=== PATIENT | female | born 1960 | race Caucasian/White ===

== ENCOUNTER 2023-07-16 18:18 | Emergency (ER) | payer OTHER, SELFPAY ==
[2023-07-16 18:22] VITALS: BP 147/94; PULSE 102; RESP 18; TEMP 37; O2SAT 98; BMI 23.1
--- NOTE | 2023-07-16 18:37 | CT_ITS ---
The [address] [address] Patient Name: JA MATOS MRN: [id number] date: 1960 Sex: F Assigned Patient Location: ER Current Patient Location: ER Accession/Order Number: [id number] Exam Date: 07/16/2023 20:15 Report Date: 07/16/2023 21:01 At the request of: ISAAC WEAVER Procedure: CT abdomen pelvis w con EXAM: CT scan of the abdomen and pelvis using 100 mL of IV iodinated contrast. Dose reduction technique used: Automated exposure control and/or adjustment of the mA and/or kV according to patient size and/or use of iterative reconstruction technique. REASON FOR EXAM: Left lower quadrant pain COMPARISON: CT scan dated 12/30/2020 FINDINGS: Prominent fat stranding surrounding the sigmoid colon. Prominent sigmoid colonic wall thickening. No pericolonic fluid collection or abscess. Colonic diverticulosis. Small amount of ascites. Duodenal diverticulum. Small bilateral renal cysts. Nonobstructing right calyceal tip renal stone. Hyperenhancing small right hepatic dome lesion likely represents a flash filling hemangioma. Small additional hepatic hemangiomas. Hysterectomy. Normal appendix. No free intraperitoneal air. No dilated loops of small bowel or colon. No hydronephrosis or obstructing renal or ureteral calculi. Liver, pancreas, spleen, bilateral kidneys, and bilateral adrenal glands are otherwise unremarkable. No lymphadenopathy in the abdomen or pelvis. Remainder unremarkable. CT/CT abdomen pelvis w con IMPRESSION: Acute sigmoid diverticulitis. Given the prominent associated wall thickening, recommend follow-up colonoscopy after treatment if none performed recently to exclude underlying malignancy. Electronically authenticated by: MADONNA CLARK Date: 07/16/2023 21:01
[2023-07-16 18:38] VITALS: RESP 16
--- NOTE | 2023-07-16 18:39 | ED_ITS ---
Documented by User: JAQUAN Hernández 07/16/23 21:12 HPI - Abdominal Pain General Chief Complaint: Abdominal Pain Stated Complaint: Abdominal Pain Time Seen by Provider: 07/16/23 18:37 Source: patient Mode of arrival: walk-in Limitations: no limitations History of Present Illness HPI narrative: 63-year-old female past medical history diverticulitis presents for left lower quadrant pain that got worse last night, but has had a little pain for the past week. Denies radiation of pain. She has been taking Tylenol but has improved pain. Last bowel movement yesterday. She does feel nauseous. Denies fever, back pain, dysuria, v/d Related Data Previous Rx's Medication Instructions Recorded amoxicillin 875 mg-potassium 1 tab PO Q12H 10 days #20 tabs 07/16/23 clavulanate 125 mg tablet ondansetron 4 mg disintegrating 4 mg PO Q8H 3 days #9 tabs 07/16/23 tablet Allergies Allergy/AdvReac Type Severity Reaction Status Date / Time sulfamethoxazole Allergy Severe Anaphylaxis Verified 07/16/23 18:31 [From Bactrim] trimethoprim [From Bactrim] Allergy Severe Anaphylaxis Verified 07/16/23 18:31 Review of Systems ROS Status of ROS 10 or more systems reviewed and unremarkable except as noted in history and below Exam Narrative Exam Narrative: General: A&Ox3, no distress, talking in full an complete sentences skin: warm, dry, intact head: normocephalic, atraumatic eyes: EOMI nose: nares patent neck: supple, trachea midline respiratory: non-labored extremities: FROM x 4, strength +5/5 abd: soft, LLQ tenderness neuro: A&Ox3 psych: appropriate mood and affect, cooperative Constitutional Vital Signs, click to edit/add: Last Vital Signs Temp 98.6 F 07/16/23 18:22 Pulse 82 07/16/23 20:56 Resp 16 07/16/23 20:56 BP 115/62 07/16/23 20:56 Pulse Ox 97 07/16/23 20:56 O2 Del Method Room Air 07/16/23 20:56 Course Vital Signs Vital signs: Vital Signs Temperature 98.6 F 07/16/23 18:22 Pulse Rate 102 H 07/16/23 18:22 Respiratory Rate 18 07/16/23 18:22 Blood Pressure 147/94 H 07/16/23 18:22 Pulse Oximetry 98 07/16/23 18:22 Oxygen Delivery Method Room Air 07/16/23 18:22 Temperature 98.6 F 07/16/23 18:22 Pulse Rate 82 07/16/23 20:56 Respiratory Rate 16 07/16/23 20:56 Blood Pressure 115/62 07/16/23 20:56 Pulse Oximetry 97 07/16/23 20:56 Oxygen Delivery Method Room Air 07/16/23 20:56 MDM - Abdominal Pain MDM Narrative Medical decision making narrative: Patient medicated with Toradol and Zofran. WBC 14.7. Potassium 2.9 and will be given 40 orally and 10 IV. No other significant abnormalities. Final read of CT abdomen pelvis with contrast shows acute sigmoid diverticulitis without complications. There is wall thickening and the radiologist suggest a follow-up colonoscopy after resolution of symptoms to rule out malignancy. She is given her first dose of Augmentin here and provided prescription for Augmentin and Zofran. She is to follow-up with family doctor and GI. Dr. Byers is writing a prescription for [place]. Afebrile, not tachypneic, not tachycardic, tolerating p.o., not hypoxic, non toxic appearing and ambulating at baseline and hemodynamically stable to be d/c. answered all questions. educated on SE of meds. pt in agreement with tx. educated when to return to ER. Lab Data Labs: Lab Results 07/16/23 Range/Units 18:40 WBC 14.7 H (4.0-11.0) 10^3/uL RBC 4.84 (4.20-5.40) 10^6/uL Hgb 14.8 (12.0-16.0) g/dL Hct 42.1 (36.0-48.0) % MCV 87.0 (81.0-99.0) fL MCH 30.6 (26.7-34.0) pg MCHC 35.2 (29.9-35.2) g/dL RDW 11.6 (11.0-15.0) % Plt Count 327 (150-450) 10^3/uL MPV 9.8 (9.5-13.5) fL Neut % (Auto) 79.7 H (43.0-75.0) % Lymph % (Auto) 12.2 L (20.5-60.0) % [place] % (Auto) 6.8 (1.7-12.0) % Eos % (Auto) 0.5 L (0.9-7.0) % Baso % (Auto) 0.3 (0.2-2.0) % Neut # (Auto) 11.7 H (1.4-6.5) 10^3/uL Lymph # (Auto) 1.8 (1.2-3.8) 10^3/uL [place] # (Auto) 1.0 H (0.3-0.8) 10^3/uL Eos # (Auto) 0.1 (0.0-0.7) 10^3/uL Baso # (Auto) 0.0 (0.0-0.1) 10^3/uL Abs Immat Gran (auto) 0.08 H (0.00-0.03) 10^3/uL Imm/Tot Granulo (auto) 0.5 (0.0-0.5) % Sodium 133 L (136-145) mmol/L Potassium 2.9 L* (3.5-5.1) mmol/L Chloride 96 L (98-107) mmol/L Carbon Dioxide 27.8 (21.0-32.0) mmol/L Anion Gap 12.1 BUN 19.0 H (7.0-18.0) mg/dL Creatinine 0.85 (0.55-1.02) mg/dL Est GFR ( Amer) >60 (>=60) Est GFR (Non-Af Amer) >60 (>=60) BUN/Creatinine Ratio 22.4 Glucose 132 H (74-106) mg/dL Calcium 9.4 (8.5-10.1) mg/dL Magnesium 1.9 (1.8-2.4) mg/dL Total Bilirubin 1.1 H (0.2-1.0) mg/dL AST 7 L (15-37) U/L ALT 23 (14-59) U/L Alkaline Phosphatase 82 (46-116) U/L Total Protein 7.9 (6.4-8.2) g/dL Albumin 3.2 L (3.4-5.0) g/dL Globulin 4.7 g/dL Albumin/Globulin Ratio 0.7 Discharge Plan Discharge Chief Complaint: Abdominal Pain Clinical Impression: Diverticulitis, Hypokalemia Patient Disposition: Home, Self-Care Time of Disposition Decision: 21:08 Condition: Good Mode of Transportation: Private Vehicle Prescriptions / Home Meds: New amoxicillin-pot clavulanate 875-125 mg tablet 1 tab PO Q12H 10 Days Qty: 20 0RF ondansetron 4 mg tablet,disintegrating 4 mg PO Q8H 3 Days Qty: 9 0RF Instructions: Diverticulitis (ED), Diverticulitis Diet (ED) Additional Instructions: recommend follow up colonoscopy for the wall thickening seen on CT as suggested by the radiologist Stand Alone Forms: Portal Instructions Referrals: Maribel ALLEN [Physician] - 1 week SANJUANITA KEITA [Primary Care Provider] - 1 week Discharge Date/Time: 07/16/23 21:34 Documented by User: Dyllan Youssef MD 07/17/23 19:25 HPI - Abdominal Pain General Chief Complaint: Abdominal Pain Stated Complaint: Abdominal Pain Time Seen by Provider: 07/16/23 18:37 Related Data Previous Rx's Medication Instructions Recorded amoxicillin 875 mg-potassium 1 tab PO Q12H 10 days #20 tabs 07/16/23 clavulanate 125 mg tablet ondansetron 4 mg disintegrating 4 mg PO Q8H 3 days #9 tabs 07/16/23 tablet Allergies Allergy/AdvReac Type Severity Reaction Status Date / Time sulfamethoxazole Allergy Severe Anaphylaxis Verified 07/16/23 18:31 [From Bactrim] trimethoprim [From Bactrim] Allergy Severe Anaphylaxis Verified 07/16/23 18:31 Exam Constitutional Vital Signs, click to edit/add: Last Vital Signs Temp 98.6 F 07/16/23 18:22 Pulse 82 07/16/23 20:56 Resp 16 07/16/23 20:56 BP 115/62 07/16/23 20:56 Pulse Ox 97 07/16/23 20:56 O2 Del Method Room Air 07/16/23 20:56 Course Vital Signs Vital signs: Vital Signs Temperature 98.6 F 07/16/23 18:22 Pulse Rate 102 H 07/16/23 18:22 Respiratory Rate 18 07/16/23 18:22 Blood Pressure 147/94 H 07/16/23 18:22 Pulse Oximetry 98 07/16/23 18:22 Oxygen Delivery Method Room Air 07/16/23 18:22 Temperature 98.6 F 07/16/23 18:22 Pulse Rate 82 07/16/23 20:56 Respiratory Rate 16 07/16/23 20:56 Blood Pressure 115/62 07/16/23 20:56 Pulse Oximetry 97 07/16/23 20:56 Oxygen Delivery Method Room Air 07/16/23 20:56 MDM - Abdominal Pain MDM Narrative Medical decision making narrative: Patient medicated with Toradol and Zofran. WBC 14.7. Potassium 2.9 and will be given 40 orally and 10 IV. No other significant abnormalities. Final read of CT abdomen pelvis with contrast shows acute sigmoid diverticulitis without complications. There is wall thickening and the radiologist suggest a follow-up colonoscopy after resolution of symptoms to rule out malignancy. She is given her first dose of Augmentin here and provided prescription for Augmentin and Zofran. She is to follow-up with family doctor and GI. Dr. Byers is writing a prescription for [place]. Afebrile, not tachypneic, not tachycardic, tolerating p.o., not hypoxic, non toxic appearing and ambulating at baseline and hemodynamically stable to be d/c. answered all questions. educated on SE of meds. pt in agreement with tx. educated when to return to ER. Patient was seen and evaluated by Josefina Reynoso RN and Dr Byers, not Dr Youssef. Lab Data Labs: Lab Results 07/16/23 Range/Units 18:40 WBC 14.7 H (4.0-11.0) 10^3/uL RBC 4.84 (4.20-5.40) 10^6/uL Hgb 14.8 (12.0-16.0) g/dL Hct 42.1 (36.0-48.0) % MCV 87.0 (81.0-99.0) fL MCH 30.6 (26.7-34.0) pg MCHC 35.2 (29.9-35.2) g/dL RDW 11.6 (11.0-15.0) % Plt Count 327 (150-450) 10^3/uL MPV 9.8 (9.5-13.5) fL Neut % (Auto) 79.7 H (43.0-75.0) % Lymph % (Auto) 12.2 L (20.5-60.0) % [place] % (Auto) 6.8 (1.7-12.0) % Eos % (Auto) 0.5 L (0.9-7.0) % Baso % (Auto) 0.3 (0.2-2.0) % Neut # (Auto) 11.7 H (1.4-6.5) 10^3/uL Lymph # (Auto) 1.8 (1.2-3.8) 10^3/uL [place] # (Auto) 1.0 H (0.3-0.8) 10^3/uL Eos # (Auto) 0.1 (0.0-0.7) 10^3/uL Baso # (Auto) 0.0 (0.0-0.1) 10^3/uL Abs Immat Gran (auto) 0.08 H (0.00-0.03) 10^3/uL Imm/Tot Granulo (auto) 0.5 (0.0-0.5) % Sodium 133 L (136-145) mmol/L Potassium 2.9 L* (3.5-5.1) mmol/L Chloride 96 L (98-107) mmol/L Carbon Dioxide 27.8 (21.0-32.0) mmol/L Anion Gap 12.1 BUN 19.0 H (7.0-18.0) mg/dL Creatinine 0.85 (0.55-1.02) mg/dL Est GFR ( Amer) >60 (>=60) Est GFR (Non-Af Amer) >60 (>=60) BUN/Creatinine Ratio 22.4 Glucose 132 H (74-106) mg/dL Calcium 9.4 (8.5-10.1) mg/dL Magnesium 1.9 (1.8-2.4) mg/dL Total Bilirubin 1.1 H (0.2-1.0) mg/dL AST 7 L (15-37) U/L ALT 23 (14-59) U/L Alkaline Phosphatase 82 (46-116) U/L Total Protein 7.9 (6.4-8.2) g/dL Albumin 3.2 L (3.4-5.0) g/dL Globulin 4.7 g/dL Albumin/Globulin Ratio 0.7 Discharge Plan Discharge Chief Complaint: Abdominal Pain Clinical Impression: Diverticulitis, Hypokalemia Patient Disposition: Home, Self-Care Time of Disposition Decision: 21:08 Condition: Good Mode of Transportation: Private Vehicle Prescriptions / Home Meds: New amoxicillin-pot clavulanate 875-125 mg tablet 1 tab PO Q12H 10 Days Qty: 20 0RF ondansetron 4 mg tablet,disintegrating 4 mg PO Q8H 3 Days Qty: 9 0RF Instructions: Diverticulitis (ED), Diverticulitis Diet (ED) Additional Instructions: recommend follow up colonoscopy for the wall thickening seen on CT as suggested by the radiologist Stand Alone Forms: Portal Instructions Referrals: Maribel ALLEN [Physician] - 1 week SANJUANITA KEITA [Primary Care Provider] - 1 week Discharge Date/Time: 07/16/23 21:34
[2023-07-16 18:40] VITALS: O2SAT 97
[2023-07-16 18:53] LABS: Basophils Percent Auto 0.3 % (0.2-2.0); Eosinophils Absolute Auto 0.1 10^3/uL (0.0-0.7); Eosinophils Percent Auto 0.5 % (0.9-7.0); Hematocrit 42.1 % (36.0-48.0); Hemoglobin 14.8 g/dL (12.0-16.0); Immature Granulocytes Abs Auto 0.08 10^3/uL (0.00-0.03); Immature Granulocytes Pct Auto 0.5 % (0.0-0.5); Lymphocytes Absolute Auto 1.8 10^3/uL (1.2-3.8); Lymphocytes Percent Auto 12.2 % (20.5-60.0); Mean Corpuscular HGB Conc 35.2 g/dL (29.9-35.2); Mean Corpuscular Hemoglobin 30.6 pg (26.7-34.0); Mean Platelet Volume 9.8 fL (9.5-13.5); Monocytes Percent Auto 6.8 % (1.7-12.0); Neutrophils Absolute Auto 11.7 10^3/uL (1.4-6.5); Neutrophils Percent Auto 79.7 % (43.0-75.0); Platelet Count 327 10^3/uL (150-450); Red Blood Count 4.84 10^6/uL (4.20-5.40); Red Cell Distribution Width 11.6 % (11.0-15.0); White Blood Count 14.7 10^3/uL (4.0-11.0)
[2023-07-16] MEDS: KETOROLAC TROMETHAMINE 30 MG/ML VIAL 15 MG IVP (18:59)
[2023-07-16] MEDS: ONDANSETRON PF 4 MG/2 ML VIAL IV (19:00)
[2023-07-16 19:08] LABS: Alanine Aminotransferase 23 U/L (14-59); Albumin Globulin Ratio 0.7; Albumin Level 3.2 g/dL (3.4-5.0); Alkaline Phosphatase 82 U/L (46-116); Anion Gap 12.1; Aspartate Amino Transferase 7 U/L (15-37); BUN Creatinine Ratio 22.4; Bilirubin Total 1.1 mg/dL (0.2-1.0); Calcium 9.4 mg/dL (8.5-10.1); Carbon Dioxide 27.8 mmol/L (21.0-32.0); Chloride 96 mmol/L (98-107); Estimated GFR (African America >60 (>=60); Estimated GFR (Non-African Ame >60 (>=60); Globulin 4.7 g/dL; Glucose 132 mg/dL (74-106); Magnesium 1.9 mg/dL (1.8-2.4); Sodium 133 mmol/L (136-145); Total Protein 7.9 g/dL (6.4-8.2)
[2023-07-16 19:12] LABS: Potassium 2.9 mmol/L (3.5-5.1)
[2023-07-16] MEDS: 0.9 % SODIUM CHLORIDE 1,000 ML 1000 ML IV (19:40)
[2023-07-16] MEDS: POTASSIUM CHLORIDE IN WATER 10 MEQ/100 ML PIGGYBACK 100 MEQ IV (19:41)
[2023-07-16 20:56] VITALS: BP 115/62; PULSE 82; RESP 16; O2SAT 97
[2023-07-16] MEDS: AMOXICILLIN/POTASSIUM CLAV 1 TAB TABLET PO (21:24)
[2023-07-16] MEDS: POTASSIUM CHLORIDE 10 MEQ ER TABLET 40 MEQ PO ×2 (21:24→21:28)
== END 2023-07-16 21:34 | disposition home or self-care (01) ==
PROVIDERS: Physician Assistant; Emergency Provider Emergency Medicine; PCP Family Medicine
DX: K57.32 Diverticulitis of large intestine without perforation or abscess without bleeding (principal); E87.6 Hypokalemia
CPT/HCPCS: 36415; 74177; 80053; 81001; 83735; 85025; 96365; 96375; 99284; Q9967

== ENCOUNTER 2023-09-26 14:03 | Emergency (ER) | payer OTHER, SELFPAY ==
[2023-09-26 14:09] VITALS: BP 117/93; PULSE 92; RESP 16; TEMP 37; O2SAT 99; BMI 24.0
--- NOTE | 2023-09-26 14:22 | XR_ITS ---
The [address] [address] Patient Name: JA MATOS MRN: [id number] date: 1960 Sex: F Assigned Patient Location: ER Current Patient Location: ER Accession/Order Number: [id number] Exam Date: 09/26/2023 14:55 Report Date: 09/26/2023 15:24 At the request of: RUBEN CHOUDHURY Procedure: XR lumbar spine 2-3V EXAMINATION: XR lumbar spine 2-3V HISTORY: Low back pain COMPARISON: No relevant comparison available. FINDINGS: BONES: Mild widespread spondylosis and facet osteoarthritis. No visible acute bony abnormality. DISC SPACES: Moderate disc space narrowing L5-S1 with endplate sclerosis and vacuum disc PARASPINOUS: Negative. No paraspinous abnormality is seen. OTHER: Metallic foreign body projects over the L3 vertebral body likely outside the patient is this is not seen on the frontal projection XR/XR lumbar spine 2-3V IMPRESSION: Degenerative changes most significant at L5-S1 Electronically authenticated by: PLACIDO PELAYO Date: 09/26/2023 15:24
--- NOTE | 2023-09-26 14:23 | ED_ITS ---
HPI - Back Pain/Injury General Chief Complaint: Back Pain/Injury Stated Complaint: BACK INJURY Time Seen by Provider: 09/26/23 14:06 Mode of arrival: walk-in Limitations: no limitations History of Present Illness HPI Narrative: Patient is a 63-year-old female who presents to the emergency department with her for the evaluation of low back pain for the last week. Patient states she was going to do her colon prep for colonoscopy and was going to lift a space heater into the bathroom when she felt a pull in the low back. She states she was diagnosed with a bulging disc approximately 20 years ago but has not had any chronic issues or surgeries for her lumbar spine. She denies any falls or direct injury to the low back. She states pain is across the lumbar spine into the paraspinal muscles as well as into the hips. She denies any pain radiation into the legs, no peripheral paresthesias or incontinence. She has been using Tylenol, ibuprofen, lidocaine patches without improvement and she states she took 2 pain pills today that were leftover from a previous prescription for diverticulitis. Related Data Home Medications Medication Instructions Recorded Confirmed alprazolam 0.25 mg tablet 0.25 mg PO BEDTIME 09/26/23 09/26/23 balsalazide 750 mg capsule 2,250 mg PO BID 09/26/23 09/26/23 dextroamphetamine-amphetamine ER 40 mg PO DAILY 09/26/23 09/26/23 20 mg 24hr capsule,extend release hydrochlorothiazide 25 mg tablet 25 mg PO DAILY 09/26/23 09/26/23 omeprazole 40 mg capsule,delayed 40 mg PO BID 09/26/23 09/26/23 release potassium bicarbonate-citric acid 25 meq PO BID 09/26/23 09/26/23 25 mEq effervescent tablet (Klor-Con/EF) Previous Rx's Medication Instructions Recorded amoxicillin 875 mg-potassium 1 tab PO Q12H 10 days #20 tabs 07/16/23 clavulanate 125 mg tablet ondansetron 4 mg disintegrating 4 mg PO Q8H 3 days #9 tabs 07/16/23 tablet hydrocodone 5 mg-acetaminophen 325 1 tab PO Q6H PRN pain #12 tabs 09/26/23 mg tablet methocarbamol 750 mg tablet 750 mg PO TID PRN pain #20 tabs 09/26/23 methylprednisolone 4 mg tablets in See Rx Instructions .Route 09/26/23 a dose pack (Medrol (Hipolito)) .COMPLEX #21 ea Allergies Allergy/AdvReac Type Severity Reaction Status Date / Time sulfamethoxazole Allergy Severe Anaphylaxis Verified 07/16/23 18:31 [From Bactrim] trimethoprim [From Bactrim] Allergy Severe Anaphylaxis Verified 07/16/23 18:31 Review of Systems ROS Constitutional Denies: fever or chills Cardiovascular Denies: chest pain Respiratory Denies: shortness of breath Gastrointestinal Denies: abdominal pain, nausea, vomiting or diarrhea Genitourinary Denies: painful urination Musculoskeletal Reports: back pain; Denies: neck pain, extremity pain or extremity swelling Integumentary/Breast Denies: rash Neurological Denies: headache Endocrine Denies: excessive urination PFSH [facility] Social History Smoking status: Former smoker Exam Narrative Exam Narrative: Gen.: Awake, alert, in no distress Head: Normocephalic, atraumatic ENT: Moist mucous membranes Respiratory: No respiratory distress Back: No bony point tenderness of the T-spine or L-spine with diffuse tenderness of the paraspinal muscles of the lumbar spine. No obvious deformity or step-off Extremities: Moves extremities equally, no injuries noted; normal dorsiflexion and plantarflexion of the lower extremities with no decrease in sensation to the medial thighs Psych: Normal mood and affect Neuro: No focal neuro deficit Skin: Warm, dry, intact Constitutional Vital Signs, click to edit/add: Last Vital Signs Temp 98.6 F 09/26/23 14:09 Pulse 92 H 09/26/23 14:09 Resp 16 09/26/23 14:09 BP 117/93 H 09/26/23 14:09 Pulse Ox 99 09/26/23 14:09 Course Vital Signs Vital signs: Vital Signs Temperature 98.6 F 09/26/23 14:09 Pulse Rate 92 H 09/26/23 14:09 Respiratory Rate 16 09/26/23 14:09 Blood Pressure 117/93 H 09/26/23 14:09 Pulse Oximetry 99 09/26/23 14:09 Temperature 98.6 F 09/26/23 14:09 Pulse Rate 92 H 09/26/23 14:09 Respiratory Rate 16 09/26/23 14:09 Blood Pressure 117/93 H 09/26/23 14:09 Pulse Oximetry 99 09/26/23 14:09 MDM - Back Pain/Injury MDM Narrative Medical decision making narrative: Patient medicated with Toradol, Norflex, Percocet in the ER. She ambulated with a walker to x-ray. X-rays reviewed by the radiologist showing degenerative changes with no process that is acute in the lumbar spine. Patient will be placed on medication for lumbosacral strain for home. She has a normal neuro exam with no evidence of focal deficits. Rest, ice, gentle stretching. Follow- up PCP and return to the ER if symptoms change or worsen. Medical Records Attestation: I reviewed the patient's medical records. Imaging Data XR lumbar spine: Attestation: I have reviewed the pertinent imaging results. Radiologist's impression: Procedure: XR lumbar spine 2-3V EXAMINATION: XR lumbar spine 2-3V HISTORY: Low back pain COMPARISON: No relevant comparison available. FINDINGS: BONES: Mild widespread spondylosis and facet osteoarthritis. No visible acute bony abnormality. DISC SPACES: Moderate disc space narrowing L5-S1 with endplate sclerosis and vacuum disc PARASPINOUS: Negative. No paraspinous abnormality is seen. OTHER: Metallic foreign body projects over the L3 vertebral body likely outside the patient is this is not seen on the frontal projection IMPRESSION: Degenerative changes most significant at L5-S1 Electronically authenticated by: PLACIDO PELAYO Date: 09/26/2023 15:24 Discharge Plan Discharge Chief Complaint: Back Pain/Injury Clinical Impression: Low back pain, Lumbosacral strain Patient Disposition: Home, Self-Care Time of Disposition Decision: 15:41 Condition: Good Prescriptions / Home Meds: New hydrocodone-acetaminophen 5-325 mg tablet 1 tab PO Q6H PRN (Reason: pain) Qty: 12 0RF Rx Instructions: DX: M54.5 methylprednisolone [Medrol (Hipolito)] 4 mg tablets,dose pack See Rx Instructions .ROUTE .COMPLEX Qty: 21 0RF Rx Instructions: Taper as directed methocarbamol 750 mg tablet 750 mg PO TID PRN (Reason: pain) Qty: 20 0RF No Action alprazolam 0.25 mg tablet 0.25 mg PO BEDTIME balsalazide 750 mg capsule 2,250 mg PO BID dextroamphetamine-amphetamine 20 mg capsule,extended release 24hr 40 mg PO DAILY hydrochlorothiazide 25 mg tablet 25 mg PO DAILY omeprazole 40 mg capsule,delayed release(DR/EC) 40 mg PO BID Klor-Con/EF 25 mEq tablet, effervescent 25 meq PO BID amoxicillin-pot clavulanate 875-125 mg tablet 1 tab PO Q12H 10 Days Qty: 20 0RF ondansetron 4 mg tablet,disintegrating 4 mg PO Q8H 3 Days Qty: 9 0RF Instructions: Low Back Strain (ED), Acute Low Back Pain (ED) Stand Alone Forms: Portal Instructions Referrals: SANJUANITA KEITA [Primary Care Provider] - 1 week
[2023-09-26] MEDS: OXYCODONE HCL/ACETAMINOPHEN 5MG/325MG 1 TAB PO (14:36)
[2023-09-26] MEDS: KETOROLAC TROMETHAMINE 60 MG/2 ML VIAL IM (14:37)
[2023-09-26] MEDS: ORPHENADRINE 60 MG/ 2 ML VIAL IM (14:37)
== END 2023-09-26 15:50 | disposition home or self-care (01) ==
PROVIDERS: Emergency Provider Emergency Medicine; PCP Family Medicine
DX: S39.012A Strain of muscle, fascia and tendon of lower back, initial encounter (principal); X50.9XXA Other and unspecified overexertion or strenuous movements or postures, initial encounter; Z79.899 Other long term (current) drug therapy; Z87.891 Personal history of nicotine dependence
CPT/HCPCS: 72100; 96372; 99284

== ENCOUNTER 2023-12-06 10:25 | Outpatient (OUT) | payer OTHER, SELFPAY ==
--- NOTE | 2023-12-06 10:30 | XR_ITS ---
The [address] [address] Patient Name: JA MATOS MRN: [id number] date: 1960 Sex: F Assigned Patient Location: [facility] Current Patient Location: [facility] Accession/Order Number: [id number] Exam Date: 12/06/2023 10:35 Report Date: 12/06/2023 10:55 At the request of: INEZ CASE Procedure: XR abdomen 1V EXAMINATION: XR abdomen 1V HISTORY: Kidney Stone N20.0 COMPARISON: No relevant comparison available. FINDINGS: KIDNEY/URETER - RIGHT: No visible renal or ureteral calcifications. KIDNEY/URETER - LEFT: No visible renal or ureteral calcifications. PELVIS: No visible ureteral stones. Stable pelvic calcifications compatible with phleboliths. BOWEL: No abnormal dilation or deviation. BONES: No acute abnormality. OTHER: Negative. No abnormal gaseous collections. XR/XR abdomen 1V IMPRESSION: 1. No appreciable urinary tract calculi. Electronically authenticated by: ANNMARIE BINGHAM Date: 12/06/2023 10:55
--- OUTSIDE RECORDS SUMMARY | 2023-12-06 10:40 | XMS_ITS | CCD ---
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 Role Phone Andrea Gunter Unavailable GLENNA KEITA Primary Care Physician MD Andres JONES Attending Unavailable MD Andres JONES Attending Unavailable NEELA, DR GLENNA Perez Primary Care Unavailable YAHAIRA, DR PARAS Ruano Admitting Unavailable YAHAIRA, DR PARAS Ruano Attending Unavailable YAHAIRA, DR PARAS Ruano Consulting Unavailable GIULIA GERMAIN Consulting Unavailable MANPREET ., DR WILEY Admitting Unavailable MANPREET ., DR WILEY Attending Unavailable NEELA, DR GLENNA Perez Primary Care Unavailable MANPREET ., DR WILEY Consulting Unavailable ZACHERY, DR ANNMARIE Ruano Consulting Unavailable MD Glenna Keita Primary Care Provider [phone] MD Andrea Gunter Attending Provider PUMP, PRECIOUS Attending Unavailable PUMP, PRECIOUS Referring Unavailable Glenna Keita Primary Care Unavailable Andrea Gunter Attending Unavailabl e Andrea Gunter Admitting Unavailabl e Allergies Allergy Classification Reported Allergen(s) Allergy Type Date of Onset Reaction(s) Facility (7 sources) Sulfamethoxazole / Trimethoprim Drug Allergy Unknown [place] [facility] Other (1 source) Sulfonamides (Antibiotic); Translations: [sulfa drugs] Drug allergy Feeling of throat tightness (finding) [facility] Comment on above: hives mild to modera te and throat closes (1 source) Sulfonamides (Antibiotic); Translations: [sulfa drugs] Propensity to adverse reactions (disorder) [facility] Repository (1 source) Sulfamethoxazole / Trimethoprim Drug Allergy 10-20-20 13 [facility] Repository (2 sources) Sulfamethoxazole; Translations: [sulfamethoxazole] Drug Allergy 07-12-20 20 Swelling of Lip/Tongue/Thr oat [facility] (2 sources) Trimethoprim; Translations: [trimethoprim] Drug Allergy 07-12-20 20 Swelling of Lip/Tongue/Thr oat [facility] Medications Current Medications Medication Drug Class(es) Dates Sig (Normalized) Sig (Original) ALPRAZolam 0.25 mg oral tablet (9 sources) Benzodiazepine Start: 07-12-2020 alprazolam 0.25 mg Tab Refills(s) 0 Start Date: 12/08/22 Status: Ordered ALPRAZolam PRN A ctive ALPRAZolam Activ e Amphetamine / Dextroamphetamine (1 source) Central Nervous System Stimulant Start: 08-25-2019 take 1 mg by mouth twice daily Adderall 20 mg oral tablet mg, tab(s), Oral, BID, Refill(s) 0 Start Date: 08/25/19 Status: Ordered amphetamine aspartate 5 mg / amphetamine sulfate 5 mg / dextroamphetamine saccharate 5 mg / dextroamphetamine sulfate 5 mg oral tablet (8 sources) Central Nervous System Stimulant Start: 07-12-2020 take 20 mg by mouth once daily Dextroamphetamin e-Amphetamine Active 20 MG PO Daily July 11, 2020 11:00pm take 2 tablets by [facility] every twenty-four hours Adderall 20 MG 2 tablets Orally Once a day Active balsalazide disodium 750 mg oral capsule (1 source) Aminosalicylate Start: 09-18-2023 take 2250 mg by mouth twice daily Balsalazide Active 2250 MG PO Twice daily 180 September 18, 2023 12:00am cholecalciferol 0.125 mg oral tablet (1 source) Vitamin D Start: 07-12-2020 take 1 tablet by mouth once daily Cholecalciferol (Vitamin D3) (Vitamin D3) 125 mcg (5,000 unit) Tablet Active 125 MCG PO Daily July 11, 2020 11:00pm Effer-K 25 mEq oral tablet, effervescent (1 source) Start: 12-05-2021 take 1 tablet by mouth twice daily Effer-K 25 mEq oral tablet, effervescent See Instructions, Take one tab bid, # 60 tab(s), Refills(s) 11, Pharmacy: [facility], 165, cm, 12/05/21 12:42:00 EST, Height/Length Dosing, 70, kg, 12/05/21 12:42:00 EST, Weight Dosing Start Date: 12/05/21 Status: Ordered estradiol 0.1 mg/ml vaginal cream (7 sources) Estrogen Estrace 0.1 MG/G M Vaginal Active Estrace 0.1 MG/G M Vaginal Active hydroCHLOROthiazide 25 mg oral tablet (2 sources) Thiazide Diuretic Start: 04-19-2022 take 1 tablet by mouth once daily hydrochlorothiazide 25 mg oral tablet 25 mg = 1 tab(s), Oral, Daily, # 90 tab(s), Refills(s) 3, Pharmacy: [address], 165, cm, 12/05/21 12:42:00 EST, Height/Length Dosing, 70, kg, 12/05/21 12:42:00 EST, Weight Dosing Start Date: 04/19/22 Status: Ordered Start: 07-12-2020 take 25 mg by mouth once daily Hydrochlorothiazide Active 25 MG PO Daily July 11, 2020 11:00pm Hydrochlorothiazide-12.5 mg (7 sources) Hydrochlorothiaz gabi-12.5 mg Active melatonin 3 mg oral tablet (1 source) Star t: 06-23 take 1.5 mg by mouth at bedtime Melatonin Active 1.5 MG PO Bedtime July 11, 2020 11:00pm Nature's Bounty Probiotic (1 source) Star t: 03-10 Nature's Bounty Probiotic Oral, Daily, Refill(s) 0 Start Date: 12/24/20 Status: Ordered Omeprazole (9 sources) Proton Pump Inhibitor Star t: 0 03-10 21 omeprazole Oral, Daily, Refills(s) 0 Start Date: 12/24/20 Status: Ordered Start: 07-12-2020 take 20 mg by mouth once daily Omeprazole Active 20 MG PO Daily July 11, 2020 11:00pm take 1 capsule by mo uth every twenty-four hours Omeprazole 40 MG 1 capsule Orally Once a day for 30 days Active take 1 capsule by mo uth every twelve hours Omeprazole 40 MG 1 capsule Orally TWICE A DAY for 30 days Active ondansetron 4 mg disintegrating oral tablet (1 source) Serotonin-3 Receptor Antagonist Start: 09-18-2023 take 4 mg by mouth every four hours Ondansetron Active 4 MG PO Q4H September 18, 2023 12:00am Potassium Bicarb-Citric Acid (7 sources) Potassium Bicarb-Citric Acid twice a day Active Potassium Bicarb -Citric Acid Active potassium bicarbonate 25 meq effervescent oral tablet (1 source) Start: 07-12-2020 take 25 mEq by mouth twice daily Potassium Bicarb-Citric Acid Active 25 MEQ PO Twice daily July 11, 2020 11:00pm Psyllium (1 source) Start: 12-24-2020 Metamucil Oral , Refills(s) 0 Start Date: 12/24/20 Status: Ordered Trulance 3 MG (1 source) Start: 01-04-2022 take 1 tablet by mouth once daily Trulance 3 MG 1 tablet Orally Once a day for 30 day(s) Dec, Active Vaginal Cream Applicator (1 source) Start: 07-12-2020 Vaginal Cream Applicator Active EACH MISCELLANE July 11, 2020 11:00pm Completed/Discontinued Medications Medication Drug Class(es) Dates Sig (Normalized) Sig (Original) ascorbic acid 1000 mg oral tablet (1 source) Vitamin C Start: 07-12-2020 End: 09-18-2023 take 1 g by mouth once daily Ascorbic Acid (Vitamin C) (Vitamin C) 1,000 mg Tablet Discontinued 1 GM PO Daily July 11, 2020 11:00pm September 18, 2023 7:40am folic acid 0.8 mg oral tablet (1 source) Start: 07-12-2020 End: 09-18-2023 take 1000 ug by mouth once daily Folic Acid Discontinued 1000 MCG PO Daily July 11, 2020 11:00pm September 18, 2023 7:40am Methylcellulose (6 sources) Citrucel Orally Not-Taking Citrucel Orally Active Problems Problem Classification Problem Date Documented Da te Episodic/Chronic Abdominal hernia (1 source) Diaphragmatic hernia without obstruction or gangrene Episodic Abdominal pain (6 sources) Flank pain; Translations: [Suprapubic pain] Onset: 2 02-23-2020 Episodic Anxiety disorders (1 source) Anxiety disorder, unspecified; Translations: [ANXIETY DISORDER UNSPECIFIED] Onset: 3 Chronic Calculus of urinary tract (7 sources) Kidney stone; Translations: [Calculus of kidney] Onset: 3 Episodic Diverticulosis and diverticulitis (5 sources) Diverticulitis; Translations: [Diverticular disease] 05-07-2019 Chronic Esophageal disorders (2 sources) Gastro-esophageal reflux disease without esophagitis; Translations: [Gastroesophageal reflux disease] Onset: 3 07-13-2020 Chronic Genitourinary symptoms and ill-defined conditions (2 sources) Post-micturition incontinence ; Translations: [Urge incontinence of urine] 08-25-2019 Chronic Genitourinary symptoms and ill-defined conditions (8 sources) Urgent desire to urinate; Translations: [Urgency of urination] Onset: 3 Episodic Hemorrhoids (1 source) Unspecified hemorrhoids Episodic Menstrual disorders (1 source) Dysmenorrhea 05-07-2019 Chronic Other aftercare (1 source) Other technician terminal and repeater (current) drug therapy; Translations: [OTH WATCHER AUTOMAT [employer] GOODS CURRENT DRUG THERAPY] Onset: 3 Episodic Other and unspecified benign neoplasm (7 sources) Benign neoplasm of ascending colon; Translations: [Benign neoplasm of ascending colon] Episodic Other and unspecified benign neoplasm (1 source) Benign neoplasm of colon, unspecified Episodic Other disorders of stomach and duodenum (7 sources) Indigestion; Translations: [Functional dyspepsia] Episodic Other disorders of stomach and duodenum (5 sources) Functional dyspepsia Onset: 1 Resolved: 2 Episodic Other gastrointestinal disorders (6 sources) Irritable bowel syndrome characterized by constipation; Translations: [Irritable bowel syndrome with constipation] Chronic Other gastrointestinal disorders (3 sources) Irritable bowel syndrome with constipation Onset: 2 Resolved: 2 Chronic Other gastrointestinal disorders (7 sources) Heartburn; Translations: [Heartburn] Episodic Other gastrointestinal disorders (7 sources) Constipation; Translations: [Constipation, unspecified] Episodic Other liver diseases (1 source) Liver cyst 05-07-2019 Chronic Regional enteritis and ulcerative colitis (1 source) Intestinal obstruction due to colonic inflammatory polyps 05-07-2019 Chronic Residual codes; unclassified (7 sources) Family history of malignant neoplasm of gastrointestinal tract; Translations: [Family history of malignant neoplasm of digestive organs] Episodic Residual codes; unclassified (1 source) Family history of cancer of colon; Translations: [Family history of malignant neoplasm of digestive organs] 07-13-2020 Episodic Residual codes; unclassified (2 sources) Family history of malignant neoplasm of digestive organs; Translations: [Family history of malignant neoplasm of gastrointestinal tract] Onset: 3 09-18-2023 Episodic Screening and history of mental health and substance abuse codes (1 source) Tobacco use and exposure - finding 02-23-2020 Chronic Screening and history of mental health and substance abuse codes (1 source) Personal history of nicotine dependence; Translations: [PERSONAL HISTORY OF NICOTINE DEPEND] Onset: 3 Episodic Results Test Name Value Interpretation Reference Range Facility BI MAMMOGRAM SCREENING TOMOS YNTHESIS BILATERALon 10-10-2023 BI MAMMOGRAM SCREENING TOMOSYNTHESIS BILATERAL This is a summary report. The complete report is available in the patient's medical record. If you cannot access the medical record, please contact the sending organization for a detailed fax or copy. EXAMINATION: BI MAMMOGRAM SCREENING TOMOSYNTHESIS BILATERAL CLINICAL HISTORY: breast cancer screening COMPARISON: July 25, 2022 and July 22, 2021. RESULT: Digital mammography and 3D tomosynthesis of bilateral breasts was performed. There are scattered areas of fibroglandular density. There is no suspicious mass, asymmetry, architectural distortion, or calcification. Typically benign calcifications. Overall appearance stable. IMPRESSION: BIRADS 2 - Benign. Follow-up: Routine Screening Mamm . Board Certified Radiologists. Accredited by the ACR and FDA. MAMMOGRAPHY IS VERY IMPORTANT TO YOUR HEALTH. THE [place] GUIDELINES RECOMMEND THAT WOMEN 40 YEARS OF AGE AND OLDER SHOULD HAVE A MAMMOGRAM EVERY YEAR. A REMINDER LETTER WILL BE SENT AT THE APPROPRIATE TIME. THIS FACILITY UTILIZES A REMINDER SYSTEM TO ENSURE ALL PATIENTS RECEIVE REMINDER NOTIFICATIONS AT THE APPROPRIATE TIME BASED ON THE RECOMMENDATIONS OF THIS EXAM. THIS INCLUDES REMINDERS FOR ROUTINE SCREENING MAMMOGRAMS, DIAGNOSTIC MAMMOGRAMS IN WHICH THE PATIENT IS ASKED TO RETURN FOR ADDITIONAL VIEWS, OR OTHER BREAST IMAGING INTERVENTIONS WHEN APPROPRIATE. THE PATIENT WILL BE PLACED IN THE APPROPRIATE REMINDER SYSTEM INCLUDING A REMINDER AT THE APPROPRIATE TIME FOR ANY PENDING ADDITIONAL VIEWS. TRANSCRIBED BY: ELECTRONICALLY SIGNED BY: Zane Quinteros MD Normal Not Available Neel 09-18-2023 L ---- Specimen: [id number] Received: 09/18/23 Status: CHARY [place] Num: [id number] Spec Type: Surgical Subm Dr: Andrea Gutner MD Tissues: A Stomach - Biopsy/Polyp (ANTRUM) B Duodenum - Biopsy (DUODENAL BX) C Colon Biopsy (DESC) D Colon Biopsy (SIGMOID) Procedures: HE/8, Gross/Micro L4/4 Age/ Patient Sex Location Account Attending Physician Ja Schwab 63/F [id number] Andrea Gunter MD SPEC NUM: [id number] RECD: 09/18/23 STATUS: [facility] [place] NUM: [id number] MARY: 09/18/23- JEM DR: Andrea Gunter MD ENTERED: 09/18/[address] [facility] [address]: SPEC TYPE: Surgical DEPT: S ORDERED: , Gross/Micro L4/4 ORDERED: , Gross/Micro L4/4 Pathological Diagnosis A. Stomach, antrum, biopsy: - Gastric antral gland mucosa with mild chronic nonspecific gastritis - Negative for intestinal metaplasia or dysplasia - Negative for H. pylori (H E stained slides) B. Duodenum, biopsy: - Duodenal mucosa within normal limits C. Colon, descending, polyp, biopsy: - Tubular adenoma D. Colon, sigmoid, biopsy: - Benign colonic mucosa with hyperplastic changes Specimen: [id number] Received: 09/18/23 Status: CHARY [facility] Num: [id number] Spec Type: Surgical Subm Dr: Andrea Gunter MD Tissues: A Stomach - Biopsy/Polyp (ANTRUM) B Duodenum - Biopsy (DUODENAL BX) C Colon Biopsy (DESC) D Colon Biopsy (SIGMOID) Procedures: , Gross/Micro L4/4 Patient: Ja Schwab [id number] (Continued) Specimen: [id number] Received: 09/18/23 (Continued) Signed (signature on file) Fish Girard MD 09/20/23 1042 Specimen: [id number] Received: 09/18/23 Status: CHARY [facility] Num: [id number] Spec Type: Surgical Subm Dr: Andrea Gunter MD Tissues: A Stomach - Biopsy/Polyp (ANTRUM) B Duodenum - Biopsy (DUODENAL BX) C Colon Biopsy (DESC) D Colon Biopsy (SIGMOID) Procedures: HE/Curry, Gross/Micro L4/4 Patient: Ja Schwab [id number] (Continued) Specimen: [id number] Received: 09/18/23 (Continued) Clinical Information Abdomen pain, GERD, rule out sprue Gross Description A. Received in formalin labeled with the patient's name, date of and antrum biopsy is one narayan tissue measuring 0.4 x 0.2 x 0.1 cm. Entirely submitted in one cassette labeled A1. B. Received in formalin labeled with the patient's name, date of and duodenal biopsy are two narayan tissues measuring 0.1 cm and 0.3 x 0.2 x 0.2 cm. Entirely submitted in one cassette labeled B1. C. Received in formalin labeled with the patient's name, date of and polyp descending colon is one narayan tissue measuring 1.0 x 0.4 x 0.3 cm. Entirely submitted in one cassette labeled C1. D. Received in formalin labeled with the patient's name, date of and sigmoid biopsy is one narayan tissue measuring 0.3 cm. Entirely submitted in one cassette labeled D1. Microscopic Description A. Two H E slides reviewed. The microscopic examination confirms the diagnosis. B. Two H E slides reviewed. The microscopic examination confirms the diagnosis. C. Two H E slides reviewed. The microscopic examination confirms the diagnosis. D. Two H E slides reviewed. The microscopic examination confirms the diagnosis. CPT Codes 09742t5 Specimen: [id number] Received: 09/18/23 Status: [facility] Num: [id number] Spec Type: Surgical Subm Dr: Andrea Gunter MD Tissues: A Stomach - Biopsy/Polyp (ANTRUM) B Duodenum - Biopsy (DUODENAL BX) C Colon Biopsy (DESC) D Colon Biopsy (SIGMOID) Procedures: HE/8, Gross/Micro L4/4 Patient: Ja Schwab [id number] (Continued) (more content not included)... [facility] Summaryon 0 12-08-2022 Ambulatory Visit Summary JA SCHWAB :1960 Visit Date:12/08/2022 Ambulatory Visit Instructions Your Diagnosis Kidney stone Nocturia Urinary urgency Tests Performed Urnls Dip Stick Auto w/o Microscopy POC 89987 XR Abdomen 1 View -- Results Pending -- Please visit your patient portal for your results or contact your primary care physician. Your Care Team Attending Physician - MANPREET BROWN, Andres Rauno Primary Care Physician - GLENNA KEITA This Is Your Medications List hydrochlorothiazide (hydrochlorothiazide 25 mg oral tablet) potassium bicarbonate (Effer-K 25 mEq oral tablet, effervescent) Contact prescribing physician if questions or concerns alprazolam (alprazolam 0.25 mg Tab) amphetamine-dextroamphet amine (Adderall 20 mg oral tablet) bifidobacterium-lactobac illus (Nature's Bounty Probiotic) omeprazole psyllium (Metamucil) [Image Removed: STOP]Stop taking these medications estradiol topical (estradiol 0.1 mg/g Vag Crm) Procedures Performed ESWL of kidney (12/30/2020), Cystoscope (06/22/2020), Cystoscopy (06/22/2020), cysto/UD (10/10/2018), RT ESWL (09/20/2017), R stent removal (02/03/2016), bladder BX/ B/L ESWL, R stent placement (01/27/2016), Cysto/UD (09/28/2015), R ESWL (09/27/2015), cysto/UD/stone basket extraction (02/01/2012), cysto/ L stent removal (10/06/2011), cysto/stone basket/ L stent placement (09/21/2011), cysto (09/11/2011), Abdominal hysterectomy and left salpingo-oophorectomy (07/22/2005), Abdominal hysterectomy and right salpingo-oophorectomy (07/22/2005). Discharge Vitals Heart Rate (Peripheral) 68 Respiratory Rate 16 Blood Pressure 122/74 Height 165 cm Height 65 in Weight 66 kg Weight 145.2 lb BMI 24.24 What to do next You Need to Schedule the Following Appointments Follow Up with MANPREET BROWN, KYLEIGH Yañez When: Where: [address] [place] [address]- Medications What How Much When Instructions Unchanged hydrochlorothiazide (hydrochlorothiazide 25 mg oral tablet) 1 Tablets By Mouth Every day Unchanged potassium bicarbonate (Effer-K 25 mEq oral tablet, effervescent) See instructions Take one tab bid Unchanged alprazolam (alprazolam 0.25 mg Tab) Contact prescribing physician if questions or concerns Unchanged amphetamine-dextroamphet amine (Adderall 20 mg oral tablet) By Mouth 2 times a day Contact prescribing physician if questions or concerns Unchanged bifidobacterium-lactobac illus (Nature's Bounty Probiotic) By Mouth Every day Contact prescribing physician if questions or concerns Unchanged omeprazole By Mouth Every day Contact prescribing physician if questions or concerns Unchanged psyllium (Metamucil) By Mouth Contact prescribing physician if questions or concerns What How Much When Comments Stop Taking estradiol topical (estradiol 0.1 mg/ g Vag Crm) 1 Gram Vaginal Sunday Apply 1gram 3x/ week and rub some around the urethra Test Results Urnls Dip Stick Auto w/o Microscopy POC 25127 (12/08/2022) Bilirubin Urine Dipstick - 1+ Small Blood Urine Dipstick - Negative Glucose Urine Dipstick - Negative Ketones Urine Dipstick - 1+ 15 mg/dl Leukocytes Urine Dipstick - 1+ Small Nitrite Urine Dipstick - Negative Protein Urine Dipstick - 1+ (30 mg/dl) Specific [place] Urine Dipstick - 1.025 Urine Appearance Urine Dipstick - Clear Urine Color Urine Dipstick - Yellow Urobilinogen Urine Dipstick - Normal 0.2-1 EU/dl pH Urine Dipstick - 5 Allergies sulfa drugs (Throat tightness) Problems Ongoing - Any problem that you are currently receiving treatment for. Flank pain Gross hematuria Kidney stone Microhematuria Nocturia Post-void dribbling Smoking hx Straining to void Suprapubic pain Urge incontinence Urinary urgency Urine frequency Historical - Any problem that you are no longer receiving treatment for. Cyst of liver Diverticulitis Dysmenorrhea Intestinal obstruction due to colonic inflammatory polyps Education Materials Kidney Stones Kidney stones are rock-like masses that form inside of the kidneys. Kidneys are organs that make pee (urine). A kidney stone may move into other parts of the urinary tract, including: ? The tubes that connect the kidneys to the bladder (ureters). ? The bladder. ? The tube that carries urine out of the body (urethra). Kidney stones can cause very bad pain and can block the flow of pee. The stone usually leaves your body (passes) through your pee. You may need to have a doctor take out the stone. What are the causes? Kidney stones may be caused by: ? A condition in which certain glands make too much parathyroid hormone (primary hyperparathyroidism). ? A buildup of a type of crystals in the bladder made of a chemical called uric acid. The body makes uric acid when you eat certain foods. ? Narrowing (stricture) of one or both of the ureters. ? A kidney blockage lucia (more content not included)... Normal [facility] Patient Educationon 12-08-19 23 Patient Education Urology Kidney Stones Kidney stones are rock-like masses that form inside of the kidneys. Kidneys are organs that make pee (urine). A kidney stone may move into other parts of the urinary tract, including: ? The tubes that connect the kidneys to the bladder (ureters). ? The bladder. ? The tube that carries urine out of the body (urethra). Kidney stones can cause very bad pain and can block the flow of pee. The stone usually leaves your body (passes) through your pee. You may need to have a doctor take out the stone. What are the causes? Kidney stones may be caused by: ? A condition in which certain glands make too much parathyroid hormone (primary hyperparathyroidism). ? A buildup of a type of crystals in the bladder made of a chemical called uric acid. The body makes uric acid when you eat certain foods. ? Narrowing (stricture) of one or both of the ureters. ? A kidney blockage that you were born with. ? Past surgery on the kidney or the ureters, such as gastric bypass surgery. What increases the risk? You are more likely to develop this condition if: ? You have had a kidney stone in the past. ? You have a family history of kidney stones. ? You do not drink enough water. ? You eat a diet that is high in protein, salt (sodium), or sugar. ? You are overweight or very overweight (obese). What are the signs or symptoms? Symptoms of a kidney stone may include: ? Pain in the side of the belly, right below the ribs (flank pain). Pain usually spreads (radiates) to the groin. ? Needing to pee often or right away (urgently). ? Pain when going pee (urinating). ? Blood in your pee (hematuria). ? Feeling like you may vomit (nauseous). ? Vomiting. ? Fever and chills. How is this treated? Treatment depends on the size, location, and makeup of the kidney stones. The stones will often pass out of the body through peeing. You may need to: ? Drink more fluid to help pass the stone. In some cases, you may be given fluids through an IV tube put into one of your veins at the hospital. ? Take medicine for pain. ? Make changes in your diet to help keep kidney stones from coming back. Sometimes, medical procedures are needed to remove a kidney stone. This may involve: ? A procedure to break up kidney stones using a beam of light (laser) or shock waves. ? Surgery to remove the kidney stones. Follow these instructions at home: Medicines ? Take [id number] and prescription medicines only as told by your doctor. ? Ask your doctor if the medicine prescribed to you requires you to avoid driving or using heavy machinery. Eating and drinking ? Drink enough fluid to keep your pee pale yellow. You may be told to drink at least 8?10 glasses of water each day. This will help you pass the stone. ? If told by your doctor, change your diet. This may include: ? Limiting how much salt you eat. ? Eating more fruits and vegetables. ? Limiting how much meat, poultry, fish, and eggs you eat. ? Follow instructions from your doctor about eating or drinking restrictions. General instructions ? Collect pee samples as told by your doctor. You may need to collect a pee sample: ? 24 hours after a stone comes out. ? 8?12 weeks after a stone comes out, and every 6?12 months after that. ? Strain your pee every time you pee (urinate), for as long as told. Use the strainer that your doctor recommends. ? Do not throw out the stone. Keep it so that it can be tested by your doctor. ? Keep all follow-up visits as told by your doctor. This is important. You may need follow-up tests. How is this prevented? To prevent another kidney stone: ? Drink enough fluid to keep your pee pale yellow. This is the best way to prevent kidney stones. ? Eat healthy foods. ? Avoid certain foods as told by your doctor. You may be told to eat less protein. ? Stay at a healthy weight. Where to find more information ? National Kidney Foundation (NKF): www.kidney.org ? [facility] [facility] ([facility]): [email or web address] Contact a doctor if: ? You have pain that gets worse or does not get better with medicine. Get help right away if: ? You have a fever or chills. ? You get very bad pain. ? You get new pain in your belly (abdomen). ? You pass out (faint). ? You cannot pee. Summary ? Kidney stones are rock-like masses that form inside of the kidneys. ? Kidney stones can cause very bad pain and can block the flow of pee. ? The stones will often pass out of the body through peeing. ? Drink enough fluid to keep your pee pale yellow. This information is not intended to replace advice given to you by your health care provider. Make sure you discuss any questions you have with your health care provider. Document Released: 03/26/2009 Document Revised: 02/24/2020 Document Reviewed: 02/24/2020 Elsevier Patient Education ? 2019 [employer] [facility] Physician Referralon 023 Physician Referral [id number] 2061 [id number]: 127 [facility] Urology Office/Clinic Noteon 12-08-2022 Urology Office/Clinic Note Chief Complaint 1yr KUB HPI Staff 1yr KUB due to Hx of Kidney Sones, Nocturia, Urgency & Frequency. *HCTZ 25mg QD & Effer K 25meq BID. Stopped taking Estradiol Cream end of August due to abnormal PAP. KUB done 12/06/22 Still getting up at night, depends on what she drinks prior to bed. Occasional leaking when she stands up. Has been working on pelvic floor exercises. End of October- Vomiting/Diarrhea & lower Rt abdominal pain. Increased water intake. Did not strain urine, not sure if she passed stone. Denies blood in urine. Would like your opinion on Liquid IV. (drink mix) History of Present Illness Tests reviewed: reviewed UA & KUB. I have reviewed the previous health record information and history for this patient from Dr. Jones. I have reviewed and verified the staff HPI to be accurate for this encounter. There have been no associated fever, chills, flank pain, or blood in the urine. Denies any urinary infections since last encounter. Review of Systems PHQ Score Initial Depression Screen Score: 0 ROS - Provider Constitutional: denies weight loss, denies hot flashes. Eyes: denies eye problems. Gastrointestinal: denies nausea, denies vomiting. Cardiovascular: denies chest pain or angina. Integumentary: no dryness Musculoskeletal: denies musculoskeletal symptoms. ENMT: denies otolaryngeal symptoms. Respiratory: no shortness of breath. Heme/Lymph: denies easy bleeding tendency, denies easy bruising tendency. Psychiatric: no confusion, no anxiety. Genitourinary: denies vaginal discharge, denies incontinence, denies dysuria, denies hematuria, denies urinary frequency, denies amenorrhea, denies menorrhagia, denies abnormal bleeding, denies pelvic pain, denies genital sores, and denies decreased libido. Physical Exam Vitals & Measurements HR: 68(Peripheral) RR: 16 BP: 122/74 HT: 65 in HT: 165 cm WT: 66 kg WT: 145.2 lb BMI: 24.24 General Appearance: alert , no acute distress, well nourished, well developed female. Genitourinary: bladder nonpalpable, no flank pain. Assessment/Plan 1. Kidney stone (N20.0: Calculus of kidney) S/p R ESWL 12/30/20. KUB done 12/06/22 shows no appreciable urinary tract calculi. Effer-K 25mEq & HCTZ 25mg daily therapies. States she is only taking Effer-K daily. Pt had GERD and that it was it was decreased to daily rather than BID. Made mention at the end of October, she was experiencing vomiting and diarrhea, bilateral lower abdominal pain. Pt increased water intake at that time, she was not straining her urine. She is unsure if she passed a stone. Patient to continue medication management and to call for refills. Follow up in 1 year w/ KUB. All questions/concerns were discussed. Pt. to call the office if sheencounters any issues prior. Pt. acknowledges understanding. 2. Nocturia (R35.1: Nocturia) Still getting up during the night, but depends on what she drinks. Pt inquired about Liquid-IV for hydration use. Recommended to increase water intake for hydration, but she is able to take it if she pleases. 3. Urinary urgency (R39.15: Urgency of urination) D/c Estradiol cream due to abnormal PAP smear in August with Dr. Kieta. Pt states primary care wished to repeat PAP in 1 year. Encouraged patient to try and not be off of cream for over a year. Highly recommended patient to establish care with PATCH PRESS OPERATOR in the near future to repeat PAP and to re-discuss Estradiol cream. Follow-up With When Contact Information MANPREET BROWN, Andres Ruano, URL [address] [place] [address]- Additional Instructions: 1 year w/ KUB Patient Education Kidney Stones, [id number] Janis Tran, personally scribed for Dr. Jones on 12/08/2022 11:25:50. . Documentation recorded by the scribJanis le, accurately reflects the services(s) I performed and decisions made by me. Authenticated by Dr. Jones on 12/08/2022 11:34:12. Problem List/Past Medical History Ongoing Flank pain Gross hematuria Kidney stone Microhematuria Nocturia Post-void dribbling Smoking hx Straining to void Suprapubic pain Urge incontinence Urinary urgency Urine frequency Historical Cyst of liver Diverticulitis Dysmenorrhea Intestinal obstruction due to colonic inflammatory polyps Procedure/Surgical History ESWL of kidney (12/30/2020), Cystoscope (06/22/2020), Cystoscopy (06/22/2020), cysto/UD (10/10/2018), RT ESWL (09/20/2017), R stent removal (02/03/2016), bladder BX/ B/L ESWL, R stent placement (01/27/2016), Cysto/UD (09/28/2015), R ESWL (09/27/2015), cysto/UD/stone basket extraction (02/01/2012), cysto/ L stent removal (10/06/2011), cysto/stone basket/ L stent placement (09/21/2011), cysto (09/11/2011), Abdominal hysterectomy and left salpingo-oophorectomy (07/22/2005), Abdominal hysterectomy and right salpingo-oophorectomy (07/22/2005). Medications Adderall 20 mg oral tablet, Oral, BID alpraz (more content not included)... Normal [facility] Comment on above: Result Comment: Elec tronically Signed By: Andres JONES MD\.br\Date and Time Signed: 12/08/22 11:34 EST\.br\Electronically Co-Signed By: Janis Cárdenas.br\Date and Time Co-Signed: 12/08/22 11:28 EST RAD - MISCon 12-07-2022 RAD - MIS [id number] 2041 [id number]: 127 Normal [facility] XR KUB 1 VIEWon 12-06-2022 XR KUB 1 VIEW EXAMINATION: XR KUB 1 VIEW HISTORY: Kidney stone follow-up COMPARISON: XR KUB 11/30/2021 FINDINGS: KIDNEY/URETER - RIGHT: No visible renal or ureteral calcifications. KIDNEY/URETER - LEFT: No visible renal or ureteral calcifications. PELVIS: No appreciable ureteral stones. Multiple pelvic calcifications which appear grossly stable favor phleboliths. BOWEL: No abnormal dilation or deviation. BONES: No acute abnormality. OTHER: Negative. No abnormal gaseous collections. IMPRESSION: 1. No appreciable urinary tract calculi. Electronically authenticated by: ANNMARIE BINGHAM Date: 2022-12-06 13:25 Normal [facility] CBC AUTO DIFFon 10-21-2022 BASO # 0.0 103/ul Normal 0.0-0.1 [facility] Comment on above: Performed By: #### C BC #### [facility] [address] [address] [address] Yamileth [place] Basophils/100 WBC (Bld) 0.7 % Normal 0.2-2.0 [facility] Comment on above: Performed By: #### C BC #### [facility] [address] [address] [address] Yamileth [place] EO # 0.3 103/ul Normal 0.0-0.7 [facility] Comment on above: Performed By: #### C BC #### [facility] [address] [address] [address] Yamileth [place] Eosinophils/100 WBC (Bld) 5.5 % Normal 0.9-7.0 [facility] Comment on above: Performed By: #### C BC #### [facility] [address] [address] [address] Yamileth [place] Erythrocyte distribution width (RBC) [Ratio] 12.3 % Normal 11.0-15.0 [facility] Comment on above: Performed By: #### C BC #### [facility] [address] [address] [address] Yamileth [place] Hematocrit (Bld) [Volume fraction] 41.8 % Normal 36.0-48.0 [facility] Comment on above: Performed By: #### C BC #### [facility] [address] [address] [address] Yamileth [place] Hemoglobin (Bld) [Mass/Vol] 14.8 g/dL Normal 12.0-16.0 [facility] Comment on above: Performed By: #### C BC #### [facility] [address] [place] [address] Dr. Yamileth [place] IG # 0.03 10e3/ul Normal 0.00-0.03 [facility] Comment on above: Performed By: #### C BC #### [facility] [address] [place] [address] Dr. Yamileth [place] IG % 0.5 % Normal 0.0-0.5 [facility] Comment on above: Performed By: #### C BC #### [facility] [address] [place] [address] Dr. Yamileth [place] LYMPH # 0.9 103/ul Critically low 1.2-3.8 [facility] Comment on above: Performed By: #### C BC #### [facility] [address] [place] [address] Dr. Yamileth [place] Lymphocytes/100 WBC (Bld) 15.2 % Critically low 20.5-60.0 [facility] Comment on above: Performed By: #### C BC #### [facility] [address] [place] [address] Dr. Yamileth Franec MANUAL DIFF REQ NO Normal [facility] Comment on above: Performed By: #### C BC #### [facility] [address] [place] [address] Dr. Yamileth [place] MCH (RBC) [Entitic mass] 31.0 pg Normal 26.7-34.0 [facility] Comment on above: Performed By: #### C BC #### [facility] [address] [place] [address] Dr. Yamileth [place] MCHC (RBC) [Mass/Vol] 35.4 g/dL Critically high 29.9-35.2 [facility] Comment on above: Performed By: #### C BC #### [facility] [address] [place] [address] Dr. Yamileth [place] MCV (RBC) [Entitic vol] 87.6 fL Normal 81.0-99.0 [facility] Comment on above: Performed By: #### C BC #### [facility] [address] [place] [address] Dr. Yamileth [place] MONO # 0.7 103/ul Normal 0.3-0.8 [facility] Comment on above: Performed By: #### C BC #### [facility] [address] [address] [address] Yamileth [place] Monocytes/100 WBC (Bld) 12.5 % Critically high 1.7-12.0 [facility] Comment on above: Performed By: #### C BC #### [facility] [address] [address] [address] Yamileth [place] NEUT # 3.8 103/ul Normal 1.4-6.5 [facility] Comment on above: Performed By: #### C BC #### [facility] [address] [place] [address] Dr. Yamileth [place] Neutrophils/100 WBC (Bld) 65.6 % Normal 43.0-75.0 [facility] Comment on above: Performed By: #### C BC #### [facility] [address] [place] [address] Dr. Yamileth [place] Platelet mean volume (Bld) [Entitic vol] 9.7 fL Normal 9.5-13.5 [facility] Comment on above: Performed By: #### C BC #### [facility] [address] [place] [address] Dr. Yamileth [place] PLT 198 103/ul Normal 150-450 [facility] Comment on above: Performed By: #### C BC #### [facility] [address] [place] [address] Dr. Yamileth [place] RBC 4.77 106/ul Normal 4.20-5.40 [facility] Comment on above: Performed By: #### C BC #### [facility] [address] [place] [address] Dr. Yamileth [place] WBC 5.8 103/ul Normal 4.0-11.0 [facility] Comment on above: Performed By: #### C BC #### [facility] [address] [place] [address] Dr. Yamileth [place] D-DIMERon 10-21-2022 D-DIMER 0.31 mg/L FEU Normal <=0.59 [facility] Comment on above: Performed By: #### D DIM #### [facility] [address] [place] [address] Dr. Yamileth [place] D-DIMER COMMENTS SEE BELOW Normal [facility] Comment on above: Result Comment: Incr eases in D-Dimer concentration observed with thromboembolic events can be variable due to localization, size, and age of the thrombus. Therefore, a thromboembolic event cannot be diagnosed with certainty on the basis of the reference range. D-Dimers may also be elevated for a variety of disorders including: advanced age, , coronary disease, cancer, liver disease, infection, inflammation, hematoma, DIC, trauma, post-surgery, diabetes, thrombolytic or anticoagulant therapy, stress, and generalized hospitalization. Performed By: #### D DIM #### [facility] [address] [place] [address] Dr. Yamileth [place] FREE T4on 10-21-2022 Free T4 [Mass/Vol] 1.05 ng/dL Normal 0.76-1.46 [facility] Comment on above: Performed By: #### F T4 #### [facility] [address] [place] [address] Dr. Yamileth [place] PROF 14(COMP METB)on 022 Albumin [Mass/Vol] 3.4 g/dL Normal 3.4-5.0 [facility] Comment on above: Performed By: #### H STROPN, CMP #### [facility] [address] [place] [address] Dr. Yamileth [place] Albumin/Globulin [Mass ratio] 1.0 {ratio} Normal [facility] Comment on above: Performed By: #### H STROPN, CMP #### [facility] [address] [place] [address] Dr. Yamileth [place] ALP [Catalytic activity/Vol] 63 U/L Normal 46-116 [facility] Comment on above: Performed By: #### H STROPN, CMP #### [facility] [address] [place] [address] Dr. Yamileth [place] ALT [Catalytic activity/Vol] 21 U/L Normal 14-59 [facility] Comment on above: Performed By: #### H STROPN, CMP #### [facility] [address] [address] [address] Yamileth [place] Anion gap [Moles/Vol] 9.9 mmol/L Normal [facility] Comment on above: Performed By: #### H STROPN, CMP #### [facility] [address] [address] [address] Yamileth [place] AST [Catalytic activity/Vol] 18 U/L Normal 15-37 [facility] Comment on above: Performed By: #### H STROPN, CMP #### [facility] [address] [address] [address] Yamileth [place] Bilirubin [Mass/Vol] 0.3 mg/dL Normal 0.2-1.0 [facility] Comment on above: Performed By: #### H STROPN, CMP #### [facility] [address] [place] [address] Dr. Yamileth [place] Calcium [Mass/Vol] 8.8 mg/dL Normal 8.5-10.1 [facility] Comment on above: Performed By: #### H STROPN, CMP #### [facility] [address] [address] [address] Yamileth [place] Chloride [Moles/Vol] 99 mmol/L Normal 98-107 [facility] Comment on above: Performed By: #### H STROPN, CMP #### [facility] [address] [address] [address] Yamileth [place] CO2 [Moles/Vol] 31.2 mmol/L Normal 21.0-32.0 [facility] Comment on above: Performed By: #### H STROPN, CMP #### [facility] [address] [address] [address] Yamileth [place] Creatinine [Mass/Vol] 0.74 mg/dL Normal 0.55-1.02 [facility] Comment on above: Performed By: #### H STROPN, CMP #### [facility] [address] [address] [address] Yamileth [place] EGFR-AF PARAGUAYAN >60 Normal >=60 [facility] Comment on above: Performed By: #### H STROPN, CMP #### [facility] [address] [address] [address] Yamileth [place] EGFR-NON AF PARAGUAYAN >60 Normal >=60 [facility] Comment on above: Performed By: #### H STROPN, CMP #### [facility] [address] [address] [address] Yamileth [place] Globulin (S) [Mass/Vol] 3.5 g/dL Normal [facility] Comment on above: Performed By: #### H STROPN, CMP #### [facility] [address] [address] [address] Yamileth [place] Glucose [Mass/Vol] 111 mg/dL Critically high 74-106 [facility] Comment on above: Performed By: #### H STROPN, CMP #### [facility] [address] [address] [address] Yamileth [place] Potassium [Moles/Vol] 3.1 mmol/L Critically low 3.5-5.1 [facility] Comment on above: Performed By: #### H STROPN, CMP #### [facility] [address] [address] [address] Yamileth [place] Protein [Mass/Vol] 6.9 g/dL Normal 6.4-8.2 [facility] Comment on above: Performed By: #### H STROPN, CMP #### [facility] [address] [address] [address] Yamileth [place] Sodium [Moles/Vol] 137 mmol/L Normal 136-145 [facility] Comment on above: Performed By: #### H STROPN, CMP #### [facility] [address] [address] [address] Yamileth [place] Urea nitrogen [Mass/Vol] 14.0 mg/dL Normal 7.0-18.0 [facility] Comment on above: Performed By: #### H STROPN, CMP #### [facility] [address] [address] [address] Yamileth [place] Urea nitrogen/Creatinin e [Mass ratio] 18.9 mg/mg Normal [facility] Comment on above: Performed By: #### H JOYCE, CMP #### [facility] [address] [place], [place] [address] Dr. Yamileth [place] TROPONIN, HIGH SENSITIVITYon 10-21-2022 HSTROP 4.7 pg/mL Normal 4.0-51.3 [facility] Comment on above: Result Comment: CUT- OFF POINTS HAVE BEEN ESTABLISHED BASED ON THE FOURTH UNIVERSAL DEFINITIONS OF MYOCARDIAL INFARCTION. THE UPPER REFERENCE LIMIT (URL) OF TROPONIN, DEFINED THE 99TH PERCENTILE OF cTnI DISTRIBUTION IN A REFERENCE POPULATION, HAS BEEN CONFIRMED THE DECISION THRESHOLD FOR [place] DIAGNOSIS. Performed By: #### H JOYCE, CMP #### [facility] [address] [place], [place] [address] Dr. Yamileth [place] TSHon 10-21-2022 TSH 2.173 uIU/mL Normal 0.358-3.740 [facility] Comment on above: Performed By: #### T SH #### [facility] [address] [place], [place] [address] Dr. Yamileth [place] XR CHEST 1 Von 10-21-2022 XR CHEST 1 V EXAM: XR CHEST 1 V HISTORY: CHEST PAIN, UNSPECIFIED COMPARISON: None. TECHNIQUE: Single AP portable upright view of the chest is obtained. FINDINGS: The cardiomediastinal silhouette is nonenlarged. Pulmonary vascular markings are within normal limits. There is no focal airspace consolidation. The costophrenic angles are clear. No pneumothorax. The osseous structures appear grossly intact. IMPRESSION: No acute cardiopulmonary process identified. Electronically authenticated by: GIULIA GERMAIN Date: 2022-10-21 04:26 Normal [facility] SCREENING MAMMOGRAM W/MARYCRUZ, BILATERAL*on 07-25-2022 SCREENING MAMMOGRAM W/MARYCRUZ, BILATERAL* COMPARISON: July 22, 2021, July 15, 2020 TECHNIQUE: 2D and 3D Tomosynthesis of the right and left breasts was performed. FINDINGS: Breast composition demonstrates scattered fibroglandular densities. Overall appearance is stable. No suspicious microcalcifications, asymmetry, architectural distortion, or associated features are present. IMPRESSION: BIRADS 1: Negative mammogram Board Certified Radiologist. Accredited by the ACR and FDA. MAMMOGRAPHY IS VERY IMPORTANT TO YOUR HEALTH. THE CURRENT [place] [employer] AND [employer] GUIDELINES RECOMMENDS ANNUAL MAMMOGRAPHY BEGINNING AT AGE 40 THIS FACILITY USES A REMINDER SYSTEM TO ENSURE ALL PATIENTS RECEIVE REMINDER NOTIFICATIONS AT THE APPROPRIATE TIME BASED ON THE RECOMMENDATIONS OF THIS EXAM. Report reported and signed by Zane Quinteros on 07/25/2022 1154 Normal [facility] Multiple Drum Sander Vital Signs Date Time Vital Sign Value Performing Clinician Facility 11-19-2023 09:15-0500 Body height 166.37 cm Andrea Lyric Other [facility] Other 11-19-2023 09:15-0500 Body mass index (BMI) [Ratio] 23.92 kg/m2 Andrea Nurormack Other [facility] Other 11-19-2023 09:15-0500 Body weight 66.23 kg Andrea Lyric Other [facility] Other 11-19-2023 09:15-0500 Diastolic blood pressure 76 mm[Hg] Andrea Lyric Other [facility] Other 11-19-2023 09:15-0500 Systolic blood pressure 117 mm[Hg] Andrea Gunter Other [facility] Other 09-18-2023 09:17-0500 Diastolic blood pressure 78 mm[Hg] MD Glenna Keita Work Phone: [facility] 09-18-2023 09:17-0500 Heart rate 80 /min MD Glenna Keita Work Phone: [facility] 09-18-2023 09:17-0500 Respiratory rate 16 /min MD Glenna Keita Work Phone: [facility] 09-18-2023 09:17-0500 SaO2% (BldA) [Mass fraction] 100 % MD Glenna Keita Work Phone: [facility] 09-18-2023 09:17-0500 Systolic blood pressure 118 mm[Hg] MD Glenna Adhikari Phone: [facility] 09-18-2023 07:41-0500 Body height 165.1 cm MD Glenna Keita Work Phone: [facility] 09-18-2023 07:41-0500 Body weight 63.04 kg MD Glenna Keita Work Phone: [facility] 02-28-2023 12:00-0400 Body height 166.37 cm Andrea Gunter Other [facility] Other 02-28-2023 12:00-0400 Body mass index (BMI) [Ratio] 24.58 kg/m2 Andrea Gunter Other [facility] Other 02-28-2023 12:00-0400 Body weight 68.04 kg Andrea Gunter Other [facility] Other 02-28-2023 12:00-0400 Diastolic blood pressure 96 mm[Hg] Andrea Gunter Other [facility] Other 02-28-2023 12:00-0400 Systolic blood pressure 137 mm[Hg] Andrea Gunter Other [facility] Other 12-08-2022 10:46-0500 Blood Pressure Location Andres JONES [facility] 12-08-2022 10:46-0500 Diastolic blood pressure 74 mm[Hg] Andres JONES [facility] 12-08-2022 10:46-0500 Heart rate 68 /min Andres JONES [facility] 12-08-2022 10:46-0500 Respiratory rate 16 /min Andres JONES [facility] 12-08-2022 10:46-0500 Systolic blood pressure 122 mm[Hg] Andres JONES [facility] 02-27-2022 11:00-0400 Body height 166.37 cm Andrea Gunter Other [facility] Other 02-27-2022 11:00-0400 Body mass index (BMI) [Ratio] 24.58 kg/m2 Andrea Gunter Other [facility] Other 02-27-2022 11:00-0400 Body weight 68.04 kg Andrea Gunter Other [facility] Other 01-04-2022 10:45-0400 Body height 166.37 cm Andrea Gunter Other [facility] Other 01-04-2022 10:45-0400 Body mass index (BMI) [Ratio] 25.4 kg/m2 Andrea Gunter Other [facility] Other 01-04-2022 10:45-0400 Body weight 70.31 kg Andrea Gunter Other [employer] Other 10-03-2021 11:30-0500 Body height 166.37 cm Andrea Gunter Other [employer] Other 10-03-2021 11:30-0500 Body mass index (BMI) [Ratio] 25.07 kg/m2 Andrea Gunter Other [employer] Other 10-03-2021 11:30-0500 Body weight 69.4 kg Andrea Gunter Other [employer] Other Encounters Encounter Date Encounter Type Care Provider Facility Start: 12-07-2023 ambulatory MD Andres JONES Fac ility:[facility] Start: 11-19-2023 End: 11-19-2023 ambulatory Andrea Gunter Other [employer] Other Start: 11-19-2023 Office outpatient visit 15 minutes Andrea Gunter [facility] Start: 10-10-2023 End: 10-11-2023 ambulatory PRECIOUS PUMP Not Available Start: 09-21-2023 End: 09-21-2023 ambulatory Andrea Gunter Other [employer] Other Start: 09-21-2023 Telephone encounter Andrea martínez [facility] Start: 09-20-2023 End: 09-20-2023 ambulatory PRECIOUS PUMP Not Available Start: 09-18-2023 End: 09-18-2023 ambulatory Glenna Keita Facility:[facility] Start: 09-18-2023 End: 09-18-2023 Admission to same day surgery center MD Glenna Keita Work Phone: [facility] Work Phone: Start: 09-18-2023 End: 09-18-2023 ambulatory MD Glenna Keita Work Phone: [facility] Work Phone: Start: 02-28-2023 End: 02-28-2023 ambulatory Andrea Gunter Other [employer] Other Start: 02-28-2023 Office outpatient visit 15 minutes Andrea Gunter [facility] Start: 12-08-2022 End: 12-09-2022 ambulatory MD Andres JONES Facility:[facility] Start: 12-08-2022 End: 12-08-2022 Patient encounter procedure Andres JONES [facility] Start: 12-06-2022 End: 12-07-[address] ANDRES JONES . Facility:[facility] Start: 10-21-2022 End: 10-21-[address] GLENNA KEITA Facility:[facility] Start: 07-25-2022 End: 07-25-2022 ambulatory Andrea Gunter Other [employer] Other Start: 07-25-2022 Telephone encounter Andrea martínez [facility] Start: 02-27-2022 End: 02-27-2022 ambulatory Andrea Gunter Other [employer] Other Start: 02-27-2022 Office outpatient visit 15 minutes Andrea Gunter [facility] Start: 01-04-2022 End: 01-04-2022 ambulatory Andrea Gunter Other [employer] Other Start: 01-04-2022 Office outpatient visit 15 minutes Andrea Gunter [facility] Start: 10-03-2021 End: 10-03-2021 ambulatory Andrea Gunter Other [employer] Other Start: 10-03-2021 Office outpatient ne w 45 minutes Andrea Gunter [facility] Procedures Date Procedure Procedure Detail Performing Clinician Start: 09-18-2023 Esophagogastroduodenoscopy MD Glenna nagel Work Phone: Start: 12-30-2020 Extracorporeal shockwave lithotripsy of calculus of kidney Andres JONES Start: 06-22-2020 Cystoscope, device (physical object) Andres JONES Start: 06-22-2020 Cystoscopy Andres JONES Start: 10-10-2018 cysto/UD Andres JONES Start: 09-20-2017 RT ESWL Andres JONES Start: 02-03-2016 R stent removal Andres JONES Start: 01-27-2016 bladder BX/ B/L ESWL, R stent placement Andres JONES Start: 09-28-2015 Cysto/UD Andres JONES Start: 09-27-2015 R ESWL Andres JONES Start: 02-01-2012 cysto/UD/stone basket extraction Andres JONES Start: 10-06-2011 cysto/ L stent removal Andres JONES Start: 09-21-2011 cysto/stone basket/ L stent placement Andres JONES Start: 09-11-2011 cysto Andres JONES Start: 07-22-2005 Abdominal hysterectomy and left salpingo-oophorectomy Andres JONES Start: 07-22-2005 Abdominal hysterectomy and right salpingo-oophorectomy Andres JONES Plan of Treatment Date Care Activity Detail Author Start: 09-18-2023 [facility] Patient Education Colon Polypectomy (DC) [facility] Work Phone: Immunizations Immunization Date Immunization Notes Care Provider Fa fox 08-10-2022 SARS-CoV-2 (COVID-19 ) [id number] Andres JONES [facility] 01-30-2022 SARS-CoV-2 mRNA (ozyzweqpvxm-rlhq-dhqbc se) vaccine Andres JONES [facility] 09-03-2021 SARS-CoV-2 (COVID-19 ) Ad26 vaccine, recombinant Andres JONES [facility] 08-26-2021 SARS-CoV-2 (COVID-19 ) mRNA BNT-162b2 vax Andres JONES [facility] 07-22-2021 influenza virus vaccine, unspecified formulation Andres JONES [facility] 07-05-2021 influenza virus vaccine, unspecified formulation Andres JONES [facility] 01-31-2021 SARS-CoV-2 (COVID-19 ) mRNA BNT-162b2 vax Andres JONES [facility] 01-29-2021 SARS-CoV-2 (COVID-19 ) mRNA BNT-162b2 vax Andres JONES [facility] 01-10-2021 SARS-CoV-2 (COVID-19 ) mRNA BNT-162b2 vax Andres JONES [facility] 01-04-2021 SARS-CoV-2 (COVID-19 ) mRNA BNT-162b2 vax Andres JONES [facility] 09-13-2019 influenza virus vaccine, unspecified formulation Andres JONES [facility] 11-05-2018 influenza virus vaccine, unspecified formulation Andres JONES [facility] Payers Date Payer Category Payer Medicaid [id number] [facility] 2023 Self-pay [id number] [facility] 1960 Unknown [id number] 1960 Unknown [id number] 1960 Unknown [id number] 1960 Unknown [id number] 1960 Unknown [id number] 1960 Unknown [id number] 1959 Unknown [id number] Unknown [employer] CH[employer] 2 [id number] Unknown [id number] Social History Date Type Detail Facility Sex Assigned At [facility] Start: 12-08-2022 End: 09-18-2023 Tobacco smoking status Ex-smoker (finding) [facility] Tobacco smoking status Never [facility] Start: 1960 Sex Assigned At Female F [facility] Goals Date Patient Goal Desired Activity /State Functional Status Date Assessment Result Facility 12-08-2022 Functional Status N/A [facility] Clinical Notes 10-03-2021 to 11-19-2023 Note Date & Type Note Facility 11-19-2023 Evaluation note Encounter Date Diagnosis Assessment Notes Oct, Hiatal hernia (ICD-10 - K44.9) Oct, Hemorrhoids (ICD-10 - K64.9) Oct, Sigmoid diverticulosis (ICD-10 - K57.30) Patient advised to increase fiber intake. Patient was give a copy of the low fodmap diet. Oct, Diverticular disease (ICD-10 - K57.90) Rto 1 yr Oct, Tubular adenoma of colon (ICD-10 - D12.6) Repeat colonoscopy in 5 yrs. [employer] Other [facility] Encounter Date Diagnosis Assessment Notes Treatment Notes Treatment Clinical Notes February, Irritable bowel syndrome with constipation (ICD-10 - K58.1) PATIENT IS DOING WELL. SHE FOLLOWS THE LOW FOD MAP DIET BEST SHE CAN. SHE CONTINUES PROBIOTICS. PATIENT IS MOVING HER BOWELS ONCE A DAY. REPEAT COLONOSCOPY IN TWO YEARS PLANNED. RETURN VISIT HERE IN ONE YEAR February, Indigestion (ICD-10 - K30) PATIENT IS DOING WELL. SHE HAS BEEN ABLE TO CUT HER OMEPRAZOLE FROM TWICE A DAY TO ONCE A DAY. [employer] Other 02-17-2023 Hospital Discharge instructions Patient Education 12/08/2022 11:23:14 Kidney Stones, Ilxj-eh-Gpkv Kidney Stones Kidney stones are rock-like masses that form inside of the kidneys. Kidneys are organs that make pee (urine). A kidney stone may move into other parts of the urinary tract, including: The tubes that connect the kidneys to the bladder (ureters). The bladder. The tube that carries urine out of the body (urethra). Kidney stones can cause very bad pain and can block the flow of pee. The stone usually leaves your body (passes) through your pee. You may need to have a doctor take out the stone. What are the causes? Kidney stones may be caused by: A condition in which certain glands make too much parathyroid hormone (primary hyperparathyroidism). A buildup of a type of crystals in the bladder made of a chemical called uric acid. The body makes uric acid when you eat certain foods. Narrowing (stricture) of one or both of the ureters. A kidney blockage that you were born with. Past surgery on the kidney or the ureters, such as gastric bypass surgery. What increases the risk? You are more likely to develop this condition if: You have had a kidney stone in the past. You have a family history of kidney stones. You do not drink enough water. You eat a diet that is high in protein, salt (sodium), or sugar. You are overweight or very overweight (obese). What are the signs or symptoms? Symptoms of a kidney stone may include: Pain in the side of the belly, right below the ribs (flank pain). Pain usually spreads (radiates) to the groin. Needing to pee often or right away (urgently). Pain when going pee (urinating). Blood in your pee (hematuria). Feeling like you may vomit (nauseous). Vomiting. Fever and chills. How is this treated? Treatment depends on the size, location, and makeup of the kidney stones. The stones will often pass out of the body through peeing. You may need to: Drink more fluid to help pass the stone. In some cases, you may be given fluids through an IV tube put into one of your veins at the hospital. Take medicine for pain. Make changes in your diet to help keep kidney stones from coming back. Sometimes, medical procedures are needed to remove a kidney stone. This may involve: A procedure to break up kidney stones using a beam of light (laser) or shock waves. Surgery to remove the kidney stones. Follow these instructions at home: Medicines Take xvtv-hpd-qsksymy and prescription medicines only as told by your doctor. Ask your doctor if the medicine prescribed to you requires you to avoid driving or using heavy machinery. Eating and drinking Drink enough fluid to keep your pee pale yellow. You may be told to drink at least 8 10 glasses of water each day. This will help you pass the stone. If told by your doctor, change your diet. This may include: ?Limiting how much salt you eat. ?Eating more fruits and vegetables. ?Limiting how much meat, poultry, fish, and eggs you eat. Follow instructions from your doctor about eating or drinking restrictions. General instructions Collect pee samples as told by your doctor. You may need to collect a pee sample: ?24 hours after a stone comes out. ?8 12 weeks after a stone comes out, and every 6 12 months after that. Strain your pee every time you pee (urinate), for as long as told. Use the strainer that your doctor recommends. Do not throw out the stone. Keep it so that it can be tested by your doctor. Keep all follow-up visits as told by your doctor. This is important. You may need follow-up tests. How is this prevented? To prevent another kidney stone: Drink enough fluid to keep your pee pale yellow. This is the best way to prevent kidney stones. Eat healthy foods. Avoid certain foods as told by your doctor. You may be told to eat less protein. Stay at a healthy weight. Where to find more information National Kidney Foundation (NKF): www.kidney.org U[employer] Care Foundation (UCF): www.urologyhealth.org Contact a doctor if: You have pain that gets worse or does not get better with medicine. Get help right away if: You have a fever or chills. You get very bad pain. You get new pain in your belly (abdomen). You pass out (faint). You cannot pee. Summary Kidney stones are rock-like masses that form inside of the kidneys. Kidney stones can cause very bad pain and can block the flow of pee. The stones will often pass out of the body through peeing. Drink enough fluid to keep your pee pale yellow. This information is not intended to replace advice given to you by your health care provider. Make sure you discuss any questions you have with your health care provider. Document Released: 03/26/2009 Document Revised: 02/24/2020 Document Reviewed: 02/24/2020 [employer] Patient Education 2020 [employer] Follow Up Care 12/05/2021 13:35:38 With:MANPREET BROWN, Andres Ruano, URL Address: [address] [place], [place] [id number]- When: Unknown [facility] 10-04-2022 Evaluation note* Encounter Date Diagnosis Assessment Notes Treatment Notes Treatment Clinical Notes Jul, Indigestion (ICD-10 - K30) [employer] Other 05-09-2022 Evaluation note* Encounter Date Diagnosis Assessment Notes Treatment Notes Treatment Clinical Notes February, Indigestion (ICD-10 - K30) PATIENT IS FOLLOWING THE FODMAP DIET AND THIS HAS HELPED. February, Irritable bowel syndrome with constipation (ICD-10 - K58.1) PATIENT STATES THAT THE TRULANCE WAS OVER $600 PATIENT IS USING THE FODMAP DIET AND PROBIOTICS. PATIENT GOES 2 DAYS WITHOUT A BOWEL MOVEMENT [employer] Other 03-16-2022 Evaluation note* Encounter Date Diagnosis Assessment Notes Treatment Notes Treatment Clinical Notes Dec, Indigestion (ICD-10 - K30) Continue Omeprazole without change Dec, Irritable bowel syndrome with constipation (ICD-10 - K58.1) Start Trulance 3mg daily - samples given to patient Start low fodmap diet - education given to patient [employer] Other 12-13-2021 Evaluation note* Encounter Date Diagnosis Assessment Notes Treatment Notes Treatment Clinical Notes Sep, Indigestion (ICD-10 - K30) PATIENT STATES HAVING BREAKTHROUGH PATIENT DOES CONTINUE ON THE OMEPRAZOLE 40 ONCE A DAY WILL INCREASE OMEPRAZOLE TO 40 TWICE A DAY [employer] Other Evaluation + Plan note Future Appointments Appointment Date:12/07/2023 10:45:00 AM Scheduled Provider:Andres JONES MD Location:[facility] Appointment Type:URO Office Visit [facility] evaluation note* Diagnosis Onset Date Resolution Status Family history of colon canc er requiring screening colonoscopy [facility] Work Phone: Evaluation noteNo InformationNort [employer] Other History general Narrative - Reported* Type Description Date Medical History GERD Medical History kidney stones Surgical History hysterectomy Surgical History lithotripsy Surgical History kidney stone Surgical History cystoscopy Surgical History colonoscopy Hospitalization History ABOVE [employer] Other Hospital course Narrative No data available for this section [facility] Hospital Discharge instructions Additional Instructions DISCHARGE INSTRUCTIONS FOR ENDOSCOPY FOR COLONOSCOPY: -Expect a gassy or full feeling after a colonoscopy. Report any NEW abdominal pain or vomiting. -Watch for rectal bleeding if you have a polyp removed. You may have oozing, but notify the doctor if you pass clots. -Avoid aspirin for 2 days IF a polyp is removed. -It is important to keep your appointments for follow up examinations because polyps can grow back. FOR HAQUE/EGD/ERCP/PEG: -Your throat may feel sore today from the scope that the doctor passed through your throat to visualize your stomach. Take a throat lozenge or suck on ice to ease the discomfort. -Do NOT smoke. -You may notice some streaks of blood in your sputum if the doctor has taken a biopsy. Notify the doctor if you cough up large amounts of blood. -Expect a gassy or full feeling after esophagoscopy. Report any persistent pain or vomiting. -Take it easy today. You need not stay in bed, but avoid strenuous activities such as jogging. FOR SEDATION FOR 24 HOURS: -NO driving -Do NOT operate machinery such as power tools, lawn mowers, snow blowers, sewing machines, etc. -Avoid alcoholic beverages and drugs for allergies, nerves, or sleep. -Do NOT stay alone. Do NOT leave your child unattended. -Do NOT make important personal or business decisions or sign any legal documents. -Eat solid foods and drink liquids in smaller amounts than usual until normal appetite returns. If you should experience an upset stomach, liquids high in sugar content (soda, Zak-aid, non-acid juices) are recommended. -You can resume normal activities tomorrow. FOLLOW UP Please call the office and make a follow up appointment to see me in 8-12 weeks. Balsalazide 3 p.o. twice daily -Notify the doctor if you have any problems. -[phone] Work Phone: Progress note No data available for this section [facility] Summary Purpose Family History No Family History Records Found Relationship Condition Age at Onset Recorded Date/T vonnie Not Specified Malignant neoplasm of breast Unknown Malignant neoplasm of colon Unknown brother Malignant neoplasm of colon Unknown father Malignant neoplasm of throat Unknown Advance Directives No Advanced Directives Records Found Advance Directive Response Recorded Date/ Time Advance Directives No September 24, 2018 2:20pm Chief Complaint and Reason for Visit Chief Complaint Abdominal Pain, Dive rticulitis, GERD Reason for Visit Family history of co neel cancer requiring screening colonoscopy Additional Source Comments REASON FOR VISIT (unrecogniz ed section and content) PREVIOUS DR. SOTO PATIENT LAST SEEN 12/2015 FOR INDIGESTION. PATIENT DID HAVE RECENT EGD/COLON IN 2019 BUT NO FOLLOW UP., PATIENT STATES THAT HER GERD HAS GOTTEN BAD AND DOES TAKE OMEPRAZOLE 40 MG DAILY.PATIENT HERE FOR 3 MONTH FOLLOW UP TO INDIGESTION. PATIENT WAS TO INCREASE OMEPRAZOLE TO TWICE A DAYPATIENT HERE FOR 6 WEEK FOLLOW UP TO INDIGESTION AND IRRITABLE BOWEL SYNDROME WITH CONSTIPATION. PATIENT WAS TO CONTNUE ON THE OMEPRAZOLE, START TRULANCE AND FODMAP DIET., PATIENT STATES THE TRULANCE WAS TO EXPENSIVE, CONSTIPATION DOES COME WITH CHRONIC KIDNEY STONES.MEDICATIONPATIENT HERE FOR 1 YEAR FOLLOW UP TO INDIGESTION AND IBS W/C. PATIENT TO CONTINUE FODMAP DIET AND PROBIOTIC. NO COMPLAINTSClinicalPatient here for 8 week follow up after EGD and colonoscopy INFORMATION SOURCE (unrecogn ized section and content) DATE CREATED AUTHOR 07/26/2022 [facility] Specialist DATE CREATED AUTHOR AUTHOR'S ORGANIZ ATION 12/09/2022 Bustamante Eugenio [facility] DATE CREATED AUTHOR AUTHOR'S ORGANIZ ATION 12/11/2022 [facility] DATE CREATED AUTHOR AUTHOR'S ORGANIZ ATION 10/14/2023 [facility] d[facility] Specialists EPIC DATE CREATED AUTHOR AUTHOR'S ORGANIZ ATION 11/30/2023 [facility] Patient Care team informatio n (unrecognized section and content) Team Status: Active Member Role Status Dates Glenna Keita MD Primary Care Provider Active Team Status: Inactive Member Role Status Dates Glenna Keita MD Primary Care Provider Active Andrea Gunter MD Attending Provider Active FOR RECORDS PERTAINING TO PATIENTS WHO ARE OR HAVE BEEN ENROLLED IN A CHEMICAL DEPENDENCY/SUBSTANCEABUSE PROGRAM, SOME INFORMATION MAY BE OMITTED. This clinical summary was aggregated from multiple sources. Caution should be exercised in using it in the provision of clinical care. This summary normalizes information from multiple sources, and as a consequence, information in this document may materially change the coding, format and clinical context of patient data. In addition, data may be omitted in some cases. CLINICAL DECISIONS SHOULD BE BASED ON THE PRIMARY CLINICAL RECORDS. [employer] provides no warranty or guarantee of the accuracy or completeness of information in this document.
== END 2023-12-06 10:26 | disposition home or self-care (01) ==
LOC: RAD 10:26
PROVIDERS: PCP Family Medicine; Visit Provider Urology
DX: N20.0 Calculus of kidney (principal)
CPT/HCPCS: 74018

== ENCOUNTER 2024-12-02 13:46 | Outpatient (OUT) | payer OTHER, SELFPAY ==
--- NOTE | 2024-12-02 13:52 | XR_ITS ---
The [address] [address] Patient Name: JA MATOS MRN: [id number] date: 1960 Sex: F Assigned Patient Location: [facility] Current Patient Location: [facility] Accession/Order Number: [id number] Exam Date: 12/02/2024 13:55 Report Date: 12/02/2024 14:58 At the request of: INEZ CASE Procedure: XR abdomen 1V EXAMINATION: XR abdomen 1V HISTORY: Kidney Stone COMPARISON: 12/06/2023 FINDINGS: KIDNEY/URETER - RIGHT: No visible renal or ureteral calcifications. KIDNEY/URETER - LEFT: No visible renal or ureteral calcifications. PELVIS: No visible ureteral calcifications. Any visible calcifications favor phleboliths. BOWEL: No abnormal dilation or deviation. Moderate to large amount of stool throughout the colon BONES: No acute abnormality. OTHER: Negative. No abnormal gaseous collections. XR/XR abdomen 1V IMPRESSION: No urinary tract calculi observed Electronically authenticated by: PLACIDO PELAYO Date: 12/02/2024 14:58
--- OUTSIDE RECORDS SUMMARY | 2024-12-02 14:07 | XMS_ITS | CCD ---
Author Organization [facility] Care Team Providers Care Pencils Washer Name Role Phone Andrea Gunter Unavailable [phone] GLENNA KEITA Primary Care Physician NEELA, DR GLENNA Perez Primary Care Unavailable YAHAIRA, DR PARAS Ruano Admitting Unavailable YAHAIRA, DR PARAS Ruano Attending Unavailable YAHAIRA, DR PARAS Ruano Consulting Unavailable GIULIA GERMAIN Consulting Unavailable MANPREET ., DR WILEY Admitting Unavailable MANPREET ., DR WILEY Attending Unavailable NEELA, DR GLENNA Perez Primary Care Unavailable MANPREET ., DR WILEY Consulting Unavailable ZACHERY, DR ANNMARIE Ruano Consulting MD Glenna Powers Primary Care Provider MD Andrea Gunter Attending Provider Glenna Keita Primary Care Unavailable Andrea Gunter Attending Andrea Mendez Admitting Glenna Reece MD Primary Care Provider KAMALA HINES Attending Unavailable WENDY DESOUZA Attending Unavailable JENNY MEJIA Attending Unavailable GLENNA KEITA Referring Unavailable KAMALA HINES Referring Unavailable KAMALA HINES Referring Unavailable ARI MOJICA Attending Unavailab ARI Baxter Attending Unavailab ARI Baxter Attending Unavailab Inez Mejias Attending Unavailable Inez JONES Attending Unavailable ARI MOJICA Attending Unavailab ARI Baxter Attending Unavailab ARI Baxter Attending Unavailab le Allergies Allergy Classification Reported Allergen(s) Allergy Type Date of Onset Reaction(s) Facility (15 sources) Sulfamethoxazole / Trimethoprim Drug Allergy 07-26-20 [facility] Other (8 sources) Sulfonamides (Antibiotic); Translations: [sulfa drugs] Drug allergy Feeling of throat tightness (finding) [facility] Comment on above: hives mild to modera te and throat closes (1 source) Sulfamethoxazole / Trimethoprim Drug Allergy 10-20-20 13 [facility] (10 sources) Sulfamethoxazole; Translations: [sulfamethoxazole] Drug Allergy 07-12-20 Swelling of Lip/Tongue/Thr oat [facility] (10 sources) Trimethoprim; Translations: [trimethoprim] Drug Allergy 07-12-20 20 Swelling of Lip/Tongue/Thr oat [facility] (1 source) Sulfonamides (Antibiotic); Translations: [sulfa drugs] Propensity to adverse reactions (disorder) [facility] Repository Medications Current Medications Medication Drug Class(es) Dates Sig (Normalized) Sig (Original) ALPRAZolam 0.25 mg oral tablet (20 sources) Benzodiazepine Start: 07-12-2020 take 1 tablet by mouth once daily as needed for anxiety Alprazolam 0.25 mg tablet Active 0.25 MG PO Daily as needed for Anxiety July 11, 2020 11:00pm ALPRAZolam PRN A ctive ALPRAZolam Activ e aluminum hydroxide 80 mg / magnesium trisilicate 14.2 mg chewable tablet (8 sources) Alum Hydroxide-M ag Trisilicate (Gaviscon) 80-14.2 MG chewable tablet Chew. Active Amphetamine / Dextroamphetamine (8 sources) Central Nervous System Stimulant Start: 08-25-20 19 take 1 mg by mouth twice daily Adderall 20 mg oral tablet mg, tab(s), Oral, BID, Refill(s) 0 Start Date: 08/25/19 Status: Ordered amphetamine aspartate 5 mg / amphetamine sulfate 5 mg / dextroamphetamine saccharate 5 mg / dextroamphetamine sulfate 5 mg oral tablet (17 sources) Central Nervous System Stimulant Start: 07-12-20 20 take 1 tablet by mouth once daily Dextroamphetamine-Amp hetamine 20 mg tablet Active 20 MG PO Daily July 11, 2020 11:00pm take 1 capsule by [facility] every twenty-four hours in the morning amphetamine-dextroamphetamine XR (Addera ll XR) 20 MG 24 hr capsule Take 1 capsule by mouth in the morning. Do not crush or chew. . Active take 2 tablets by [facility] every twenty-four hours Adderall 20 MG 2 tablets Orally Once a d ay Active cephalexin 500 mg oral capsule (3 sources) Cephalosporin Antibacterial Start: 08-07-2024 End: 08-17-2024 take 1 capsule by mouth in the morning, then take 1 capsule by mouth in the evening, then take 1 capsule by mouth at bedtime cephalexin (Keflex) 500 MG capsule Indications: Dysuria Take 1 capsule (500 mg) by mouth in the morning and 1 capsule (500 mg) in the evening and 1 capsule (500 mg) before bedtime. Do all this for 10 days. 30 capsule 08/07/2024 08/17/2024 Active cholecalciferol 0.125 mg oral tablet (2 sources) Vitamin D Start: 07-12-2020 take 1 tablet by mouth once daily Cholecalciferol (Vitamin D3) (Vitamin D3) 125 mcg (5,000 unit) Tablet Active 125 MCG PO Daily July 11, 2020 11:00pm Cholecalciferol (Vitamin D-3) 5000 UNIT/ML liquid (8 sources) Cholecalciferol (Vitamin D-3) 5000 UNIT/ML liquid Place under the tongue. With [place] Active clobetasol propionate 0.0005 mg/mg topical ointment (8 sources) Corticosteroid Start: 05-02-2023 clobetasol (Temovate) 0.05 % ointment Apply 1 application topically in the morning and 1 application before bedtime. 05/02/2023 Active Effer-K 25 mEq oral tablet, effervescent (1 source) Start: 12-05-2021 take 1 tablet by mouth twice daily Effer-K 25 mEq oral tablet, effervescent See Instructions, Take one tab bid, # 60 tab(s), Refills(s) 11, Pharmacy: [facility] [facility] [id number] [facility], 165, cm, 12/05/21 12:42:00 EST, Height/Length Dosing, 70, kg, 12/05/21 12:42:00 EST, Weight Dosing Start Date: 12/05/21 Status: Ordered estradiol 0.1 mg/ml vaginal cream (20 sources) Estrogen Start: 12-07-2023 estradiol 0.1 mg/g Vag Crm 1 gm, Vaginal, MonWedFri, 42.5 gm, Refill(s) 4, [facility] #[id number], 165, cm, 12/07/23 11:34:00 EST, Height/Length Dosing, 66, kg, 12/07/23 11:34:00 EST, Weight Dosing Start Date: 12/07/23 Status: Ordered estradiol (Estra ce) 0.1 MG/GM vaginal cream Insert 0.5 g into the vagina 2 (two) times a week Active Estrace 0.1 MG/G M Vaginal Active Estrace 0.1 MG/G M Vaginal Active famotidine 40 mg oral tablet (1 source) Histamine-2 Receptor Antagonist Start: 11-18-2024 take 1 tablet by mouth once daily as needed for gastroesophageal reflux disease Famotidine (Pepcid) 40 mg tablet Active 40 MG PO Daily as needed for break through gerd November 18, 2024 12:00am hydroCHLOROthiazide 25 mg oral tablet (18 sources) Thiazide Diuretic Start: 04-19-2022 take 1 tablet by mouth once daily hydrochlorothiazide 25 mg Tab 25 mg = 1 tab(s), Oral, Daily, # 90 tab(s), Refills(s) 3, Pharmacy: [facility] #[id number], 165, cm, 12/08/22 10:48:00 EST, Height/Length Dosing, 66, kg, 12/08/22 10:48:00 EST, Weight Dosing Start Date: 06/18/23 Status: Ordered Start: 07-12-2020 take 2 capsules by m outh once daily Hydrochlorothiazide 12.5 mg capsule Active 25 MG PO Daily July 11, 2020 11:00pm Start: 07-12-2020 take 25 mg by mouth once daily Hydrochlorothiazide Active 25 MG PO Daily July 11, 2020 11:00pm Hydrochlorothiazide-12.5 mg (7 sources) Hydrochlorothiaz gabi-12.5 mg Active hydrocortisone acetate 25 mg rectal suppository (4 sources) Corticosteroid Star t: 12-0 12-11 24 End: 09-21 24 hydrocortisone (Anusol-HC) 25 MG suppository Indications: Hemorrhoids, unspecified hemorrhoid type Insert 1 suppository (25 mg) into the rectum 2 (two) times a day as needed for hemorrhoids for up to 14 days 14 suppository 09/22/2024 10/06/2024 Active lactase 3000 unt oral tablet (8 sources) lactase (Lactaid ) 3000 units tablet Take 3,000 Units by mouth if needed Active Loratadine (7 sources) Star t: 11-22 loratadine Daily, Refills(s) 0 Start Date: 12/07/23 Status: Ordered magnesium citrate (7 sources) Star t: 11-22 magnesium citrate Oral, Refill(s) 0 Start Date: 12/07/23 Status: Ordered melatonin 3 mg oral tablet (2 sources) Star t: 06-23 take 1.5 mg by mouth at bedtime as needed for sleep Melatonin 3 mg Tablet Active 1.5 MG PO Bedtime as needed for Sleep July 11, 2020 11:00pm Start: 07-12-2020 take 1.5 mg by mouth at bedtim e Melatonin Active 1.5 MG PO Bedtime July 11, 2020 11:00pm Unpakt's Bounty Probiotic (8 sources) Start: 12-24-2020 Unpakt's Bount y Probiotic Oral, Daily, Refill(s) 0 Start Date: 12/24/20 Status: Ordered omeprazole 20 mg delayed release oral capsule (18 sources) Proton Pump Inhibitor Start: 12-24-2020 omeprazo le Oral, Daily, Refills(s) 0 Start Date: 12/24/20 Status: Ordered Start: 07-12-2020 End: 11-18-2024 take 1 capsule by mouth once daily Omeprazole 20 mg capsule,delayed release(DR/EC) Active 20 MG PO Daily November 18, 2024 9:28am take 1 capsule by [facility] every twenty-four hours Omeprazole 40 MG 1 capsule Orally Once a day for 30 days Active take 1 capsule by [facility] every twelve hours Omeprazole 40 MG 1 capsule Orally TWICE A DAY for 30 days Active ondansetron 4 mg disintegrating oral tablet (2 sources) Serotonin-3 Receptor Antagonist Start: 09-18-2023 take 1 tablet by mouth every four hours as needed for nausea Ondansetron 4 mg tablet,disintegrating Active 4 MG PO Q4H as needed for Nausea September 18, 2023 12:00am Potassium Bicarb-Citric Acid (7 sources) Potassium Bicarb -Citric Acid twice a day Active Potassium Bicarb -Citric Acid Active potassium bicarbonate 25 meq effervescent oral tablet (10 sources) Start: 07-12-2020 Potassium Bica rb-Citric Acid 25 mEq Tablet, Effervescent Active 25 MEQ PO Twice daily July 11, 2020 11:00pm Psyllium (8 sources) Start: 12-24-2020 Metamucil Oral , Refills(s) 0 Start Date: 12/24/20 Status: Ordered Trulance 3 MG (1 source) Start: 01-04-2022 take 1 tablet by mouth once daily Trulance 3 MG 1 tablet Orally Once a day for 30 day(s) Dec, Active Vaginal Cream Applicator (1 source) Start: 07-12-2020 Vaginal Cream Applicator Active EACH MISCELLANE July 11, 2020 11:00pm Vaginal Cream Applicator Misc (1 source) Start: 07-12-2020 Vaginal Cream Applicator Misc Active EACH MISCELLANE July 11, 2020 11:00pm Vitamin D (7 sources) Start: 12-07-2023 Vitamin D International_Unit, Oral, qWeek, Refills(s) 0 Start Date: 12/07/23 Status: Ordered Completed/Discontinued Medications Medication Drug Class(es) Dates Sig (Normalized) Sig (Original) ascorbic acid 1000 mg oral tablet (2 sources) Vitamin C Start: 07-12-2020 End: 09-18-2023 take 1 g by mouth once daily Ascorbic Acid (Vitamin C) (Vitamin C) 1,000 mg Tablet Discontinued 1 GM PO Daily July 11, 2020 11:00pm September 18, 2023 7:40am balsalazide disodium 750 mg oral capsule (2 sources) Aminosalicylate Start: 09-18-2023 End: 11-18-2024 take 1 capsule by mouth twice daily Balsalazide 750 mg capsule Discontinued 2250 MG PO Twice daily 180 September 18, 2023 12:00am November 18, 2024 9:23am Start: 09-18-2023 take 2250 mg by mout h twice daily Balsalazide Active 2250 MG PO Twice daily 180 September 18, 2023 12:00am folic acid 0.8 mg oral table t (2 sources) Start: 07-12-2020 End: 09-18-2023 Folic Acid 800 mcg Tablet Discontinued 1000 MCG PO Daily July 11, 2020 11:00pm September 18, 2023 7:40am Start: 07-12-2020 End: 09-18-2023 take 1000 ug by mouth once daily Folic Acid Discontinued 1000 MCG PO Daily July 11, 2020 11:00pm September 18, 2023 7:40am K-Effervescent 25 mEq oral tablet, effervescent (7 sources) Start: 05-21-2023 End: 05-15-2024 take 1 tablet by mouth twice daily K-Effervescent 25 mEq oral tablet, effervescent 25 mEq = 1 tab(s), Oral, BID, X 30 day(s), # 60 tab(s), Refills(s) 11, Pharmacy: [facility] #[id number], 165, cm, 12/08/22 10:48:00 EST, Height/Length Dosing, 66, kg, 12/08/22 10:48:00 EST, Weight Dosing Start Date: 05/21/23 Stop Date: 05/15/24 Status: Ordered Methylcellulose (6 sources) Citrucel Orally Not-Taking Citrucel Orally Active Probiotic Product (DIGESTIVE ADV PREBIOT+PROBIOT PO) (7 sources) End: 09-22-2024 Probiotic Product (DIGESTIVE ADV PREBIOT+PROBIOT PO) Take by mouth. Trust Your Gut 09/22/2024 Discontinued (Therapy completed) Probiotic Produc t (DIGESTIVE ADV PREBIOT+PROBIOT PO) Take by mouth. Trust Your Gut Active Problems Active Problems Problem Classification Problem Date Documented Da te Episodic/Chronic Abdominal hernia (11 sources) Diaphragmatic hernia without obstruction or gangrene; Translations: [Hiatal hernia] Onset: 3 Episodic Anxiety disorders (11 sources) Anxiety disorder, unspecified; Translations: [Generalized anxiety disorder] Onset: 3 07-26-2023 Chronic Disorders usually diagnosed in infancy, childhood, or adolescence (10 sources) Attention deficit hyperactivity disorder, predominantly inattentive type; Translations: [Other specified behavioral and emotional disorders with onset usually occurring in childhood and adolescence] Onset: 3 07-26-2023 Chronic Diverticulosis and diverticulitis (20 sources) Diverticulitis; Translations: [Diverticular disease] Onset: 3 Resolved: 3 05-07-2019 Chronic Esophageal disorders (13 sources) Gastro-esophageal reflux disease without esophagitis; Translations: [Gastroesophageal reflux disease] Onset: 3 07-13-2020 Chronic Genitourinary symptoms and ill-defined conditions (20 sources) Post-micturition incontinence ; Translations: [Urge incontinence of urine] Onset: 3 08-25-2019 Chronic Genitourinary symptoms and ill-defined conditions (20 sources) Urgent desire to urinate; Translations: [Urgency of urination] Onset: 3 Resolved: 3 Episodic Hemorrhoids (4 sources) Unspecified hemorrhoids; Translations: [Hemorrhoids] Episodic Malaise and fatigue (2 sources) Fatigue; Translations: [Other fatigue] 09-22-2024 Episodic Menstrual disorders (8 sources) Dysmenorrhea 05-07-2019 Chronic Miscellaneous mental health disorders (2 sources) Primary insomnia; Translations: [Primary insomnia] 09-22-2024 Chronic Nutritional deficiencies (10 sources) Vitamin D deficiency; Translations: [Vitamin D deficiency, unspecified] Onset: 3 07-26-2023 Chronic Other aftercare (1 source) Other rat exterminator (current) drug therapy; Translations: [OTH ELECTRICAL DESIGN TECHNOLOGIST CURRENT DRUG THERAPY] Onset: 3 Episodic Other and unspecified benign neoplasm (7 sources) Benign neoplasm of ascending colon; Translations: [Benign neoplasm of ascending colon] Episodic Other and unspecified benign neoplasm (1 source) Benign neoplasm of colon, unspecified Episodic Other and unspecified benign neoplasm (10 sources) Polyp of colon; Translations: [Polyp of colon] Onset: 3 07-26-2023 Episodic Other bone disease and musculoskeletal deformities (10 sources) Osteopenia; Translations: [Other specified disorders of bone density and structure, unspecified site] Onset: 3 07-26-2023 Episodic Other diseases of kidney and ureters (10 sources) Simple renal cyst; Translations: [Cyst of kidney, acquired] Onset: 3 07-26-2023 Episodic Other disorders of stomach and duodenum [...] sources) Constipation; Translations: [Constipation, unspecified] Episodic Other inflammatory condition of skin (10 sources) Psoriasis; Translations: [Psoriasis, unspecified] Onset: 3 07-26-2023 Chronic Other liver diseases (8 sources) Liver cyst 05-07-2019 Chronic Other liver diseases (10 sources) Steatosis of liver; Translations: [Fatty (change of) liver, not elsewhere classified] Onset: 3 07-26-2023 Chronic Other skin disorders (2 sources) Loss of hair; Translations: [Nonscarring hair loss, unspecified] 09-22-2024 Episodic Regional enteritis and ulcerative colitis (13 sources) Intestinal obstruction due to colonic inflammatory polyps; Translations: [Ulcerative colitis] Onset: 4 05-07-2019 Chronic Residual codes; unclassified (7 sources) Family history of malignant neoplasm of gastrointestinal tract; Translations: [Family history of malignant neoplasm of digestive organs] Episodic Residual codes; unclassified (10 sources) Family history of cancer of colon; Translations: [Family history of malignant neoplasm of digestive organs] Onset: 3 Resolved: 3 07-13-2020 Episodic Residual codes; unclassified (2 sources) Family history of malignant neoplasm of digestive organs; Translations: [Family history of malignant neoplasm of gastrointestinal tract] Onset: 3 09-18-2023 Episodic Screening and history of mental health and substance abuse codes (8 sources) Tobacco use and exposure - finding 02-23-2020 Chronic Unclassified (7 sources) Finding of sensation of bladder 12-07-2023 Past or Other Problems Problem Classification Problem Date Documented Da te Episodic/Chronic Abdominal pain (20 sources) Flank pain; Translations: [Suprapubic pain] Onset: 10-21-2022 Resolved: 09-20-2023 02-23-2020 Episodic Calculus of urinary tract (20 sources) Kidney stone; Translations: [Calculus of kidney] Onset: 10-25-2022 Resolved: 09-20-2023 Episodic Deficiency and other anemia (8 sources) Increased hemoglobin; Translations: [Other hemoglobinopathies] Onset: 07-26-2023 Resolved: 09-20-2023 09-20-2023 Chronic Other diseases of kidney and ureters (8 sources) Hydronephrosis; Translations: [Unspecified hydronephrosis] Onset: 07-26-2023 Resolved: 09-20-2023 09-20-2023 Episodic Other nutritional; endocrine; and metabolic disorders (8 sources) Body mass index 25-29 - overweight; Translations: [Overweight] Onset: 07-26-2023 Resolved: 09-20-2023 09-20-2023 Episodic Residual codes; unclassified (8 sources) Insomnia; Translations: [Insomnia, unspecified] Onset: 07-26-2023 07-26-2023 Episodic Residual codes; unclassified (8 sources) History of hysterectomy for benign disease; Translations: [Acquired absence of both cervix and uterus] Onset: 09-19-2023 Resolved: 09-20-2023 09-20-2023 Episodic Screening and history of mental health and substance abuse codes (9 sources) Personal history of nicotine dependence; Translations: [Tobacco use and exposure - finding] Onset: 10-25-2022 Resolved: 09-20-2023 09-20-2023 Episodic Results Test Name Value Interpretation Reference Range Facil ity BI MAMMOGRAM DIAGNOSTIC MARYCRUZ SYNTHESIS LEFTon 11-10-2024 BI MAMMOGRAM DIAGNOSTIC TOMOSYNTHESIS LEFT This is a summary report. The complete report is available in the patient's medical record. If you cannot access the medical record, please contact the sending organization for a detailed fax or copy. EXAMINATION: BI MAMMOGRAM DIAGNOSTIC TOMOSYNTHESIS LEFT CLINICAL HISTORY: call back TECHNIQUE: Diagnostic digital mammogram study of the left breast was performed with 2D and 3D tomosynthesis imaging. Study was compared to the screening mammogram study of the breasts dated 11/06/2024 and ultrasound study of the left breast dated 11/10/2024. FINDINGS: Coned-down compression views as well as true lateral view of the left breast were obtained. The previously noted approximately 9 x 6 mm asymmetric density is again identified and noted in the superomedial aspect of the left breast. Ultrasound study demonstrates what is likely a somewhat bilobed partially septated cyst correlating with this finding. Other possibly would be less likely. When correlating all studies there is no convincing evidence of neoplasm. Axillary lymph nodes are noted. IMPRESSION: No specific evidence of malignancy seen in the left breast as described. Previous noted asymmetric density is again identified as described, likely representing a somewhat bilobed partially septated cyst when correlated with the ultrasound study. Other possibility would be less likely. Follow-up diagnostic mammogram study of the left breast as well as ultrasound study of the left breast in 6 months recommended to assess stability. BIRADS 3 - Probably Benign Findings DENSITY: There are scattered areas of fibroglandular density. FOLLOW-UP: Diagnostic Mammogram in 6 Months, breast ultrasound in 6 months Board Certified Radiologists. Accredited by the ACR and FDA. MAMMOGRAPHY IS VERY IMPORTANT TO YOUR HEALTH. THE [employer] GUIDELINES RECOMMEND THAT WOMEN 40 YEARS OF AGE AND OLDER SHOULD HAVE A MAMMOGRAM EVERY YEAR. A REMINDER LETTER WILL BE SENT AT THE APPROPRIATE TIME. ELECTRONICALLY SIGNED BY: Raul Keith M.D. Normal Not Available BI US BREAST LIMITED LEFTon 11-10-2024 BI US BREAST LIMITED LEFT Examination: BI US BREAST LIMITED LEFT Reason for Study: call back Comparison: Screening mammogram study of the breasts dated 11/06/2024 and diagnostic mammogram study of the left breast dated 11/10/2024. Technique: Ultrasound study of the left breast was performed from the 8:00 to the 11 o'clock position to include the area of interest when correlated with the diagnostic mammogram study. Findings: At the 10 o'clock position approximately 7 cm from the nipple there is an area of decreased echogenicity which is somewhat bilobed and may be partially septated compatible with a partially complex cyst. This finding measures approximately 0.9 x 0.5 x 0.3 cm. Other possibly would be less likely. No obvious solid vascular mass to suggest neoplasm. When correlating all studies there is no convincing evidence of neoplasm. IMPRESSION: Impression: Left breast ultrasound study fails to convincingly demonstrate evidence of neoplasm. Likely partially complex cyst at the 10 o'clock position correlating with the soft tissue density noted on the mammogram studies as described. Follow-up diagnostic mammogram study of the left breast as well as ultrasound study of the left breast in 6 months recommended to assess stability. BI-RADS 3 ELECTRONICALLY SIGNED BY: Raul Keith M.D. Normal Not Available BI MAMMOGRAM SCREENING TOMOS YNTHESIS BILATERALon 11-06-2024 BI MAMMOGRAM SCREENING TOMOSYNTHESIS BILATERAL This is a summary report. The complete report is available in the patient's medical record. If you cannot access the medical record, please contact the sending organization for a detailed fax or copy. Examination: BI MAMMOGRAM SCREENING TOMOSYNTHESIS BILATERAL Clinical History: screening Technique: Screening digital mammography study of both breasts was performed with 2-D and 3-D tomosynthesis imaging. Study was compared to the prior exam dated 10/10/2023. Findings: Asymmetric density in the mid, medial aspect of the left breast posteriorly measuring approximately 9 x 6 mm. Follow-up diagnostic mammogram study of the left breast as well as ultrasound study of the left breast recommended for further evaluation. At the diagnostic setting coned-down compression views as well as true lateral view of the left breast should be obtained. At the ultrasound study images may be obtained from the 6:00 to the 12 o'clock position. A single benign-appearing calcification is seen on the right. Likely intramammary lymph node in the superior aspect of the right breast on the MLO view similar to the prior study. Axillary lymph nodes noted bilaterally IMPRESSION: Impression: Asymmetric density left breast as described. Follow-up diagnostic mammogram study of the left breast with views suggested above as well as ultrasound study of the left breast with views suggested above recommended for further evaluation. BIRADS 0 - Incomplete: Needs Additional Imaging Evaluation DENSITY: There are scattered areas of fibroglandular density. FOLLOW-UP: Additional Imaging Diagnostic Mammogram, ultrasound ELECTRONICALLY SIGNED BY: Raul Keith M.D. Abnormal Not Available Comment on above: Order Comment: Us or spot compression prn DEXA BONE DENSITYon 11-06-19 DEXA BONE DENSITY Examination: DEXA BONE DENSITY Clinical History: osteopenia Technique: Bone density study was performed. T score values for the lumbar spine, right femoral neck and left femoral neck were obtained. Comparison: 09/25/2022. Findings: Value for the lumbar spine from L1-L4 is -2.7. Value for the right femoral neck is -1.6. Value for the left femoral neck is -1.7. Findings are compatible with osteoporosis with high increased fracture risk. Study was compared to the prior exam dated 09/25/2022 which demonstrates severe osteopenia with moderate to high increased fracture risk. Findings are mildly progressed compared to the prior exam. IMPRESSION: Impression: Findings compatible with osteoporosis with high increased fracture risk. Findings are mildly progressed compared to the prior exam. ELECTRONICALLY SIGNED BY: Raul Keith M.D. Normal Not Available EMG Electromyographyon 02-13 EMG Electromyography [id number] Normal [facility] Patient Educationon 02-13-20 Patient Education Obstetrics and Gynecology Pelvic Floor Dysfunction, Female Pelvic floor dysfunction (PFD) is a condition that results when the group of muscles and connective tissues that support the organs in the pelvis (pelvic floor muscles) do not work well. These muscles and their connections form a sling that supports the colon and bladder. In women, they also support the uterus. PFD causes pelvic floor muscles to be too weak, too tight, or both. In PFD, muscle movements are not coordinated. This may cause bowel or bladder problems. It may also cause pain. What are the causes? This condition may be caused by an injury to the pelvic area or by a weakening of pelvic muscles. This often results from and childbirth or other types of strain. In many cases, the exact cause is not known. What increases the risk? The following factors may make you more likely to develop this condition: ? Having chronic bladder tissue inflammation (interstitial cystitis). ? Being an older person. ? Being overweight. ? History of radiation treatment for cancer in the pelvic region. ? Previous pelvic surgery, such as removal of the uterus (hysterectomy). What are the signs or symptoms? Symptoms of this condition vary and may include: ? Bladder symptoms, such as: ? Trouble starting urination and emptying the bladder. ? Frequent urinary tract infections. ? Leaking urine when coughing, laughing, or exercising (stress incontinence). ? Having to pass urine urgently or frequently. ? Pain when passing urine. ? Bowel symptoms, such as: ? Constipation. ? Urgent or frequent bowel movements. ? Incomplete bowel movements. ? Painful bowel movements. ? Leaking stool or gas. ? Unexplained genital or rectal pain. ? Genital or rectal muscle spasms. ? Low back pain. Other symptoms may include: ? A heavy, full, or aching feeling in the vagina. ? A bulge that protrudes into the vagina. ? Pain during or after sex. How is this diagnosed? This condition may be diagnosed based on: ? Your symptoms and medical history. ? A physical exam. During the exam, your health care provider may check your pelvic muscles for tightness, spasm, pain, or weakness. This may include a rectal exam and a pelvic exam. In some cases, you may have diagnostic tests, such as: ? Electrical muscle function tests. ? Urine flow testing. ? X-ray tests of bowel function. ? Ultrasound of the pelvic organs. How is this treated? Treatment for this condition depends on the symptoms. Treatment options include: ? Physical therapy. This may include Kegel exercises to help relax or strengthen the pelvic floor muscles. ? Biofeedback. This type of therapy provides feedback on how tight your pelvic floor muscles are so that you can learn to control them. ? Internal or external massage therapy. ? A treatment that involves electrical stimulation of the pelvic floor muscles to help control pain (transcutaneous electrical nerve stimulation, or TENS). ? Sound wave therapy (ultrasound) to reduce muscle spasms. ? Medicines, such as: ? Muscle relaxants. ? Bladder control medicines. Surgery to reconstruct or support pelvic floor muscles may be an option if other treatments do not help. Follow these instructions at home: Activity ? Do your usual activities as told by your health care provider. Ask your health care provider if you should modify any activities. ? Do pelvic floor strengthening or relaxing exercises at home as told by your physical therapist. Lifestyle ? Maintain a healthy weight. ? Eat foods that are high in fiber, such as beans, whole grains, and fresh fruits and vegetables. ? Limit foods that are high in fat and processed sugars, such as fried or sweet foods. ? Manage stress with relaxation techniques such as yoga or meditation. General instructions ? If you have problems with leakage: ? Use absorbable pads or wear padded underwear. ? Wash frequently with mild soap. ? Keep your genital and anal area as clean and dry as possible. ? Ask your health care provider if you should try a barrier cream to prevent skin irritation. ? Take warm baths to relieve pelvic muscle tension or spasms. ? Take [id number] and prescription medicines only as told by your health care provider. ? Keep all follow-up visits. How is this prevented? The cause of PFD is not always known, but there are a few things you can do to reduce the risk of developing this condition, including: ? Staying at a healthy weight. ? Getting regular exercise. ? Managing stress. Contact a health care provider if: ? Your symptoms are not improving with home care. ? You have signs or symptoms of PFD that get worse at home. ? You develop new signs or symptoms. ? You have signs of a urinary tract infection, such as: ? Fever. ? Chills. ? Increased urinary frequency. ? A burning feeling when urinating. ? You have not had a bowel movement i (more content not included)... Normal [facility] Urology Office/Clinic Noteon 02-13-2024 Urology Office/Clinic Note Chief Complaint PFPT # 5 HPI Staff PFPT # 5 Previous DX; Urge incontinence, stress incontinence, Pt is here for PFPT #5 have you been consistent with your home exercises this week? somewhat for 2 wks she missed 6 days have you noticed any worsening in your symptoms this week? no have you noticed any improvement in your symptoms this week? yes, the changes noted are: she does not have the pressure do you have any UTI sx (burning, foul odor, cloudy urine, etc)? no in office UA: NOT suspicious for UTI Current urinary medications: N/A History of Present Illness staff HPI reviewed and agree. Review of Systems PHQ Score Initial Depression Screen Score: 0 SCORE no fever, chills, malaise, myalgia. no rash/lesions. no chest pain, palpitations, or SOB. no abdominal pain, nausea, vomiting. no unilateral calf swelling, redness, pain Physical Exam Vitals & Measurements T: 36.0 ?C(Temporal Artery) HR: 84(Peripheral) BP: 128/82 HT: 65 in HT: 165 cm WT: 66 kg WT: 145.2 lb BMI: 24.24 General: nontoxic, NAD Mouth: moist mucosa Lungs: normal respiratory effort Cardio: regular rate, good distal perfusion Abdomen: nondistended, no suprapubic distention or tenderness, no CVA tenderness Neurologic: Grossly normal Skin: No rashes or suspicious lesions Assessment/Plan Dr. Jones pt 1. Mixed incontinence (N39.46: Mixed incontinence) UUI > LISETTE. PFPT #1 - Did well identifying the correct muscle. She was able to hold for about 8-10 seconds for the first 4 reps, w subsequent fatigue on rep 5-7. [1] PFPT #2 - Utilized her abs less than the week prior. PFPT #3 - increased strength/endurance. abs look good. PFPT #4 - continued good strength/endurance. will increase rep/contractions/QF by 1 this week and then another 1 next week. likely will be able to stop after visit #5 and just have her do exercises on her own for a bit. [2] PFPT #5 performed today. Home exercise program prescribed 4x per day: Contract - 10 Relax - 10 Reps - 10 Quick Flicks - 10 Pt reports decreased urgency, decreased pelvic pressure/pain. Thinks PFPT has helped a lot. Has not tried jumping on trampoline yet. Is going to continue home PFPT for next few mos. Will call to schedule ov if sx do not resolve sufficiently and can consider Bulkamid if LISETTE is most bothersome remaining sx or could consider oral med if urgency/frequency/U UI are most bothersome remaining sx. Brochure given today. Has 1 yr f/u already scheduled for next Nov for her other urinary dx. Follow-up With When Contact Information YUNIOR CHAPMAN, KIERSTEN Olmos, URL [id number] [place] [address] [phone] Additional Instructions: 1 yr f/u in Nov. or sooner if wishes to treat urinary sx. Patient Education Pelvic Floor Dysfunction, Female Documentation recorded by the arabella Manzo accurately reflects the services(s) I performed and decisions made by me. Authenticated by Kiersten Mojica PA-C on 02/13/2024 13:35:13. IViolet, personally scribed for Kiersten Mojica PA-C on 02/13/2024 13:19:59. . Problem List/Past Medical History Ongoing Feeling of incomplete bladder emptying Flank pain Gross hematuria Kidney stone Microhematuria Mixed incontinence Nocturia Post-void dribbling Smoking hx Straining to void Stress incontinence Suprapubic pain Urge incontinence Urinary urgency Urine [...] (09/21/2011), cysto (09/11/2011), Abdominal hysterectomy and left salpingo-oophorecto my (07/22/2005), Abdominal hysterectomy and right salpingo-oophorecto my (07/22/2005). Medications Adderall 20 mg oral tablet, Oral, BID alprazolam 0.25 mg Tab estradiol 0.1 mg/g Vag Crm, 1 gm, Vaginal, MonWedFri, 4 refills hydrochlorothiazide 25 mg Tab, 25 mg= 1 tab(s), Oral, Daily, 3 refills K-Effervescent 25 mEq oral tablet, effervescent, 25 mEq= 1 tab(s), Oral, BID, 11 refills loratadine, Daily magnesium citrate, Oral Metamucil, Oral Nature's Bounty Probiotic, Oral, Daily omeprazole, Oral, Daily Vitamin D, Oral, qWeek Allergies sulfa drugs (Throat tightness) Social History Alcohol - Denies Alcohol Use, 05/07/2019 Current, 1-2 times per month, 08/25/2019 Tobacco Former smoker, quit more than 30 days ago Tobacco Use:. Never Smokeless Tobacco Use:., 02/13/2024 Family History Hypertension: Father. Primary malignant neoplasm of colon: Mother. Immunizations Vaccine (more content not included)... Normal [facility] Comment on above: Result Comment: Elec tronically Signed By: Maximo Ibarra, Jena Kerr.br\Date and Time Signed: 02/13/24 13:52 EDT EMG Electromyographyon 02-03 EMG Electromyography [id number] Alison [facility] Ambulatory Visit Summaryon 0 01-30-2024 Ambulatory Visit Summary JA SCHWAB :1960 Visit Date:01/30/2024 Ambulatory Visit Instructions Your Diagnosis Urge incontinence Stress incontinence Your Care Team Attending Physician - KIERSTEN MOJICA PA-C Primary Care Physician - GLENNA KEITA This Is Your Medications List Contact prescribing physician if questions or concerns alprazolam (alprazolam 0.25 mg Tab) amphetamine-dextroa mphetamine (Adderall 20 mg oral tablet) bifidobacterium-lac tobacillus (Nature's Bounty Probiotic) ergocalciferol (Vitamin D) estradiol topical (estradiol 0.1 mg/g Vag Crm) hydrochlorothiazide (hydrochlorothiazid e 25 mg Tab) loratadine magnesium citrate omeprazole potassium bicarbonate (K-Effervescent 25 mEq oral tablet, effervescent) psyllium (Metamucil) Procedures Performed ESWL of kidney (12/30/2020), Cystoscope (06/22/2020), Cystoscopy (06/22/2020), cysto/UD (10/10/2018), RT ESWL (09/20/2017), R stent removal (02/03/2016), bladder BX/ B/L ESWL, R stent placement (01/27/2016), Cysto/UD (09/28/2015), R ESWL (09/27/2015), cysto/UD/stone basket extraction (02/01/2012), cysto/ L stent removal (10/06/2011), cysto/stone basket/ L stent placement (09/21/2011), cysto (09/11/2011), Abdominal hysterectomy and left salpingo-oophorecto my (07/22/2005), Abdominal hysterectomy and right salpingo-oophorecto my (07/22/2005). Discharge Vitals Temperature (Temporal Artery) 37 ?C Respiratory Rate 14 Blood Pressure 128/84 Height 165 cm Height 65 in Weight 66 kg Weight 145.2 lb BMI 24.24 What to do next Scheduled Follow-Up Appointments Sunday 1:00 PM EDT With: YUNIOR CHAPMAN, KIERSTEN Olmos Where: [facility] Normal [address] [place] [address] [place] [address]- \.br\ You Need to Schedule the Following Appointments\.br\ Follow Up with [facility] When: \.br\ Comments:\.br\ for procedure as scheduled\.br\ Where:\.br\ [address]br\ [place] [address]\.br\ Business (1)\.br\ Medications\.br\ What How Much When Instructions\.br\ Unchanged alprazolam (alprazolam 0.25 mg Tab) Contact prescribing physician if questions or concerns \.br\ Unchanged amphetamine-dextroam phetamine (Adderall 20 mg oral tablet) By Mouth 2 times a day Contact prescribing physician if questions or concerns \.br\ Unchanged bifidobacterium-lact obacillus (Nature's Bounty Probiotic) By Mouth Every day Contact prescribing physician if questions or concerns \.br\ Unchanged ergocalciferol (Vitamin D) By Mouth Every week Contact prescribing physician if questions or concerns \.br\ Unchanged estradiol topical (estradiol 0.1 mg/ g Vag Crm) 1 Gram Vaginal Sunday Contact prescribing physician if questions or concerns \.br\ Unchanged hydrochlorothiazide (hydrochlorothiazide 25 mg Tab) 1 Tablets By Mouth Every day Contact prescribing physician if questions or concerns \.br\ Unchanged loratadine Every day Contact prescribing physician if questions or concerns \.br\ Unchanged magnesium citrate By Mouth Contact prescribing physician if questions or concerns \.br\ Unchanged omeprazole By Mouth Every day Contact prescribing physician if questions or concerns \.br\ Unchanged potassium bicarbonate (K-Effervescent 25 mEq oral tablet, effervescent) 1 Tablets By Mouth 2 times a day Duration: 30 Days Contact prescribing physician if questions or concerns \.br\ Unchanged psyllium (Metamucil) By Mouth Contact prescribing physician if questions or concerns \.br\ Allergies\.br\ sulfa drugs (Throat tightness)\.br\ Problems\.br\ Ongoing - Any problem that you are currently receiving treatment for.\.br\ Feeling of incomplete bladder emptying\.br\ Flank pain\.br\ Gross hematuria\.br\ Kidney stone\.br\ Microhematuria\.br\ Nocturia\.br\ Post-void dribbling\.br\ Smoking hx\.br\ Straining to void\.br\ Stress incontinence\.br\ Suprapubic pain\.br\ Urge incontinence\.br\ Urinary urgency\.br\ Urine frequency\.br\ Historical - Any problem that you are no longer receiving treatment for.\.br\ Cyst of liver\.br\ Diverticulitis\.br\ Dysmenorrhea\.br\ Intestinal obstruction due to colonic inflammatory polyps\.br\ Patient Survey\.br\ You may receive a survey via text or e-mail asking about your office visit. Please share your experience with us by completing your survey. We appreciate your feedback and thank you for choosing us for your care.\.br\ Education Materials\.br\ Urinary Incontinence\.br\ Urinary incontinence refers to a condition in which a person is unable to control where and when to pass urine. A person with this condition will urinate involuntarily. This means that the person urinates when he or she does not mean to.\.br\ What are the causes?\.br\ \.br\ This condition may be caused by:\.br\ ? \.br\ Medicines.\.br\ ? \.br\ Infections.\.br\ ? \.br\ Constipation.\.br\ ? \.br\ Overactive bladder muscles.\.br\ ? \.br\ Weak bladder muscles.\.br\ ? \.br\ Weak pelvic floor muscles. These muscles provide support for the bladder, intestine, and, in women, the uterus.\.br\ ? \.br\ Enlarged prostate in men. The prostate is a gland near the bladder. When it gets too big, it can pinch the urethra. With the urethra blocked, the bladder can weaken and lose the ability to empty properly.\.br\ ? \.br\ Surgery.\.br\ ? \.br\ Emotional factors, such as anxiety, stress, or post-traumatic stress disorder (PTSD).\.br\ ? \.br\ Spinal cord injury, nerve injury, or other neurological conditions.\.br\ ? \.br\ Pelvic organ prolapse. This happens in women when organs move out of place and into the vagina. This movement can prevent the bladder and urethra from working properly.\.br\ What increases the risk?\.br\ The following factors may make you more likely to develop this condition:\.br\ ? \.br\ Age. The older you are, the higher the risk.\.br\ ? \.br\ Obesity.\.br\ ? \.br\ Being physically inactive.\.br\ ? \.br\ and childbirth.\.br\ ? \.br\ Menopause.\.br\ ? \.br\ Diseases that affect the nerves or spinal cord.\.br\ ? \.br\ Long-term, or chronic, coughing. This can increase pressure on the bladder and pelvic floor muscles.\.br\ What are the signs or symptoms?\.br\ Symptoms may vary depending on the type of urinary incontinence you have. They include:\.br\ ? \.br\ A sudden urge to urinate, and passing urine involuntarily before you can get to a bathroom (urge incontinence).\.br\ ? \.br\ Suddenly passing urine when doing activities that force urine to pass, such as coughing, laughing, exercising, or sneezing (stress incontinence).\.br\ ? \.br\ Needing to urinate often but urinating only a small amount, or constantly dribbling urine (overflow incontinence).\.br\ ? \.br\ Urinating because you cannot get to the bathroom in time due to a physical disability, such as arthritis or injury, or due to a communication or thinking problem, such as Alzheimer's disease (functional incontinence).\.br\ How is this diagnosed?\.br\ This condition may be diagnosed based on:\.br\ ? \.br\ Your medical history.\.br\ ? \.br\ A physical exam.\.br\ ? \.br\ Tests, such as:\.br\ ? \.br\ Urine tests.\.br\ ? \.br\ X-rays of your kidney and bladder.\.br\ ? \.br\ Ultrasound.\.br\ ? \.br\ CT scan.\.br\ ? \.br\ Cystoscopy. In this procedure, a health care provider inserts a tube with a light and camera (cystoscope) through the urethra and into the bladder to check for problems.\.br\ ? \.br\ Urodynamic testing. These tests assess how well the bladder, urethra, and sphincter can store and release urine. There are different types of urodynamic tests, and they vary depending on what the test is measuring.\.br\ To help diagnose your condition, your health care provider may recommend that you keep a log of when you urinate and how much you urinate.\.br\ How is this treated?\.br\ Treatment for this condition depends on the type of incontinence that you have and its cause. Treatment may include:\.br\ ? \.br\ Lifestyle changes, such as:\.br\ ? \.br\ Quitting smoking.\.br\ ? \.br\ Maintaining a healthy weight.\.br\ ? \.br\ Staying active. Try to get 150 minutes of moderate-intensity exercise every week. Ask your health care provider which activities are safe for you.\.br\ ? \.br\ Eating a healthy diet.\.br\ ? \.br\ Avoid high-fat foods, like fried foods.\.br\ ? \.br\ Avoid refined carbohydrates like white bread and white rice.\.br\ ? \.br\ Limit how much alcohol and caffeine you drink.\.br\ ? \.br\ Increase your fiber intake. Healthy sources of fiber include beans, whole grains, and fresh fruits and vegetables.\.br\ ? \.br\ Behavioral changes, such as:\.br\ ? \.br\ Pelvic floor muscle exercises.\.br\ ? \.br\ Bladder training, such as lengthening the amount of time between bathroom breaks, or using the bathroom at regular intervals.\.br\ ? \.br\ Using techniques to suppress bladder urges. This can include distraction techniques or controlled [facility] Patient Educationon 01-30-20 Patient Education Urology Urinary Incontinence Urinary incontinence refers to a condition in which a person is unable to control where and when to pass urine. A person with this condition will urinate involuntarily. This means that the person urinates when he or she does not mean to. What are the causes? This condition may be caused by: ? Medicines. ? Infections. ? Constipation. ? Overactive bladder muscles. ? Weak bladder muscles. ? Weak pelvic floor muscles. These muscles provide support for the bladder, intestine, and, in women, the uterus. ? Enlarged prostate in men. The prostate is a gland near the bladder. When it gets too big, it can pinch the urethra. With the urethra blocked, the bladder can weaken and lose the ability to empty properly. ? Surgery. ? Emotional factors, such as anxiety, stress, or post-traumatic stress disorder (PTSD). ? Spinal cord injury, nerve injury, or other neurological conditions. ? Pelvic organ prolapse. This happens in women when organs move out of place and into the vagina. This movement can prevent the bladder and urethra from working properly. What increases the risk? The following factors may make you more likely to develop this condition: ? Age. The older you are, the higher the risk. ? Obesity. ? Being physically inactive. ? and childbirth. ? Menopause. ? Diseases that affect the nerves or spinal cord. ? Long-term, or chronic, coughing. This can increase pressure on the bladder and pelvic floor muscles. What are the signs or symptoms? Symptoms may vary depending on the type of urinary incontinence you have. They include: ? A sudden urge to urinate, and passing urine involuntarily before you can get to a bathroom (urge incontinence). ? Suddenly passing urine when doing activities that force urine to pass, such as coughing, laughing, exercising, or sneezing (stress incontinence). ? Needing to urinate often but urinating only a small amount, or constantly dribbling urine (overflow incontinence). ? Urinating because you cannot get to the bathroom in time due to a physical disability, such as arthritis or injury, or due to a communication or thinking problem, such as Alzheimer's disease (functional incontinence). How is this diagnosed? This condition may be diagnosed based on: ? Your medical history. ? A physical exam. ? Tests, such as: ? Urine tests. ? X-rays of your kidney and bladder. ? Ultrasound. ? CT scan. ? Cystoscopy. In this procedure, a health care provider inserts a tube with a light and camera (cystoscope) through the urethra and into the bladder to check for problems. ? Urodynamic testing. These tests assess how well the bladder, urethra, and sphincter can store and release urine. There are different types of urodynamic tests, and they vary depending on what the test is measuring. To help diagnose your condition, your health care provider may recommend that you keep a log of when you urinate and how much you urinate. How is this treated? Treatment for this condition depends on the type of incontinence that you have and its cause. Treatment may include: ? Lifestyle changes, such as: ? Quitting smoking. ? Maintaining a healthy weight. ? Staying active. Try to get 150 minutes of moderate-intensity exercise every week. Ask your health care provider which activities are safe for you. ? Eating a healthy diet. ? Avoid high-fat foods, like fried foods. ? Avoid refined carbohydrates like white bread and white rice. ? Limit how much alcohol and caffeine you drink. ? Increase your fiber intake. Healthy sources of fiber include beans, whole grains, and fresh fruits and vegetables. ? Behavioral changes, such as: ? Pelvic floor muscle exercises. ? Bladder training, such as lengthening the amount of time between bathroom breaks, or using the bathroom at regular intervals. ? Using techniques to suppress bladder urges. This can include distraction techniques or controlled breathing exercises. ? Medicines, such as: ? Medicines to relax the bladder muscles and prevent bladder spasms. ? Medicines to help slow or prevent the growth of a man's prostate. ? Botox injections. These can help relax the bladder muscles. ? Treatments, such as: ? Using pulses of electricity to help change bladder reflexes (electrical nerve stimulation). ? For women, using a medical lab specialist to prevent urine leaks. This is a small, tampon-like, disposable device that is inserted into the urethra. ? Injecting collagen or carbon beads (bulking agents) into the urinary sphincter. These can help thicken tissue and close the bladder opening. ? Surgery. Follow these instructions at home: Lifestyle ? Limit alcohol and caffeine. These can fill your bladder quickly and irritate it. ? Keep yourself clean to help prevent odors and skin damage. Ask your health care provider about special skin creams and cleansers that can protect the skin from urine. ? (more content not included)... Normal [facility] Urology Office/Clinic Noteon 01-30-2024 Urology Office/Clinic Note Chief Complaint PFPT #4 HPI Staff PFPT #4. Previous DX: feeling of incomplete bladder emptying, flank pain, gross hematuria, kidney stone, microhematuria, nocturia, post-void dribbling, straining to void, stress incontinence, suprapubic pain, urge incontinence, urinary urgency, urine frequency. S/P ESWL of kidney done 12/30/20. Cysto done 06/22/20. Pt is here for PFPT #4 have you been consistent with your home exercises this week? yes 2 days were not done have you noticed any worsening in your symptoms this week? no have you noticed any improvement in your symptoms this week? somewhat, the changes noted are: she does not feel constant pressure to go do you have any UTI sx (burning, foul odor, cloudy urine, etc)? no in office UA: NOT suspicious for UTI Current urinary medications: Estradiol cream Sun Review of Systems PHQ Score Initial Depression Screen Score: 0 SCORE no fever, chills, malaise, myalgia. no rash/lesions. no chest pain, palpitations, or SOB. no abdominal pain, nausea, vomiting. no unilateral calf swelling, redness, pain Physical Exam Vitals & Measurements T: 37 ?C(Temporal Artery) RR: 14 BP: 128/84 HT: 65 in HT: 165 cm WT: 66 kg WT: 145.2 lb BMI: 24.24 General: nontoxic, NAD Mouth: moist mucosa Lungs: normal respiratory effort Cardio: regular rate, good distal perfusion Abdomen: nondistended, no suprapubic distention or tenderness, no CVA tenderness Neurologic: Grossly normal Skin: No rashes or suspicious lesions Assessment/Plan 1. Urge incontinence (N39.41: Urge incontinence) UUI > LISETTE. PFPT #1 - Did well identifying the correct muscle. She was able to hold for about 8-10 seconds for the first 4 reps, w subsequent fatigue on rep 5-7. [1] PFPT #2 - Utilized her abs less than the week prior. PFPT #3 - increased strength/endurance. abs look good. PFPT #4 - continued good strength/endurance. will increase rep/contractions/QF by 1 this week and then another 1 next week. likely will be able to stop after visit #5 and just have her do exercises on her own for a bit. UA today negative for blood and infection. PFPT #4 performed today. Home exercise program prescribed 4x per day: THIS WEEK Contract - 9 Relax - 10 Reps - 9 Quick Flicks - 9 NEXT WEEK Contract - 10 Relax - 10 Reps - 10 Quick Flicks - 10 Pt will return in 2 week(s) for session #5 Ordered: 42980 EMG anal/urethral sphincter no needle 88737 Biofeedback training, perineal muscles, anorectal 00268 Anorectal Manometry 56723 ELECTRICAL STIMULATION 53448 Urnls Dip Stick Auto w/o Microscopy POC 91356 2. Stress incontinence (N39.3: Stress incontinence (female) (male)) see #1. wants to be able to jump on trampoline w grandkids without leaking Ordered: 88803 EMG anal/urethral sphincter no needle 12485 Biofeedback training, perineal muscles, anorectal 40130 Anorectal Manometry 47932 ELECTRICAL STIMULATION 82513 Follow-up With When Contact Information [facility] [address] [place] [address] Business (1) Additional Instructions: for procedure as scheduled Patient Education Urinary Incontinence Problem List/Past Medical History Ongoing Feeling of incomplete bladder emptying Flank pain Gross hematuria Kidney stone Microhematuria Nocturia Post-void dribbling Smoking hx Straining to void Stress incontinence Suprapubic pain Urge incontinence Urinary urgency Urine [...] (09/21/2011), cysto (09/11/2011), Abdominal hysterectomy and left salpingo-oophorecto my (07/22/2005), Abdominal hysterectomy and right salpingo-oophorecto my (07/22/2005). Medications Adderall 20 mg oral tablet, Oral, BID alprazolam 0.25 mg Tab estradiol 0.1 mg/g Vag Crm, 1 gm, Vaginal, MonWedFri, 4 refills hydrochlorothiazide 25 mg Tab, 25 mg= 1 tab(s), Oral, Daily, 3 refills K-Effervescent 25 mEq oral tablet, effervescent, 25 mEq= 1 tab(s), Oral, BID, 11 refills loratadine, Daily magnesium citrate, Oral Metamucil, Oral Nature's Bounty Probiotic, Oral, Daily omeprazole, Oral, Daily Vitamin D, Oral, qWeek Allergies sulfa drugs (Throat tightness) Social History Alcohol - Denies Alcohol Use, 05/07/2019 Current, 1-2 times per month, 08/25/2019 Tobacco Former smoker, quit more than 30 days ago Tobacco Use:. Never Smokeless Tobacco Use:., 01/30/2024 Family History Hypertension: Father. P (more content not included)... Normal [facility] Comment on above: Result Comment: Elec tronically Signed By: KIERSTEN MOJICA PA-C\.br\Date and Time Signed: 01/30/24 14:15 EDT Ambulatory Visit Summaryon 0 01-23-2024 Ambulatory Visit Summary JA SCHWAB :1960 Visit Date:01/23/2024 Ambulatory Visit Instructions Your Diagnosis Urge incontinence Stress incontinence Your Care Team Attending Physician - KIERSTEN MOJICA PA-C Primary Care Physician - GLENNA KEITA This Is Your Medications List alprazolam (alprazolam 0.25 mg Tab) amphetamine-dextroa mphetamine (Adderall 20 mg oral tablet) bifidobacterium-lac tobacillus (Nature's Bounty Probiotic) ergocalciferol (Vitamin D) estradiol topical (estradiol 0.1 mg/g Vag Crm) hydrochlorothiazide (hydrochlorothiazid e 25 mg Tab) loratadine magnesium citrate omeprazole potassium bicarbonate (K-Effervescent 25 mEq oral tablet, effervescent) psyllium (Metamucil) Procedures Performed ESWL of kidney (12/30/2020), Cystoscope (06/22/2020), Cystoscopy (06/22/2020), cysto/UD (10/10/2018), RT ESWL (09/20/2017), R stent removal (02/03/2016), bladder BX/ B/L ESWL, R stent placement (01/27/2016), Cysto/UD (09/28/2015), R ESWL (09/27/2015), cysto/UD/stone basket extraction (02/01/2012), cysto/ L stent removal (10/06/2011), cysto/stone basket/ L stent placement (09/21/2011), cysto (09/11/2011), Abdominal hysterectomy and left salpingo-oophorecto my (07/22/2005), Abdominal hysterectomy and right salpingo-oophorecto my (07/22/2005). Discharge Vitals Temperature (Temporal Artery) 37.0 ?C Heart Rate (Peripheral) 78 Blood Pressure 122/88 Height 165 cm Height 65 in Weight 66 kg Weight 145.2 lb BMI 24.24 What to do next Scheduled Follow-Up Appointments Sunday 1:00 PM EDT With: KIERSTEN MOJICA PA-C Where: [facility] Invalid Interpretation Code [address] [place] [address]- \.br\ Sunday 1:00 PM EDT \.br\ With: KIERSTEN MOJICA PA-C\.br\ Where: [facility] EMG Electromyographyon 01-22 EMG Electromyography [id number] C6#1.00TIFF Normal [facility] Patient Educationon 01-23-20 Patient Education Obstetrics and Gynecology Pelvic Floor Dysfunction, Female Pelvic floor dysfunction (PFD) is a condition that results when the group of muscles and connective tissues that support the organs in the pelvis (pelvic floor muscles) do not work well. These muscles and their connections form a sling that supports the colon and bladder. In women, they also support the uterus. PFD causes pelvic floor muscles to be too weak, too tight, or both. In PFD, muscle movements are not coordinated. This may cause bowel or bladder problems. It may also cause pain. What are the causes? This condition may be caused by an injury to the pelvic area or by a weakening of pelvic muscles. This often results from and childbirth or other types of strain. In many cases, the exact cause is not known. What increases the risk? The following factors may make you more likely to develop this condition: ? Having chronic bladder tissue inflammation (interstitial cystitis). ? Being an older person. ? Being overweight. ? History of radiation treatment for cancer in the pelvic region. ? Previous pelvic surgery, such as removal of the uterus (hysterectomy). What are the signs or symptoms? Symptoms of this condition vary and may include: ? Bladder symptoms, such as: ? Trouble starting urination and emptying the bladder. ? Frequent urinary tract infections. ? Leaking urine when coughing, laughing, or exercising (stress incontinence). ? Having to pass urine urgently or frequently. ? Pain when passing urine. ? Bowel symptoms, such as: ? Constipation. ? Urgent or frequent bowel movements. ? Incomplete bowel movements. ? Painful bowel movements. ? Leaking stool or gas. ? Unexplained genital or rectal pain. ? Genital or rectal muscle spasms. ? Low back pain. Other symptoms may include: ? A heavy, full, or aching feeling in the vagina. ? A bulge that protrudes into the vagina. ? Pain during or after sex. How is this diagnosed? This condition may be diagnosed based on: ? Your symptoms and medical history. ? A physical exam. During the exam, your health care provider may check your pelvic muscles for tightness, spasm, pain, or weakness. This may include a rectal exam and a pelvic exam. In some cases, you may have diagnostic tests, such as: ? Electrical muscle function tests. ? Urine flow testing. ? X-ray tests of bowel function. ? Ultrasound of the pelvic organs. How is this treated? Treatment for this condition depends on the symptoms. Treatment options include: ? Physical therapy. This may include Kegel exercises to help relax or strengthen the pelvic floor muscles. ? Biofeedback. This type of therapy provides feedback on how tight your pelvic floor muscles are so that you can learn to control them. ? Internal or external massage therapy. ? A treatment that involves electrical stimulation of the pelvic floor muscles to help control pain (transcutaneous electrical nerve stimulation, or TENS). ? Sound wave therapy (ultrasound) to reduce muscle spasms. ? Medicines, such as: ? Muscle relaxants. ? Bladder control medicines. Surgery to reconstruct or support pelvic floor muscles may be an option if other treatments do not help. Follow these instructions at home: Activity ? Do your usual activities as told by your health care provider. Ask your health care provider if you should modify any activities. ? Do pelvic floor strengthening or relaxing exercises at home as told by your physical therapist. Lifestyle ? Maintain a healthy weight. ? Eat foods that are high in fiber, such as beans, whole grains, and fresh fruits and vegetables. ? Limit foods that are high in fat and processed sugars, such as fried or sweet foods. ? Manage stress with relaxation techniques such as yoga or meditation. General instructions ? If you have problems with leakage: ? Use absorbable pads or wear padded underwear. ? Wash frequently with mild soap. ? Keep your genital and anal area as clean and dry as possible. ? Ask your health care provider if you should try a barrier cream to prevent skin irritation. ? Take warm baths to relieve pelvic muscle tension or spasms. ? Take nari-hnk-vumwdke and prescription medicines only as told by your health care provider. ? Keep all follow-up visits. How is this prevented? The cause of PFD is not always known, but there are a few things you can do to reduce the risk of developing this condition, including: ? Staying at a healthy weight. ? Getting regular exercise. ? Managing stress. Contact a health care provider if: ? Your symptoms are not improving with home care. ? You have signs or symptoms of PFD that get worse at home. ? You develop new signs or symptoms. ? You have signs of a urinary tract infection, such as: ? Fever. ? Chills. ? Increased urinary frequency. ? A burning feeling when urinating. ? You have not had a bowel movement i (more content not included)... Normal [facility] Urology Office/Clinic Noteon 01-23-2024 Urology Office/Clinic Note Chief Complaint PFPT #3 HPI Staff Pt is here for PFPT #3 have you been consistent with your home exercises this week? somewhat due to holidays she only got 3 days in have you noticed any worsening in your symptoms this week? no have you noticed any improvement in your symptoms this week? no do you have any UTI sx (burning, foul odor, cloudy urine, etc)? no in office UA: NOT suspicious for UTI Current urinary medications: no urinary meds History of Present Illness staff HPI reviewed and agree. Review of Systems PHQ Score Initial Depression Screen Score: 0 SCORE no fever, chills, malaise, myalgia. no rash/lesions. no chest pain, palpitations, or SOB. no abdominal pain, nausea, vomiting. no unilateral calf swelling, redness, pain Physical Exam Vitals & Measurements T: 37.0 ?C(Temporal Artery) HR: 78(Peripheral) BP: 122/88 HT: 65 in HT: 165 cm WT: 66 kg WT: 145.2 lb BMI: 24.24 General: nontoxic, NAD Mouth: moist mucosa Lungs: normal respiratory effort Cardio: regular rate, good distal perfusion Abdomen: nondistended, no suprapubic distention or tenderness, no CVA tenderness Neurologic: Grossly normal Skin: No rashes or suspicious lesions Assessment/Plan Dr. Jones pt 1. Urge incontinence (N39.41: Urge incontinence) UUI > LISETTE. PFPT #1 - Did well identifying the correct muscle. She was able to hold for about 8-10 seconds for the first 4 reps, w subsequent fatigue on rep 5-7. [1] PFPT #2 - Utilized her abs less than the week prior. PFPT #3 - increased strength/endurance. abs look good. UA today negative for blood and infection. PFPT #3 performed today. Home exercise program prescribed 4x per day: Contract - 8 Relax - 10 Reps - 8 Quick Flicks - 8 Pt will return in 1 week(s) for session #4 2. Stress incontinence (N39.3: Stress incontinence (female) (male)) Leaking mainly with jumping on the trampoline. Advised pt to wear a tampon to help with leaking. Denies leaking with coughing or sneezing. see #1. [2] Follow-up With When Contact Information YUNIOR CHAPMAN, KIERSTEN Olmos, URL [address] [place] [address] [phone] Additional Instructions: PFPT #4 on 01/30/24 Patient Education Pelvic Floor Dysfunction, Female Documentation recorded by the scribe Violet Manzo accurately reflects the services(s) I performed and decisions made by me. Authenticated by Kiersten Mojica PA-C on 01/23/2024 13:52:54. I, Violet Manzo, personally scribed for Kiersten Mojica PA-C on 01/23/2024 13:34:38. . Problem List/Past Medical History Ongoing Feeling of incomplete bladder emptying Flank pain Gross hematuria Kidney stone Microhematuria Nocturia Post-void dribbling Smoking hx Straining to void Stress incontinence Suprapubic pain Urge incontinence Urinary urgency Urine [...] (09/21/2011), cysto (09/11/2011), Abdominal hysterectomy and left salpingo-oophorecto my (07/22/2005), Abdominal hysterectomy and right salpingo-oophorecto my (07/22/2005). Medications Adderall 20 mg oral tablet, Oral, BID alprazolam 0.25 mg Tab estradiol 0.1 mg/g Vag Crm, 1 gm, Vaginal, MonWedFri, 4 refills hydrochlorothiazide 25 mg Tab, 25 mg= 1 tab(s), Oral, Daily, 3 refills K-Effervescent 25 mEq oral tablet, effervescent, 25 mEq= 1 tab(s), Oral, BID, 11 refills loratadine, Daily magnesium citrate, Oral Metamucil, Oral Nature's Bounty Probiotic, Oral, Daily omeprazole, Oral, Daily Vitamin D, Oral, qWeek Allergies sulfa drugs (Throat tightness) Social History Alcohol - Denies Alcohol Use, 05/07/2019 Current, 1-2 times per month, 08/25/2019 Tobacco Former smoker, quit more than 30 days ago Tobacco Use:. Never Smokeless Tobacco Use:., 01/23/2024 Family History Hypertension: Father. Primary malignant neoplasm of colon: Mother. Immunizations Vaccine Date Status influenza virus vaccine, inactivated 09/20/2023 Recorded SARS-CoV-2 (COVID-19) [id number] 08/10/2022 Recorded SARSCoV2 mRNA(tozinamer-ember -sucros) vac 01/30/2022 Recorded SARS-CoV-2 (COVID-19) Ad26 vaccine 09/03/2021 Recorded SARS-CoV-2 (COVID-19) mRNA BNT-162b2 vax 08/26/2021 Recorded influenza virus vaccine, inactivated 07/2021 Recorded influenza virus vaccine, inactivated 07/05/2021 Recorded SARS-CoV-2 (COVID-19) mRNA BNT-162b2 vax 01/31/2021 Recorded SARS-CoV-2 (COVID-19) mRNA BNT-162b2 vax 01/29/2021 Recorded SARS (more content not included)... Normal [facility] Comment on above: Result Comment: Elec tronically Signed By: KIERSTEN MOJICA PA-C\.br\Date and Time Signed: 01/23/24 13:53 EDT\.br\Electronically Co-Signed By: Violet Manzo\.br\Date and Time Co-Signed: 01/23/24 13:34 EDT EMG Electromyographyon 01-21 EMG Electromyography [id number] 65#1.00TIFF Normal [facility] EMG Electromyography [id number] 77#1.00TIFF Normal [facility] Comment on above: Other Comment: wrong date on report crr EMG Electromyographyon 01-16 EMG Electromyography [id number] D8#1.00TIFF Normal [facility] Ambulatory Visit Summaryon 0 01-16-2024 Ambulatory Visit Summary JA SCHWAB :1960 Visit Date:01/16/2024 Ambulatory Visit Instructions Your Diagnosis Urge incontinence Stress incontinence Your Care Team Attending Physician - KIERSTEN MOJICA PA-C Primary Care Physician - GLENNA KEITA This Is Your Medications List Contact prescribing physician if questions or concerns alprazolam (alprazolam 0.25 mg Tab) amphetamine-dextroa mphetamine (Adderall 20 mg oral tablet) bifidobacterium-lac tobacillus (Nature's Bounty Probiotic) ergocalciferol (Vitamin D) estradiol topical (estradiol 0.1 mg/g Vag Crm) hydrochlorothiazide (hydrochlorothiazid e 25 mg Tab) loratadine magnesium citrate omeprazole potassium bicarbonate (K-Effervescent 25 mEq oral tablet, effervescent) psyllium (Metamucil) Procedures Performed ESWL of kidney (12/30/2020), Cystoscope (06/22/2020), Cystoscopy (06/22/2020), cysto/UD (10/10/2018), RT ESWL (09/20/2017), R stent removal (02/03/2016), bladder BX/ B/L ESWL, R stent placement (01/27/2016), Cysto/UD (09/28/2015), R ESWL (09/27/2015), cysto/UD/stone basket extraction (02/01/2012), cysto/ L stent removal (10/06/2011), cysto/stone basket/ L stent placement (09/21/2011), cysto (09/11/2011), Abdominal hysterectomy and left salpingo-oophorecto my (07/22/2005), Abdominal hysterectomy and right salpingo-oophorecto my (07/22/2005). Discharge Vitals Heart Rate (Peripheral) 90 Blood Pressure 125/77 Height 165 cm Height 65 in Weight 66 kg Weight 145.2 lb BMI 24.24 What to do next Scheduled Follow-Up Appointments Sunday 1:00 PM EDT With: KIERSTEN MOJICA PA-C Where: [facility] Invalid Interpretation Code [address] [place] [address]- \.br\ Sunday 1:00 PM EDT \.br\ With: KIERSTEN MOJICA PA-C\.br\ Where: [facility] Patient Educationon 01-16-20 24 Patient Education Obstetrics and Gynecology Pelvic Floor Dysfunction, Female Pelvic floor dysfunction (PFD) is a condition that results when the group of muscles and connective tissues that support the organs in the pelvis (pelvic floor muscles) do not work well. These muscles and their connections form a sling that supports the colon and bladder. In women, they also support the uterus. PFD causes pelvic floor muscles to be too weak, too tight, or both. In PFD, muscle movements are not coordinated. This may cause bowel or bladder problems. It may also cause pain. What are the causes? This condition may be caused by an injury to the pelvic area or by a weakening of pelvic muscles. This often results from and childbirth or other types of strain. In many cases, the exact cause is not known. What increases the risk? The following factors may make you more likely to develop this condition: ? Having chronic bladder tissue inflammation (interstitial cystitis). ? Being an older person. ? Being overweight. ? History of radiation treatment for cancer in the pelvic region. ? Previous pelvic surgery, such as removal of the uterus (hysterectomy). What are the signs or symptoms? Symptoms of this condition vary and may include: ? Bladder symptoms, such as: ? Trouble starting urination and emptying the bladder. ? Frequent urinary tract infections. ? Leaking urine when coughing, laughing, or exercising (stress incontinence). ? Having to pass urine urgently or frequently. ? Pain when passing urine. ? Bowel symptoms, such as: ? Constipation. ? Urgent or frequent bowel movements. ? Incomplete bowel movements. ? Painful bowel movements. ? Leaking stool or gas. ? Unexplained genital or rectal pain. ? Genital or rectal muscle spasms. ? Low back pain. Other symptoms may include: ? A heavy, full, or aching feeling in the vagina. ? A bulge that protrudes into the vagina. ? Pain during or after sex. How is this diagnosed? This condition may be diagnosed based on: ? Your symptoms and medical history. ? A physical exam. During the exam, your health care provider may check your pelvic muscles for tightness, spasm, pain, or weakness. This may include a rectal exam and a pelvic exam. In some cases, you may have diagnostic tests, such as: ? Electrical muscle function tests. ? Urine flow testing. ? X-ray tests of bowel function. ? Ultrasound of the pelvic organs. How is this treated? Treatment for this condition depends on the symptoms. Treatment options include: ? Physical therapy. This may include Kegel exercises to help relax or strengthen the pelvic floor muscles. ? Biofeedback. This type of therapy provides feedback on how tight your pelvic floor muscles are so that you can learn to control them. ? Internal or external massage therapy. ? A treatment that involves electrical stimulation of the pelvic floor muscles to help control pain (transcutaneous electrical nerve stimulation, or TENS). ? Sound wave therapy (ultrasound) to reduce muscle spasms. ? Medicines, such as: ? Muscle relaxants. ? Bladder control medicines. Surgery to reconstruct or support pelvic floor muscles may be an option if other treatments do not help. Follow these instructions at home: Activity ? Do your usual activities as told by your health care provider. Ask your health care provider if you should modify any activities. ? Do pelvic floor strengthening or relaxing exercises at home as told by your physical therapist. Lifestyle ? Maintain a healthy weight. ? Eat foods that are high in fiber, such as beans, whole grains, and fresh fruits and vegetables. ? Limit foods that are high in fat and processed sugars, such as fried or sweet foods. ? Manage stress with relaxation techniques such as yoga or meditation. General instructions ? If you have problems with leakage: ? Use absorbable pads or wear padded underwear. ? Wash frequently with mild soap. ? Keep your genital and anal area as clean and dry as possible. ? Ask your health care provider if you should try a barrier cream to prevent skin irritation. ? Take warm baths to relieve pelvic muscle tension or spasms. ? Take mgpx-xgq-oysljze and prescription medicines only as told by your health care provider. ? Keep all follow-up visits. How is this prevented? The cause of PFD is not always known, but there are a few things you can do to reduce the risk of developing this condition, including: ? Staying at a healthy weight. ? Getting regular exercise. ? Managing stress. Contact a health care provider if: ? Your symptoms are not improving with home care. ? You have signs or symptoms of PFD that get worse at home. ? You develop new signs or symptoms. ? You have signs of a urinary tract infection, such as: ? Fever. ? Chills. ? Increased urinary frequency. ? A burning feeling when urinating. ? You have not had a bowel movement i (more content not included)... Normal [facility] Urology Office/Clinic Noteon 01-16-2024 Urology Office/Clinic Note Chief Complaint #2 PFPT HPI Staff Pt is here for PFPT Previous DX; kidney stone, urinary urgency, stress incontinence, feeling of incompletely emptying bladder, Taking Estrogen cream 0.5 mg 3x weekly, Effer-K 25 mEq, HCTZ 25 mg qd Pt is here for PFPT #2 have you been consistent with your home exercises this week? yes have you noticed any worsening in your symptoms this week? no have you noticed any improvement in your symptoms this week? no do you have any UTI sx (burning, foul odor, cloudy urine, etc)? no in office UA: NOT suspicious for UTI Current urinary medications: None History of Present Illness staff HPI reviewed and agree. Review of Systems PHQ Score Initial Depression Screen Score: 0 SCORE no fever, chills, malaise, myalgia. no rash/lesions. no chest pain, palpitations, or SOB. no abdominal pain, nausea, vomiting. no unilateral calf swelling, redness, pain Physical Exam Vitals & Measurements HR: 90(Peripheral) BP: 125/77 HT: 65 in HT: 165 cm WT: 66 kg WT: 145.2 lb BMI: 24.24 General: nontoxic, NAD Mouth: moist mucosa Lungs: normal respiratory effort Cardio: regular rate, good distal perfusion Abdomen: nondistended, no suprapubic distention or tenderness, no CVA tenderness Neurologic: Grossly normal Skin: No rashes or suspicious lesions Assessment/Plan Dr. Jones pt 1. Urge incontinence (N39.41: Urge incontinence) UUI>LISETTE PFPT #1 - Did well identifying the correct muscle. She was able to hold for about 8-10 seconds for the first 4 reps, w subsequent fatigue on rep 5-7. Did utilize her abs less than last week. UA today shows trace-intact blood only. PFPT #2 performed today. Home exercise program prescribed 4x per day: Contract - 8 (increased by 2) Relax - 10 Reps - 6 (unchanged) Quick Flicks - 6-7 (increased from 5) Pt will return in 1 week(s) for session #3 2. Stress incontinence (N39.3: Stress incontinence (female) (male)) Leaking mainly with jumping on the trampoline. Advised pt to wear a tampon to help with leaking. Denies leaking with coughing or sneezing. see #1. [1] Follow-up With When Contact Information KIERSTEN MOJICA PA-C, URL [address] [facility] [place] [address] [phone] Additional Instructions: PFPT #3 on 01/23/24 Patient Education Pelvic Floor Dysfunction, Female Documentation recorded by the arabella Manzo accurately reflects the services(s) I performed and decisions made by me. Authenticated by Kiersten Mojica PA-C on 01/16/2024 13:53:00. IViolet, personally scribed for Kiersten Mojica PA-C on 01/16/2024 13:48:20. . Problem List/Past Medical History Ongoing Feeling of incomplete bladder emptying Flank pain Gross hematuria Kidney stone Microhematuria Nocturia Post-void dribbling Smoking hx Straining to void Stress incontinence Suprapubic pain Urge incontinence Urinary urgency Urine [...] (09/21/2011), cysto (09/11/2011), Abdominal hysterectomy and left salpingo-oophorecto my (07/22/2005), Abdominal hysterectomy and right salpingo-oophorecto my (07/22/2005). Medications Adderall 20 mg oral tablet, Oral, BID alprazolam 0.25 mg Tab estradiol 0.1 mg/g Vag Crm, 1 gm, Vaginal, MonWedFri, 4 refills hydrochlorothiazide 25 mg Tab, 25 mg= 1 tab(s), Oral, Daily, 3 refills K-Effervescent 25 mEq oral tablet, effervescent, 25 mEq= 1 tab(s), Oral, BID, 11 refills loratadine, Daily magnesium citrate, Oral Metamucil, Oral Nature's Bounty Probiotic, Oral, Daily omeprazole, Oral, Daily Vitamin D, Oral, qWeek Allergies sulfa drugs (Throat tightness) Social History Alcohol - Denies Alcohol Use, 05/07/2019 Current, 1-2 times per month, 08/25/2019 Tobacco Former smoker, quit more than 30 days ago Tobacco Use:. Never Smokeless Tobacco Use:., 01/16/2024 Family History Hypertension: Father. Primary malignant neoplasm of colon: Mother. Immunizations Vaccine Date Status influenza virus vaccine, inactivated 09/20/2023 Recorded SARS-CoV-2 (COVID-19) mRNAMUL.[id number] 08/10/2022 Recorded SARSCoV2 mRNA(tozinamer-ember -sucros) vac 01/30/2022 Recorded SARS-CoV-2 (COVID-19) Ad26 vaccine 09/03/2021 Recorded SARS-CoV-2 (COVID-19) mRNA BNT-162b2 vax 08/26/2021 Recorded influenza virus vaccine, inactivated 07/2021 Recorded influenza virus vaccine, inactivated 07/05/2021 Recorded SARS-CoV-2 (COVID-19) mRNA BNT-162b2 v (more content not included)... Normal [facility] Comment on above: Result Comment: Elec tronically Signed By: KIERSTEN MOJICA PA-C\.br\Date and Time Signed: 01/16/24 13:53 EDT\.br\Electronically Co-Signed By: Violet Manzo\.br\Date and Time Co-Signed: 01/16/24 13:48 EDT Consent for Procedure/Surger yon 01-10-2024 Consent for Procedure/Surgery [id number] 35#1.00TIFF Normal [facility] Ambulatory Visit Summaryon 0 01-09-2024 Ambulatory Visit Summary JA SCHWAB :1960 Visit Date:01/09/2024 Ambulatory Visit Instructions Your Diagnosis Stress incontinence Urinary urgency Kidney stone Feeling of incomplete bladder emptying Your Care Team Attending Physician - KIERSTEN MOJICA PA-C Primary Care Physician - GLENNA KEITA This Is Your Medications List Contact prescribing physician if questions or concerns alprazolam (alprazolam 0.25 mg Tab) amphetamine-dextroa mphetamine (Adderall 20 mg oral tablet) bifidobacterium-lac tobacillus (Nature's Bounty Probiotic) ergocalciferol (Vitamin D) estradiol topical (estradiol 0.1 mg/g Vag Crm) hydrochlorothiazide (hydrochlorothiazid e 25 mg Tab) loratadine magnesium citrate omeprazole potassium bicarbonate (K-Effervescent 25 mEq oral tablet, effervescent) psyllium (Metamucil) Procedures Performed ESWL of kidney (12/30/2020), Cystoscope (06/22/2020), Cystoscopy (06/22/2020), cysto/UD (10/10/2018), RT ESWL (09/20/2017), R stent removal (02/03/2016), bladder BX/ B/L ESWL, R stent placement (01/27/2016), Cysto/UD (09/28/2015), R ESWL (09/27/2015), cysto/UD/stone basket extraction (02/01/2012), cysto/ L stent removal (10/06/2011), cysto/stone basket/ L stent placement (09/21/2011), cysto (09/11/2011), Abdominal hysterectomy and left salpingo-oophorecto my (07/22/2005), Abdominal hysterectomy and right salpingo-oophorecto my (07/22/2005). Discharge Vitals Heart Rate (Peripheral) 70 Blood Pressure 129/93 Height 165 cm Height 65 in Weight 66 kg Weight 145.2 lb BMI 24.24 What to do next Scheduled Follow-Up Appointments Sunday 1:00 PM EDT With: KIERSTEN MOJICA PA-C Where: [facility] Invalid Interpretation Code [address] [place] [place] [address]- \.br\ Sunday 1:00 PM EDT \.br\ With: KIESRTEN MOJICA PA-C\.br\ Where: [facility] Patient Educationon 01-09-20 Patient Education Obstetrics and Gynecology Pelvic Floor Dysfunction, Female Pelvic floor dysfunction (PFD) is a condition that results when the group of muscles and connective tissues that support the organs in the pelvis (pelvic floor muscles) do not work well. These muscles and their connections form a sling that supports the colon and bladder. In women, they also support the uterus. PFD causes pelvic floor muscles to be too weak, too tight, or both. In PFD, muscle movements are not coordinated. This may cause bowel or bladder problems. It may also cause pain. What are the causes? This condition may be caused by an injury to the pelvic area or by a weakening of pelvic muscles. This often results from and childbirth or other types of strain. In many cases, the exact cause is not known. What increases the risk? The following factors may make you more likely to develop this condition: ? Having chronic bladder tissue inflammation (interstitial cystitis). ? Being an older person. ? Being overweight. ? History of radiation treatment for cancer in the pelvic region. ? Previous pelvic surgery, such as removal of the uterus (hysterectomy). What are the signs or symptoms? Symptoms of this condition vary and may include: ? Bladder symptoms, such as: ? Trouble starting urination and emptying the bladder. ? Frequent urinary tract infections. ? Leaking urine when coughing, laughing, or exercising (stress incontinence). ? Having to pass urine urgently or frequently. ? Pain when passing urine. ? Bowel symptoms, such as: ? Constipation. ? Urgent or frequent bowel movements. ? Incomplete bowel movements. ? Painful bowel movements. ? Leaking stool or gas. ? Unexplained genital or rectal pain. ? Genital or rectal muscle spasms. ? Low back pain. Other symptoms may include: ? A heavy, full, or aching feeling in the vagina. ? A bulge that protrudes into the vagina. ? Pain during or after sex. How is this diagnosed? This condition may be diagnosed based on: ? Your symptoms and medical history. ? A physical exam. During the exam, your health care provider may check your pelvic muscles for tightness, spasm, pain, or weakness. This may include a rectal exam and a pelvic exam. In some cases, you may have diagnostic tests, such as: ? Electrical muscle function tests. ? Urine flow testing. ? X-ray tests of bowel function. ? Ultrasound of the pelvic organs. How is this treated? Treatment for this condition depends on the symptoms. Treatment options include: ? Physical therapy. This may include Kegel exercises to help relax or strengthen the pelvic floor muscles. ? Biofeedback. This type of therapy provides feedback on how tight your pelvic floor muscles are so that you can learn to control them. ? Internal or external massage therapy. ? A treatment that involves electrical stimulation of the pelvic floor muscles to help control pain (transcutaneous electrical nerve stimulation, or TENS). ? Sound wave therapy (ultrasound) to reduce muscle spasms. ? Medicines, such as: ? Muscle relaxants. ? Bladder control medicines. Surgery to reconstruct or support pelvic floor muscles may be an option if other treatments do not help. Follow these instructions at home: Activity ? Do your usual activities as told by your health care provider. Ask your health care provider if you should modify any activities. ? Do pelvic floor strengthening or relaxing exercises at home as told by your physical therapist. Lifestyle ? Maintain a healthy weight. ? Eat foods that are high in fiber, such as beans, whole grains, and fresh fruits and vegetables. ? Limit foods that are high in fat and processed sugars, such as fried or sweet foods. ? Manage stress with relaxation techniques such as yoga or meditation. General instructions ? If you have problems with leakage: ? Use absorbable pads or wear padded underwear. ? Wash frequently with mild soap. ? Keep your genital and anal area as clean and dry as possible. ? Ask your health care provider if you should try a barrier cream to prevent skin irritation. ? Take warm baths to relieve pelvic muscle tension or spasms. ? Take zlao-ycx-xzlybgw and prescription medicines only as told by your health care provider. ? Keep all follow-up visits. How is this prevented? The cause of PFD is not always known, but there are a few things you can do to reduce the risk of developing this condition, including: ? Staying at a healthy weight. ? Getting regular exercise. ? Managing stress. Contact a health care provider if: ? Your symptoms are not improving with home care. ? You have signs or symptoms of PFD that get worse at home. ? You develop new signs or symptoms. ? You have signs of a urinary tract infection, such as: ? Fever. ? Chills. ? Increased urinary frequency. ? A burning feeling when urinating. ? You have not had a bowel movement i (more content not included)... Normal [facility] Urology Office/Clinic Noteon 01-09-2024 Urology Office/Clinic Note Chief Complaint #1 PFPT HPI Staff Pt is here today for PFPT #1. Previous DX: feeling of incomplete bladder emptying, flank pain, gross hematuria, kidney stone, microhematuria, nocturia, post-void dribbling, straining to void, stress incontinence, suprapubic pain, urge incontinence, urinary urgency, urine frequency. S/P ESWL of kidney 12/30/20. Cysto done 06/22/20. Pt is here for PFPT #1 Baseline urinary symptoms: urgency moderate daytime frequency can hold urine >2 hrs nocturia x3 urge incontinence moderate stress incontinence mild LISETTE vs UUI UUI more bothersome than LISETTE incontinence protection: thin pads, occasionally changes n/a times per day pelvic pain at rest mild pelvic pain with intercourse moderate Quality of life: If you were to spend the rest of your life with your urinary condition just the way it is now, how would you feel about that? somewhat dissatisfied Current urinary medications: Estrace Cream Previous treatments tried: None History of Present Illness staff HPI reviewed and agree. Review of Systems PHQ Score Initial Depression Screen Score: 0 SCORE no fever, chills, malaise, myalgia. no rash/lesions. no chest pain, palpitations, or SOB. no abdominal pain, nausea, vomiting. no unilateral calf swelling, redness, pain Physical Exam Vitals & Measurements HR: 70(Peripheral) BP: 129/93 HT: 65 in HT: 165 cm WT: 66 kg WT: 145.2 lb BMI: 24.24 General: nontoxic, NAD Mouth: moist mucosa Lungs: normal respiratory effort Cardio: regular rate, good distal perfusion Abdomen: nondistended, no suprapubic distention or tenderness, no CVA tenderness Neurologic: Grossly normal Skin: No rashes or suspicious lesions Assessment/Plan Dr. Jones pt 1. Urge incontinence (N39.41: Urge incontinence) UUI>LISETTE PFPT #1 today. Pt did well identifying the correct muscle. She was able to hold for about 5-6 seconds and did 4 strong reps w subsequent fatigue on rep 5 and 6. Did utilize her abs quite a bit. Ordered: Body Mass Index (BMI) documented 3008F Current tobacco non-user 1036F Depression Screening Negative 3352F Falls plan of care documented 0518F Influenza immunization status assessed 1030F Most recent diastolic blood pressure >=90 mm Hg 3080F Systolic BP <130 mm Hg (Most Recent) 3074F Urnls Dip Stick Auto w/o Microscopy POC 80805 2. Stress incontinence (N39.3: Stress incontinence (female) (male)) Leaking mainly with jumping on the trampoline. Advised pt to wear a tampon to help with leaking. Denies leaking with coughing or sneezing. see #1. Ordered: 77188 EMG anal/urethral sphincter no needle 84098 Biofeedback training, perineal muscles, anorectal 23384 Anorectal Manometry 47737 ELECTRICAL STIMULATION 31449 Urnls Dip Stick Auto w/o Microscopy POC 11826 Follow-up With When Contact Information YUNIOR CHAPMAN, KIERSTEN Olmos, URMaribel [address] [place] [address] [phone] Additional Instructions: PFPT session #2 on 01/16/24 Patient Education Pelvic Floor Dysfunction, Female Documentation recorded by the scribnickolas Manzo accurately reflects the services(s) I performed and decisions made by me. Authenticated by Kiersten Mojica PA-C on 01/09/2024 14:04:06. I, Violet Manzo, personally scribed for Kiersten Mojica PA-C on 01/09/2024 13:29:47. . Problem List/Past Medical History Ongoing Feeling of incomplete bladder emptying Flank pain Gross hematuria Kidney stone Microhematuria Nocturia Post-void dribbling Smoking hx Straining to void Stress incontinence Suprapubic pain Urge incontinence Urinary urgency Urine [...] (09/21/2011), cysto (09/11/2011), Abdominal hysterectomy and left salpingo-oophorecto my (07/22/2005), Abdominal hysterectomy and right salpingo-oophorecto my (07/22/2005). Medications Adderall 20 mg oral tablet, Oral, BID alprazolam 0.25 mg Tab estradiol 0.1 mg/g Vag Crm, 1 gm, Vaginal, MonWedFri, 4 refills hydrochlorothiazide 25 mg Tab, 25 mg= 1 tab(s), Oral, Daily, 3 refills K-Effervescent 25 mEq oral tablet, effervescent, 25 mEq= 1 tab(s), Oral, BID, 11 refills loratadine, Daily magnesium citrate, Oral Metamucil, Oral Nature's Bounty Probiotic, Oral, Daily omeprazole, Oral, Daily Vitamin D, Oral, qWeek Allergies sulfa drugs (Throat tightness) Social History Alcohol - Denies Alcohol Use, 05/07/2019 Current, 1-2 times per mon (more content not included)... Normal [facility] Comment on above: Result Comment: Elec tronically Signed By: KIERSTEN MOJICA PA-C\.br\Date and Time Signed: 01/09/24 14:04 EDT\.br\Electronically Co-Signed By: Violet Manzo\.br\Date and Time Co-Signed: 01/09/24 13:29 EDT Pre-Certification Formon Pre-Certification Form [id number] AF#1.00TIFF [facility] Insurance Correspondenceon 0 12-18-2023 Insurance Correspondence [id number] 496#1.00TIFF [facility] Patient Educationon 12-07-19 Patient Education Obstetrics and Gynecology Kegel Exercises Kegel exercises can help strengthen your pelvic floor muscles. The pelvic floor is a group of muscles that support your rectum, small intestine, and bladder. In females, pelvic floor muscles also help support the uterus. These muscles help you control the flow of urine and stool (feces). Kegel exercises are painless and simple. They do not require any equipment. Your provider may suggest Kegel exercises to: ? Improve bladder and bowel control. ? Improve sexual response. ? Improve weak pelvic floor muscles after surgery to remove the uterus (hysterectomy) or after , in females. ? Improve weak pelvic floor muscles after prostate gland removal or surgery, in males. Kegel exercises involve squeezing your pelvic floor muscles. These are the same muscles you squeeze when you try to stop the flow of urine or keep from passing gas. The exercises can be done while sitting, standing, or lying down, but it is best to vary your position. Ask your health care provider which exercises are safe for you. Do exercises exactly as told by your health care provider and adjust them as directed. Do not begin these exercises until told by your health care provider. Exercises How to do Kegel exercises: 1. Squeeze your pelvic floor muscles tight. You should feel a tight lift in your rectal area. If you are a female, you should also feel a tightness in your vaginal area. Keep your stomach, buttocks, and legs relaxed. 2. Hold the muscles tight for up to 10 seconds. 3. Breathe normally. 4. Relax your muscles for up to 10 seconds. 5. Repeat as told by your health care provider. Repeat this exercise daily as told by your health care provider. Continue to do this exercise for at least 4?6 weeks, or for as long as told by your health care provider. You may be referred to a physical therapist who can help you learn more about how to do Kegel exercises. Depending on your condition, your health care provider may recommend: ? Varying how long you squeeze your muscles. ? Doing several sets of exercises every day. ? Doing exercises for several weeks. ? Making Kegel exercises a part of your regular exercise routine. This information is not intended to replace advice given to you by your health care provider. Make sure you discuss any questions you have with your health care provider. Document Revised: 02/16/2022 Document Reviewed: 02/16/2022 [employer] Patient Education ? 2022 wedgies. Normal [facility] [id number] 15#1.00TIFF Normal [facility] Urology Office/Clinic Noteon 12-07-2023 Urology Office/Clinic Note Chief Complaint 1yr KUB HPI Staff 1 year f/u with KUB. Dx: kidney stone, nocturia and urinary urgency. Pt was referred to Dr Wray at time of last encounter due to previous abnormal pap & pt using estrogen cream. Pt had thought she had a partial hysterectomy in 2006, however Dr Wray told her that she does not have a cervix. Has been using Estrogen Cream, 0.5mg 3x. (needs refill) Also taking HCTZ & Effer K qd. Denies UTI since last encounter. Did have some LLQ pain back in June. Thought it was related to diverticulitis. Went to [facility] ER, CT 07/16/23 KUB 12/06/23 Denies current flank pain. Does occasionally get sharp pain near bladder. Only last a couple seconds. Denies pain and burning. Denies visible blood in urine. Would like to discuss possible PFPT in our office. History of Present Illness Tests reviewed: reviewed UA, KUB, CT I have reviewed the previous health record information and history for this patient from Dr. Jones. I have reviewed and verified the staff HPI to be accurate for this encounter. There have been no associated fever, chills, flank pain, or blood in the urine. Denies any urinary infections since last encounter. Review of Systems PHQ Score Initial Depression Screen Score: 0 SCORE ROS - Provider Constitutional: denies weight loss, denies hot flashes. Eyes: denies eye problems. Gastrointestinal: denies nausea, denies vomiting. Cardiovascular: denies chest pain or angina. Integumentary: no dryness Musculoskeletal: denies musculoskeletal symptoms. ENMT: denies otolaryngeal symptoms. Respiratory: no shortness of breath. Heme/Lymph: denies easy bleeding tendency, denies easy bruising tendency. Psychiatric: no confusion, no anxiety. Genitourinary: See HPI. Physical Exam Vitals & Measurements HR: 97(Peripheral) RR: 16 BP: 124/79 HT: 65 in HT: 165 cm WT: 66 kg WT: 145.2 lb BMI: 24.24 General Appearance: alert, no distress, well nourished, well developed male. Assessment/Plan 1. Kidney stone (N20.0: Calculus of kidney) S/p R ESWL 12/30/20. Presented to [facility] ER 07/16/23 with complaints of LLQ pain back. Thought it was related to diverticulitis. CT AP w IV con 07/16/23 shows nonobstructing right calyceal tip renal stone. Current KUB 12/06/23 neg for appreciable urinary tract calculi. Taking Effer-K 25mEq qd & HCTZ 25mg qd. Was previously taking Effer-K bid, but decreased to qd due to GERD. States GERD is now controlled due to diet. UA today negative. Denies gross hematuria or current pain. States she will intermittently feel a twinge of pain. Pt states she will increase Effer-K to qd now that GERD is controlled. Does not need a refill at this time for either medication. Follow up in 1 year with KUB. 2. Urinary urgency (R39.15: Urgency of urination) Pt was referred to Dr. Wray at time of last encounter due to previous abnormal pap & pt using estrogen cream. Pt had thought she had a partial hysterectomy in 2006, [address] Dr. Wray told her that she does not have a cervix. Has been using Estrogen Cream, 0.5mg 3x per week. Refill sent. 3. Stress incontinence (N39.3: Stress incontinence (female) (male)) Leaking mainly with jumping on the trampoline. Advised pt to wear a tampon to help with leaking. Denies leaking with coughing or sneezing. Pt inquired about PFPT. Feels this would help her. Will schedule pt to meet with Kiersten Mojica PA-C for PFPT. 4. Feeling of incomplete bladder emptying (R39.14: Feeling of incomplete bladder emptying) PVR 0 cc Reports she does not always feel empty. Feels it may be mind related due to her bowel problems. Dealing with constipation. Recommended to drink a full glass of prune juice and to take Charla Fusion gummies, 8-10 per day as tolerated. Follow-up With When Contact Information MANPREET BROWN, Inez Ruano, URL [address] [place] [address]- Additional Instructions: PFPT with Kiersten Mojica Patient Education Kegel Exercises Janis Tran, personally scribed for Dr. Jones on 12/07/2023 12:52:46. . Documentation recorded by the scribeJanis, accurately reflects the services(s) I performed and decisions made by me. Authenticated by Dr. Jones on 12/07/2023 12:57:22. Problem List/Past Medical History Ongoing Feeling of incomplete bladder emptying Flank pain Gross hematuria Kidney stone Microhematuria Nocturia Post-void dribbling Smoking hx Straining to void Stress incontinence Suprapubic pain Urge incontinence Urinary urgency Urine frequency Historical Cyst of liver Diverticulitis Dysmenorrhea Intestinal obstruction due to colonic inflammatory polyps Procedure/Surgical History ESWL of kidney (12/30/2020), Cystoscope (06/22/2020), Cystoscopy (06/22/2020), cysto/UD (10/10/2018), RT ESWL (09/20/2017), R stent removal (02/03/2016), bladder BX/ B/L ESWL, R stent placement (01/27/2016), Cysto/UD (09/28 (more content not included)... Normal [facility] Comment on above: Result Comment: Elec tronically Signed By: Inez JONES MD\.br\Date and Time Signed: 12/07/23 12:57 EST\.br\Electronically Co-Signed By: Janis Cárdenas\.br\Date and Time Co-Signed: 12/07/23 12:53 EST\.br\Electronically Co-Signed By: Janis Cárdenas\.br\Date and Time Co-Signed: 12/07/23 12:53 EST Neel 09-18-2023 L Specimen: [id number] Received: 09/18/23 Status: CHARY [facility] Num: [id number] Spec Type: Surgical Subm Dr: Andrea Gunter MD Tissues: A Stomach - Biopsy/Polyp (ANTRUM) B Duodenum - Biopsy (DUODENAL BX) C Colon Biopsy (DESC) D Colon Biopsy (SIGMOID) Procedures: HE/8, Gross/Micro L4/4 Age/ Patient Sex Location Account Attending Physician Ja Schwab 63/F [id number] Andrea Gunter MD SPEC NUM: [id number] RECD: 09/18/23 STATUS: [facility]ARY [facility] NUM: [id number] MARY: 09/18/23 DR: Andrea Gutner MD ENTERED: 09/18/[address] [facility] [address]: RUBEN TYPE: Surgical DEPT: S ORDERED: HE/8, Gross/Micro L4/4 ORDERED: HE/8, Gross/Micro L4/4 Pathological Diagnosis A. Stomach, antrum, biopsy: - Gastric antral gland mucosa with mild chronic nonspecific gastritis - Negative for intestinal metaplasia or dysplasia - Negative for H. pylori (H E stained slides) B. Duodenum, biopsy: - Duodenal mucosa within normal limits C. Colon, descending, polyp, biopsy: - Tubular adenoma D. Colon, sigmoid, biopsy: - Benign colonic mucosa with hyperplastic changes Specimen: [id number] Received: 09/18/23 Status: [facility]ARY [facility] Num: [id number] Spec Type: Surgical Subm Dr: Andrea Gunter MD Tissues: A Stomach - Biopsy/Polyp (ANTRUM) B Duodenum - Biopsy (DUODENAL BX) C Colon Biopsy (DESC) D Colon Biopsy (SIGMOID) Procedures: /8, Gross/Micro L4/4 Patient: Ja Schwab [id number] (Continued) Specimen: [id number] Received: 09/18/23 (Continued) Signed (signatur e on file) Fish Girard MD 09/20/23 1042 Specimen: [id number] Received: 09/18/23 Status: CHARY [facility] Num: [id number] Spec Type: Surgical Subm Dr: Andrea Gunter MD Tissues: A Stomach - Biopsy/Polyp (ANTRUM) B Duodenum - Biopsy (DUODENAL BX) C Colon Biopsy (DESC) D Colon Biopsy (SIGMOID) Procedures: Curry, Gross/Micro L4/4 Patient: ZaheerJa Tyler [id number] (Continued) Specimen: [id number] Received: 09/18/23 (Continued) Clinical Information Abdomen pain, [...] microscopic examination confirms the diagnosis. CPT Codes 68608c1 Specimen: [id number] Received: 09/18/23 Status: CHARY [facility] Num: [id number] Spec Type: Surgical Subm Dr: Andrea Gunter MD Tissues: A Stomach - Biopsy/Polyp (ANTRUM) B Duodenum - Biopsy (DUODENAL BX) C Colon Biopsy (DESC) D Colon Biopsy (SIGMOID) Procedures: HE/8, Gross/Micro L4/4 Patient: Ja Schwab [id number] (Continued) ---- (more content not included)... [facility] XR KUB 1 VIEWon 12-06-2022 XR [...] ANNMARIE BINGHAM Date: 2022-12-06 13:25 Normal [facility] CBC AUTO DIFFon 10-21-2022 BASO # 0.0 103/ul Normal 0.0-0.1 [facility] Comment on above: Performed By: #### C BC #### [facility] [address] [place] [address] Dr. Yamileth France Basophils/100 WBC (Bld) 0.7 % Normal 0.2-2.0 [facility] Comment on above: Performed By: #### C BC #### [facility] [address] [place] [address] Dr. Yamileth France EO # 0.3 103/ul Normal 0.0-0.7 [facility] Comment on above: Performed By: #### C BC #### [facility] [address] [place] [address] Dr. Yamileth France Eosinophils/100 WBC (Bld) 5.5 % Normal 0.9-7.0 [facility] Comment on above: Performed By: #### C BC #### [facility] [address] [place] [address] Dr. Yamileth France Erythrocyte distribution width (RBC) [Ratio] 12.3 % Normal 11.0-15.0 [facility] Comment on above: Performed By: #### C BC #### [facility] [address] [place] [address] Dr. Yamileth France Hematocrit (Bld) [Volume fraction] 41.8 % Normal 36.0-48.0 [facility] Comment on above: Performed By: #### C BC #### [facility] [address] [place] [address] Dr. Yamileth France Hemoglobin (Bld) [Mass/Vol] 14.8 g/dL Normal 12.0-16.0 [facility] Comment on above: Performed By: #### C BC #### [facility] [address] [place] [address] Dr. Yamileth France IG # 0.03 10e3/ul Normal 0.00-0.03 [facility] Comment on above: Performed By: #### C BC #### [facility] [address] [place] [address] Dr. Yamileth France IG % 0.5 % Normal 0.0-0.5 [facility] Comment on above: Performed By: #### C BC #### [facility] [address] [place] [address] Dr. Yamileth France LYMPH # 0.9 103/ul Critically low 1.2-3.8 [facility] Comment on above: Performed By: #### C BC #### [facility] [address] [place] [address] Dr. Yamileth France Lymphocytes/100 WBC (Bld) 15.2 % Critically low 20.5-60.0 [facility] Comment on above: Performed By: #### C BC #### [facility] [address] [place] [address] Dr. Yamileth France MANUAL DIFF REQ NO Normal [facility] Comment on above: Performed By: #### C BC #### [facility] [address] [place] [address] Dr. Yamileth France MCH (RBC) [Entitic mass] 31.0 pg Normal 26.7-34.0 [facility] Comment on above: Performed By: #### C BC #### [facility] [address] [place] [address] Dr. Yamileth France MCHC (RBC) [Mass/Vol] 35.4 g/dL Critically high 29.9-35.2 [facility] Comment on above: Performed By: #### C BC #### [facility] [address] [place] [address] Dr. Yamileth France MCV (RBC) [Entitic vol] 87.6 fL Normal 81.0-99.0 [facility] Comment on above: Performed By: #### C BC #### [facility] [address] [place] [address] Dr. Yamileth France MONO # 0.7 103/ul Normal 0.3-0.8 [facility] Comment on above: Performed By: #### C BC #### [facility] [address] [place] [address] Dr. Yamileth France Monocytes/100 WBC (Bld) 12.5 % Critically high 1.7-12.0 [facility] Comment on above: Performed By: #### C BC #### [facility] [address] [place] [address] Dr. Yamileth France NEUT # 3.8 103/ul Normal 1.4-6.5 [facility] Comment on above: Performed By: #### C BC #### [facility] [address] [place] [address] Dr. Yamileth France Neutrophils/100 WBC (Bld) 65.6 % Normal 43.0-75.0 [facility] Comment on above: Performed By: #### C BC #### [facility] [address] [place] [address] Dr. Yamileth France Platelet mean volume (Bld) [Entitic vol] 9.7 fL Normal 9.5-13.5 [facility] Comment on above: Performed By: #### C BC #### [facility] [address] [place] [address] Dr. Yamileth France PLT 198 103/ul Normal 150-450 [facility] Comment on above: Performed By: #### C BC #### [facility] [address] [place] [address] Dr. Yamileth France RBC 4.77 106/ul Normal 4.20-5.40 [facility] Comment on above: Performed By: #### C BC #### [facility] [address] [place] [address] Dr. Yamileth France WBC 5.8 103/ul Normal 4.0-11.0 [facility] Comment on above: Performed By: #### C BC #### [facility] [address] [place] [address] Dr. Yamileth France D-DIMERon 10-21-2022 D-DIMER 0.31 mg/L FEU Normal <=0.59 [facility] Comment on above: Performed By: #### D DIM #### [facility] [address] [place] [address] Dr. Yamileth France D-DIMER COMMENTS SEE BELOW Normal [facility] Comment on above: Result Comment: Incr [...] hospitalization. Performed By: #### D DIM #### [facility] [address] [place] [address] Dr. Yamileth France FREE T4on 10-21-2022 Free T4 [Mass/Vol] 1.05 ng/dL Normal 0.76-1.46 [facility] Comment on above: Performed By: #### F T4 #### [facility] [address] [place] [address] Dr. Yamileth France PROF 14(COMP METB)on 022 Albumin [Mass/Vol] 3.4 g/dL Normal 3.4-5.0 [facility] Comment on above: Performed By: #### H STROPN, CMP #### [facility] [address] [place] [address] Dr. Yamileth France Albumin/Globulin [Mass ratio] 1.0 {ratio} Normal [facility] Comment on above: Performed By: #### H STROPN, CMP #### [facility] [address] [place] [address] Dr. Yamileth France ALP [Catalytic activity/Vol] 63 U/L Normal 46-116 [facility] Comment on above: Performed By: #### H STROPN, CMP #### [facility] [address] [address] [address] Yamileth France ALT [Catalytic activity/Vol] 21 U/L Normal 14-59 [facility] Comment on above: Performed By: #### H STROPN, CMP #### [facility] [address] [address] [address] Yamileth France Anion gap [Moles/Vol] 9.9 mmol/L Normal [facility] Comment on above: Performed By: #### H STROPN, CMP #### [facility] [address] [address] [address] Yamileth France AST [Catalytic activity/Vol] 18 U/L Normal 15-37 [facility] Comment on above: Performed By: #### H STROPN, CMP #### [facility] [address] [address] [address] Yamileth France Bilirubin [Mass/Vol] 0.3 mg/dL Normal 0.2-1.0 [facility] Comment on above: Performed By: #### H STROPN, CMP #### [facility] [address] [address] [address] Yamileth France Calcium [Mass/Vol] 8.8 mg/dL Normal 8.5-10.1 [facility] Comment on above: Performed By: #### H STROPN, CMP #### [facility] [address] [address] [address] Yamileth France Chloride [Moles/Vol] 99 mmol/L Normal 98-107 [facility] Comment on above: Performed By: #### H STROPN, CMP #### [facility] [address] [address] [address] Yamileth France CO2 [Moles/Vol] 31.2 mmol/L Normal 21.0-32.0 [facility] Comment on above: Performed By: #### H STROPN, CMP #### [facility] [address] [address] [address] Yamileth France Creatinine [Mass/Vol] 0.74 mg/dL Normal 0.55-1.02 [facility] Comment on above: Performed By: #### H STROPN, CMP #### [facility] [address] [address] [address] Yamileth France EGFR-AF EQUATORIAL GUINEAN >60 Normal >=60 [facility] Comment on above: Performed By: #### H STROPN, CMP #### [facility] [address] [address] [address] Yamileth France EGFR-NON AF EQUATORIAL GUINEAN >60 Normal >=60 [facility] Comment on above: Performed By: #### H STROPN, CMP #### [facility] [address] [address] [address] Yamileth France Globulin (S) [Mass/Vol] 3.5 g/dL Normal [facility] Comment on above: Performed By: #### H STROPN, CMP #### [facility] [address] [address] [address] Yamileth France Glucose [Mass/Vol] 111 mg/dL Critically high 74-106 [facility] Comment on above: Performed By: #### H STROPN, CMP #### [facility] [address] [address] [address] Yamileth France Potassium [Moles/Vol] 3.1 mmol/L Critically low 3.5-5.1 [facility] Comment on above: Performed By: #### H STROPN, CMP #### [facility] [address] [address] [address] Yamileth France Protein [Mass/Vol] 6.9 g/dL Normal 6.4-8.2 [facility] Comment on above: Performed By: #### H STROPN, CMP #### [facility] [address] [address] [address] Yamileth France Sodium [Moles/Vol] 137 mmol/L Normal 136-145 [facility] Comment on above: Performed By: #### H STROPN, CMP #### [facility] [address] [address] [address] Yamileth France Urea nitrogen [Mass/Vol] 14.0 mg/dL Normal 7.0-18.0 [facility] Comment on above: Performed By: #### H JOYCE, CMP #### [facility] [address] [address] [address] Yamileth France Urea nitrogen/Creatinine [Mass ratio] 18.9 mg/mg Normal [facility] Comment on above: Performed By: #### H JOYCE, CMP #### [facility] [address] [place] [address] Dr. Yamileth France TROPONIN, HIGH SENSITIVITYon 10-21-2022 HSTROP 4.7 pg/mL Normal 4.0-51.3 [facility] Comment on above: Result Comment: CUT- OFF POINTS HAVE BEEN ESTABLISHED BASED ON THE FOURTH UNIVERSAL DEFINITIONS OF MYOCARDIAL INFARCTION. THE UPPER REFERENCE LIMIT (URL) OF TROPONIN, DEFINED THE 99TH PERCENTILE OF cTnI DISTRIBUTION IN A REFERENCE POPULATION, HAS BEEN CONFIRMED THE DECISION THRESHOLD FOR CA DIAGNOSIS. Performed By: #### H JOYCE, CMP #### [facility] [address] [place] [address] Dr. Yamileth France TSHon 10-21-2022 TSH 2.173 uIU/mL Normal 0.358-3.740 [facility] Comment on above: Performed By: #### T SH #### [facility] [address] [place] [address] Dr. Yamileth France XR CHEST 1 Von [...] GIULIA GERMAIN Date: 2022-10-21 04:26 Normal [facility] SCREENING MAMMOGRAM W/MARYCRUZ, BILATERAL*on 07-25-2022 SCREENING MAMMOGRAM W/MARYCRUZ, BILATERAL* COMPARISON: July 22, 2021, July 15, 2020 TECHNIQUE: 2D and 3D Tomosynthesis of the right and left breasts was performed. FINDINGS: Breast composition demonstrates scattered fibroglandular densities. Overall appearance is stable. No suspicious microcalcifications , asymmetry, architectural distortion, or associated features are present. IMPRESSION: BIRADS 1: Negative mammogram Board Certified Radiologist. Accredited by the ACR and FDA. MAMMOGRAPHY IS VERY IMPORTANT TO YOUR HEALTH. THE CURRENT EQUATORIAL GUINEAN COLLEGE OF RADIOLOGY AND NATIONAL COMPREHENSIVE CANCER NETWORK GUIDELINES RECOMMENDS ANNUAL MAMMOGRAPHY BEGINNING AT AGE 40 THIS FACILITY USES A REMINDER SYSTEM TO ENSURE ALL PATIENTS RECEIVE REMINDER NOTIFICATIONS AT THE APPROPRIATE TIME BASED ON THE RECOMMENDATIONS OF THIS EXAM. Report reported and signed by Zane Quinteros on 07/25/2022 1154 Normal [facility] Vital Signs Date Time Vital Sign Value Performing Clinician Facility 11-18-2024 09:22-0500 Body height 163.83 cm [facility] 11-18-2024 09:22-0500 Body mass index (BMI) [Ratio] 24.5 kg/m2 [facility] 11-18-2024 09:22-0500 Body weight 65.77 kg [facility] 09-22-2024 13:15-0500 Body height 163.2 cm Jenny Pump VETERINARY PRACTICE MANAGER Work Phone: [facility] 09-22-2024 13:15-0500 Body mass index (BMI) [Ratio] 25.45 kg/m2 Jenny Pump VETERINARY PRACTICE MANAGER Work Phone: [facility] 09-22-2024 13:15-0500 Body weight 67.77 kg Jenny Pump VETERINARY PRACTICE MANAGER Work Phone: [facility] 09-22-2024 13:15-0500 Diastolic blood pressure 82 mm[Hg] Jenny Pump VETERINARY PRACTICE MANAGER Work Phone: [facility] 09-22-2024 13:15-0500 Heart rate 100 /min Jenny Pump VETERINARY PRACTICE MANAGER Work Phone: [facility] 09-22-2024 13:15-0500 Systolic blood pressure 124 mm[Hg] Jenny Pump VETERINARY PRACTICE MANAGER Work Phone: [facility] 08-07-2024 13:10-0400 Body mass index (BMI) [Ratio] 25.11 kg/m2 Wendy Desouza VETERINARY PRACTICE MANAGER Work Phone: [facility] 08-07-2024 13:10-0400 Body weight 67.41 kg Wendy Rosenbergman VETERINARY PRACTICE MANAGER Work Phone: [facility] 08-07-2024 13:10-0400 Diastolic blood pressure 82 mm[Hg] Wendy Desouza VETERINARY PRACTICE MANAGER Work Phone: [facility] 08-07-2024 13:10-0400 Heart rate 100 /min Wendy Senait VETERINARY PRACTICE MANAGER Work Phone: [facility] 08-07-2024 13:10-0400 Systolic blood pressure 126 mm[Hg] Wendy Rosenbergman VETERINARY PRACTICE MANAGER Work Phone: [facility] 02-13-2024 12:57-0400 Blood Pressure Location KIERSTEN YUNIOR [facility] 02-13-2024 12:57-0400 Body temperature 96.8 [degF] KIERSTEN YUNIOR [facility] 02-13-2024 12:57-0400 Diastolic blood pressure 82 mm[Hg] KIERSTEN YUNIOR [facility] 02-13-2024 12:57-0400 Heart rate 84 /min KIERSTEN YUNIOR [facility] 02-13-2024 12:57-0400 Systolic blood pressure 128 mm[Hg] KIERSTEN YUNIOR [facility] 01-30-2024 13:13-0400 Body temperature 98.6 [degF] KIERSTEN YUNIOR [facility] 01-30-2024 13:13-0400 Diastolic blood pressure 84 mm[Hg] KIERSTEN YUNIOR [facility] 01-30-2024 13:13-0400 Respiratory rate 14 /min KIERSTEN YUNIOR [facility] 01-30-2024 13:13-0400 Systolic blood pressure 128 mm[Hg] KIERSTEN YUNIOR [facility] 01-23-2024 13:10-0400 Blood Pressure Location KIERSTEN YUNIOR [facility] 01-23-2024 13:10-0400 Body temperature 98.6 [degF] KIERSTEN YUNIOR [facility] 01-23-2024 13:10-0400 Diastolic blood pressure 88 mm[Hg] KIERSTEN YUNIOR [facility] 01-23-2024 13:10-0400 Heart rate 78 /min KIERSTEN YUNIOR [facility] 01-23-2024 13:10-0400 Systolic blood pressure 122 mm[Hg] KIERSTEN YUNIOR [facility] 01-16-2024 13:29-0400 Blood Pressure Location KIERSTEN YUNIOR [facility] 01-16-2024 13:29-0400 Diastolic blood pressure 77 mm[Hg] KIERSTEN YUNIOR [facility] 01-16-2024 13:29-0400 Heart rate 90 /min KIERSTEN YUNIOR [facility] 01-16-2024 13:29-0400 Systolic blood pressure 125 mm[Hg] KIERSTEN YUNIOR [facility] 01-09-2024 12:59-0400 Blood Pressure Location KIERSTEN MOJICA [facility] 01-09-2024 12:59-0400 Diastolic blood pressure 93 mm[Hg] KIERSTEN ELAMRY [facility] 01-09-2024 12:59-0400 Heart rate 70 /min KIERSTEN MOJICA [facility] 01-09-2024 12:59-0400 Systolic blood pressure 129 mm[Hg] KIERSTEN YUNIOR [facility] 12-07-2023 11:32-0500 Blood Pressure Location Inez JONES [facility] 12-07-2023 11:32-0500 Diastolic blood pressure 79 mm[Hg] Inez JONES [facility] 12-07-2023 11:32-0500 Heart rate 97 /min Inez JONES [facility] 12-07-2023 11:32-0500 Respiratory rate 16 /min Inez JONES [facility] 12-07-2023 11:32-0500 Systolic blood pressure 124 mm[Hg] Inez JONES [facility] 11-19-2023 09:15-0500 Body height 166.37 cm Andrea Gunter Other [employer] Other 11-19-2023 09:15-0500 Body mass index (BMI) [Ratio] 23.92 kg/m2 Andrea Gunter Other [employer] Other 11-19-2023 09:15-0500 Body weight 66.23 kg Andrea Nurormack Other [employer] Other 11-19-2023 09:15-0500 Diastolic blood pressure 76 mm[Hg] Andrea Meltonack Other [employer] Other 11-19-2023 09:15-0500 Systolic blood pressure 117 mm[Hg] Andrea Nurormack Other [employer] Other 09-18-2023 09:17-0500 Diastolic blood pressure 78 mm[Hg] MD Glenna Keita Work Phone: [facility] 09-18-2023 09:17-0500 Heart rate 80 /min MD Glenna Keita Work Phone: [facility] 09-18-2023 09:17-0500 Respiratory rate 16 /min MD Glenna Keita Work Phone: [facility] 09-18-2023 09:17-0500 SaO2% (BldA) [Mass fraction] 100 % MD Glenna Keita Work Phone: [facility] 09-18-2023 09:17-0500 Systolic blood pressure 118 mm[Hg] MD Glenna Keita Work Phone: [facility] 09-18-2023 07:41-0500 Body height 165.1 cm MD Glenna Keita Work Phone: [facility] 09-18-2023 07:41-0500 Body weight 63.04 kg MD Glenna Keita Work Phone: [facility] 02-28-2023 12:00-0400 Body height 166.37 cm Andrea Gunter Other [facility] [employer] Other 02-28-2023 12:00-0400 Body mass index (BMI) [Ratio] 24.58 kg/m2 Andrea Gunter Other [employer] Other 02-28-2023 12:00-0400 Body weight 68.04 kg Andrea Gunter Other [employer] Other 02-28-2023 12:00-0400 Diastolic blood pressure 96 mm[Hg] Andrea Gunter Other [employer] Other 02-28-2023 12:00-0400 Systolic blood pressure 137 mm[Hg] Andrea Gunter Other [employer] Other 12-08-2022 10:46-0500 Blood Pressure Location Inez JONES [facility] 12-08-2022 10:46-0500 Diastolic blood pressure 74 mm[Hg] Inez JONES [facility] 12-08-2022 10:46-0500 Heart rate 68 /min Inez JONES [facility] 12-08-2022 10:46-0500 Respiratory rate 16 /min Inez JONES [facility] 12-08-2022 10:46-0500 Systolic blood pressure 122 mm[Hg] Inez JONES [facility] 02-27-2022 11:00-0400 Body height 166.37 cm Andrea Gunter Other [employer] Other 02-27-2022 11:00-0400 Body mass index (BMI) [Ratio] 24.58 kg/m2 Andrea Gunter Other [employer] Other 02-27-2022 11:00-0400 Body weight 68.04 kg Andrea Gunter Other [employer] Other 01-04-2022 10:45-0400 Body height 166.37 cm Andrea Gunter Other [employer] Other 01-04-2022 10:45-0400 Body mass index (BMI) [Ratio] 25.4 kg/m2 Andrea Gunter Other [employer] Other 01-04-2022 10:45-0400 Body weight 70.31 kg Andrea Gunter Other [employer] Other 10-03-2021 11:30-0500 Body height 166.37 cm Andrea Gunter Other [employer] Other 10-03-2021 11:30-0500 Body mass index (BMI) [Ratio] 25.07 kg/m2 Andrea Gunter Other [employer] Other 10-03-2021 11:30-0500 Body weight 69.4 kg Andrea Gunter Other [employer] Other Encounters Encounter Date Encounter Type Care Provider Facility Start: 11-18-2024 End: 11-18-2024 ambulatory [facility] Work Phone: Start: 11-18-2024 End: 11-18-2024 Patient encounter procedure [facility] Work Phone: Start: 11-10-2024 End: 11-10-2024 ambulatory KAMALA HINES Not Available Start: 11-06-2024 End: 11-06-2024 ambulatory GLENNA Perez WONDERLY Not Available Start: 09-22-2024 End: 09-22-2024 Bamboo flowsheet Jenny Pump VETERINARY PRACTICE MANAGER Work Phone: [facility] Start: 09-22-2024 End: 09-22-2024 Bamboo flowsheet Jenny Pump VETERINARY PRACTICE MANAGER Work Phone: [facility] Start: 09-22-2024 End: 09-22-2024 Refill Jenny Pump VETERINARY PRACTICE MANAGER Work Phone: [facility] Comment on above: Hemorrhoids, unspeci fied hemorrhoid type Start: 09-22-2024 End: 09-22-2024 ambulatory JENNY PUMP Not Available Start: 09-22-2024 End: 09-22-2024 Patient encounter status Jenny Pump VETERINARY PRACTICE MANAGER Work Phone: [facility] Work Phone: Start: 09-22-2024 End: 09-22-2024 Periodic preventive med est patient 40-64yrs Jenny Pump VETERINARY PRACTICE MANAGER Work Phone: [facility] Comment on above: Wellness examination (Primary Dx); Anxiety, generalized (CMS/HCC); Psoriasis (CMS/HCC); Ulcerative colitis with complication, unspecified location (CMS/HCC); Hiatal hernia; Polyp of colon, unspecified part of colon, unspecified type; Gastroesophageal reflux disease, unspecified whether esophagitis present; Diverticulosis; Fatty liver; Urge incontinence; Post-void dribbling; Simple renal cyst; Osteopenia, unspecified location; Vitamin D deficiency; ADD (attention deficit disorder) without hyperactivity; Straining to void; Urinary urgency; Hemorrhoids, unspecified hemorrhoid type; Primary insomnia; Fatigue, unspecified type; Hair loss Start: 08-11-2024 End: 08-11-2024 Telephone encounter Wendy Desouza VETERINARY PRACTICE MANAGER Work Phone: [facility] Comment on above: Results Start: 08-07-2024 End: 08-07-2024 Bamboo flowsheet Wendy Desouza VETERINARY PRACTICE MANAGER Work Phone: [facility] Start: 08-07-2024 End: 08-07-2024 Bamboo flowsheet Wendy Desouza VETERINARY PRACTICE MANAGER Work Phone: [facility] Start: 08-07-2024 End: 08-07-2024 ambulatory WENDY DESOUZA Not Available Start: 08-07-2024 End: 08-07-2024 Office outpatient visit 15 minutes Wendy Desouza VETERINARY PRACTICE MANAGER Work Phone: [facility] Comment on above: Dysuria (Primary Dx) ; Urine frequency; Urinary urgency Start: 03-12-2024 End: 03-12-2024 ambulatory KAMALA Aaron HINES Not Available Start: 02-13-2024 End: 02-13-2024 ambulatory PA-C KIERSTEN E YUNIOR Facility:[facility] [place] Start: 02-13-2024 End: 02-13-2024 Patient encounter procedure KIERSTEN Nickolas YUNIOR [facility] [facility] Start: 02-06-2024 End: 02-06-2024 ambulatory PA-C KIERSTEN E YUNIOR Facility:[facility] [place] Start: 02-06-2024 End: 02-06-2024 Patient encounter procedure KIERSTEN Nickolas YUNIOR [facility] Start: 01-30-2024 End: 01-30-2024 ambulatory PA-C KIERSTEN E YUNIOR Facility:[facility] [place] Start: 01-30-2024 End: 01-30-2024 Patient encounter procedure KIERSTEN E YUNIOR [facility] [place] Start: 01-23-2024 End: 01-23-2024 ambulatory PA-C KIERSTEN E YUNIOR Facility:[facility] [place] Start: 01-23-2024 End: 01-23-2024 Patient encounter procedure KIERSTEN E YUNIOR [facility] Start: 01-16-2024 End: 01-16-2024 ambulatory PA-C KIERSTEN ELAMRY Facility:[facility] [place] Start: 01-16-2024 End: 01-16-2024 Patient encounter procedure KIERSTEN MOJICA [facility] [place] Start: 01-09-2024 End: 01-09-2024 ambulatory PA-C KIERSTEN Nickolas YUNIOR Facility:[facility] [place] Start: 01-09-2024 End: 01-09-2024 Patient encounter procedure KIERSTEN MOJICA [facility] [place] Start: 12-07-2023 End: 12-07-2023 ambulatory Inez JONES Facility: [place] Start: 12-07-2023 End: 12-07-2023 Patient encounter procedure Inez JONES [facility] [place] Start: 11-19-2023 End: 11-19-2023 ambulatory Andrea Gunter Other [employer] Other Start: 11-19-2023 Office outpatient visit 15 minutes Andrea Gunter [facility] Start: 09-21-2023 End: 09-21-2023 ambulatory Andrea Gunter Other [employer] Other Start: 09-21-2023 Telephone encounter Andrea martínez [facility] Start: 09-18-2023 End: 09-18-2023 ambulatory Glenna Keita Facility:[facility] Start: 09-18-2023 End: 09-18-2023 Admission to same day surgery center MD Glenna Keita Work Phone: [facility] Work Phone: Start: 09-18-2023 End: 09-18-2023 ambulatory MD Glenna Keita Work Phone: [facility] Work Phone: Start: 02-28-2023 End: 02-28-2023 ambulatory Andrea Gunter Other [employer] Other Start: 02-28-2023 Office outpatient visit 15 minutes Andrea Gunter [facility] Start: 12-08-2022 End: 12-08-2022 Patient encounter procedure Inez JONES [facility] Start: 12-06-2022 End: 12-07-[address] INEZ JONES . Facility:[facility] Start: 10-21-2022 End: 10-21-[address] GLENNA KEITA Facility:[facility] Start: 07-25-2022 End: 07-25-2022 ambulatory Andrea Gunter Other [employer] Other Start: 07-25-2022 Telephone encounter Andrea martínez [facility] Start: 02-27-2022 End: 02-27-2022 ambulatory Andrea Gunter Other [employer] Other Start: 02-27-2022 Office outpatient visit 15 minutes Andrea Gunter [facility] Start: 01-04-2022 End: 01-04-2022 ambulatory Andrea Gunter Other [employer] Other Start: 01-04-2022 Office outpatient visit 15 minutes Andrea Gunter [facility] Start: 10-03-2021 End: 10-03-2021 ambulatory Andrea Gunter Other [employer] Other Start: 10-03-2021 Office outpatient ne w 45 minutes Andrea Gunter [facility] Procedures Date Procedure Procedure Detail Performing Clinician Start: 10-10-2023 Mammography Wendy Desouza NP Work Phone: Start: 09-18-2023 Esophagogastroduodenoscopy MD Glenna nagel Work Phone: Start: 09-18-2023 Colonoscopy Wendy Desouza VETERINARY PRACTICE MANAGER Work Phone: Start: 12-30-2020 Extracorporeal shockwave lithotripsy of calculus of kidney Inez JONES Start: 06-22-2020 Cystoscope, device (physical object) Inez JONES Start: 06-22-2020 Cystoscopy Inez JONES Start: 10-10-2018 cysto/UD Inez JONES Start: 09-20-2017 RT ESWL Inez JONES Start: 02-03-2016 R stent removal Inez JONES Start: 01-27-2016 bladder BX/ B/L ESWL, R stent placement Inez JONES Start: 09-28-2015 Cysto/UD Inez JONES Start: 09-27-2015 R ESWL Inez JONES Start: 02-01-2012 cysto/UD/stone basket extraction Inez JONES Start: 10-06-2011 cysto/ L stent removal Inez JONES Start: 09-21-2011 cysto/stone basket/ L stent placement Inez JONES Start: 09-11-2011 cysto Inez JONES Start: 07-22-2005 Abdominal hysterectomy and left salpingo-oophorectomy Inez JONES Start: 07-22-2005 Abdominal hysterectomy and right salpingo-oophorectomy Inez JONES Plan of Treatment Date Care Activity Detail Author Start: 09-18-2033 Screening for malign ant neoplasm of colon [facility] Start: 03-17-2025 End: 03-17-2025 Patient encounter procedure 03/17/2025 10:15 AM EDT Office Visit [facility] [address] [place] D [address] [address] Kamala Hines DO [address] [address] [facility] Start: 12-05-2024 ambulatory Ambulatory Facility:[facility] Start: 10-10-2024 Screening for malign ant neoplasm of breast Mammogram [facility] Start: 10-02-2024 Influenza vaccination Influenza Vacc ine (#1) [facility] Comment on above: Postponed from 06/22 (Patient Refused) Start: 09-22-2024 End: 09-22-2025 25-hydroxyvitamin D3 [Mass/volume] in Serum or Plasma Vitamin D 25 hydroxy Lab Routine Osteopenia, unspecified location Vitamin D deficiency Expected: 09/22/2024 (Approximate), Expires: 09/22/2025 [facility] Comment on above: Expected: 09/22/2024 (Approximate), Expires: 09/22/2025 Start: 09-22-2024 End: 09-22-2025 CBC W Auto Differential panel - Blood CBC and differential Lab Routine Wellness examination Ulcerative colitis with complication, unspecified location (CMS/HCC) Expected: 09/22/2024 (Approximate), Expires: 09/22/2025 [facility] Work Phone: Comment on above: Expected: 09/22/2024 (Approximate), Expires: 09/22/2025 Start: 09-22-2024 End: 09-22-2025 Comprehensive metabolic 2000 panel - Serum or Plasma Comprehensive metabolic panel Lab Routine Wellness examination Osteopenia, unspecified location Ulcerative colitis with complication, unspecified location (CMS/HCC) Expected: 09/22/2024 (Approximate), Expires: 09/22/2025 [facility] Comment on above: Expected: 09/22/2024 (Approximate), Expires: 09/22/2025 Start: 09-22-2024 End: 09-22-2025 Lipid 1996 panel - Serum or Plasma Lipid panel Lab Routine Wellness examination Expected: 09/22/2024 (Approximate), Expires: 09/22/2025 [facility] Comment on above: Expected: 09/22/2024 (Approximate), Expires: 09/22/2025 Start: 09-22-2024 End: 09-22-2025 Thyrotropin [Units/volume] in Serum or Plasma TSH Lab Routine Wellness examination Anxiety, generalized (CMS/HCC) Fatigue, unspecified type Hair loss Expected: 09/22/2024 (Approximate), Expires: 09/22/2025 [facility] Comment on above: Expected: 09/22/2024 (Approximate), Expires: 09/22/2025 Start: 09-22-2024 End: 09-22-2025 Thyroxine (T4) free [Mass/volume] in Serum or Plasma T4, free Lab Routine Wellness examination Anxiety, generalized (CMS/HCC) Fatigue, unspecified type Hair loss Expected: 09/22/2024 (Approximate), Expires: 09/22/2025 [facility] Comment on above: Expected: 09/22/2024 (Approximate), Expires: 09/22/2025 Start: 09-22-2024 End: 09-22-2025 Triiodothyronine (T3) Free [Mass/volume] in Serum or Plasma T3, free Lab Routine Wellness examination Anxiety, generalized (CMS/HCC) Fatigue, unspecified type Hair loss Expected: 09/22/2024 (Approximate), Expires: 09/22/2025 [facility] Comment on above: Expected: 09/22/2024 (Approximate), Expires: 09/22/2025 Start: 08-07-2024 End: 08-07-2025 URINALYSIS, COMPLETE W/REFLEX TO CULTURE URINALYSIS, COMPLETE W/REFLEX TO CULTURE Lab Routine Urine frequency Expected: 08/07/2024 (Approximate), Expires: 08/07/2025 [facility] Work Phone: Comment on above: Expected: 08/07/2024 (Approximate), Expires: 08/07/2025 Start: 06-22-2024 Influenza vaccination Influenza Vacc ine (#1) [facility] Start: 09-18-2023 [facility] Start: 1960 Screening for malign ant neoplasm of colon [facility] Patient Education Colon Polypectomy (DC) [facility] Work Phone: Immunizations Immunization Date Immunization Notes Care Provider Tony braxton 09-20-2023 influenza virus vaccine, unspecified formulation Inez JONES [facility] 09-20-2023 influenza, injectabl e, quadrivalent, preservative free Wendy Desouza NP Work Phone: [facility] 08-10-2022 SARS-CoV-2 (COVID-19 ) [id number] Inez JONES [facility] 01-30-2022 SARS-CoV-2 mRNA (ugoriwdpbzx-mdju-qwiko se) vaccine Inez JONES [facility] 09-03-2021 SARS-CoV-2 (COVID-19 ) Ad26 vaccine, recombinant Inez JONES [facility] 08-26-2021 SARS-CoV-2 (COVID-19 ) mRNA BNT-162b2 vax Inez JONES [facility] 07-22-2021 influenza virus vaccine, unspecified formulation Inez JONES [facility] 07-05-2021 influenza virus vaccine, unspecified formulation Inez JONES [facility] 07-05-2021 influenza, injectabl e, quadrivalent, contains preservative Wendy Desouza NP Work Phone: [facility] 01-31-2021 SARS-CoV-2 (COVID-19 ) mRNA BNT-162b2 vax Inez JONES [facility] 01-29-2021 SARS-CoV-2 (COVID-19 ) mRNA BNT-162b2 vax Inez JONES [facility] 01-10-2021 SARS-CoV-2 (COVID-19 ) mRNA BNT-162b2 vax Inez JONES [facility] 01-04-2021 SARS-CoV-2 (COVID-19 ) mRNA BNT-162b2 vax Inez JONES [facility] 09-13-2019 influenza virus vaccine, unspecified formulation Inez MANPREET [facility] 09-13-2019 Influenza, injectabl e, Madin Durham Canine Kidney, preservative free, quadrivalent Wendy Senait VETERINARY PRACTICE MANAGER Work Phone: [facility] 11-05-2018 influenza virus vaccine, unspecified formulation Inez JONES [facility] 11-05-2018 influenza, injectabl e, quadrivalent, preservative free Wendy Senait VETERINARY PRACTICE MANAGER Work Phone: [facility] 09-28-2015 influenza, injectabl e, quadrivalent, preservative free Wendy Senait VETERINARY PRACTICE MANAGER Work Phone: [facility] 11-07-2012 tetanus toxoid, redu matteo diphtheria toxoid, and acellular pertussis vaccine, adsorbed Wendy Desouza VETERINARY PRACTICE MANAGER Work Phone: [facility] Payers Date Payer Category Payer Private Health Insurance [facility] [id number] 2023 Medicaid [id number] 2023 Self-pay [id number] 1960 Unknown [id number] [id number]. 593 1960 Unknown [id number] 2.16.840.1.328020.3.579.2. 593 1960 Unknown [id number] 2.16.840.1.394534.3.579.2. 1258 1960 Unknown [id number] 2.16.840.1.469904.3.579.2. 1258 1960 Unknown [id number] 2.16.840.1.115566.3.579.2. 1258 1960 Unknown [id number] 2.16.840.1.334821.3.579.2. 125 1960 Unknown [id number] 2.16.840.1.849635.3.579.2. 1258 1960 Unknown [id number] 2.16.840.1.574673.3.579.2. 125 1960 Unknown [id number] 2.16.840.1.305003.3.579.2. 1258 1960 Unknown [id number] 2.16.840.1.586875.3.579.2. 727 1960 Unknown [id number] 2.16.840.1.149917.3.579.2. 727 1960 Unknown [id number] 2.16.840.1.463352.3.579.2. 1960 Unknown [id number] 2.16.840.1.421905.3.579.2. 1960 Unknown [id number] 2.16.840.1.259156.3.579.2. 1960 Unknown [id number] 2.16.840.1.153179.3.579.2. 1960 Unknown [id number] 2.16.840.1.564210.3.579.2. 1960 Unknown [id number] 2.16.840.1.181548.3.579.2. 7 1959 Unknown [id number] 2.16.840.1.453923.19 Unknown [employer] [facility] [id number] Unknown [id number] 2.16.840.1.479128.3.579.2. 531 Unknown [id number] Social History Date Type Detail Facility Start: 09-18-2023 End: 09-22-2024 Sex Assigned At [facility] Start: 12-08-2022 End: 09-18-2023 Tobacco smoking status Ex-smoker (finding) [facility] Tobacco smoking status Never [facility] Start: 1960 Sex Assigned At Female [facility] Start: 10-22-1981 End: 04-10-2005 History of tobacco use Current smoker [facility] Start: 10-22-1981 End: 04-10-2005 History of tobacco use Cigarette Smoker [facility] Start: 09-18-2023 End: 09-20-2023 Cigarettes smoked current (pack per day) - Reported 0.3 [facility] History of tobacco use Passive smoker [facility] Start: 09-20-2023 End: 09-22-2024 Tobacco use and exposure Smokeless tobacco non-user [facility] Start: 03-12-2024 End: 08-07-2024 Alcoholic beverage intake Current drinker of alcohol (finding) [facility] Within the last year , have you been afraid of your partner or ex-partner? No [facility] Are you now , , , , never or living with a partner? [facility] How often to you hav e a drink containing alcohol? Monthly or less [facility] How many standard drinks containing alcohol do you have on a typical day? 1 or 2 [facility] How often do you hav e 6 or more drinks on 1 occasion? Never [facility] Do you feel stress - tense, restless, nervous, or anxious, or unable to sleep at night because your mind is troubled all the time - these days [OSQ] To some extent [facility] (I/We) worried wheth er (my/our) food would run out before (I/we) got money to buy more. Never true [facility] Start: 09-20-2023 Tobacco Comment [facility]oker [facility] Start: 09-20-2023 Alcohol Comment If at all [facility] Start: 07-25-2023 Gender identity Identifies as female gender (finding) [facility] Start: 09-22-2024 Alcoholic beverage intake Ex-drinker (finding) [facility] Start: 11-18-2024 Sex Female (finding) [facility] Goals Date Patient Goal Desired Activity /State Functional Status Date Assessment Result Facility 02-13-2024 Functional Status N/A [facility] 01-30-2024 Functional Status N/A [facility] 01-23-2024 Functional Status N/A [facility] 01-16-2024 Functional Status N/A [facility] 01-09-2024 Functional Status N/A [facility] 12-07-2023 Functional Status N/A [facility] 12-08-2022 Functional Status N/A [facility] Clinical Notes 10-03-2021 to 09-22-2024 Jenny Pump, VETERINARY PRACTICE MANAGER - 09/22/2024 1:00 PM ESTTelephone Encounter - Wendy Desouza, FAVIAN - 08/11/2024 7:52 AM EDTTelephone Encounter - Wendy Desouza, FAVIAN - 08/11/2024 7:52 AM EDT Note Date & Type Note Facility 09-22-2024 History of Presen t illness Narrative Images from the original note were not included. Ja Schwab is a 64 y.o. female presents with chief complaint of Annual Exam HPI: HPI As above. She follows with urology, [employer], and psychiatry. She sees the dentist every 6 months and the eye doctor yearly. She has a lot of questions on her supplements. She is complaining about her hemorrhoids and her bowels. She does have some increased stress with her daughter going through divorce and her niece has breast cancer but the Xanax is effective as needed. Her mammogram is in February. SUBJECTIVE: MEDICATIONS: Current Outpatient Medications Medication Instructions ALPRAZolam (Xanax) 0.25 MG tablet 1 tablet, Daily PRN Alum Hydroxide-Mag Trisilicate (Gaviscon) 80-14.2 MG chewable tablet Chew. amphetamine-dextroamphetamine XR (Adderall XR) 20 MG 24 hr capsule 1 capsule, Every morning Cholecalciferol (Vitamin D-3) 5000 UNIT/ML liquid Place under the tongue. With [place] clobetasol (Temovate) 0.05 % ointment 1 application , 2 times daily estradiol (ESTRACE) 0.5 g, 2 times weekly hydroCHLOROthiazide (HYDRODiuril) 25 MG tablet 1 tablet, Daily Klor-Con/EF 25 MEQ effervescent tablet 1 tablet, Daily lactase (LACTAID) 3,000 Units, As needed ALLERGIES: Allergies Allergen Reactions Sulfamethoxazole Other Reaction(s): Swelling of Lip/Tongue/Throat Sulfamethoxazole-Trimethoprim Hives Trimethoprim Other Reaction(s): Swelling of Lip/Tongue/Throat History: Past Medical History: Diagnosis Date ADHD (attention deficit hyperactivity disorder) ([facility]) 2009 Anxiety 2014? Benign neoplasm of colon Calculus in urethra Calculus of kidney and ureter Chronic nonalcoholic liver disease Disorder of liver Disorder of parathyroid gland, unspecified (CMS/HCC) Diverticulitis 07/26/2023 Diverticulosis of colon (without mention of hemorrhage) Elevated hemoglobin (CMS/HCC) 07/26/2023 Esophageal reflux Family history of colon cancer 09/18/2023 Flank pain 07/26/2023 Hearing loss of right ear, unspecified hearing loss type History of hysterectomy for benign disease 09/19/2023 Hydronephrosis Hydronephrosis 07/26/2023 Insomnia, unspecified Leiomyoma of uterus, unspecified Nocturia 09/19/2023 Osteopenia Osteoporosis (CMS/HCC) Unspecified Other psoriasis (CMS/HCC) Overweight (BMI 25.0-29.9) 07/26/2023 Parathyroid disorder ([facility]) Renal calculi 07/26/2023 Renal cyst, right S/P hysterectomy Smoking hx 09/19/2023 Tear film insufficiency, unspecified laterality Vitamin D deficiency, unspecified Past Surgical History: Procedure Laterality Date COLONOSCOPY 07/13/2020 COLONOSCOPY 10/25/2015 COLONOSCOPY W/ POLYPECTOMY 09/18/2023 CYSTOSCOPY 02/01/2012 Lt retrograde pyelogram/Rt ureteral dilitation/ureteroscopy/stone basket extraction- Dr. Jones CYSTOSCOPY 09/28/2015 EGD 09/18/2023 with bx EGD 07/13/2020 HYSTERECTOMY LITHOTRIPSY 10/07/2015 LITHOTRIPSY 12/2020 Dr Jones TRIGGER FINGER RELEASE Right 08/07/2016 RT MF URETEROSCOPY 09/21/2011 Lt retrograde pyelogram/cystoscopy - Dr. Jones Family History Problem Relation Name Age of Onset Crohn's disease Mother Nhi Adams Breast cancer Mother Nhi Adams Alcohol abuse Mother Nhi Adams Depression Mother Nhi Adams Heart disease Father Jonnie Armstrong Bryan Gonzalez Hypertension Father Jonnie OlmosNelson Gonzalez Esophageal cancer Father Jonnie Armstrong Bryan Gonzalez Diabetes Father Jonnie Armstrong Bryan Gonzalez Alcohol abuse Father Jonnie Armstrong Bryan Gonzalez Depression Father Jonnie Armstrong Bryan Gonzalez Alcohol abuse Sister Hillary Lopezhn Accidental Brother Dylon Bryan Alcohol abuse Brother Dylon Bryan Drug abuse Brother Dylon Bryan Dementia Maternal Grandfather Colon cancer Sibling Early natural Brother Jonnie Adams Jr. Social History Socioeconomic History Marital status: Spouse name: Not on file Number of children: Not on file Years of education: Not on file Highest education level: Not on file Occupational History Not on file Tobacco Use Smoking status: Former Current packs/day: 0.00 Average packs/day: 0.3 packs/day for 23.5 years (5.9 ttl pk-yrs) Types: Cigarettes Start date: 10/22/1981 Quit date: 04/10/2005 Years since quittin.4 Passive exposure: Past Smokeless tobacco: Never Tobacco comments: Social smoker Vaping Use Vaping status: Never Used Substance and Sexual Activity Alcohol use: Not Currently Alcohol/week: 0.0 - 2.0 standard drinks of alcohol Comment: If at all Drug use: Never Sexual activity: Yes Partners: Male control/protection: None Other Topics Concern Not on file Social History Narrative Not on file Social Drivers of Health Financial Resource Strain: Low Risk (09/18/2023) Overall Financial Resource Strain (CARDIA) Difficulty of Paying Living Expenses: Not hard at all Food Insecurity: No Food Insecurity (09/18/2023) Hunger Vital Sign Worried About Running Out of Food in the Last Year: Never true Ran Out of Food in the Last Year: Never true Transportation Needs: No Transportation Needs (09/18/2023) PRAPARE - Transportation Lack of Transportation (Medical): No Lack of Transportation (Non-Medical): No Physical Activity: Insufficiently Active (09/18/2023) Exercise Vital Sign Days of Exercise per Week: 2 days Minutes of Exercise per Session: 30 min Stress: Stress Concern Present (09/18/2023) [employer] [place] [employer] - Occupational Stress Questionnaire Feeling of Stress : To some extent Social Connections: Socially Integrated (09/18/2023) Social Connection and Isolation Panel [NHANES] Frequency of Communication with Friends and Family: More than three times a week Frequency of Social Gatherings with Friends and Family: More than three times a week Attends Restorationism Services: 1 to 4 times per year Active Member of Clubs or Organizations: No Attends Club or Organization Meetings: 1 to 4 times per year Marital Status: Intimate Partner Violence: Not At Risk (09/18/2023) Humiliation, Afraid, Rape, and Kick questionnaire Fear of Current or Ex-Partner: No Emotionally Abused: No Physically Abused: No Sexually Abused: No Housing Stability: Low Risk (09/18/2023) Housing Stability Vital Sign Unable to Pay for Housing in the Last Year: No Number of Places Lived in the Last Year: 1 Unstable Housing in the Last Year: No I have reviewed and reconciled the history and medication list with the patient today. REVIEW OF SYMPTOMS: Review of Systems Constitutional: Negative. Negative for fatigue and fever. HENT: Negative. Negative for congestion, ear discharge, ear pain, postnasal drip, rhinorrhea, sinus pressure, sinus pain, sneezing, sore throat and trouble swallowing. Eyes: Negative. Respiratory: Negative for cough, shortness of breath and wheezing. Cardiovascular: Negative. Negative for chest pain, palpitations and leg swelling. Gastrointestinal: Positive for constipation. Negative for abdominal distention, abdominal pain, blood in stool, diarrhea and nausea. Hemorrhoids Genitourinary: Negative. Musculoskeletal: Negative. Skin: Negative. Negative for rash. Neurological: Negative. Psychiatric/Behavioral: Negative. OBJECTIVE: 09/19/2022 12:00 PM 02/07/2023 12:00 PM 07/26/2023 1:53 PM 09/20/2023 8:46 AM 03/12/2024 1:06 PM 08/07/2024 1:10 PM 09/22/2024 1:15 PM Vitals BMI 25.99 kg/m2 25.58 kg/m2 24.34 kg/m2 23.69 kg/m2 24.67 kg/m2 25.11 kg/m2 25.45 kg/m2 BSA (m2) 1.76 m2 1.75 m2 1.7 m2 1.7 m2 1.74 m2 1.75 m2 1.75 m2 Systolic 116 120 116 132 124 126 124 Diastolic 76 70 80 80 80 82 82 Heart Rate 80 84 100 100 Height (in) 5' 4 5' 4 5' 4.5 5' 4.25 Weight (lb) 151.4 149 141.8 140.2 146 148.6 149.4 Visit Report Report Report Report Report Report Physical Exam Vitals and nursing note reviewed. Constitutional: General: She is not in acute distress. Appearance: Normal appearance. She is normal weight. She is not ill-appearing, toxic-appearing or diaphoretic. HENT: Head: Normocephalic and atraumatic. Right Ear: Tympanic membrane, ear canal and external ear normal. Left Ear: Tympanic membrane, ear canal and external ear normal. Nose: Nose normal. No congestion or rhinorrhea. Mouth/Throat: Mouth: Mucous membranes are moist. Pharynx: Oropharynx is clear. No oropharyngeal exudate or posterior oropharyngeal erythema. Eyes: Extraocular Movements: Extraocular movements intact. Conjunctiva/sclera: Conjunctivae normal. Pupils: Pupils are equal, round, and reactive to light. Neck: Vascular: No carotid bruit. Cardiovascular: Rate and Rhythm: Normal rate and regular rhythm. Pulses: Normal pulses. Heart sounds: Normal heart sounds. No murmur heard. No friction rub. No gallop. Pulmonary: Effort: Pulmonary effort is normal. No respiratory distress. Breath sounds: Normal breath sounds. No wheezing, rhonchi or rales. Chest: Chest wall: No tenderness. Abdominal: General: Bowel sounds are normal. There is no distension. Palpations: Abdomen is soft. There is no mass. Tenderness: There is no abdominal tenderness. There is no guarding or rebound. Hernia: No hernia is present. Musculoskeletal: General: No swelling or deformity. Normal range of motion. Cervical back: Normal range of motion and neck supple. Lymphadenopathy: Cervical: No cervical adenopathy. Skin: General: Skin is warm and dry. Capillary Refill: Capillary refill takes less than 2 seconds. Findings: No bruising, lesion or rash. Neurological: General: No focal deficit present. Mental Status: She is alert and oriented to person, place, and time. Mental status is at baseline. Motor: No weakness. Gait: Gait normal. Psychiatric: Mood and Affect: Mood normal. Behavior: Behavior normal. Thought Content: Thought content normal. Judgment: Judgment normal. ASSESSMENT AND PLAN: Assessment/Plan Diagnoses and all orders for this visit: Wellness examination Reviewed family history, risk factors for disease and discussed importance of routine exercise and healthy diet. Recommended routine dental/eye exams and discussed vaccines. Patient will update flu vaccine today and plans to schedule covid booster in near future. Labs ordered for today. Discussed routine screenings and patient is UTD. All questions answered. - CBC and differential; Future - Comprehensive metabolic panel; Future - Lipid panel; Future - TSH; Future - T4, free; Future - T3, free; Future Anxiety, generalized (CMS/HCC) Controlled with PRN Xanax. Follows with psych. - TSH; Future - T4, free; Future - T3, free; Future Psoriasis (CMS/HCC) Stable. Clobetasol is effective. Ulcerative colitis with complication, unspecified location (CMS/HCC) Stable. Will check labs. No recent flares. Last colonoscopy was last August. - CBC and differential; Future - Comprehensive metabolic panel; Future Hiatal hernia Stable. Reflux controlled on omeprazole. PRN gaviscon. Polyp of colon, unspecified part of colon, unspecified type Stable. Last scope in 2022. Gastroesophageal reflux disease, unspecified whether esophagitis present Controlled on omeprazole and diet. Diverticulosis Stable. No abd pain or bleeding. Last scope in 2022. Fatty liver Stable. Will check labs Urge incontinence Follows with Dr. Jones in urology. Improved with treatment. Post-void dribbling See above. Simple renal cyst Stable. Osteopenia, unspecified location Last Dexascan was in 2021. Will check next year. To continue her vitamin D supplement and weight-bearing exercise. - Comprehensive metabolic panel; Future - Vitamin D 25 hydroxy; Future Vitamin D deficiency See above. Will check level. Hx of osteopenia. - Vitamin D 25 hydroxy; Future ADD (attention deficit disorder) without hyperactivity Follows with psych. Controlled on ADDerall XR. Straining to void Follows with urology. Urinary urgency See above. Hemorrhoids, unspecified hemorrhoid type Discussed hemorrhoids. She is using otc preparation H which is not fully effective. Will send in suppositories. Discussed sitz bath, warm or cool compresses, keeping stools soft, avoiding spicy foods. Verbalized understanding. - hydrocortisone (Anusol-HC) 25 MG suppository; Insert 1 suppository (25 mg) into the rectum in the morning and 1 suppository (25 mg) before bedtime. Do all this for 7 days. Primary insomnia Controlled with melatonin. Fatigue, unspecified type - TSH; Future - T4, free; Future - T3, free; Future Hair loss Discussed hair loss. She states it falls out in clumps. Will check labs. - TSH; Future - T4, free; Future - T3, free; Future Follow up at least annual in Sep for wellness. documented in this encounter [facility] 08-11-2024 Telephone encounter Note Please let patient know urine culture is negative for infection. See how she's doing. If better she can continue abx until done. If not improved, should see urology. [facility] 08-11-2024 Miscellaneous Notes Please let patient know urine culture is negative for infection. See how she's doing. If better she can continue abx until done. If not improved, should see urology. documented in this encounter [facility] 08-07-2024 History of Presen t illness Narrative gp Images from the original note were not included. Ja Schwab is a 64 y.o. female presents with chief complaint of Urinary Frequency (Took Azo yesterday and this morning) HPI: Urinary Frequency Associated symptoms include flank pain (right), frequency and urgency. Pertinent negatives include no hematuria or nausea. Patient presents to the office today with acute concerns. Symptoms started two days ago. She denies fever, body chills or aches. Admits urinary frequency and urgency. Admits painful urination with foul smell. Waking up more often at night to use the bathroom. Denies blood in urine. Admits right sided low back pain at times but denies currently. No nausea or vomiting. She does admit she had explosive diarrhea two days ago. Has not been drinking a lot of water, maybe 2 16 ounces today. SUBJECTIVE: MEDICATIONS: Current Outpatient Medications Medication Instructions ALPRAZolam (Xanax) 0.25 MG tablet 1 tablet, Daily PRN Alum Hydroxide-Mag Trisilicate (Gaviscon) 80-14.2 MG chewable tablet Chew. amphetamine-dextroamphetamine XR (Adderall XR) 20 MG 24 hr capsule 1 capsule, Every morning cephalexin (KEFLEX) 500 mg, Oral, 3 times daily Cholecalciferol (Vitamin D-3) 5000 UNIT/ML liquid Place under the tongue. With [place] clobetasol (Temovate) 0.05 % ointment 1 application , 2 times daily estradiol (ESTRACE) 0.5 g, 2 times weekly hydroCHLOROthiazide (HYDRODiuril) 25 MG tablet 1 tablet, Daily Klor-Con/EF 25 MEQ effervescent tablet 1 tablet, Daily lactase (LACTAID) 3,000 Units, As needed Probiotic Product (DIGESTIVE ADV PREBIOT+PROBIOT PO) Take by mouth. Trust Your Gut ALLERGIES: Allergies Allergen Reactions Sulfamethoxazole Other Reaction(s): Swelling of Lip/Tongue/Throat Sulfamethoxazole-Trimethoprim Hives Trimethoprim Other Reaction(s): Swelling of Lip/Tongue/Throat History: Past Medical History: Diagnosis Date ADHD (attention deficit hyperactivity disorder) ([facility]) 2009 Anxiety 2014? Benign neoplasm of colon Calculus in urethra Calculus of kidney and ureter Chronic nonalcoholic liver disease Disorder of liver Disorder of parathyroid gland, unspecified ([facility]) Diverticulitis 07/26/2023 Diverticulosis of colon (without mention of hemorrhage) Elevated hemoglobin ([facility]) 07/26/2023 Esophageal reflux Family history of colon cancer 09/18/2023 Flank pain 07/26/2023 Hearing loss of right ear, unspecified hearing loss type History of hysterectomy for benign disease 09/19/2023 Hydronephrosis Hydronephrosis 07/26/2023 Insomnia, unspecified Leiomyoma of uterus, unspecified Nocturia 09/19/2023 Osteopenia Osteoporosis ([facility]) Unspecified Other psoriasis ([facility]) Overweight (BMI 25.0-29.9) 07/26/2023 Parathyroid disorder ([facility]) Renal calculi 07/26/2023 Renal cyst, right S/P hysterectomy Smoking hx 09/19/2023 Tear film insufficiency, unspecified laterality Vitamin D deficiency, unspecified Past Surgical History: Procedure Laterality Date COLONOSCOPY 07/13/2020 COLONOSCOPY 10/25/2015 COLONOSCOPY W/ POLYPECTOMY 09/18/2023 CYSTOSCOPY 02/01/2012 Lt retrograde pyelogram/Rt ureteral dilitation/ureteroscopy/stone basket extraction- Dr. Jones CYSTOSCOPY 09/28/2015 EGD 09/18/2023 with bx EGD 07/13/2020 HYSTERECTOMY LITHOTRIPSY 10/07/2015 LITHOTRIPSY 12/2020 Dr Jones TRIGGER FINGER RELEASE Right 08/07/2016 RT MF URETEROSCOPY 09/21/2011 Lt retrograde pyelogram/cystoscopy - Dr. Jones Family History Problem Relation Name Age of Onset Crohn's disease Mother Nhi Adams Breast cancer Mother Nhi Adams Alcohol abuse Mother Nhi Adams Depression Mother Nhi Adams Heart disease Father Jonnie Gonzalez Hypertension Father Jonnie Gonzalez Esophageal cancer Father Jonnie Gonzalez Diabetes Father Jonnie Gonzalez Alcohol abuse Father Jonnie Gonzalez Depression Father Jonnie Gonzalez Alcohol abuse Sister Hillary Admas Accidental Brother Dylon Adams Alcohol abuse Brother Dylon Adams Drug abuse Brother Dylon Adams Dementia Maternal Grandfather Colon cancer Sibling Early natural Brother Jonine Adams Jr. Social History Socioeconomic History Marital status: Spouse name: Not on file Number of children: Not on file Years of education: Not on file Highest education level: Not on file Occupational History Not on file Tobacco Use Smoking status: Former Current packs/day: 0.00 Average packs/day: 0.3 packs/day for 23.5 years (5.9 ttl pk-yrs) Types: Cigarettes Start date: 10/22/1981 Quit date: 04/10/2005 Years since quittin.3 Passive exposure: Past Smokeless tobacco: Never Tobacco comments: Social smoker Vaping Use Vaping status: Never Used Substance and Sexual Activity Alcohol use: Yes Alcohol/week: 2.0 standard drinks of alcohol Types: 2 Cans of beer per week Comment: If at all Drug use: Never Sexual activity: Yes Partners: Male control/protection: Surgical Other Topics Concern Not on file Social History Narrative Not on file Social Drivers of Health Financial Resource Strain: Low Risk (09/18/2023) Overall Financial Resource Strain (CARDIA) Difficulty of Paying Living Expenses: Not hard at all Food Insecurity: No Food Insecurity (09/18/2023) Hunger Vital Sign Worried About Running Out of Food in the Last Year: Never true Ran Out of Food in the Last Year: Never true Transportation Needs: No Transportation Needs (09/18/2023) PRAPARE - Transportation Lack of Transportation (Medical): No Lack of Transportation (Non-Medical): No Physical Activity: Insufficiently Active (09/18/2023) Exercise Vital Sign Days of Exercise per Week: 2 days Minutes of Exercise per Session: 30 min Stress: Stress Concern Present (09/18/2023) [employer] [place] [employer] - Occupational Stress Questionnaire Feeling of Stress : To some extent Social Connections: Socially Integrated (09/18/2023) Social Connection and Isolation Panel [NHANES] Frequency of Communication with Friends and Family: More than three times a week Frequency of Social Gatherings with Friends and Family: More than three times a week Attends Restorationism Services: 1 to 4 times per year Active Member of Clubs or Organizations: No Attends Club or Organization Meetings: 1 to 4 times per year Marital Status: Intimate Partner Violence: Not At Risk (09/18/2023) Humiliation, Afraid, Rape, and Kick questionnaire Fear of Current or Ex-Partner: No Emotionally Abused: No Physically Abused: No Sexually Abused: No Housing Stability: Low Risk (09/18/2023) Housing Stability Vital Sign Unable to Pay for Housing in the Last Year: No Number of Places Lived in the Last Year: 1 Unstable Housing in the Last Year: No I have reviewed and reconciled the history and medication list with the patient today. REVIEW OF SYMPTOMS: Review of Systems Constitutional: Negative for activity change, appetite change and fatigue. HENT: Negative. Respiratory: Negative for cough, shortness of breath and wheezing. Cardiovascular: Negative for chest pain and palpitations. Gastrointestinal: Negative for abdominal pain, diarrhea and nausea. Genitourinary: Positive for dysuria, flank pain (right), frequency and urgency. Negative for difficulty urinating, hematuria and pelvic pain. Skin: Negative for color change, rash and wound. Psychiatric/Behavioral: Negative. OBJECTIVE: 07/05/2021 12:00 PM 09/19/2022 12:00 PM 02/07/2023 12:00 PM 07/26/2023 1:53 PM 09/20/2023 8:46 AM 03/12/2024 1:06 PM 08/07/2024 1:10 PM Vitals BMI 25.66 kg/m2 25.99 kg/m2 25.58 kg/m2 24.34 kg/m2 23.69 kg/m2 24.67 kg/m2 25.11 kg/m2 BSA (m2) 1.79 m2 1.76 m2 1.75 m2 1.7 m2 1.7 m2 1.74 m2 1.75 m2 Systolic 120 116 120 116 132 124 126 Diastolic 70 76 70 80 80 80 82 Heart Rate 80 84 100 Height (in) 5' 5 5' 4 5' 4 5' 4.5 Weight (lb) 154.2 151.4 149 141.8 140.2 146 148.6 Visit Report Report Report Report Report Physical Exam Vitals reviewed. Constitutional: General: She is not in acute distress. Appearance: Normal appearance. Cardiovascular: Rate and Rhythm: Normal rate and regular rhythm. Heart sounds: No murmur heard. Pulmonary: Effort: Pulmonary effort is normal. No respiratory distress. Breath sounds: Normal breath sounds. No wheezing or rhonchi. Abdominal: General: Bowel sounds are normal. There is no distension. Palpations: Abdomen is soft. Tenderness: There is no abdominal tenderness. There is no right CVA tenderness or left CVA tenderness. Skin: General: Skin is warm and dry. Findings: No rash. Neurological: Mental Status: She is alert. Psychiatric: Mood and Affect: Mood normal. Behavior: Behavior normal. ASSESSMENT AND PLAN: Assessment/Plan Diagnoses and all orders for this visit: Dysuria - cephalexin (Keflex) 500 MG capsule; Take 1 capsule (500 mg) by mouth in the morning and 1 capsule (500 mg) in the evening and 1 capsule (500 mg) before bedtime. Do all this for 10 days. Urine frequency - URINALYSIS, COMPLETE W/REFLEX TO CULTURE; Future Urinary urgency -Increase water intake, get plenty of rest. Advised patient that the urine will be sent out for culture. May need to change the antibiotic based on the culture results. Cranberry juice ok. Avoid bath tubs and hot tubs or use the restroom afterwards, always wipe front to back, avoid fragrance soaps in that area, urinate before and after intercourse if sexually active. Discussed if patient develops any N/V, fever/chills, or symptoms dramatically increase, the patient is to go to the ER. Otherwise follow up at our office if no improvement in one week. Follow up if symptoms worsen or fail to improve, for due for wellness after 09/20. documented in this encounter [facility] 02-13-2024 Hospital Discharg e instructions Patient Education 02/13/2024 13:19:11 Pelvic Floor Dysfunction, Female Pelvic Floor Dysfunction, Female Pelvic floor dysfunction (PFD) is a condition that results when the group of muscles and connective tissues that support the organs in the pelvis (pelvic floor muscles) do not work well. These muscles and their connections form a sling that supports the colon and bladder. In women, they also support the uterus. PFD causes pelvic floor muscles to be too weak, too tight, or both. In PFD, muscle movements are not coordinated. This may cause bowel or bladder problems. It may also cause pain. What are the causes? This condition may be caused by an injury to the pelvic area or by a weakening of pelvic muscles. This often results from and childbirth or other types of strain. In many cases, the exact cause is not known. What increases the risk? The following factors may make you more likely to develop this condition: Having chronic bladder tissue inflammation (interstitial cystitis). Being an older person. Being overweight. History of radiation treatment for cancer in the pelvic region. Previous pelvic surgery, such as removal of the uterus (hysterectomy). What are the signs or symptoms? Symptoms of this condition vary and may include: Bladder symptoms, such as: ?Trouble starting urination and emptying the bladder. ?Frequent urinary tract infections. ?Leaking urine when coughing, laughing, or exercising (stress incontinence). ?Having to pass urine urgently or frequently. ?Pain when passing urine. Bowel symptoms, such as: ?Constipation. ?Urgent or frequent bowel movements. ?Incomplete bowel movements. ?Painful bowel movements. ?Leaking stool or gas. Unexplained genital or rectal pain. Genital or rectal muscle spasms. Low back pain. Other symptoms may include: A heavy, full, or aching feeling in the vagina. A bulge that protrudes into the vagina. Pain during or after sex. How is this diagnosed? This condition may be diagnosed based on: Your symptoms and medical history. A physical exam. During the exam, your health care provider may check your pelvic muscles for tightness, spasm, pain, or weakness. This may include a rectal exam and a pelvic exam. In some cases, you may have diagnostic tests, such as: Electrical muscle function tests. Urine flow testing. X-ray tests of bowel function. Ultrasound of the pelvic organs. How is this treated? Treatment for this condition depends on the symptoms. Treatment options include: Physical therapy. This may include Kegel exercises to help relax or strengthen the pelvic floor muscles. Biofeedback. This type of therapy provides feedback on how tight your pelvic floor muscles are so that you can learn to control them. Internal or external massage therapy. A treatment that involves electrical stimulation of the pelvic floor muscles to help control pain (transcutaneous electrical nerve stimulation, or TENS). Sound wave therapy (ultrasound) to reduce muscle spasms. Medicines, such as: ?Muscle relaxants. ?Bladder control medicines. Surgery to reconstruct or support pelvic floor muscles may be an option if other treatments do not help. Follow these instructions at home: Activity Do your usual activities as told by your health care provider. Ask your health care provider if you should modify any activities. Do pelvic floor strengthening or relaxing exercises at home as told by your physical therapist. Lifestyle Maintain a healthy weight. Eat foods that are high in fiber, such as beans, whole grains, and fresh fruits and vegetables. Limit foods that are high in fat and processed sugars, such as fried or sweet foods. Manage stress with relaxation techniques such as yoga or meditation. General instructions If you have problems with leakage: ?Use absorbable pads or wear padded underwear. ?Wash frequently with mild soap. ?Keep your genital and anal area as clean and dry as possible. ?Ask your health care provider if you should try a barrier cream to prevent skin irritation. Take warm baths to relieve pelvic muscle tension or spasms. Take byzj-vyz-samoaip and prescription medicines only as told by your health care provider. Keep all follow-up visits. How is this prevented? The cause of PFD is not always known, but there are a few things you can do to reduce the risk of developing this condition, including: Staying at a healthy weight. Getting regular exercise. Managing stress. Contact a health care provider if: Your symptoms are not improving with home care. You have signs or symptoms of PFD that get worse at home. You develop new signs or symptoms. You have signs of a urinary tract infection, such as: ?Fever. ?Chills. ?Increased urinary frequency. ?A burning feeling when urinating. You have not had a bowel movement in 3 days (constipation). Summary Pelvic floor dysfunction results when the muscles and connective tissues in your pelvic floor do not work well. These muscles and their connections form a sling that supports your colon and bladder. In women, they also support the uterus. PFD may be caused by an injury to the pelvic area or by a weakening of pelvic muscles. PFD causes pelvic floor muscles to be too weak, too tight, or a combination of both. Symptoms may vary from person to person. In most cases, PFD can be treated with physical therapies and medicines. Surgery may be an option if other treatments do not help. This information is not intended to replace advice given to you by your health care provider. Make sure you discuss any questions you have with your health care provider. Document Revised: 02/15/2022 Document Reviewed: 02/15/2022 [employer] Patient Education 2022 wedgies. Follow Up Care 12/19/2023 16:06:38 With:KIERSTEN MOJICA PA-C, URL Address: [address] [place] [address] [phone] When: Unknown [facility] [place] 01-30-2024 Hospital Discharg e instructions Patient Education 01/30/2024 14:14:09 Urinary Incontinence Urinary Incontinence Urinary incontinence refers to a condition in which a person is unable to control where and when to pass urine. A person with this condition will urinate involuntarily. This means that the person urinates when he or she does not mean to. What are the causes? This condition may be caused by: Medicines. Infections. Constipation. Overactive bladder muscles. Weak bladder muscles. Weak pelvic floor muscles. These muscles provide support for the bladder, intestine, and, in women, the uterus. Enlarged prostate in men. The prostate is a gland near the bladder. When it gets too big, it can pinch the urethra. With the urethra blocked, the bladder can weaken and lose the ability to empty properly. Surgery. Emotional factors, such as anxiety, stress, or post-traumatic stress disorder (PTSD). Spinal cord injury, nerve injury, or other neurological conditions. Pelvic organ prolapse. This happens in women when organs move out of place and into the vagina. This movement can prevent the bladder and urethra from working properly. What increases the risk? The following factors may make you more likely to develop this condition: Age. The older you are, the higher the risk. Obesity. Being physically inactive. and childbirth. Menopause. Diseases that affect the nerves or spinal cord. Long-term, or chronic, coughing. This can increase pressure on the bladder and pelvic floor muscles. What are the signs or symptoms? Symptoms may vary depending on the type of urinary incontinence you have. They include: A sudden urge to urinate, and passing urine involuntarily before you can get to a bathroom (urge incontinence). Suddenly passing urine when doing activities that force urine to pass, such as coughing, laughing, exercising, or sneezing (stress incontinence). Needing to urinate often but urinating only a small amount, or constantly dribbling urine (overflow incontinence). Urinating because you cannot get to the bathroom in time due to a physical disability, such as arthritis or injury, or due to a communication or thinking problem, such as Alzheimer's disease (functional incontinence). How is this diagnosed? This condition may be diagnosed based on: Your medical history. A physical exam. Tests, such as: ?Urine tests. ?X-rays of your kidney and bladder. ?Ultrasound. ?CT scan. ?Cystoscopy. In this procedure, a health care provider inserts a tube with a light and camera (cystoscope) through the urethra and into the bladder to check for problems. ?Urodynamic testing. These tests assess how well the bladder, urethra, and sphincter can store and release urine. There are different types of urodynamic tests, and they vary depending on what the test is measuring. To help diagnose your condition, your health care provider may recommend that you keep a log of when you urinate and how much you urinate. How is this treated? Treatment for this condition depends on the type of incontinence that you have and its cause. Treatment may include: Lifestyle changes, such as: ?Quitting smoking. ?Maintaining a healthy weight. ?Staying active. Try to get 150 minutes of moderate-intensity exercise every week. Ask your health care provider which activities are safe for you. ?Eating a healthy diet. ?Avoid high-fat foods, like fried foods. ?Avoid refined carbohydrates like white bread and white rice. ?Limit how much alcohol and caffeine you drink. ?Increase your fiber intake. Healthy sources of fiber include beans, whole grains, and fresh fruits and vegetables. Behavioral changes, such as: ?Pelvic floor muscle exercises. ?Bladder training, such as lengthening the amount of time between bathroom breaks, or using the bathroom at regular intervals. ?Using techniques to suppress bladder urges. This can include distraction techniques or controlled breathing exercises. Medicines, such as: ?Medicines to relax the bladder muscles and prevent bladder spasms. ?Medicines to help slow or prevent the growth of a man's prostate. ?Botox injections. These can help relax the bladder muscles. Treatments, such as: ?Using pulses of electricity to help change bladder reflexes (electrical nerve stimulation). ?For women, using a medical lab specialist to prevent urine leaks. This is a small, tampon-like, disposable device that is inserted into the urethra. ?Injecting collagen or carbon beads (bulking agents) into the urinary sphincter. These can help thicken tissue and close the bladder opening. ?Surgery. Follow these instructions at home: Lifestyle Limit alcohol and caffeine. These can fill your bladder quickly and irritate it. Keep yourself clean to help prevent odors and skin damage. Ask your health care provider about special skin creams and cleansers that can protect the skin from urine. Consider wearing pads or adult diapers. Make sure to change them regularly, and always change them right after experiencing incontinence. General instructions Take xmlx-gje-orlrdbs and prescription medicines only as told by your health care provider. Use the bathroom about every 3 4 hours, even if you do not feel the need to urinate. Try to empty your bladder completely every time. After urinating, wait a minute. Then try to urinate again. Make sure you are in a relaxed position while urinating. If your incontinence is caused by nerve problems, keep a log of the medicines you take and the times you go to the bathroom. Keep all follow-up visits. This is important. Where to find more information National [place] [employer] and [employer]estive and Kidney Diseases: www.niddk.nih.gov [employer]: www.urologyhealth.org Contact a health care provider if: You have pain that gets worse. Your incontinence gets worse. Get help right away if: You have a fever or chills. You are unable to urinate. You have redness in your groin area or down your legs. Summary Urinary incontinence refers to a condition in which a person is unable to control where and when to pass urine. This condition may be caused by medicines, infection, weak bladder muscles, weak pelvic floor muscles, enlargement of the prostate (in men), or surgery. Factors such as older age, obesity, and childbirth, menopause, neurological diseases, and chronic coughing may increase your risk for developing this condition. Types of urinary incontinence include urge incontinence, stress incontinence, overflow incontinence, and functional incontinence. This condition is usually treated first with lifestyle and behavioral changes, such as quitting smoking, eating a healthier diet, and doing regular pelvic floor exercises. Other treatment options include medicines, bulking agents, medical devices, electrical nerve stimulation, or surgery. This information is not intended to replace advice given to you by your health care provider. Make sure you discuss any questions you have with your health care provider. Document Revised: 05/13/2021 Document Reviewed: 05/13/2021 [employer] Patient Education 2022 [email or web address]. Follow Up Care 12/19/2023 16:04:38 With:[facility] Address: [address] [place] [address] Business (1) When: Unknown Comments:for procedure as scheduled [facility] 01-23-2024 Hospital Discharg e instructions Patient Education 01/23/2024 13:33:00 Pelvic Floor Dysfunction, Female Pelvic Floor Dysfunction, Female Pelvic floor dysfunction (PFD) is a condition that results when the group of muscles and connective tissues that support the organs in the pelvis (pelvic floor muscles) do not work well. These muscles and their connections form a sling that supports the colon and bladder. In women, they also support the uterus. PFD causes pelvic floor muscles to be too weak, too tight, or both. In PFD, muscle movements are not coordinated. This may cause bowel or bladder problems. It may also cause pain. What are the causes? This condition may be caused by an injury to the pelvic area or by a weakening of pelvic muscles. This often results from and childbirth or other types of strain. In many cases, the exact cause is not known. What increases the risk? The following factors may make you more likely to develop this condition: Having chronic bladder tissue inflammation (interstitial cystitis). Being an older person. Being overweight. History of radiation treatment for cancer in the pelvic region. Previous pelvic surgery, such as removal of the uterus (hysterectomy). What are the signs or symptoms? Symptoms of this condition vary and may include: Bladder symptoms, such as: ?Trouble starting urination and emptying the bladder. ?Frequent urinary tract infections. ?Leaking urine when coughing, laughing, or exercising (stress incontinence). ?Having to pass urine urgently or frequently. ?Pain when passing urine. Bowel symptoms, such as: ?Constipation. ?Urgent or frequent bowel movements. ?Incomplete bowel movements. ?Painful bowel movements. ?Leaking stool or gas. Unexplained genital or rectal pain. Genital or rectal muscle spasms. Low back pain. Other symptoms may include: A heavy, full, or aching feeling in the vagina. A bulge that protrudes into the vagina. Pain during or after sex. How is this diagnosed? This condition may be diagnosed based on: Your symptoms and medical history. A physical exam. During the exam, your health care provider may check your pelvic muscles for tightness, spasm, pain, or weakness. This may include a rectal exam and a pelvic exam. In some cases, you may have diagnostic tests, such as: Electrical muscle function tests. Urine flow testing. X-ray tests of bowel function. Ultrasound of the pelvic organs. How is this treated? Treatment for this condition depends on the symptoms. Treatment options include: Physical therapy. This may include Kegel exercises to help relax or strengthen the pelvic floor muscles. Biofeedback. This type of therapy provides feedback on how tight your pelvic floor muscles are so that you can learn to control them. Internal or external massage therapy. A treatment that involves electrical stimulation of the pelvic floor muscles to help control pain (transcutaneous electrical nerve stimulation, or TENS). Sound wave therapy (ultrasound) to reduce muscle spasms. Medicines, such as: ?Muscle relaxants. ?Bladder control medicines. Surgery to reconstruct or support pelvic floor muscles may be an option if other treatments do not help. Follow these instructions at home: Activity Do your usual activities as told by your health care provider. Ask your health care provider if you should modify any activities. Do pelvic floor strengthening or relaxing exercises at home as told by your physical therapist. Lifestyle Maintain a healthy weight. Eat foods that are high in fiber, such as beans, whole grains, and fresh fruits and vegetables. Limit foods that are high in fat and processed sugars, such as fried or sweet foods. Manage stress with relaxation techniques such as yoga or meditation. General instructions If you have problems with leakage: ?Use absorbable pads or wear padded underwear. ?Wash frequently with mild soap. ?Keep your genital and anal area as clean and dry as possible. ?Ask your health care provider if you should try a barrier cream to prevent skin irritation. Take warm baths to relieve pelvic muscle tension or spasms. Take szfs-jtt-swqrkry and prescription medicines only as told by your health care provider. Keep all follow-up visits. How is this prevented? The cause of PFD is not always known, but there are a few things you can do to reduce the risk of developing this condition, including: Staying at a healthy weight. Getting regular exercise. Managing stress. Contact a health care provider if: Your symptoms are not improving with home care. You have signs or symptoms of PFD that get worse at home. You develop new signs or symptoms. You have signs of a urinary tract infection, such as: ?Fever. ?Chills. ?Increased urinary frequency. ?A burning feeling when urinating. You have not had a bowel movement in 3 days (constipation). Summary Pelvic floor dysfunction results when the muscles and connective tissues in your pelvic floor do not work well. These muscles and their connections form a sling that supports your colon and bladder. In women, they also support the uterus. PFD may be caused by an injury to the pelvic area or by a weakening of pelvic muscles. PFD causes pelvic floor muscles to be too weak, too tight, or a combination of both. Symptoms may vary from person to person. In most cases, PFD can be treated with physical therapies and medicines. Surgery may be an option if other treatments do not help. This information is not intended to replace advice given to you by your health care provider. Make sure you discuss any questions you have with your health care provider. Document Revised: 02/15/2022 Document Reviewed: 02/15/2022 Elsevier Patient Education 2022 [email or web address]. Follow Up Care 12/19/2023 16:03:24 With:YUNIOR CHAPMAN, KIERSTEN Olmos, URL Address: [address] [place] [address] [phone] When: Unknown Comments:PFPT #4 on 01/30/24 [facility] [place] 01-16-2024 Hospital Discharg e instructions Patient Education 01/16/2024 13:08:26 Pelvic Floor Dysfunction, Female Pelvic Floor Dysfunction, Female Pelvic floor dysfunction (PFD) is a condition that results when the group of muscles and connective tissues that support the organs in the pelvis (pelvic floor muscles) do not work well. These muscles and their connections form a sling that supports the colon and bladder. In women, they also support the uterus. PFD causes pelvic floor muscles to be too weak, too tight, or both. In PFD, muscle movements are not coordinated. This may cause bowel or bladder problems. It may also cause pain. What are the causes? This condition may be caused by an injury to the pelvic area or by a weakening of pelvic muscles. This often results from and childbirth or other types of strain. In many cases, the exact cause is not known. What increases the risk? The following factors may make you more likely to develop this condition: Having chronic bladder tissue inflammation (interstitial cystitis). Being an older person. Being overweight. History of radiation treatment for cancer in the pelvic region. Previous pelvic surgery, such as removal of the uterus (hysterectomy). What are the signs or symptoms? Symptoms of this condition vary and may include: Bladder symptoms, such as: ?Trouble starting urination and emptying the bladder. ?Frequent urinary tract infections. ?Leaking urine when coughing, laughing, or exercising (stress incontinence). ?Having to pass urine urgently or frequently. ?Pain when passing urine. Bowel symptoms, such as: ?Constipation. ?Urgent or frequent bowel movements. ?Incomplete bowel movements. ?Painful bowel movements. ?Leaking stool or gas. Unexplained genital or rectal pain. Genital or rectal muscle spasms. Low back pain. Other symptoms may include: A heavy, full, or aching feeling in the vagina. A bulge that protrudes into the vagina. Pain during or after sex. How is this diagnosed? This condition may be diagnosed based on: Your symptoms and medical history. A physical exam. During the exam, your health care provider may check your pelvic muscles for tightness, spasm, pain, or weakness. This may include a rectal exam and a pelvic exam. In some cases, you may have diagnostic tests, such as: Electrical muscle function tests. Urine flow testing. X-ray tests of bowel function. Ultrasound of the pelvic organs. How is this treated? Treatment for this condition depends on the symptoms. Treatment options include: Physical therapy. This may include Kegel exercises to help relax or strengthen the pelvic floor muscles. Biofeedback. This type of therapy provides feedback on how tight your pelvic floor muscles are so that you can learn to control them. Internal or external massage therapy. A treatment that involves electrical stimulation of the pelvic floor muscles to help control pain (transcutaneous electrical nerve stimulation, or TENS). Sound wave therapy (ultrasound) to reduce muscle spasms. Medicines, such as: ?Muscle relaxants. ?Bladder control medicines. Surgery to reconstruct or support pelvic floor muscles may be an option if other treatments do not help. Follow these instructions at home: Activity Do your usual activities as told by your health care provider. Ask your health care provider if you should modify any activities. Do pelvic floor strengthening or relaxing exercises at home as told by your physical therapist. Lifestyle Maintain a healthy weight. Eat foods that are high in fiber, such as beans, whole grains, and fresh fruits and vegetables. Limit foods that are high in fat and processed sugars, such as fried or sweet foods. Manage stress with relaxation techniques such as yoga or meditation. General instructions If you have problems with leakage: ?Use absorbable pads or wear padded underwear. ?Wash frequently with mild soap. ?Keep your genital and anal area as clean and dry as possible. ?Ask your health care provider if you should try a barrier cream to prevent skin irritation. Take warm baths to relieve pelvic muscle tension or spasms. Take jfcv-qmk-hcrbmfq and prescription medicines only as told by your health care provider. Keep all follow-up visits. How is this prevented? The cause of PFD is not always known, but there are a few things you can do to reduce the risk of developing this condition, including: Staying at a healthy weight. Getting regular exercise. Managing stress. Contact a health care provider if: Your symptoms are not improving with home care. You have signs or symptoms of PFD that get worse at home. You develop new signs or symptoms. You have signs of a urinary tract infection, such as: ?Fever. ?Chills. ?Increased urinary frequency. ?A burning feeling when urinating. You have not had a bowel movement in 3 days (constipation). Summary Pelvic floor dysfunction results when the muscles and connective tissues in your pelvic floor do not work well. These muscles and their connections form a sling that supports your colon and bladder. In women, they also support the uterus. PFD may be caused by an injury to the pelvic area or by a weakening of pelvic muscles. PFD causes pelvic floor muscles to be too weak, too tight, or a combination of both. Symptoms may vary from person to person. In most cases, PFD can be treated with physical therapies and medicines. Surgery may be an option if other treatments do not help. This information is not intended to replace advice given to you by your health care provider. Make sure you discuss any questions you have with your health care provider. Document Revised: 02/15/2022 Document Reviewed: 02/15/2022 Elsevier Patient Education 2022 [email or web address]. Follow Up Care 12/19/2023 16:01:49 With:KIERSTEN MOJICA PA-C, URL Address: [address] [place] [address] [phone] When: Unknown Comments:PFPT #3 on 01/23/24 [facility] 01-09-2024 Hospital Discharg e instructions Patient Education 01/09/2024 13:22:46 Pelvic Floor Dysfunction, Female Pelvic Floor Dysfunction, Female Pelvic floor dysfunction (PFD) is a condition that results when the group of muscles and connective tissues that support the organs in the pelvis (pelvic floor muscles) do not work well. These muscles and their connections form a sling that supports the colon and bladder. In women, they also support the uterus. PFD causes pelvic floor muscles to be too weak, too tight, or both. In PFD, muscle movements are not coordinated. This may cause bowel or bladder problems. It may also cause pain. What are the causes? This condition may be caused by an injury to the pelvic area or by a weakening of pelvic muscles. This often results from and childbirth or other types of strain. In many cases, the exact cause is not known. What increases the risk? The following factors may make you more likely to develop this condition: Having chronic bladder tissue inflammation (interstitial cystitis). Being an older person. Being overweight. History of radiation treatment for cancer in the pelvic region. Previous pelvic surgery, such as removal of the uterus (hysterectomy). What are the signs or symptoms? Symptoms of this condition vary and may include: Bladder symptoms, such as: ?Trouble starting urination and emptying the bladder. ?Frequent urinary tract infections. ?Leaking urine when coughing, laughing, or exercising (stress incontinence). ?Having to pass urine urgently or frequently. ?Pain when passing urine. Bowel symptoms, such as: ?Constipation. ?Urgent or frequent bowel movements. ?Incomplete bowel movements. ?Painful bowel movements. ?Leaking stool or gas. Unexplained genital or rectal pain. Genital or rectal muscle spasms. Low back pain. Other symptoms may include: A heavy, full, or aching feeling in the vagina. A bulge that protrudes into the vagina. Pain during or after sex. How is this diagnosed? This condition may be diagnosed based on: Your symptoms and medical history. A physical exam. During the exam, your health care provider may check your pelvic muscles for tightness, spasm, pain, or weakness. This may include a rectal exam and a pelvic exam. In some cases, you may have diagnostic tests, such as: Electrical muscle function tests. Urine flow testing. X-ray tests of bowel function. Ultrasound of the pelvic organs. How is this treated? Treatment for this condition depends on the symptoms. Treatment options include: Physical therapy. This may include Kegel exercises to help relax or strengthen the pelvic floor muscles. Biofeedback. This type of therapy provides feedback on how tight your pelvic floor muscles are so that you can learn to control them. Internal or external massage therapy. A treatment that involves electrical stimulation of the pelvic floor muscles to help control pain (transcutaneous electrical nerve stimulation, or TENS). Sound wave therapy (ultrasound) to reduce muscle spasms. Medicines, such as: ?Muscle relaxants. ?Bladder control medicines. Surgery to reconstruct or support pelvic floor muscles may be an option if other treatments do not help. Follow these instructions at home: Activity Do your usual activities as told by your health care provider. Ask your health care provider if you should modify any activities. Do pelvic floor strengthening or relaxing exercises at home as told by your physical therapist. Lifestyle Maintain a healthy weight. Eat foods that are high in fiber, such as beans, whole grains, and fresh fruits and vegetables. Limit foods that are high in fat and processed sugars, such as fried or sweet foods. Manage stress with relaxation techniques such as yoga or meditation. General instructions If you have problems with leakage: ?Use absorbable pads or wear padded underwear. ?Wash frequently with mild soap. ?Keep your genital and anal area as clean and dry as possible. ?Ask your health care provider if you should try a barrier cream to prevent skin irritation. Take warm baths to relieve pelvic muscle tension or spasms. Take msyh-tcm-cmbpcmk and prescription medicines only as told by your health care provider. Keep all follow-up visits. How is this prevented? The cause of PFD is not always known, but there are a few things you can do to reduce the risk of developing this condition, including: Staying at a healthy weight. Getting regular exercise. Managing stress. Contact a health care provider if: Your symptoms are not improving with home care. You have signs or symptoms of PFD that get worse at home. You develop new signs or symptoms. You have signs of a urinary tract infection, such as: ?Fever. ?Chills. ?Increased urinary frequency. ?A burning feeling when urinating. You have not had a bowel movement in 3 days (constipation). Summary Pelvic floor dysfunction results when the muscles and connective tissues in your pelvic floor do not work well. These muscles and their connections form a sling that supports your colon and bladder. In women, they also support the uterus. PFD may be caused by an injury to the pelvic area or by a weakening of pelvic muscles. PFD causes pelvic floor muscles to be too weak, too tight, or a combination of both. Symptoms may vary from person to person. In most cases, PFD can be treated with physical therapies and medicines. Surgery may be an option if other treatments do not help. This information is not intended to replace advice given to you by your health care provider. Make sure you discuss any questions you have with your health care provider. Document Revised: 02/15/2022 Document Reviewed: 02/15/2022 [employer] Patient Education 2022 [email or web address]. Follow Up Care 12/19/2023 16:00:51 With:KIERSTEN MOJICA PA-C, URL Address: [address] [place] [address] [phone] When: Unknown Comments:PFPT session #2 on 01/16/24 [facility] [place] 12-07-2023 Hospital Discharg e instructions Patient Education 12/07/2023 12:35:31 Kegel Exercises Kegel Exercises Kegel exercises can help strengthen your pelvic floor muscles. The pelvic floor is a group of muscles that support your rectum, small intestine, and bladder. In females, pelvic floor muscles also help support the uterus. These muscles help you control the flow of urine and stool (feces). Kegel exercises are painless and simple. They do not require any equipment. Your provider may suggest Kegel exercises to: Improve bladder and bowel control. Improve sexual response. Improve weak pelvic floor muscles after surgery to remove the uterus (hysterectomy) or after , in females. Improve weak pelvic floor muscles after prostate gland removal or surgery, in males. Kegel exercises involve squeezing your pelvic floor muscles. These are the same muscles you squeeze when you try to stop the flow of urine or keep from passing gas. The exercises can be done while sitting, standing, or lying down, but it is best to vary your position. Ask your health care provider which exercises are safe for you. Do exercises exactly as told by your health care provider and adjust them as directed. Do not begin these exercises until told by your health care provider. Exercises How to do Kegel exercises: 1.Squeeze your pelvic floor muscles tight. You should feel a tight lift in your rectal area. If you are a female, you should also feel a tightness in your vaginal area. Keep your stomach, buttocks, and legs relaxed. 2.Hold the muscles tight for up to 10 seconds. 3.Breathe normally. 4.Relax your muscles for up to 10 seconds. 5.Repeat as told by your health care provider. Repeat this exercise daily as told by your health care provider. Continue to do this exercise for at least 4 6 weeks, or for as long as told by your health care provider. You may be referred to a physical therapist who can help you learn more about how to do Kegel exercises. Depending on your condition, your health care provider may recommend: Varying how long you squeeze your muscles. Doing several sets of exercises every day. Doing exercises for several weeks. Making Kegel exercises a part of your regular exercise routine. This information is not intended to replace advice given to you by your health care provider. Make sure you discuss any questions you have with your health care provider. Document Revised: 02/16/2022 Document Reviewed: 02/16/2022 Elsevier Patient Education 2022 wedgies. Follow Up Care 12/08/2022 11:38:31 With:MANPREET BROWN, Inez Ruano, URL Address: [address] [place] [phone] When: Unknown [facility] [place] 11-19-2023 Evaluation note Encounter Date Diagnosis Assessment Notes Oct, Hiatal hernia (ICD-10 - K44.9) Oct, Hemorrhoids (ICD-10 - K64.9) Oct, Sigmoid diverticulosis (ICD-10 - K57.30) Patient advised to increase fiber intake. Patient was give a copy of the low fodmap diet. Oct, Diverticular disease (ICD-10 - K57.90) Rto 1 yr Oct, Tubular adenoma of colon (ICD-10 - D12.6) Repeat colonoscopy in 5 yrs. [employer] [facility] Encounter Date Diagnosis Assessment Notes [...] TWICE A DAY TO ONCE A DAY. [employer] Other 02-17-2023 Hospital Discharge instructions Patient Education 12/08/2022 11:23:14 Kidney Stones, Flnc-hz-Xznd Kidney Stones Kidney stones are rock-like masses [...] Follow these instructions at home: Medicines Take xwnw-zmi-akgfmvn and prescription medicines only as told by [...] 03/26/2009 Document Revised: 02/24/2020 Document Reviewed: 02/24/2020 [employer] Patient Education 2020 wedgies. Follow Up Care 12/05/2021 13:35:38 With:MANPREET BROWN, Inez Ruano, URL Address: [address] [place] [id number]- When: Unknown [facility] 10-04-2022 Evaluation note* Encounter Date Diagnosis Assessment Notes Treatment Notes Treatment Clinical Notes Jul, Indigestion (ICD-10 - K30) [employer] Other 05-09-2022 Evaluation note* Encounter Date Diagnosis Assessment Notes Treatment Notes Treatment Clinical Notes February, Indigestion (ICD-10 - K30) PATIENT IS FOLLOWING THE FODMAP DIET AND THIS HAS HELPED. February, Irritable bowel syndrome with constipation (ICD-10 - K58.1) PATIENT STATES THAT THE TRULANCE WAS OVER $600 PATIENT IS USING THE FODMAP DIET AND PROBIOTICS. PATIENT GOES 2 DAYS WITHOUT A BOWEL MOVEMENT [employer] Other 03-16-2022 Evaluation note* Encounter Date Diagnosis Assessment Notes Treatment Notes Treatment Clinical Notes Dec, Indigestion (ICD-10 - K30) Continue Omeprazole without change Dec, Irritable bowel syndrome with constipation (ICD-10 - K58.1) Start Trulance 3mg daily - samples given to patient Start low fodmap diet - education given to patient [employer] Other 12-13-2021 Evaluation note* Encounter Date Diagnosis Assessment Notes Treatment Notes Treatment Clinical Notes Sep, Indigestion (ICD-10 - K30) PATIENT STATES HAVING BREAKTHROUGH PATIENT DOES CONTINUE ON THE OMEPRAZOLE 40 ONCE A DAY WILL INCREASE OMEPRAZOLE TO 40 TWICE A DAY [employer] Other Evaluation + Plan note Future Appointments Appointment Date:12/07/2023 10:45:00 AM Scheduled Provider:Inez JONES MD Location:[facility] Appointment Type:URO Office Visit [facility] evaluation + Plan note Future Appointments Appointment Date:12/05/2024 10:45:00 AM Scheduled Provider:Inez JONES MD Location:[facility] Appointment Type:URO Office Visit [facility] evaluation + Plan note Future Appointments Appointment Date:01/16/2024 01:00:00 PM Scheduled Provider:KIERSTEN MOJICA PA-C [facility] Appointment Type:URO Procedure 30 min Appointment Date:01/23/2024 01:00:00 PM Scheduled Provider:KIERSTEN MOJICA PA-C Location:[facility] Appointment Type:URO Procedure 30 min Appointment Date:01/30/2024 01:00:00 PM Scheduled Provider:KIERSTEN MOJICA PA-C Location:[facility] Appointment Type:URO Procedure 30 min Appointment Date:02/06/2024 01:00:00 PM Scheduled Provider:KIERSTEN MOJICA PA-C Location:[facility] Appointment Type:URO Procedure 30 min Appointment Date:02/13/2024 01:00:00 PM Scheduled Provider:KIERSTEN MOJICA PA-C Location:[facility] Appointment Type:URO Procedure 30 min Appointment Date:12/05/2024 10:45:00 AM Scheduled Provider:I[facility] JONES MD [facility] Office Visit [facility] Evaluation + Plan note Future Appointments Appointment Date:01/23/2024 01:00:00 PM Scheduled Provider:KIERSTEN MOJICA PA-C [facility] Appointment Type:URO Procedure 30 min Appointment Date:01/30/2024 01:00:00 PM Scheduled Provider:KIERSTEN MOJICA PA-C Location:[facility] Appointment Type:URO Procedure 30 min Appointment Date:02/06/2024 01:00:00 PM Scheduled Provider:KIERSTEN MOJICA PA-C Location:[facility] Appointment Type:URO Procedure 30 min Appointment Date:02/13/2024 01:00:00 PM Scheduled Provider:KIERSTEN MOJICA PA-C Location:[facility] Appointment Type:URO Procedure 30 min Appointment Date:12/05/2024 10:45:00 AM Scheduled Provider:Inez JONES MD Location:[facility] Appointment Type:URO Office Visit [facility] evaluation + Plan note Future Appointments Appointment Date:01/30/2024 01:00:00 PM Scheduled Provider:KIERSTEN MOJICA PA-C Location:[facility] Appointment Type:URO Procedure 30 min Appointment Date:02/06/2024 01:00:00 PM Scheduled Provider:KIERSTEN MOJICA PA-C [facility] Appointment Type:URO Procedure 30 min Appointment Date:02/13/2024 01:00:00 PM Scheduled Provider:KIERSTEN MOJICA PA-C Location:[facility] Appointment Type:URO Procedure 30 min Appointment Date:12/05/2024 10:45:00 AM Scheduled Provider:Inez JONES MD Location:[facility] Appointment Type:URO Office Visit [facility] evaluation + Plan note Future Appointments Appointment Date:02/13/2024 01:00:00 PM Scheduled Provider:KIERSTEN MOJICA PA-C Location:[facility] Appointment Type:URO Procedure 30 min Appointment Date:12/05/2024 10:45:00 AM Scheduled Provider:Inez JONES MD [facility] Type:[facility] Office Visit [facility] evaluation note* Diagnosis Onset Date Resolution Status Family history of colon canc er requiring screening colonoscopy [facility] Work Phone: Evaluhribm noteNo [place] [employer] Other evaluation note* Diagnosis Dysuria- Primary Urine frequency Urinary urgency Urgency of urination documented in this encounter [facility]* Diagnosis Wellness examination- Primary Anxiety, generalized (CMS/HCC) Psoriasis (CMS/HCC) Other psoriasis Ulcerative colitis with complication, unspecified location (CMS/HCC) Hiatal hernia Diaphragmatic hernia without mention of obstruction or gangrene Polyp of colon, unspecified part of colon, unspecified type Gastroesophageal reflux disease, unspecified whether esophagitis present Diverticulosis Diverticulosis of colon (without mention of hemorrhage) Fatty liver Other chronic nonalcoholic liver disease Urge incontinence Post-void dribbling Simple renal cyst Acquired cyst of kidney Osteopenia, unspecified location Vitamin D deficiency ADD (attention deficit disorder) without hyperactivity Attention deficit disorder without mention of hyperactivity Straining to void Urinary urgency Urgency of urination Hemorrhoids, unspecified hemorrhoid type Primary insomnia Persistent disorder of initiating or maintaining sleep Fatigue, unspecified type Hair loss Unspecified alopecia documented in this encounter [facility] HealthcareEvaluation note* Diagnosis Hemorrhoids, unspecified hemorrhoid type documented in this encounter [facility] HealthcareEvaluation noteNo assessment information availableF[facility] Work Phone: History general Narrative - Reported* Type Description Date Medical History GERD Medical History kidney stones Surgical History hysterectomy Surgical History lithotripsy Surgical History kidney stone Surgical History cystoscopy Surgical History colonoscopy Hospitalization History ABOVE [employer] Other Hospital course Narrative No data available for this section [facility] Discharge instructions Additional Instructions DISCHARGE INSTRUCTIONS [...] if you have any problems. -Office number [phone] Work Phone: Hospital Discharge instructions No data available for this section [facility] Progress note No data available for this section [facility] Summary Purpose Family History No Family History Records Found Relationship Condition Age at Onset Recorded Date/T vonnie Not Specified Malignant neoplasm of breast Unknown Malignant neoplasm of colon Unknown brother Malignant neoplasm of colon Unknown father Malignant neoplasm of throat Unknown Relationship Condition Age at Onset Recorded Date/T vonnie mother Malignant neoplasm of breast Unknown Malignant neoplasm of colon Unknown brother Malignant neoplasm of colon Unknown father Malignant neoplasm of throat Unknown brother Unknown father Unknown Heart disease Unknown Malignant neoplasm Unknown family member Unknown mother Malignant neoplasm Unknown Advance Directives No Advanced Directives Records Found Advance Directive Response Recorded Date/ Time Advance Directives No September 24, 2018 2:20pm Chief Complaint and Reason for Visit Chief Complaint Abdominal Pain, Dive rticulitis, GERD Reason for Visit Family history of co neel cancer requiring screening colonoscopy Chief Complaint Admit Date YEAR FOLLOW UP November 18, 2024 9 :09am Additional Source Comments REASON FOR VISIT (unrecogniz ed section and content) Reason Comments Urinary Frequency Took Azo yesterday a nd this morning Reason Onset Date Comments Results 08/11/2024 Reason Comments Annual Exam Reason Comments Med Change Request INFORMATION SOURCE (unrecogn ized section and content) DATE CREATED AUTHOR 07/26/2022 [facility] DATE CREATED AUTHOR AUTHOR'S ORGANIZ ATION 12/11/2022 [facility] DATE CREATED AUTHOR AUTHOR'S ORGANIZ ATION 11/30/2023 [facility] DATE CREATED AUTHOR AUTHOR'S ORGANIZ ATION 11/15/2024 [facility] EPIC DATE CREATED AUTHOR AUTHOR'S ORGANIZ ATION 12/01/2024 [facility] Patient Care team informatio n (unrecognized section and content) Team Status: Active Member Role Status Dates Glenna Keita MD Primary Care Provider Active Team Status: Inactive Member Role Status Dates Glenna Keita MD Primary Care Provider Active Andrea Gunter MD Attending Provider Active Penc[employer]her Relationship Specialty Start Date End Date Glenna Keita MD [address] [place] [address] PCP - General Family Medicine 02/27/23 [employer] Relationship Specialty Start Date End Date Glenna Keita MD [address] [place] [address] PCP - General Family Medicine 02/27/23 [employer] Relationship Specialty Start Date End Date Glenna Keita MD [address] [place] [address] PCP - General Family Medicine 02/27/23 [employer] Relationship Specialty Start Date End Date Glenna Keita MD [address] [place] [address] PCP - General Family Medicine 02/27/23 [employer] Relationship Specialty Start Date End Date Glenna Keita MD [address] [place] [address] PCP - General Family Medicine 02/27/23 [employer] Relationship Specialty Start Date End Date Glenna Keita MD [address] [place] [address] PCP - General Family Medicine 02/27/23 Team Status: Inactive Member Role Status Dates Glenna Keita MD Primary Care Provider Active Start: November 18, 2024 End: November 18, 2024 Augustus Hill MD Attending Provider Active S tart: November 18, 2024 End: November 18, 2024 Goals (unrecognized section and content) Goals may be documented in a n alternate section FOR RECORDS PERTAINING TO PATIENTS WHO ARE [...] BE BASED ON THE PRIMARY CLINICAL RECORDS. [facility] [employer] provides no warranty or guarantee of the accuracy or completeness of information in this document.
== END 2024-12-02 13:47 | disposition home or self-care (01) ==
LOC: LAB 13:47 → RAD 13:49
PROVIDERS: PCP Family Medicine; Visit Provider Urology
DX: N20.0 Calculus of kidney (principal)
CPT/HCPCS: 74018

== ENCOUNTER 2025-07-08 15:05 | Outpatient (OUT) | payer MEDICARE, OTHER, SELFPAY ==
--- OUTSIDE RECORDS SUMMARY | 2025-07-02 11:40 | XMS_ITS | Encounter Summary ---
Author Organization [facility] Address [address] [place] [address] Care Team Providers Care Product Design Manager Name Role Phone Rene Roberts MD Primary Care Provider [phone] Reason for Visit * Reason Comments UTI Pressure, dysuria, f requency started 2 days ago. Tylenol for pain. Encounter Details Date Type Department Care Team ([facility] Contact Info) Description 07/02/2025 11:40 AM EDT [facility] [address] [place] [phone] Rene Roberts MD [address] [place] [address] Dysuria (Primary Dx); Acute cystitis with hematuria Social History Tobacco Use Types Packs/Day Years Used Date Smoking Tobacco: Former Cigarettes 0.3 23.5 0 10/22/1981 - 04/10/2005 Passive Smoke Exposure: Past Smokeless Tobacco: Never Comments:Social smoker Alcohol Use Standard Drinks/Week Comments Not Currently 0 (1 standard drink = 0.6 oz pur e alcohol) If at all Humiliation, Afraid, Rape, and Kick questionnair e Answer Date Recorded Within the last year, have y ou been afraid of your partner or ex-partner? No 09/18/2023 Within the last year, have y ou been humiliated or emotionally abused in other ways by your partner or ex-partner? No Within the last year, have y ou been kicked, hit, slapped, or otherwise physically hurt by your partner or ex-partner? No 09/18/2023 Within the last year, have y ou been raped or forced to have any kind of sexual activity by your partner or ex-partner? No 09/18/2023 Social Connection and Isolat ion Panel [NHANES] Answer Date Recorded In a typical week, how many times do you talk on the phone with family, friends, or neighbors? More than three times a week 09/18/2023 How often do you get togethe r with friends or relatives? More than three times a week 09/18/2023 How often do you attend chur or evangelical services? 1 to 4 times per year 09/18/2023 Do you belong to any clubs o r organizations such as confucianism groups, unions, fraternal or athletic groups, or school groups? No 09/18/2023 How often do you attend meet ings of the clubs or organizations you belong to? 1 to 4 times per year 09/18/2023 Are you , , di vorced, , never , or living with a partner? 09/18/2023 AUDIT-C Answer Date Recorded Q1: How often do you have a drink containing alc ohol? Monthly or less 09/18/2023 Q2: How many drinks containi ng alcohol do you have on a typical day when you are drinking? 1 or 2 09/18/2023 Q3: How often do you have si x or more drinks on one occasion? Never 09/18/2023 Overall Financial Resource Strain (CARDIA) Answe r Date Recorded How hard is it for you to pa y for the very basics like food, housing, medical care, and heating? Not hard at all 09/18/2023 [facility] Occupat ional Health - Occupational Stress Questionnaire Answer Date Recorded Do you feel stress - tense, restless, nervous, or anxious, or unable to sleep at night because your mind is troubled all the time - these days? To some extent 09/18/2023 Exercise Vital Sign Answer Date Recorde d On average, how many days pe r week do you engage in moderate to strenuous exercise (like a brisk walk)? 2 days 09/18/2023 On average, how many minutes do you engage in exercise at this level? 30 min 09/18/2023 Hunger Vital Sign Answer Date Recorded Within the past 12 months, y ou worried that your food would run out before you got the money to buy more. Never true 09/18/20 23 Within the past 12 months, t he food you bought just didn't last and you didn't have money to get more. Never true 09/18/2023 PRAPARE - Transportation Answer Date Re corded In the past 12 months, has l ack of transportation kept you from medical appointments or from getting medications? No 08/23 In the past 12 months, has l ack of transportation kept you from meetings, work, or from getting things needed for daily living? No 09/18/2023 Housing Stability Vital Sign Answer Oren e Recorded In the last 12 months, was t here a time when you were not able to pay the mortgage or rent on time? No 09/18/2023 In the last 12 months, how many places have you lived? 1 09/18/2023 In the last 12 months, was t here a time when you did not have a steady place to sleep or slept in a alf (including now)? No 09/18/2023 Comments No Sex and Gender Information Value Date Recorded Sex Assigned at Female 07/25/2023 12:41 PM EDT Legal Sex Female 6:34 PM EDT Gender Identity Female 07/25/2023 12:41 PM EDT Sexual Orientation Not on file documented as of this encounter Last Filed Vital Signs Vital Sign Reading Time Taken Comments Blood Pressure 130/68 07/02/2025 11:49 AM EDT Pulse 92 07/02/2025 11:49 AM EDT Temperature 36.4 C (97.5 F) 07/02/2025 11:49 AM EDT Respiratory Rate - - Oxygen Saturation 98% 07/02/2025 11:49 AM EDT Inhaled Oxygen Concentration - - Weight 64.7 kg (142 lb 9.6 oz) 07/02/2025 11:49 AM EDT Height 163.2 cm (5' 4.25 ) 07/02/2025 11:49 AM E DT Body Mass Index 24.29 07/02/2025 11:49 AM EDT documented in this encounter Progress Notes * Tamra Acharya MA - 07/02/2025 11:40 AM EDT c * Rene Roberts MD - 07/02/2025 11:40 AM EDT Images from the original note were not included. Marjan Schwab is a 65 y.o. female presents with chief complaint of UTI (Pressure, dysuria, frequency started 2 days ago. Tylenol for pain.) HPI: History of Present Illness The patient is a 65-year-old female who presents for evaluation of urinary tract infection. She has been experiencing pain on her left side since Sunday, which she initially attributed to herknown condition of diverticulitis. To manage this, she adopted a liquid diet. However, two days ago, she began to experience pain on her right side as well. Over the past two weeks, she has been dealing with frequent urination, often feeling an urgent need to go. This has disrupted her sleep, causing her to wake up every 45 minutes to an hour, or every two hours at best. She also reports feeling exhausted and fatigued. She has a history of kidney stones and initially thought she might pass another one. She has not taken any antibiotics recently. She recalls noticing blood in her urine about a week ago, which she again attributed to a kidney stone. Her urologist, Dr. Jones, confirmed that she does not currently have any kidney stones. She used a home dipstick test for a UTI, which gave conflicting results, with one test being negative and another positive. She also mentions that her blood pressure was high at 130. ALLERGIES She is allergic to SULFA. SUBJECTIVE: MEDICATIONS: Current Outpatient Medications Medication Instructions ALPRAZolam (Xanax) 0.25 MG tablet 1 tablet, Daily PRN Alum Hydroxide-Mag Trisilicate (Gaviscon) 80-14.2 MG chewable tablet Chew. amphetamine-dextroamphetamine XR (Adderall XR) 20 MG 24 hr capsule 1 capsule, Every morning Cholecalciferol (Vitamin D-3) 5000 UNIT/ML liquid Place under the tongue. With [place] clobetasol (Temovate) 0.05 % ointment 1 application , 2 times daily estradiol (ESTRACE) 0.5 g, 2 times weekly hydroCHLOROthiazide (HYDRODiuril) 25 MG tablet 1 tablet, Daily Klor-Con/EF 25 MEQ effervescent tablet 1 tablet, Daily lactase (LACTAID) 3,000 Units, As needed omeprazole (PRILOSEC) 20 mg, Daily ALLERGIES: Allergies Allergen Reactions Sulfamethoxazole Other Reaction(s): Swelling of Lip/Tongue/Throat Sulfamethoxazole-Trimethoprim Hives Trimethoprim Other Reaction(s): Swelling of Lip/Tongue/Throat History: Past Medical History: Diagnosis Date Abnormal Pap smear of cervix 2022 ADHD (attention deficit hyperactivity disorder) 2009 Anxiety 2014? Benign neoplasm of colon Calculus in urethra Calculus of kidney and ureter Chronic nonalcoholic liver disease Disorder of liver Disorder of parathyroid gland, unspecified (HCC) Diverticulitis 07/26/2023 Diverticulosis of colon (without mention of hemorrhage) Elevated hemoglobin 07/26/2023 Esophageal reflux Family history of colon cancer 09/18/2023 Fibrocystic breast 2005? Flank pain 07/26/2023 Hearing loss of right ear, unspecified hearing loss type History of hysterectomy for benign disease 09/19/2023 Hydronephrosis Hydronephrosis 07/26/2023 Insomnia, unspecified Leiomyoma of uterus, unspecified Menopause ovarian failure Hysterectomy 2005 Nocturia 09/19/2023 Osteopenia Osteoporosis Unspecified Other psoriasis Ovarian cyst ? Overweight (BMI 25.0-29.9) 07/26/2023 Parathyroid disorder (HCC) Renal calculi 07/26/2023 Renal cyst, right S/P hysterectomy Smoking hx 09/19/2023 Tear film insufficiency, unspecified laterality Urinary tract infection Not recently Vitamin D deficiency, unspecified Past Surgical History: Procedure Laterality Date BREAST CYST ASPIRATION 200? COLONOSCOPY 07/13/2020 COLONOSCOPY 10/25/2015 COLONOSCOPY W/ POLYPECTOMY [...] Mother Nhi Adams Depression Mother Nhi Adams Colon cancer Mother Nhi Adams Heart disease Father Jonnie Gonzalez Hypertension Father Jonnie Gonzalez Esophageal cancer Father Jonnie Gonzalez Diabetes Father Jonnie Gonzalez Alcohol abuse Father Jonnie Gonzalez Depression Father Jonnie Gonzalez Alcohol abuse Sister Hillary Adams Accidental Brother Dylon Adams Alcohol abuse Brother Dylon Adams Drug abuse Brother Dylon Adams Dementia Maternal Grandfather Colon cancer Sibling Early natural Brother Jonnie Adams Jr. Colon cancer Brother Jonnie Adams Jr. Social History Socioeconomic [...] date: 10/22/1981 Quit date: 04/10/2005 Years since quittin.2 Passive exposure: Past Smokeless tobacco: Never Tobacco comments: Social smoker Vaping Use Vaping status: Never Used Substance and Sexual Activity Alcohol use: Not Currently Alcohol/week: 0.0 - 2.0 standard drinks of alcohol Comment: If at all Drug use: Never Sexual activity: Yes Partners: Male control/protection: Post-menopausal Other Topics Concern Not on file Social [...] 30 min Stress: Stress Concern Present (09/18/2023) [facility] [place] [facility] - Occupational Stress Questionnaire Feeling of Stress : To some extent Social Connections: Socially Integrated (09/18/2023) Social Connection and Isolation Panel [NHANES] Frequency of Communication with Friends and Family: More than three times a week Frequency of Social Gatherings with Friends and Family: More than three times a week Attends [employer] Services: 1 to 4 times per year [...] OF SYMPTOMS: Review of Systems Constitutional: Negative. HENT: Negative. Eyes: Negative. Respiratory: Negative. Gastrointestinal: Negative. Genitourinary: Positive for dysuria, frequency and urgency. Skin: Negative. Neurological: Negative. Psychiatric/Behavioral: Negative. All other systems reviewed and are negative. Endocrine: Negative. Allergic/Immunologic: Negative. OBJECTIVE: Results Laboratory Studies Urine test shows signs of blood and infection. 07/26/2023 1:53 PM 09/20/2023 8:46 AM 03/12/2024 1:06 PM 08/07/2024 1:10 PM 09/22/2024 1:15 PM 03/17/2025 10:20 AM 07/02/2025 11:49 AM Vitals BMI 24.34 kg/m2 23.69 kg/m2 24.67 kg/m2 25.11 kg/m2 25.45 kg/m2 25.55 kg/m2 24.29 kg/m2 BSA (m2) 1.7 m2 1.7 m2 1.74 m2 1.75 m2 1.75 m2 1.76 m2 1.71 m2 Systolic 116 132 124 126 124 116 130 Diastolic 80 80 80 82 82 72 68 Heart Rate 80 84 100 100 92 SpO2 98 % Temp 97.5 ??F Height (in) 5' 4.5 5' 4.25 5' 4.25 Weight (lb) 141.8 140.2 146 148.6 149.4 150 142.6 Visit Report Report Report Report Report Report Report Report Physical Exam Vitals reviewed. Constitutional: General: She is not in acute distress. Appearance: Normal appearance. HENT: Head: Normocephalic and atraumatic. Eyes: General: Right eye: No discharge. Left eye: No discharge. Cardiovascular: Rate and Rhythm: Normal rate. Pulmonary: Effort: Pulmonary effort is normal. No respiratory distress. Abdominal: Tenderness: There is no right CVA tenderness or left CVA tenderness. Musculoskeletal: General: Normal range of motion. Cervical back: Normal range of motion. No rigidity. Skin: General: Skin is warm and dry. Capillary Refill: Capillary refill takes less than 2 seconds. Neurological: General: No focal deficit present. Mental Status: She is alert. Psychiatric: Mood and Affect: Mood normal. Physical Exam Vital Signs: Blood pressure is 130. Genitourinary: Tenderness noted on the right side of the back, suggestive of possible kidney stone. ASSESSMENT AND PLAN: Assessment/Plan Assessment & Plan 1. Urinary tract infection. Symptoms include frequent urination, urgency, and fatigue over the past two weeks. Urinalysis indicates the presence of blood and signs of infection. A urine culture will be sent for further analysis. She is advised to use home dipsticks for monitoring leukocyte esterase, blood, and nitrite levels,and to contact the office if symptoms persist or worsen. Augmentin 875 mg b.I.d. x5 days will be prescribed for treatment. No follow-ups on file. documented in this encounter Plan of Treatment Upcoming Encounters Date Type Department Care Team (Late st Contact Info) Description 03/18/2026 9:45 AM EDT Office Visit [facility] [address] [place] [address] [address] Kamala Hines DO [address] [phone] documented as of this encounter Procedures Procedure Name Priority Date/Time Associated Diagnosis Comments CULTURE, URINE, ROUTINE Routine 07/02/2025 12:31 PM EDT Dysuria POCT URINALYSIS DIPSTICK Routine 07/02/2025 11:56 AM EDT Dysuria documented in this encounter Results * (ABNORMAL) Urine culture (clean catch) (07/02/2025 12:31 PM EDT) MICRO NUMBER [id number] [facility] SPECIMEN QUALITY Adequate QUEST SOURCE: (QUEST) URINE [facility] STATUS FINAL [facility] ISOLATE 1 SEE NOTE(A) [facility] Comment: 10,000-49,000 CFU/mL of Group B Streptococcus isolated Beta-hemolytic streptococci are predictably susceptible to Penicillin and other beta-lactams. Susceptibility testing not routinely performed. Please contact the laboratory within 3 days if susceptibility testing is desired. Erythromycin and clindamycin are not recommended for treatment of urinary tract infections, but clindamycin may be useful for treatment of rectovaginal colonization or infection. Urine Urine specimen obtained by clean catch procedure / Unknown 07/02/2025 12:31 PM EDT 07/02/2025 12:32 PM EDT Narrative Resulting Agency Comment Performing Organization Information Site ID: [id number] Name: [facility] Address: [address] [place] [address], [address] [place] [id number] Director: Man So MD us Rene Roberts MD LAB MICROBIOLOGY - GENERAL ORD ERABLES Final Result [facility] * POCT Urinalysis dipstick (07/02/2025 11:56 AM EDT) Color, UA Yellow Clarity, UA Clear Glucose, UA Negative Negative - 2000(110) ++++ mg/dL Bilirubin, UA Negative Negative - 4(70) +++ mg/dL Ketones, UA Negative Negative - 160(16) ++++ mg/dL Spec Grav, UA 1.015 1 - 1.03 Blood, UA Positive Negative - 50 Douglas/mcL pH, UA 5.0 5 - 9 Protein, UA Trace Negative - 1999(20) ++++ mg/dL Urobilinogen, UA 0.2 0.2 - 12 mg/dL Leukocytes, UA Positive Negative - 500+++ Nuno/mcL Nitrite, UA Negative Negative - Positive Urine 07/02/2025 11:5 6 AM EDT Rene Roberts MD POINT OF CARE TEST ENTER/EDIT ORDERABLES Final Result documented in this encounter Visit Diagnoses Diagnosis Dysuria- Primary Acute cystitis with hematuria documented in this encounter Care Teams Product Design Manager Relationship Specialty Start Date End Date Rene Roberts MD [address] [place] [address] PCP - General Family Medicine 07/01/25 documented as of this encounter
--- OUTSIDE RECORDS SUMMARY | 2025-07-08 15:11 | XMS_ITS | Encounter Summary ---
Author Organization [facility] Address [address] [place] [address] Care Team Providers Care Asbestos Worker Helper Name Role Phone Sanjuanita Keita MD Primary Care Provider [phone] Rene Roberts MD Primary Care Provider [phone] Encounter Details Date Type Department Care Team (Late st Contact Info) Description 12/06/2023 Clinisync Result Encounter [facility] Department Unsolicited Provider, Generic External Data Social History Tobacco Use Types Packs/Day Years Used Date Smoking Tobacco: Former Cigarettes 0.3 23.5 0 10/22/1981 - 04/10/2005 Passive Smoke Exposure: Past Smokeless Tobacco: Never Comments:Social smoker Alcohol Use Standard Drinks/Week Comments Yes 2 (1 standard drink = 0.6 oz pur [...] 09/18/2023 How often do you attend chur ch or christianity services? 1 to 4 times per year 09/18/2023 Do you belong to any clubs o r organizations such as catholic groups, unions, fraternal or athletic groups, or [...] and heating? Not hard at all 09/18/2023 [facility] of Occupat ional Health - Occupational Stress [...] place to sleep or slept in a [place] (including now)? No 09/18/2023 Comments Unknown Sex and Gender Information Value Date Recorded Sex Assigned at Female 07/25/2023 12:41 PM EDT Legal Sex Female 6:34 PM EDT Gender Identity Female 07/25/2023 12:41 PM EDT Sexual Orientation Not on file documented as of this encounter Plan of Treatment Upcoming Encounters Date Type Department Care Team (Late st Contact Info) Description 03/18/2026 9:45 AM EDT Office Visit [facility] [address] [place] [address] [address] Kamala Hines DO [address] [phone] documented as of this encounter Procedures Procedure Name Priority Date/Time Associated Diagnosis Comments XR ABDOMEN 1V 12/06/2023 10:55 AM EST documented in this encounter Results * XR ABDOMEN 1V (12/06/2023 10:55 AM EST) Anatomical Region Laterality Modality Other 12/06/2023 10:5 5 AM EST Narrative 12/06/2023 10:57 AM EST The [address] [address] XRay Report Signed Patient: JA SCHWAB MR#: [id number] : 1960 Acct:[id number] Age/Sex: 63 / F ADM Date: 12/06/23 Loc: RAD Attending Dr: Inez Case M.D. Ordering Physician: Inez Case M.D. Date of Service: 12/06/23 Procedure(s): XR abdomen 1V Accession Number(s): [id number] cc: SANJUANITA KEITA ; Inez Case M.D. The [place] [id number] Patient Name: JA SCHWAB MRN: [id number] date: 1960 Sex: F Assigned Patient Location: RAD Current Patient Location: RAD Accession/Order Number: [id number] Exam Date: 12/06/2023 10:35 Report Date: 12/06/2023 10:55 At the request of: INEZ CASE Procedure: XR abdomen 1V EXAMINATION: XR abdomen 1V HISTORY: Kidney Stone N20.0 COMPARISON: No relevant comparison available. FINDINGS: KIDNEY/URETER - RIGHT: No visible renal or ureteral calcifications. KIDNEY/URETER - LEFT: No visible renal or ureteral calcifications. PELVIS: No visible ureteral stones. Stable pelvic calcifications compatible with phleboliths. BOWEL: No abnormal dilation or deviation. BONES: No acute abnormality. OTHER: Negative. No abnormal gaseous collections. XR/XR abdomen 1V IMPRESSION: 1. No appreciable urinary tract calculi. Electronically authenticated by: JOSUÉ HINOJOSA Date: 12/06/2023 10:55 Dictated By: Josué Hinojosa M.D. Signed By: 12/06/23 1057 DD/ 1055 TD/TT: Passementerie Worker: Procedure Note Radiology, Radiologist, MD - 12/06/2023 [place] [address] XRay Report Signed Patient: JA SCHWAB AMR#: [id number] : 1960Acct:[id number] Age/Sex: 63 / FADM Date: 12/06/23 Loc: RAD Attending Dr: Inez Case M.D. Ordering Physician: Inez Case M.D. Date of Service: 12/06/23 Procedure(s): XR abdomen 1V Accession Number(s): [id number] cc: SANJUANITA KEITA ; Inez Case M.D. [address] [address] Patient Name: JA SCHWAB MRN: [id number] date: 1960 Sex: F Assigned Patient Location: RAD Current Patient Location: RAD Accession/Order Number: [id number] Exam Date: 12/06/2023 10:35 Report Date: 12/06/2023 10:55 At the request of: INEZ CASE Procedure: XR abdomen 1V EXAMINATION: XR abdomen 1V HISTORY: Kidney Stone N20.0 COMPARISON: No relevant comparison available. FINDINGS: KIDNEY/URETER - RIGHT: No visible renal or ureteral calcifications. KIDNEY/URETER - LEFT: No visible renal or ureteral calcifications. PELVIS: No visible ureteral stones. Stable pelvic calcificationscompatible with phleboliths. BOWEL: No abnormal dilation or deviation. BONES: No acute abnormality. OTHER: Negative. No abnormal gaseous collections. XR/XR abdomen 1V IMPRESSION: 1. No appreciable urinary tract calculi. Electronically authenticated by: JOSUÉ HINOJOSA Date: 12/06/2023 10:55 Dictated By: Josué Hinojosa M.D. Signed By:12/06/23 1057 DD/ 1055 TD/TT: Passementerie Worker: Generic External Data Provider [facility] Final Result documented in this encounter Visit Diagnoses Not on filedocumented in this encounter Care Teams Asbestos Worker Helper Relationship Specialty Start Date End Date Sanjuanita Keita MD PCP - General Family Medicine 02/27/23 06/30/25 Rene Roberts MD [address] [place] [address] PCP - General Family Medicine 07/01/25 documented as of this encounter
--- OUTSIDE RECORDS SUMMARY | 2025-07-08 15:11 | XMS_ITS | Encounter Summary ---
Author Organization [facility] Address [address] [place] [address] Care Team Providers Care Editorial Specialist Name Role Phone Rene Roberts MD Primary Care Provider [phone] Encounter Details Date Type Department Care Team (Late st Contact Info) Description 07/02/2025 Bamboo flowsheet [facility] Family Medicine [address] [place] [address] Rene Roberts MD [address] [place], [place] [phone] Social History Tobacco Use Types Packs/Day Years [...] often do you attend chur ch or jehovah's witness services? 1 to 4 times per year 09/18/2023 Do you belong to any clubs o r organizations such as tenriism groups, unions, fraternal or athletic groups, or [...] and heating? Not hard at all 09/18/2023 [facility] of Occupat ionsd Health - Occupational Stress Questionnaire Answer Date [...] place to sleep or slept in a senior care (including now)? No 09/18/2023 Comments No Sex [...] Description 03/18/2026 9:45 AM EDT Office Visit [facility] [address] [place] [address] [address] Kamala Hines DO [address] [phone] documented as of this encounter Visit Diagnoses Not on filedocumented in this encounter Care Teams Editorial Specialist Relationship Specialty Start Date End Date Rene Roberts MD [address] [place] [address] PCP - General Family Medicine 07/01/25 documented as of this encounter
--- OUTSIDE RECORDS SUMMARY | 2025-07-08 15:11 | XMS_ITS | Encounter Summary ---
Author Organization [facility] Address [address] [place] [address] Care Team Providers Care President Of The [place] Name Role Phone Rene Roberts MD Primary Care Provider [phone] Encounter Details Date Type Department Care Team (Latest Contact Info) Description 07/02/2025 Travel Social History Tobacco Use Types Packs/Day Years [...] How often do you attend chur or spiritism services? 1 to 4 times per year 09/18/2023 Do you belong to any clubs o r organizations such as temple groups, unions, fraternal or athletic groups, or [...] and heating? Not hard at all 09/18/2023 [facility] of Occupat ional Health - Occupational Stress [...] place to sleep or slept in a snf (including now)? No 09/18/2023 Comments No Sex [...] Office Visit [facility] [address] [place] [address] [phone] Kamala Hines DO [address] [phone] documented as of this encounter Visit Diagnoses Not on filedocumented in this encounter Care Teams President Of The [place] Relationship Specialty Start Date End Date Rene Roberts MD [address] [place] [address] PCP - General Family Medicine 07/01/25 documented as of this encounter
--- OUTSIDE RECORDS SUMMARY | 2025-07-08 15:11 | XMS_ITS | Clinical Summary ---
Author Organization [facility] Healthcare Address [address] [place] [address] Care Team Providers Care Web Marketing Analyst Name Role Phone Rene Roberts MD Primary Care Provider [phone] Allergies Active Allergy Reactions Criticality Noted Date Comments Sulfamethoxazole 07/12/2020 Other Reaction(s): Swelling of Lip/Tongue/Throat Sulfamethoxazole-Trimethoprim Hives 2022 Trimethoprim 07/12/2020 Other Reaction(s): Swelling of Lip/Tongue/Throat Medications ALPRAZolam (Xanax) 0.25 MG tablet Take 1 tablet by mouth Daily as needed for anxiety. 3 Active clobetasol (Temovate) 0.05 % ointment Apply 1 application topically in the morning and 1 application before bedtime. 3 Active estradiol (Estrace) 0.1 MG/GM vaginal cream Insert 0.5 g into the vagina 2 (two) times a week Active hydroCHLOROthiaz gabi (HYDRODiuril) 25 MG tablet Take 1 tablet by mouth in the morning. Active Klor-Con/EF 25 MEQ effervescent tablet Take 1 tablet by mouth in the morning. 3 Active amphetamine-dext roamphetamine XR (Adderall XR) 20 MG 24 hr capsule Take 1 capsule by mouth in the morning. Do not crush or chew. . Active Alum Hydroxide-Mag Trisilicate (Gaviscon) 80-14.2 MG chewable tablet Chew. Acti ve Cholecalciferol (Vitamin D-3) 5000 UNIT/ML liquid Place under the tongue. With [place] Active lactase (Lactaid) 3000 units tablet Take 3,000 Units by mouth if needed Active omeprazole (PriLOSEC) [address] capsule Take 20 mg by mouth Daily Active amoxicillin-clav ulanate (Augmentin) 875-125 MG tabletIndication s:Acute cystitis with hematuria Take 1 tablet (875 mg) by mouth in the morning and 1 tablet (875 mg) before bedtime. Do all this for 5 days. 10 tablet 5 025 Active Problems Problem Noted Date Diagnosed Date Ulcerative colitis with complication 09/22/2024 Post-void dribbling 09/19/2023 Urge incontinence 09/19/2023 Straining to void 09/19/2023 Urinary urgency 09/19/2023 Hiatal hernia 09/18/2023 Overview (09/18/2023): Per EGD 08/2023, small ADD (attention deficit disorder) without hyperac tivity 07/26/2023 Anxiety, generalized 07/26/2023 Colon polyp 07/26/2023 Diverticulosis 07/26/2023 GERD (gastroesophageal reflux disease) Fatty liver 07/26/2023 Insomnia 07/26/2023 Osteopenia 07/26/2023 Psoriasis 07/26/2023 Simple renal cyst 07/26/2023 Vitamin D deficiency 07/26/2023 Resolved Problems Problem Noted Date Diagnosed Date Resolved Date History of hysterectomy for benign disease 09/19/2023 09/20/2023 Nocturia 09/19/2023 09/20/2023 Smoking hx 09/19/2023 09/20/2023 Suprapubic pain 09/19/2023 09/20/2023 Family history of colon cancer 09/18/2023 09/20/2023 Elevated hemoglobin 07/26/2023 09/20/20 Flank pain 07/26/2023 09/20/2023 Hydronephrosis 07/26/2023 09/20/2023 Gross hematuria 07/26/2023 09/20/2023 Overweight (BMI 25.0-29.9) 07/26/2023 1 11/20/2022 Renal calculi 07/26/2023 09/20/2023 Diverticulitis 07/26/2023 09/20/2023 Encounters Date Type Department Care Team Description 07/02/2025 11:40 AM EDT Office Visit [facility] [address] [place] [facility] [place] [phone] Rene Roberts MD Dysuria (Primary Dx); Acute cystitis with hematuria 07/02/2025 Bamboo flowsheet [facility] [address] [facility] [place] [phone] Rene Roberts MD 07/02/2025 Travel 05/12/2025 Orders Only [facility] [address] [place] [facility] [address] [place] [phone] Cathryn Rice MA Mammogram abnormal 05/11/2025 11:30 AM EDT Ancillary Procedure [facility] [address] [facility] [address] [place] [phone] Abnormal mammogram of left breast 05/11/2025 11:00 AM EDT Ancillary Procedure [facility] [address] [facility] [address] [place] [phone] Mammogram abnormal 05/11/2025 Results Follow-Up [facility] [address] [place] [facility] [address] [place] [phone] Kamala Hines, Left diagnostic mammogram with tomosynthesis 05/11/2025 Travel 05/08/2025 Travel from Last 3 Months Immunizations Immunization Administration Dates Next Due Influenza, injectable, MDCK, preservative free, quadrivalent 09/13/2019 Influenza, injectable, quadrivalent 07/05/2021 Influenza, injectable, quadr ivalent, preservative free 09/20/2023,11/05/2018,09/28/2015 Tray SARS-CoV-2 09/03/2021 Pfizer Purple Cap SARS-CoV-2 Vaccination 021 Tdap 11/07/2012 Family History Medical History Relation Name Comments Accidental Brother 1 Dylon Adams Alcohol abuse Brother 1 Dylon Adams Drug abuse Brother 1 Dylon Adams Colon cancer Brother 2 Jonnie Adams Jr. Early natural Brother 2 Jonnie Adams Jr. Alcohol abuse Father Jonnie Gonzalez Depression Father Jonnie Gonzalez Diabetes Father Jonnie Gonzalez Esophageal cancer Father Jonnie Gonzalez Heart disease Father Jonnie Gonzalez Hypertension Father Jonnie Gonzalez Dementia Maternal Grandfather Alcohol abuse Mother Nhi Adams Breast cancer Mother Nhi Adams Colon cancer Mother Nhi Adams Crohn's disease Mother Nhi Adams Depression Mother Nhi Adams Colon cancer Sibling Alcohol abuse Sister Hillary Adams Relation Name Status Comments Brother 1 Dylon Adams 2 Brother 2 Jonnie Adams Jr. Father Jonnie Gonzalez Maternal Grandfather Maternal Grandmother Mother Nhi Adams Alive Paternal Grandfather Paternal Grandmother Sibling Sister Hillary Adams 2 Social History Tobacco Use Types Packs/Day Years Used Date Smoking Tobacco: Former Cigarettes 0.3 23.5 0 10/22/1981 - 04/10/2005 Passive Smoke Exposure: Past Smokeless Tobacco: Never Tobacco Cessation:Counseling Given: Not Answered Comments:Social smoker Alcohol Use Standard Drinks/Week Comments [...] often do you attend chur ch or orthodoxy services? 1 to 4 times per year 09/18/2023 Do you belong to any clubs o r organizations such as buddhist groups, unions, fraternal or athletic groups, or [...] and heating? Not hard at all 09/18/2023 [employer] of Occupat ional Health - Occupational Stress [...] place to sleep or slept in a chcf (including now)? No 09/18/2023 Comments No Sex and Gender Information Value Date Recorded Sex Assigned at Female 07/25/2023 12:41 PM EDT Legal Sex Female 6:34 PM EDT Gender Identity Female 07/25/2023 12:41 PM EDT Sexual Orientation Not on file Last Filed Vital Signs Vital Sign Reading [...] Mass Index 24.29 07/02/2025 11:49 AM EDT Plan of Treatment Upcoming Encounters Date Type Department Care Team (Late st Contact Info) Description 03/18/2026 9:45 AM EDT Office Visit [facility] [address] [place] [address] [phone] Kamala Hines DO [address] [address] Health Maintenance Due Date Last Done Comments CT Colonography 1960 FIT-DNA 1960 FIT 1960 FOBT 1960 Sigmoidoscopy 1960 Pneumococcal Vaccine: 65+ Ye ars (1 of 1 - PCV) 02/24/2010 Influenza Vaccine (#1) 2025 , 07/05/2021, 09/13/2019, Additional history exists Medicare Annual Wellness (AWV) 09/22/2025 1 11/23/2023, 03/12/2024, 09/20/2023 Mammogram 05/11/2026 05/11/2025, 10/23, 11/06/2024, Additional history exists Colonoscopy 09/18/2033 09/18/2023, 06/23, 10/25/2015 Colorectal Cancer Screening 09/18/2033 HPV/Cotest Discontinued 07/21/2020 Cervical Cancer Screening Discontinued Pap Smear Discontinued 02/07/2023, 09/19/2022 Procedures Procedure Name Priority Date/Time Associated Diagnosis Comments CULTURE, URINE, ROUTINE Routine 07/02/2025 12:31 PM EDT Dysuria POCT URINALYSIS DIPSTICK Routine 07/02/2025 11:56 AM EDT Dysuria BI US BREAST LIMITED LEFT Routine 05/11/2025 11:30 AM EDT Abnormal mammogram of left breast BI MAMMOGRAM DIAGNOSTIC TOMOSYNTHESIS LEFT Routine 05/11/2025 10:55 AM EDT Mammogram abnormal HM COLONOSCOPY Routine 09/18/2023 5:00 PM EST THINPREP TIS PAP AND HPV MRNA E6/E7 REFLEX HPV 16,18/45 ([id number]) Routine 02/07/2023 Q - THINPREP(R) TIS W/RFL HPV MRNA E6/E7 Routine 07/21/2020 from Last 3 Months or Most Recently Relevant to Health Maintenance Results * (ABNORMAL) Urine culture (clean catch) (07/02/2025 12:31 PM EDT) MICRO NUMBER [id number] QUEST SPECIMEN QUALITY Adequate QUEST SOURCE: (QUEST) [...] Performing Organization Information Site ID: [id number] Name: [facility] Address: [address] [place] [address], [address] [place] [id number] Director: Man So MD Rene Roberts MD LAB MICROBIOLOGY - GENERAL [...] - 9 Protein, UA Trace Negative - 2000(20) ++++ mg/dL Urobilinogen, UA 0.2 0.2 - 12 mg/dL Leukocytes, UA Positive Negative - 500+++ Nuno/mcL Nitrite, UA Negative Negative - Positive Urine 07/02/2025 11:5 6 AM EDT Rene Roberts MD POINT OF CARE TEST ENTER/EDIT ORDERABLES Final Result * Left breast US limited (05/11/2025 11:30 AM EDT) Anatomical Region Laterality Modality Breast Left Ultrasound 05/11/2025 2:28 PM EDT Impressions 05/11/2025 2:36 PM EDT Impression: Left breast ultrasound study demonstrates likely small complex cyst at the 10 o'clock position 8 cm from the nipple. This may represent residual change from previously suggested larger partially septated complex cyst. This may also correlate with the asymmetric density on the mammogram study from 05/11/2025 which has decreased in size and density compared to prior mammogram study. Likely small cysts as noted. No obvious neoplasm. When correlating all studies no convincing evidence of neoplasm. Follow-up diagnostic mammogram study of the left breast with similar views as well as ultrasound study of the left breast with similar views is recommended in 6 months to assess stability. BI-RADS 3 ELECTRONICALLY SIGNED BY: Perico Cassidy 05/11/2025 2:36 PM EDT Examination: BI US BREAST LIMITED LEFT Reason for Study: 6 month Comparison: Screening mammogram study of the breasts dated 11/06/2024, diagnostic mammogram study of the left breast dated 11/10/2024, ultrasound study of the left breast dated 11/10/2024 and diagnostic mammogram study of the left breast dated 05/11/2025. Technique: Left breast ultrasound study was performed. Images were obtained from the 9:00 to the 3 o'clock position to include area of interest. Findings: At the 10 o'clock position approximately 3.4 cm from the nipple a small area of decreased echogenicity likely representing a cyst measuring 0.3 x 0.3 x 0.3 cm. At the 10 o'clock position approximately 8 cm from the nipple area of decreased echogenicity with internal echoes measuring 0.5 x 0.4 x 0.4 cm. This may represent residual change from previously suggested partially septated complex cyst. No obvious internal vascularity or posterior shadowing in this area. Possibility of small fibroadenoma may be considered. Other possible to be less likely. This finding may or may not correlate with the decreased size asymmetric density noted on the mammogram study from 05/11/2025. At the 1 o'clock position approximately 4.6 cm from the nipple area of decreased echogenicity likely representing a cyst measuring 0.5 x 0.4 x 0.2 cm. No obvious solid vascular mass to suggest neoplasm. When correlating all studies convincing evidence of neoplasm. us Kamala Hines DO IMG US PROCEDURES Final Re sult * Left diagnostic mammogram with tomosynthesis (05/11/2025 10:55 AM EDT) Anatomical Region Laterality Modality Breast Left Mammography 05/11/2025 2:13 PM EDT Impressions 05/11/2025 2:27 PM EDT Previously noted asymmetric density in the left breast decreased in size and density compared to the prior mammogram study and may represent small complex cyst when correlated with ultrasound study, difficult to say with certainty. When correlating all studies no convincing evidence of neoplasm. Follow-up diagnostic mammogram study of the left breast with similar views as well as ultrasound study of the left breast with similar views is recommended in 6 months to assess stability. BIRADS 3 - Probably Benign Findings DENSITY: There are scattered areas of fibroglandular density. FOLLOW-UP: Diagnostic Mammogram in 6 Months, breast ultrasound in 6 months Board Certified Radiologists. Accredited by the ACR and FDA. MAMMOGRAPHY IS VERY IMPORTANT TO YOUR HEALTH. THE [employer] GUIDELINES RECOMMEND THAT WOMEN 40 YEARS OF AGE AND OLDER SHOULD HAVE A MAMMOGRAM EVERY YEAR. A REMINDER LETTER WILL BE SENT AT THE APPROPRIATE TIME. ELECTRONICALLY SIGNED BY: Raul Keith M.D. Narrative 05/11/2025 2:27 PM EDT EXAMINATION: BI MAMMOGRAM DIAGNOSTIC TOMOSYNTHESIS LEFT CLINICAL HISTORY: mammogram abnormal TECHNIQUE: Diagnostic digital mammogram study of the left breast was performed with 2D and 3D tomosynthesis imaging. Study was compared to the screening mammogram study of the breasts dated 11/06/2024, diagnostic mammogram study of the left breast dated 11/10/2024, ultrasound study of the left breast dated 11/10/2024 and ultrasound study of the left breast dated 05/11/2025. FINDINGS: Coned-down compression views as well as true lateral view of the left breast were obtained. Previously noted 9 x 6 mm asymmetric density in the superomedial aspect of the left breast is not convincingly demonstrated on the true lateral view and significantly decreased in size on the MLO and cc views. The finding is best identified on the CC spot image, measuring approximately 6 x 4 mm and is decreased in density. There is what may represent a small complex cyst on the 05/11/2025 ultrasound study of the 10 o'clock position which may correlate with the area though difficult to say with certainty. When correlating all studies no convincing evidence of neoplasm. A few small benign-appearing asymmetric densities appear similar to the prior studies. Axillary lymph nodes are noted which appear grossly unremarkable. Kamala Hines DO IMG BI PROCEDURES Final Re sult * Hm Colonoscopy (09/18/2023 5:00 PM EST) Anatomical Region Laterality Modality Other Glenna Hui MD HEALTH MAINTENANCE Final Resu lt * THINPREP TIS PAP AND HPV MRNA E6/E7 REFLEX HPV 16,18/45 ([id number]) (02/07/2023) CLINICAL INFORMATION: None given [facility] LMP: NONE GIVEN [facility] PREV. PAP: NONE GIVEN [facility] PREV. BX: NONE GIVEN [facility] SOURCE: Vagina [facility] STATEMENT OF ADEQUACY: SATISFACTORY FOR EVALUATION [facility] INTERPRETATION/RES ULT: SEE COMMENT [facility] Comment: Negative for intraepithelial lesion or malignancy. Atrophic pattern; predominantly parabasal cells COMMENT: This Pap test has been evaluated with computer assisted technology. [facility] PLANNING FEEDER: SEE COMMENT See Note: [facility] Comment: Reference Range: ZL, CT(ASCP) CT screening location: [facility] [place] [address]. REVIEW PLANNING FEEDER: SEE COMMENT [facility] Comment: LLT, CT(ASCP) CT screening location: [facility] [place] [address]. COMMENT SEE COMMENT [facility] Comment: EXPLANATORY NOTE: The Pap is a screening test for cervical cancer. It is not a diagnostic test and is subject to false negative and false positive results. It is most reliable when a satisfactory sample, regularly obtained, is submitted with relevant clinical findings and history, and when the Pap result is evaluated along with historic and current clinical information. HPV MRNA E6/E7 Not Detected Not Detected [facility] Comment: Methodology: Machine Hoop Maker Helper-Mediated Amplification This assay detects E6/E7 viral messenger RNA (mRNA) from 14 high-risk HPV types (16,18,31,33,35,39,45,51,52,56,58,59,66,68). Cervical sources are required for HPV testing. If a vaginal source from a patient who has had a total hysterectomy with removal of cervix was submitted, please contact the testing laboratory for alternative testing options. For additional information, please refer to http://education.DroidUnit.net/faq/XPX328w3 (This link if provided for information/ educational purposes only.) 02/07/2023 Kamala Hines DO [facility] Final Resu lt [facility] * Q - THINPREP(R) TIS W/RFL HPV MRNA E6/E7 (07/21/2020) CLINICAL INFORMATION: None given [facility] LMP: None given [facility] PREV. PAP: None given [facility] PRE[facility]. BX: None given [facility] SOURCE: None given [facility] STATEMENT OF ADEQUACY: SEE NOTE [facility] Comment: Satisfactory for evaluation. Endocervical/transformation zone component present. INTERPRETATION /RESULT: Negative for intraepithelial lesion or malignancy. [facility] COMMENT: This Pap test has been evaluated with computer assisted technology. [facility] CYTOTECHNOLOGI ST: SEE NOTE [facility] Comment: KMB, CT(ASCP) CT screening location: [facility], [address] [place] [address], [place] [address]. COMMENT SEE NOTE [facility] Comment: EXPLANATORY NOTE: The Pap is a screening test for cervical cancer. It is not a diagnostic test and is subject to false negative and false positive results. It is most reliable when a satisfactory sample, regularly obtained, is submitted with relevant clinical findings and history, and when the Pap result is evaluated along with historic and current clinical information. 07/21/2020 Glenna Hui MD [facility] Final Result [facility] from Last 3 Months or Most Recently Relevant to Health Maintenance Insurance [facility] MEDICARE [employer] MEDICARE Care Teams Web Marketing Analyst Relationship Specialty Start Date End Date Rene Roberts MD [address] [place] [address] PCP - General Family Medicine 07/01/25
--- OUTSIDE RECORDS SUMMARY | 2025-07-08 15:12 | XMS_ITS | Clinical Summary ---
Author Organization [facility] Address [id number] [place] [address] Care Team Providers Care Investment Recovery Technician Name Role Phone Unavailable Primary Care Provider Unavailabl e Social History Tobacco Use Types Packs/Day Years Used Date Smoking Tobacco: Never Assessed Childcare Answer Date Recorded Childcare Unknown 04/02/2019 Employment Answer Date Recorded Employment Unknown 04/02/2019 Comments Unknown Sex and Gender Information Value Date Recorded Sex Assigned at Not on file Legal Sex Female 12:01 PM EDT Gender Identity Not on file Sexual Orientation Not on file Plan of Treatment Not on file Medical Devices Not on file
--- OUTSIDE RECORDS SUMMARY | 2025-07-08 15:12 | XMS_ITS | Encounter Summary ---
Author Organization [facility] Address [address] [place] [place] [address] Care Team Providers Care Roving Technician Name Role Phone Glenna Hui MD Primary Care Provider [phone] Rene Roberts MD Primary Care Provider [phone] Encounter Details Date Type Department Care Team (Late st Contact Info) Description 05/12/2025 Orders Only [facility] [address] [facility] [address] [place] [phone] Cathryn Rice MA Mammogram abnormal Social History Tobacco Use Types Packs/Day Years [...] often do you attend chur ch or yazidism services? 1 to 4 times per year 09/18/2023 Do you belong to any clubs o r organizations such as gnosticism groups, unions, fraternal or athletic groups, or [...] and heating? Not hard at all 09/18/2023 [facility] of Occupat ional Health - Occupational Stress [...] place to sleep or slept in a halfway (including now)? No 09/18/2023 Comments No Sex [...] Office Visit [facility] [address] [place] [address] [phone] Kamala Hines DO [address] [address] Scheduled Orders Name Type Priority Associated Diagnoses Orde r Schedule Left diagnostic mammogram with tomosynthesis Imaging Routine Mammogram abnormal Expected: 11/12/2025, Expires: 07/13/2026 documented as of this encounter Visit Diagnoses Diagnosis Mammogram abnormal Abnormal mammogram, unspecified documented in this encounter Care Teams Roving Technician Relationship Specialty Start Date End Date Glenna Hui MD PCP - General Family Medicine 02/27/23 06/30/25 Rene Roberts MD [address] [place] [address] PCP - General Family Medicine 07/01/25 documented as of this encounter
--- NOTE | 2025-07-08 15:14 | CT_ITS ---
The [address] [address] Patient Name: JA MATOS MRN: [id number] date: 1960 Sex: F Assigned Patient Location: CT Current Patient Location: CT Accession/Order Number: [id number] Exam Date: 07/08/2025 15:22 Report Date: 07/08/2025 17:07 At the request of: INEZ CASE MD Procedure: CT abdomen pelvis wo con CT ABDOMEN AND PELVIS WITHOUT INTRAVENOUS CONTRAST: CLINICAL HISTORY: Kidney Stone, Gross Hematuria COMPARISON: 07/16/2023 TECHNIQUE: Spiral images were obtained through the abdomen and pelvis without intravenous contrast. This CT exam was performed using one or more following dose reduction techniques: Automated exposure control, adjustment of the mA and/or kV according to patient size, or use of iterative reconstruction technique. FINDINGS: Lung Bases: [No focal opacity.] Organs:Moderate right-sided hydroureteronephrosis caused by a 4 mm distal ureteral calculus.. Additional bilateral renal calculi, nonobstructive.[. Otherwise liver, gallbladder, spleen, adrenals, pancreas unremarkable. GI: Moderate stool burden. Unremarkable appendix. Sigmoid colonic diverticulosis with pericolonic inflammatory changes and fat stranding consistent with acute diverticulitis. No definite loculated fluid collection to suggest abscess formation. Duodenal diverticulum. Stomach unremarkable.[ Pelvis:[Bladder unremarkable. Hysterectomy. No adnexal mass.] Peritoneum/Retroperitoneum:No free air or free fluid.[Mild scattered aortic plaque. Abd wall/Bones:No suspicious osseous lesion. Degenerative changes lower cervical spine.[ CT/CT abdomen pelvis wo con IMPRESSION: Moderate hydroureteronephrosis caused by a 4 mm distal ureteral calculus approximately 7 cm to the right ureterovesical junction. Acute sigmoid colonic diverticulitis. No evidence of pneumoperitoneum or definite loculated fluid collection. Impression dictated by: Ike Andre M.D. 07/08/2025 5:07 PM Dictation Location: [place] [address] Electronically authenticated by: [id number] Y Date: 07/08/2025 17:07
--- OUTSIDE RECORDS SUMMARY | 2025-07-08 16:27 | XMS_ITS | CCD ---
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 Name Role Phone Andrea Gunter Unavailable GLENNA KEITA Primary Care Physician NEELA, DR [...] Care Provider MD Andrea Gunter Attending Provider [phone] Glenna Keita Primary Care Unavailable Andrea Gunter Attending Andrea Menedz Admitting Glenna Reece MD Primary Care Provider Rene Lynch MD Primary Care Provider KAMALA CHANCE Attending Unavailable KAMALA CHANCE Referring Unavailable WENDY DESOUZA Attending Unavailable JENNY MEJIA Attending Unavailable RENE LYNCH Attending Unavailable GLENNA KEITA Referring Unavailable KAMALA CHANCE Referring Unavailable KAMALA CHANCE Referring Unavailable Inez JONES Attending Unavailable Inez JONES Attending Unavailable Inez JONES Attending Unavailable Allergies Allergy Classification Reported Allergen(s) Allergy Type Date of Onset Reaction(s) Facility (20 sources) Sulfamethoxazole / Trimethoprim Drug Allergy 07-26-20 Score [facility] Other (9 sources) Sulfonamides (Antibiotic); Translations: [sulfa drugs] Drug allergy Feeling of throat tightness (finding) [facility] Comment on above: hives mild to modera te and throat closes (1 source) Sulfamethoxazole / Trimethoprim Drug Allergy 10-20-20 13 [facility] Repository (16 sources) Sulfamethoxazole; Translations: [sulfamethoxazole] Drug Allergy 07-12-20 20 Swelling of Lip/Tongue/Thr oat [facility] (16 sources) Trimethoprim; Translations: [trimethoprim] Drug Allergy 07-12-20 20 Swelling of Lip/Tongue/Thr oat [facility] (1 source) Sulfonamides (Antibiotic); Translations: [sulfa drugs] Propensity to adverse reactions (disorder) [facility] Repository Medications Current Medications Medication Drug Class(es) Dates Sig (Normalized) Sig (Original) ALPRAZolam 0.25 mg oral tablet (20 sources) Benzodiazepine Start: 07-12-2020 take 1 tablet by mouth every twenty-four hours as needed for anxiety ALPRAZolam (Xanax) 0.25 MG tablet Take 1 tablet by mouth Daily as needed for anxiety. 12/08/2022 Active ALPRAZolam PRN A ctive ALPRAZolam Activ e aluminum hydroxide 80 mg / magnesium trisilicate 14.2 mg chewable tablet (14 sources) Alum Hydroxide-M ag Trisilicate (Gaviscon) 80-14.2 MG chewable tablet Chew. Active amoxicillin 875 mg / clavulanate 125 mg oral tablet (2 sources) Penicillin-class Antibacterial Start: End: take 1 tablet by mouth in the morning amoxicillin-clavulan ate (Augmentin) 875-125 MG tablet Indications: Acute cystitis with hematuria Take 1 tablet (875 mg) by mouth in the morning and 1 tablet (875 mg) before bedtime. Do all this for 5 days. 10 tablet 07/02/2025 07/07/2025 Active Amphetamine / Dextroamphetamine (9 sources) Central Nervous System Stimulant Start: 019 take 1 mg by mouth twice daily Adderall 20 mg oral tablet mg, tab(s), Oral, BID, Refill(s) 0 Start Date: 08/25/19 Status: Ordered amphetamine aspartate 5 mg / amphetamine sulfate 5 mg / dextroamphetamine saccharate 5 mg / dextroamphetamine sulfate 5 mg oral tablet (20 sources) Central Nervous System Stimulant Start: 020 take 1 tablet by mouth once daily Dextroamphetamine-Am phetamine 20 mg tablet Active 20 MG PO Daily July 11, 2020 11:00pm take 1 capsule by [facility] every twenty-four hours in the morning amphetamine-dextroamphetamine XR (Addera ll XR) 20 MG 24 hr capsule Take 1 capsule by mouth in the morning. Do not crush or chew. . Active take 2 tablets by [facility] every twenty-four hours Adderall 20 MG 2 [...] 11:00pm Cholecalciferol (Vitamin D-3) 5000 UNIT/ML liquid (14 sources) Cholecalciferol (Vitamin D-3) 5000 UNIT/ML liquid Place under the tongue. With [place] Active clobetasol propionate 0.0005 mg/mg topical ointment (14 sources) Corticosteroid Start: 05-02-2023 clobetasol (Temovate) 0.05 % ointment Apply 1 application topically in the morning and 1 application before bedtime. 05/02/2023 Active Effer-K 25 mEq oral tablet, effervescent (1 source) Start: 12-05-2021 take 1 tablet by mouth twice daily Effer-K 25 mEq oral tablet, effervescent See Instructions, Take one tab bid, # 60 tab(s), Refills(s) 11, Pharmacy: [facility] [address], 165, cm, 02/14/22 12:42:00 EST, Height/Length Dosing, 70, kg, 12/05/21 12:42:00 EST, Weight Dosing Start Date: 12/05/21 Status: Ordered estradiol 0.1 mg/ml vaginal cream (20 sources) Estrogen Start: 12-05-2024 estradiol 0.1 mg/g Vag Crm 1 gm, Vaginal, MonWedFri, 42.5 gm, Refill(s) 4, [id number], 165, cm, 12/05/24 11:08:00 EST, Height/Length Dosing, 72.4, kg, 12/05/24 11:08:00 EST, Weight Dosing Start Date: 12/05/24 Status: Ordered Start: 12-07-2023 estradiol 0.1 mg/g Vag Crm 1 gm, Vaginal, MonWedFri, 42.5 gm, Refill(s) 4, [facility] #[id number], 165, cm, 12/07/23 11:34:00 EST, Height/Length Dosing, [...] 2024 12:00am hydroCHLOROthiazide 25 mg oral tablet (20 sources) Thiazide Diuretic Start: 04-19-2022 take 1 tablet by mouth once daily hydrochlorothiazide 25 mg Tab 25 mg = 1 tab(s), Oral, Daily, # 90 tab(s), Refills(s) 3, Pharmacy: [id number], 165, cm, 02/13/24 13:01:00 EDT, Height/Length Dosing, 66, kg, 02/13/24 13:01:00 EDT, Weight Dosing Start Date: 08/04/24 Status: Ordered Start: 07-12-2020 take 2 capsules by m out once daily Hydrochlorothiazide 12.5 mg capsule Active 25 MG PO Daily July 11, 2020 11:00pm Start: 07-12-2020 take 25 mg by mouth once daily Hydrochlorothiazide Active 25 MG PO Daily July 11, 2020 11:00pm Hydrochlorothiazide-12.5 mg (7 sources) Hydrochlorothiaz gabi-12.5 mg Active hydrocortisone acetate 25 mg rectal suppository (4 sources) Corticosteroid Star t: 12-11 End: 09-21 hydrocortisone (Anusol-HC) 25 MG suppository Indications: Hemorrhoids, unspecified hemorrhoid type Insert 1 suppository (25 mg) into the rectum 2 (two) times a day as needed for hemorrhoids for up to 14 days 14 suppository 09/22/2024 10/06/2024 Active lactase 3000 unt oral tablet (14 sources) lactase (Lactaid ) 3000 units tablet Take 3,000 Units by mouth if needed Active Loratadine (8 sources) Star t: 11-22 loratadine Daily, Refills(s) 0 Start Date: 12/07/23 Status: Ordered magnesium citrate (8 sources) Star t: 11-22 magnesium citrate Oral, [...] July 11, 2020 11:00pm Nature's Bounty Probiotic (9 sources) Start: 12-24-2020 Nature's Bount y Probiotic Oral, Daily, Refill(s) 0 Start Date: 12/24/20 Status: Ordered omeprazole 20 mg delayed release oral capsule (20 sources) Proton Pump Inhibitor Start: 12-24-2020 omeprazo le Oral, Daily, Refills(s) 0 Start Date: 12/24/20 Status: Ordered Start: 07-12-2020 End: 11-18-2024 take 1 capsule by mouth once daily omeprazole (PriLOSEC) [address] capsule Take 20 mg by mouth Daily 11/18/2024 Active take 1 capsule by mo [facility] every twenty-four hours Omeprazole 40 MG 1 [...] potassium bicarbonate 25 meq effervescent oral tablet (16 sources) Start: 07-12-2020 take 1 tablet by mouth in the morning Klor-Con/EF 25 MEQ effervescent tablet Take 1 tablet by mouth in the morning. 07/16/2023 Active Psyllium (9 sources) Start: 12-24-2020 Metamucil Oral , Refills(s) [...] MISCELLANE July 11, 2020 11:00pm Vitamin D (8 sources) Start: 12-07-2023 Vitamin D International_Unit, Oral, [...] 7:40am K-Effervescent 25 mEq oral tablet, effervescent (8 sources) Start: 08-04-2024 End: 07-30-2025 take 1 tablet by mouth twice daily K-Effervescent 25 mEq oral tablet, effervescent 25 mEq = 1 tab(s), Oral, BID, X 30 day(s), # 60 tab(s), Refills(s) 11, Pharmacy: [id number], 165, cm, 02/13/24 13:01:00 EDT, Height/Length Dosing, 66, kg, 02/13/24 13:01:00 EDT, Weight Dosing Start Date: 08/04/24 Stop Date: 07/30/25 Status: Ordered Start: 05-21-2023 End: 05-15-2024 take 1 tablet by mouth twice daily K-Effervescent 25 mEq oral tablet, effervescent 25 mEq = 1 tab(s), Oral, BID, X 30 day(s), # 60 tab(s), Refills(s) 11, Pharmacy: [facility] #[id number], 165, cm, 12/08/22 10:48:00 EST, Height/Length Dosing, 66, kg, 12/08/22 10:48:00 EST, Weight Dosing Start Date: 05/21/23 Stop Date: 05/15/24 Status: Ordered Methylcellulose (6 sources) Citrucel Orally Not-Taking Citrucel Orally Active potassium chloride 10 meq extended release oral tablet (1 source) Start: 12-05-2024 take 1 tablet by mouth once daily Klor Con 10 mEq Cap-ER 10 mEq = 1 tab(s), Oral, Daily, # 7 tab(s), Refills(s) 0, Pharmacy: [facility], 165, cm, 12/05/24 11:08:00 EST, Height/Length Dosing, 72.4, kg, 12/05/24 11:08:00 EST, Weight Dosing Start Date: 12/05/24 Status: Ordered Probiotic Product (DIGESTIVE ADV PREBIOT+PROBIOT PO) (7 sources) End: 09-22-2024 Probiotic Product (DIGESTIVE ADV PREBIOT+PROBIOT PO) Take by mouth. Trust Your Gut 09/22/2024 Discontinued (Therapy completed) Probiotic Produc t (DIGESTIVE ADV PREBIOT+PROBIOT PO) Take by mouth. Trust Your Gut Active Problems Active Problems Problem Classification Problem Date Documented Da te Episodic/Chronic Anxiety disorders (17 sources) Anxiety disorder, unspecified; Translations: [Generalized anxiety disorder] Onset: 3 07-26-2023 Chronic Disorders usually diagnosed in infancy, childhood, or adolescence (16 sources) Attention deficit hyperactivity disorder, predominantly inattentive type; Translations: [Other specified behavioral and emotional disorders with onset usually occurring in childhood and adolescence] Onset: 3 07-26-2023 Chronic Diverticulosis and diverticulitis (20 sources) Diverticulitis; Translations: [Diverticular disease] Onset: 3 Resolved: 3 05-07-2019 Chronic Esophageal disorders (19 sources) Gastro-esophageal reflux disease without esophagitis; Translations: [...] sources) Fatigue; Translations: [Other fatigue] 09-22-2024 Episodic Menopausal disorders (2 sources) Vaginal dryness; Translations: [Menopausal and female climacteric states] 03-17-2025 Chronic Menstrual disorders (9 sources) Dysmenorrhea 05-07-2019 Chronic Miscellaneous mental health disorders (2 sources) Primary insomnia; Translations: [Primary insomnia] 09-22-2024 Chronic Nutritional deficiencies (16 sources) Vitamin D deficiency; Translations: [Vitamin D deficiency, unspecified] Onset: 3 07-26-2023 Chronic Osteoporosis (2 sources) Postmenopausal osteoporosis; Translations: [Age-related osteoporosis without current pathological fracture] 03-17-2025 Chronic Other aftercare (1 source) Other snf (current) drug therapy; Translations: [OTH LOCOMOTIVE ENGINEER DIESEL CURRENT DRUG THERAPY] Onset: 3 Episodic Other [...] Heartburn; Translations: [Heartburn] Episodic Other gastrointestinal disorders (9 sources) Constipation; Translations: [Constipation, unspecified] 03-17-2025 Episodic Other inflammatory condition of skin (16 sources) Psoriasis; Translations: [Psoriasis, unspecified] Onset: 3 07-26-2023 Chronic Other liver diseases (9 sources) Liver cyst 05-07-2019 Chronic Other liver diseases (16 sources) Steatosis of liver; Translations: [Fatty (change of) liver, not elsewhere classified] Onset: 3 07-26-2023 Chronic Other screening for suspected conditions (not mental disorders or infectious disease) (2 sources) Patient encounter status; Translations: [Encounter for other screening for malignant neoplasm of breast] 03-17-2025 Episodic Other skin disorders (2 sources) Loss of hair; Translations: [Nonscarring hair loss, unspecified] 09-22-2024 Episodic Regional enteritis and ulcerative colitis (20 sources) Intestinal obstruction due to colonic inflammatory polyps; Translations: [Ulcerative colitis] Onset: 4 05-07-2019 Chronic Residual codes; unclassified (7 sources) Family history of malignant neoplasm of gastrointestinal tract; Translations: [Family history of malignant neoplasm of digestive organs] Episodic Residual codes; unclassified (2 sources) Family history of malignant neoplasm of digestive organs; Translations: [Family history of malignant neoplasm of gastrointestinal tract] Onset: 3 09-18-2023 Episodic Residual codes; unclassified (2 sources) Postmenopausal state; Translations: [Asymptomatic menopausal state] 03-09-2025 Episodic Residual codes; unclassified (2 sources) History of bilateral salpingo-oophorectomy; Translations: [Acquired absence of other genital organ(s)] 03-09-2025 Episodic Screening and history of mental health and substance abuse codes (9 sources) Tobacco use and exposure - finding 02-23-2020 Chronic Unclassified (8 sources) Finding of sensation of bladder 12-07-2023 Urinary tract infections (2 sources) Acute cystitis; Translations: [Acute cystitis with hematuria] 07-02-2025 Episodic Past or Other Problems Problem Classification Problem Date Documented Da te Episodic/Chronic Abdominal hernia (17 sources) Diaphragmatic hernia without obstruction or gangrene; Translations: [Hiatal hernia] Onset: 09-18-2023 Episodic Abdominal pain (20 sources) Flank pain; Translations: [Suprapubic pain] Onset: 10-21-2022 Resolved: 09-20-2023 02-23-2020 Episodic Calculus of urinary tract (20 sources) Kidney stone; Translations: [Calculus of kidney] Onset: 10-25-2022 Resolved: 09-20-2023 Episodic Deficiency and other anemia (14 sources) Increased hemoglobin; Translations: [Other hemoglobinopathies] Onset: 07-26-2023 Resolved: 09-20-2023 09-20-2023 Chronic Other and unspecified benign neoplasm (16 sources) Polyp of colon; Translations: [Polyp of colon] Onset: 07-26-2023 07-26-2023 Episodic Other bone disease and musculoskeletal deformities (16 sources) Osteopenia; Translations: [Other specified disorders of bone density and structure, unspecified site] Onset: 07-26-2023 07-26-2023 Episodic Other diseases of kidney and ureters (16 sources) Simple renal cyst; Translations: [Cyst of kidney, acquired] Onset: 07-26-2023 07-26-2023 Episodic Other diseases of kidney and ureters (14 sources) Hydronephrosis; Translations: [Unspecified hydronephrosis] Onset: 07-26-2023 Resolved: 09-20-2023 09-20-2023 Episodic Other nutritional; endocrine; and metabolic disorders (14 sources) Body mass index 25-29 - overweight; Translations: [Overweight] Onset: 07-26-2023 Resolved: 09-20-2023 09-20-2023 Episodic Residual codes; unclassified (16 sources) Family history of cancer of colon; Translations: [Family history of malignant neoplasm of digestive organs] Onset: 09-18-2023 Resolved: 09-20-2023 07-13-2020 Episodic Residual codes; unclassified (14 sources) Insomnia; Translations: [Insomnia, unspecified] Onset: 07-26-2023 07-26-2023 Episodic Residual codes; unclassified (16 sources) History of hysterectomy for benign disease; Translations: [Acquired absence of both cervix and uterus] Onset: 09-19-2023 Resolved: 09-20-2023 09-20-2023 Episodic Screening and history of mental health and substance abuse codes (15 sources) Personal history of nicotine dependence; Translations: [Tobacco use and exposure - finding] Onset: 10-25-2022 Resolved: 09-20-2023 09-20-2023 Episodic Results Test Name Value Interpretation Reference Range Facility Ambulatory Visit Summaryon 0 07-08-2025 Ambulatory Visit Summary Ambulatory Visit Summary JA SCHWAB :1960 Visit Date:07/08/2025 Ambulatory Visit Instructions Your Diagnosis UTI (urinary tract infection) Gross hematuria Kidney stone Mixed incontinence Other urethral stricture, female Tests Performed CT Abdomen/Pelvis w/o Contrast -- Results Pending -- Please visit your patient portal for your results or contact your primary care physician. Your Care Team Attending Physician - MANPREET BROWN, Inez Ruano Primary Care Physician - GLENNA KEITA This Is Your Medications List cephalexin (Keflex 500 mg Cap) estradiol topical (estradiol 0.1 mg/g Vag Crm) hydrochlorothiazide (hydrochlorothiazide 25 mg Tab) potassium bicarbonate (K-Effervescent 25 mEq oral tablet, effervescent) potassium chloride (Klor Con 10 mEq Cap-ER) Contact prescribing physician if questions or concerns alprazolam (alprazolam 0.25 mg Tab) amphetamine-dextroamphet amine (Adderall 20 mg oral tablet) bifidobacterium-lactobac illus (Nature's Bounty Probiotic) ergocalciferol (Vitamin D) loratadine magnesium citrate omeprazole psyllium (Metamucil) Procedures Performed ESWL of kidney (12/30/2020), Cystoscope (06/22/2020), Cystoscopy (06/22/2020), cysto/UD (10/10/2018), RT ESWL (09/20/2017), R stent removal (02/03/2016), bladder BX/ B/L ESWL, R stent placement (01/27/2016), Cysto/UD (09/28/2015), R ESWL (09/27/2015), cysto/UD/stone basket extraction (02/01/2012), cysto/ L stent removal (10/06/2011), cysto/stone basket/ L stent placement (09/21/2011), cysto (09/11/2011), Abdominal hysterectomy and left salpingo-oophorectomy (07/22/2005), Abdominal hysterectomy and right salpingo-oophorectomy (07/22/2005), Colonoscopy and biopsy of colon. Discharge Vitals Heart Rate (Peripheral) 98 Respiratory Rate 18 Blood Pressure 126/74 Height 165 cm Height 65 in Weight 65.3 kg Weight 143.962 lb BMI 23.99 What to do next Scheduled Follow-Up Appointments Sunday2025 11:15 AM EST With: Inez JONES MD Where: [facility] [address] [place] [address]- You Need to Schedule the Following Appointments Follow Up with Inez JONES MD, URL When: Comments: sched cysto/UD, CT scan Where: [address] [place] [address] Medications What How Much When Why Instructions New cephalexin (Keflex 500 mg Cap) 1 Capsules By Mouth Every 12 hours UTI (urinary tract infection) Duration: 7 Days Pickup at [facility] Unchanged estradiol topical (estradiol 0.1 mg/ g Vag Crm) 1 Gram Vaginal Sunday Unchanged hydrochlorothiazide (hydrochlorothiazide 25 mg Tab) 1 Tablets By Mouth Every day Unchanged potassium bicarbonate (K-Effervescent 25 mEq oral tablet, effervescent) 1 Tablets By Mouth 2 times a day Duration: 30 Days Unchanged potassium chloride (Klor Con 10 mEq Cap-ER) 1 Tablets By Mouth Every day Unchanged alprazolam (alprazolam 0.25 mg Tab) Contact prescribing physician if questions or concerns Unchanged amphetamine-dextroamphet amine (Adderall 20 mg oral tablet) By Mouth 2 times a day Contact prescribing physician if questions or concerns Unchanged bifidobacterium-lactobac illus (Nature's Bounty Probiotic) By Mouth Every day Contact prescribing physician if questions or concerns Unchanged ergocalciferol (Vitamin D) By Mouth Every week Contact prescribing physician if questions or concerns Unchanged loratadine Every day Contact prescribing physician if questions or concerns Unchanged magnesium citrate By Mouth Contact prescribing physician if questions or concerns Unchanged omeprazole By Mouth Every day Contact prescribing physician if questions or concerns Unchanged psyllium (Metamucil) By Mouth Contact prescribing physician if questions or concerns Pharmacy Information [facility]: [address] [place] [id number] [phone] Allergies sulfa drugs (Throat tightness) Problems Ongoing - Any problem that you are currently receiving treatment for. Feeling of incomplete bladder emptying Flank pain Gross hematuria Kidney stone Microhematuria Mixed incontinence Nocturia Other urethral stricture, female Post-void dribbling Smoking hx Straining to void Stress incontinence Suprapubic pain Urge incontinence Urinary urgency Urine frequency UTI (urinary tract infection) Historical - Any problem that you are no longer receiving treatment for. Cyst of liver Diverticulitis Dysmenorrhea Intestinal obstruction due to colonic inflammatory polyps Patient Survey You may receive a survey via text or e-mail asking about your office visit. Please share your experience with us by completing your survey. We appreciate your feedback and thank you for choosing us for your care. Education Materials Kidney Stones Kidney stones are rock-lik (more content not included)... Normal [facility] Urology Office/Clinic Noteon 07-08-2025 Urology Office/Clinic Note Urology Office/Clinic Note Chief Complaint Office visit HPI Staff Office visit Previous Dx: kidney stone, urinary urgency, stress incontinence, feeling of incomplete bladder emptying *Effer-K qd, HCTZ 25mg qd, estrogen cream 0.5mg 3x/wk Pt seen PCP due to UTI, urine sample microscopic blood on last week. Pt started Augmentin but pt states nothing has changed, urine culture 07/02/25 Pt states she feels horrible pressure, 10-12x a night, lower abdomen pain when she sits down, some back pain on the right sided about 2-3 weeks ago, pain on right/left abdomen pain but more in the lower abdomen. Pt seen visible blood 2 weeks ago, yes had some pain and burning History of Present Illness Tests reviewed: reviewed UA, ucx I have reviewed the previous health record information and history for this patient from Dr. Jones. I have reviewed and verified the staff HPI to be accurate for this encounter. Review of Systems PHQ Score Initial [...] HPI. Physical Exam Vitals & Measurements HR: 98(Peripheral) RR: 18 BP: 126/74 HT: 165 cm HT: 65 in WT: 143.962 lb WT: 65.3 kg BMI: 23.99 General Appearance: alert , no acute distress, well nourished, well developed female. Genitourinary: bladder palpable, tender right flank. Assessment/Plan 1. UTI (urinary tract infection) (N39.0: Urinary tract infection, site not specified) Last cysto/UD 12/30/20. UCx 07/02/25 - 10-49k Group B Strep, tx'd w/ Augmentin per PCP. UA shows large leuks. Slight relief when she first started taking Augmentin but sxs are still persisting after completing course. Getting up 10-12x/night. No relief of pelvic pressure with and without urination. Uncomfortable to sit due to pain in pelvis. Does not feel she empties. Sxs ongoing x3 wks. Reports gross hematuria and R flank pain with onset of sxs, but not currently an issue. Has increased her fluid intake. Discussed possible etiology of pain, may be kidney stone passing. Recommended CT to further evaluate. -Cont increased water intake -Schedule CT AP wo con -Take Keflex 500mg bid x7 days. Rx sent to [facility]. -Will schedule Cysto with [facility]. The procedure risks, benefits, details, and treatment alternatives have been discussed with the patient. These include bleeding, infection, recurrent scar in over 50%, need for repeat dilation or other procedures, no symptom relief with dilation, among others. Full informed consent has been obtained. Will order Local anesthesia. 2. Gross hematuria (R31.0: Gross hematuria) See #1. 3. Kidney stone (N20.0: Calculus of kidney) S/p R ESWL 12/30/20. [1] CT AP w IV con 07/16/23 - nonobstructing right calyceal tip renal stone. [2] KUB 12/06/23 [facility] - neg for appreciable urinary tract calculi. KUB 12/02/24 [facility] - no obvious calcifications. Taking Effer-K 25mEq qd and HCTZ 25mg qod (decreased from qd due to low potassium). Appears to be passing stone. See #1. 4. Mixed incontinence (N39.46: Mixed incontinence) UUI > LISETTE. Completed 5 sessions of PFPT with Anastasiia Mojica PA-C 02/13/24. Pt continues at home PFPT. Not addressed due to acute issue of UTI. 5. Other urethral stricture, female (N35.82: Other urethral stricture, female) See #1. Follow-up With When Contact Information Inez JONES MD, URL [address] [place] [address] Additional Instructions: sched cysto/UD, CT scan Patient Education Kidney Stones, [id number] I, Violet Manzo, personally scribed for Dr. Jones on 07/08/2025 13:45:20. . Documentation recorded by the scribeViolet, accurately reflects the services(s) I performed and decisions made by me. Authenticated by Dr. Jones on 07/08/2025 13:47:51. Problem List/Past Medical History Ongoing Feeling of incomplete bladder emptying Flank pain Gross hematuria Kidney stone Microhematuria Mixed incontinence Nocturia Other urethral stricture, female Post-void dribbling Smoking hx Straining to void Stress incontinence Suprapubic pain Urge incontinence Urinary urgency Urine frequency UTI (urinary tract infection) Historical Cyst of liver Diverticulitis Dysmenorrhea Intestinal obstruction due to colonic inflammatory polyps Procedure/Surgical History ESWL of kidney (12/30/2020), Cystoscope (06/22/2020), Cystoscopy (06/22/2020), cysto/UD (10/10/2018), RT ESWL (09/20/2017), R stent removal (02/03/2016), bladder BX/ B/L ESWL, R stent placement ( (more content not included)... [facility] [facility] Comment on above: Result Comment: Elec tronically Signed By: Inez JONES MD\.br\Date and Time Signed: 07/08/25 13:47 EDT\.br\Electronically Co-Signed By: Violet Manzo\.br\Date and Time Co-Signed: 07/08/25 13:45 EDT Urinalysis macro (dipstick) panel (U)on 07-02-2025 Bilirubin, UA Negative Negative - 4(70) +++ mg/dL [facility] Blood, UA Positive Negative - 50 Douglas/mcL [facility] Clarity, UA Clear [facility] Color, UA Yellow [facility] Glucose, UA Negative Negative - 2000(110) ++++ mg/dL [facility] Ketones, UA Negative Negative - 160(16) ++++ mg/dL [facility] Leukocytes, UA Positive Negative - 500+++ Nuno/mcL [facility] Nitrite, UA Negative Negative - Positive [facility] pH, UA 5 5 - 9 [facility] Protein, UA Trace Negative - 2000(20) ++++ mg/dL [facility] Spec Grav, UA 1.015 1 - 1.03 [facility] Urobilinogen, UA 0.2 0.2 - 12 mg/dL [facility] BI MAMMOGRAM DIAGNOSTIC MARYCRUZ SYNTHESIS LEFTon 05-11-2025 BI MAMMOGRAM DIAGNOSTIC TOMOSYNTHESIS LEFT This is [...] nodes are noted which appear grossly unremarkable. IMPRESSION: Previously noted asymmetric density in the left [...] IS VERY IMPORTANT TO YOUR HEALTH. THE [place] [employer]IET[employer] GUIDELINES RECOMMEND THAT WOMEN 40 YEARS OF AGE AND OLDER SHOULD HAVE A MAMMOGRAM EVERY YEAR. A REMINDER LETTER WILL BE SENT AT THE APPROPRIATE TIME. ELECTRONICALLY SIGNED BY: Raul Keith M.D. Normal Not Available BI US BREAST LIMITED LEFTon 05-11-2025 BI US BREAST LIMITED LEFT Examination: BI [...] correlating all studies convincing evidence of neoplasm. IMPRESSION: Impression: Left breast ultrasound study demonstrates likely [...] BY: Raul Keith M.D. Normal Not Available Comment on above: Order Comment: Due i n April 2025 Ambulatory Visit Summaryon 0 12-05-2024 Ambulatory Visit Summary Ambulatory Visit Summary JA SCHWAB Tyler :1960 Visit Date:12/05/2024 Ambulatory Visit Instructions Your Diagnosis Kidney stone Urinary urgency Mixed incontinence Feeling of incomplete bladder emptying Tests Performed XR Abdomen 1 View -- Results Pending -- Please visit your patient portal for your results or contact your primary care physician. Your Care Team Attending Physician - Inez JONES MD Primary Care Physician - GLENNA KEITA This Is Your Medications List estradiol topical (estradiol 0.1 mg/g Vag Crm) hydrochlorothiazide (hydrochlorothiazide 25 mg Tab) potassium bicarbonate (K-Effervescent 25 mEq oral tablet, effervescent) potassium chloride (Klor Con 10 mEq Cap-ER) Contact prescribing physician if questions or concerns alprazolam (alprazolam 0.25 mg Tab) amphetamine-dextroamphet amine (Adderall 20 mg oral tablet) bifidobacterium-lactobac illus (Nature's Bounty Probiotic) ergocalciferol (Vitamin D) loratadine magnesium citrate omeprazole psyllium (Metamucil) Procedures Performed ESWL of kidney (12/30/2020), Cystoscope (06/22/2020), Cystoscopy (06/22/2020), cysto/UD (10/10/2018), RT ESWL (09/20/2017), R stent removal (02/03/2016), bladder BX/ B/L ESWL, R stent placement (01/27/2016), Cysto/UD (09/28/2015), R ESWL (09/27/2015), cysto/UD/stone basket extraction (02/01/2012), cysto/ L stent removal (10/06/2011), cysto/stone basket/ L stent placement (09/21/2011), cysto (09/11/2011), Abdominal hysterectomy and left salpingo-oophorectomy (07/22/2005), Abdominal hysterectomy and right salpingo-oophorectomy (07/22/2005), Colonoscopy and biopsy of colon. Discharge Vitals Temperature (Temporal Artery) 37 ???C Heart Rate (Peripheral) 68 Respiratory Rate 16 Blood Pressure 134/84 Height 165 cm Height 65 in Weight 72.4 kg Weight 159.614 lb BMI 26.59 What to do next Scheduled Follow-Up Appointments Sunday2025 11:15 AM EST With: Inez JONES MD Where: [facility] [address] [address]- You Need to Schedule the Following Appointments Follow Up with Inez JONES MD, URL When: Where: [address] [place] [id number]- Medications What How Much When Instructions New potassium chloride (Klor Con 10 mEq Cap-ER) 1 Tablets By Mouth Every day Pickup at [facility] Unchanged estradiol topical (estradiol 0.1 mg/ g Vag Crm) 1 Gram Vaginal Sunday Pickup at [facility] Unchanged hydrochlorothiazide (hydrochlorothiazide 25 mg Tab) 1 Tablets By Mouth Every day Unchanged potassium bicarbonate (K-Effervescent 25 mEq oral tablet, effervescent) 1 Tablets By Mouth 2 times a day Duration: 30 Days Unchanged alprazolam (alprazolam 0.25 mg Tab) Contact prescribing physician if questions or concerns Unchanged amphetamine-dextroamphet amine (Adderall 20 mg oral tablet) By Mouth 2 times a day Contact prescribing physician if questions or concerns Unchanged bifidobacterium-lactobac illus (Nature's Bounty Probiotic) By Mouth Every day Contact prescribing physician if questions or concerns Unchanged ergocalciferol (Vitamin D) By Mouth Every week Contact prescribing physician if questions or concerns Unchanged loratadine Every day Contact prescribing physician if questions or concerns Unchanged magnesium citrate By Mouth Contact prescribing physician if questions or concerns Unchanged omeprazole By Mouth Every day Contact prescribing physician if questions or concerns Unchanged psyllium (Metamucil) By Mouth Contact prescribing physician if questions or concerns Pharmacy Information [facility]: [address] [place] [phone] Allergies sulfa drugs (Throat tightness) Problems Ongoing - Any problem that you are currently receiving treatment for. Feeling of incomplete bladder emptying Flank pain Gross hematuria Kidney stone Microhematuria Mixed incontinence Nocturia Post-void dribbling Smoking hx Straining to void Stress incontinence Suprapubic pain Urge incontinence Urinary urgency Urine frequency Historical - Any problem that you are no longer receiving treatment for. Cyst of liver Diverticulitis Dysmenorrhea Intestinal obstruction due to colonic inflammatory polyps Patient Survey You may receive a survey via text or e-mail asking about your office visit. Please share your experience with us by completing your survey. We appreciate your feedback and thank you for choosing us for your care. Education Materials Dietary Guidelines to Help Prevent Kidney Stones Kidney stones are deposits of minerals and salts that form inside your kidneys. Your risk of developing kidney stones may be greater depending on your diet, your lifestyle, the medicines you take, and whether you have certain med (more content not included)... Normal [facility] Urology Office/Clinic Noteon 12-05-2024 Urology Office/Clinic Note Urology Office/Clinic Note Chief Complaint 1 year with KUB HPI Staff 64yr old female pt here for 1yr f/u with KUB. KUB done 12/02/24. S/p R ESWL 12/30/20. Previous Dx: kidney stone, urinary urgency, stress incontinence, feeling of incomplete bladder emptying *Effer-K qd, HCTZ 25mg qd, estrogen cream 0.5mg 3x/wk Dysuria: denies Incomplete bladder emptying: states she empties okay most of the time if she is not constipated Hematuria: denies Frequency: every couple of hours Urgency: denies Nocturia: 2-3x for quite a while Stream: denies straining Leaking: denies Post void dripping: denies Wearing pads/ Depends: denies Urge incontinence: denies Stress incontinence: doing Pelvic floor exercises Incontinence without Sensory Awareness: denies Abdominal pain: denies Flank pain: denies Sexual complaints: denies History of Present Illness Tests reviewed: reviewed UA, labs, KUB. I have reviewed the previous health record information and history for this patient from Dr. Jones I have reviewed and verified the staff [...] See HPI. Physical Exam Vitals & Measurements T: 37 ???C(Temporal Artery) HR: 68(Peripheral) RR: 16 BP: 134/84 HT: 65 in HT: 165 cm WT: 72.4 kg WT: 159.614 lb BMI: 26.59 General Appearance: alert , no acute distress, well nourished, well developed female. Assessment/Plan 1. Kidney stone (N20.0: Calculus of kidney) S/p R ESWL 12/30/20. Presented to [facility] ER 07/16/23 with complaints of LLQ pain back. Thought it was related to diverticulitis. CT AP w IV con 07/16/23 - nonobstructing right calyceal tip renal stone. KUB 12/06/23 [facility] - neg for appreciable urinary tract calculi. KUB 12/02/24 [facility] - no obvious calcifications. Taking Effer-K 25mEq qd and HCTZ 25mg qd. Pt was prescribed Effer-K bid however decreased to qd due to GERD. Labs (ordered by primary care) 09/30/24 - low potassium 3.3 (3.5-5.3) Due to low potassium, will have pt take HCTZ every other day. Will also provide pt a separate script for potassium x 1 week. Pt states she aims for 32oz of water daily due to not liking the taste of water. Pt states she adds flavors to her water to tolerate better. Recommended pt. to increase fluid intake to ten to twelve 16oz bottles a day; preferably water, clear pop, and sugar free lemonade. -Fluids -Cont Effer-K 25mEq qd and decrease HCTZ to qod -Start Klor Con 10 mEq qd x 7 days Follow up in 1 year w/ KUB. 2. Urinary urgency (R39.15: Urgency of urination) Pt was referred to Dr. Wray at a prior OV due to abnormal pap and pt using estrogen cream. Pt had thought she had a partial hysterectomy in 2006, however Dr. Wray told her that she does not have a cervix. UCx 08/07/24 - no growth. Pt states her UA showed positive NIT. Has not been using estrogen cream due to recent mammogram results. Pt states they believe it is a benign cyst however she is going to have a mammogram repeated in 6 months. Advised pt that she can restart applying estrogen cream. -Restart Estrogen cream, refill sent 3. Mixed incontinence (N39.46: Mixed incontinence) UUI > LISETTE. Completed 5 sessions of PFPT with Anastasiia Mojica PA-C 02/13/24. Pt continues at home PFPT. 4. Feeling of incomplete bladder emptying (R39.14: Feeling of incomplete bladder emptying) PVR 12/07/23 - 0 Follow-up With When Contact Information MANPREET BROWN, Inez Ruano, URL [address] [place] [address]- Additional Instructions: 1 year w/ KUB Patient Education Dietary Guidelines to Help Prevent Kidney Stones IJanis, personally scribed for Dr. Jones on 12/05/2024 11:46:15. . Documentation recorded by the scribeJanis, accurately reflects the services(s) I performed and decisions made by me. Authenticated by Dr. Jones on 12/05/2024 11:52:17. Problem List/Past Medical History Ongoing Feeling of incomplete bladder emptying Flank pain Gross hematuria Kidney stone Microhematuria Mixed incontinence Nocturia Post-void dribbling Smoking hx Straining to void Stress incontinence Suprapubic pain Urge incontinence Urinary urgency Urine frequency Historical Cyst of liver Diverticulitis Dysmenorrhea (more content not included)... Normal [facility] Comment on above: Result Comment: Elec tronically Signed By: Inez JONES MD\.br\Date and Time Signed: 12/05/24 11:52 EST\.br\Electronically Co-Signed By: Janis Cárdenas\.br\Date and Time Co-Signed: 12/05/24 11:46 EST XR ABDOMEN 1Von 12-02-2024 [place] [address] XRay Report Signed Patient: JA SCHWAB MR#: [id number] : 1960 Acct:[id number] Age/Sex: 64 / F ADM Date: 12/02/24 Loc: RAD Attending Dr: Inez Jones M.D. Ordering Physician: Inez Jones M.D. Date of Service: 12/02/24 Procedure(s): XR abdomen 1V Accession Number(s): [id number] cc: GLENNA KEITA ; Inez Jones M.D. [place] [address] Patient Name: JA SCHWAB MRN: [id number] date: 1960 Sex: F Assigned Patient Location: [facility] Current Patient Location: [facility] Accession/Order Number: [id number] Exam Date: 12/02/2024 13:55 Report Date: 12/02/2024 14:58 At the request of: INEZ JONES Procedure: XR abdomen 1V EXAMINATION: XR abdomen 1V HISTORY: Kidney Stone COMPARISON: 12/06/2023 FINDINGS: KIDNEY/URETER - RIGHT: No visible renal or ureteral calcifications. KIDNEY/URETER - LEFT: No visible renal or ureteral calcifications. PELVIS: No visible ureteral calcifications. Any visible calcifications favor phleboliths. BOWEL: No abnormal dilation or deviation. Moderate to large amount of stool throughout the colon BONES: No acute abnormality. OTHER: Negative. No abnormal gaseous collections. XR/XR abdomen 1V IMPRESSION: No urinary tract calculi observed Electronically authenticated by: PLACIDO PELAYO Date: 12/02/2024 14:58 Dictated By: Placido Pelayo M.D. Signed By: 12/02/24 1501 DD/ 1458 TD/TT: Infection Control Coordinator: [facility] Palomo Virkogradha pérez MD - 12/02/2024 [place] [address] XRay Report Signed Patient: JA SCHWAB MR#: [id number] : 1960 Acct:[id number] Age/Sex: 64 / F ADM Date: 12/02/24 Loc: RAD Attending Dr: Inez Jones M.D. Ordering Physician: Inez Jones M.D. Date of Service: 12/02/24 Procedure(s): XR abdomen 1V Accession Number(s): [id number] cc: GLENNA KEITA ; Inez Jones M.D. [address] [place] [address] Patient Name: JA SCHWAB MRN: [facility]:[id number] date: 1960 Sex: F Assigned Patient Location: [facility] Current Patient Location: [facility] Accession/Order Number: [id number] Exam Date: 12/02/2024 13:55 Report Date: 12/02/2024 14:58 At the request of: INEZ JONES Procedure: XR abdomen 1V EXAMINATION: XR abdomen 1V HISTORY: Kidney Stone COMPARISON: 12/06/2023 FINDINGS: KIDNEY/URETER - RIGHT: No visible renal or ureteral calcifications. KIDNEY/URETER - LEFT: No visible renal or ureteral calcifications. PELVIS: No visible ureteral calcifications. Any visible calcifications favor phleboliths. BOWEL: No abnormal dilation or deviation. Moderate to large amount of stool throughout the colon BONES: No acute abnormality. OTHER: Negative. No abnormal gaseous collections. XR/XR abdomen 1V IMPRESSION: No urinary tract calculi observed Electronically authenticated by: PLACIDO PELAYO Date: 12/02/2024 14:58 Dictated By: Placido Pelayo M.D. Signed By: 12/02/24 1501 DD/ 1458 TD/TT: Infection Control Coordinator: [facility] Study observation (narrative) [facility] XR ABDOMEN 1VOrdered By: Yousif [facility]av[facility] on 12-02-2024 [facility] Work Phone: BI MAMMOGRAM DIAGNOSTIC MARYCRUZ SYNTHESIS LEFTon 11-10-2024 [...] IS VERY IMPORTANT TO YOUR HEALTH. THE [place] [employer] SOCIET[employer] GUIDELINES RECOMMEND THAT WOMEN 40 [...] Normal Not Available BI MAMMOGRAM SCREENING TOMOS LEXIS BILATERALon 11-06-2024 BI MAMMOGRAM SCREENING TOMOSYNTHESIS BILATERAL [...] DENSITYon 11-06-19 DEXA BONE DENSITY Examination: DEXA DEVANTE NE DENSITY Clinical History: osteopenia Technique: Bone density [...] BY: Raul Keith M.D. Normal Not Available Neel 09-18-2023 L ---- Specimen: [id number] Received: 09/18/23 Status: CHARY [place] Num: [id number] Spec Type: Surgical Subm Dr: Andrea Gunter MD Tissues: A Stomach - Biopsy/Polyp (ANTRUM) B Duodenum - Biopsy (DUODENAL BX) C Colon Biopsy (DESC) D Colon Biopsy (SIGMOID) Procedures: HE/8, Gross/Micro L4/4 Age/ Patient Sex Location Account Attending Physician Ja Schwab 63/F [id number] Andrea Gunter MD SPEC NUM: [id number] RECD: 09/18/23 STATUS: CHARY [place] NUM: [id number] MARY: 09/18/23- [facility] DR: Andrea Gunter MD ENTERED: 09/18/[address] [facility] DR: RUBEN TYPE: Surgical DEPT: S ORDERED: HE, Gross/Micro L4/4 ORDERED: 8, Gross/Micro L4/4 Pathological Diagnosis A. Stomach, antrum, biopsy: - Gastric antral gland mucosa with mild chronic nonspecific gastritis - Negative for intestinal metaplasia or dysplasia - Negative for H. pylori (H E stained slides) B. Duodenum, biopsy: - Duodenal mucosa within normal limits C. Colon, descending, polyp, biopsy: - Tubular adenoma D. Colon, sigmoid, biopsy: - Benign colonic mucosa with hyperplastic changes Specimen: [id number] Received: 09/18/23 Status: CHARY [facility] Num: [id number] Spec Type: Surgical Subm Dr: Andrea Gunter MD Tissues: A Stomach - Biopsy/Polyp (ANTRUM) B Duodenum - Biopsy (DUODENAL BX) C Colon Biopsy (DESC) D Colon Biopsy (SIGMOID) Procedures: /Curyr, Gross/Micro L4/4 Patient: Ja Schwab [id number] (Continued) Specimen: [id number] Received: 09/18/23 (Continued) Signed (signature on file) Fish Girard MD 09/20/23 1042 Specimen: [id number] Received: 09/18/23 Status: CHARY [facility] Num: [id number] Spec Type: Surgical Subm Dr: Andrea Gunter MD Tissues: A Stomach - Biopsy/Polyp (ANTRUM) B Duodenum - Biopsy (DUODENAL BX) C Colon Biopsy (DESC) D Colon Biopsy (SIGMOID) Procedures: HE/Curry, Gross/Micro L4/4 Patient: Ja Schwab [id number] (Continued) Specimen: [id number] Received: 09/18/23 (Continued) Clinical Information Abdomen pain, [...] microscopic examination confirms the diagnosis. CPT Codes 99891x2 Specimen: [id number] Received: 09/18/23 Status: CHARY [place] Num: [id number] Spec Type: Surgical Subm Dr: Andrea Gunter MD Tissues: A Stomach - Biopsy/Polyp (ANTRUM) B Duodenum - Biopsy (DUODENAL BX) C Colon Biopsy (DESC) D Colon Biopsy (SIGMOID) Procedures: HE/Curry, Gross/Micro L4/4 Patient: Ja Schwab [id number] (Continued) (more content not included)... Normal [facility] XR KUB 1 VIEWon 12-06-2022 XR [...] ANNMARIE BINGHAM Date: 2022-12-06 13:25 Normal [facility] CBC AUTO DIFFon 10-21-2022 BASO # 0.0 103/ul Normal 0.0-0.1 [facility] Comment on above: Performed By: #### C BC #### [facility] [address] [place] [address] Dr. Yamileth France Basophils/100 WBC (Bld) 0.7 % Normal 0.2-2.0 [facility] Comment on above: Performed By: #### C BC #### [facility] [address] [place] [address] Dr. Yamileth France EO # 0.3 103/ul Normal 0.0-0.7 [facility] Comment on above: Performed By: #### C BC #### [facility] [address] [place] [address] [address] Yamileth France Eosinophils/100 WBC (Bld) 5.5 % Normal 0.9-7.0 [facility] Comment on above: Performed By: #### C BC #### [facility] [address] [place] [address] [address] Yamileth France Erythrocyte distribution width (RBC) [Ratio] 12.3 % Normal 11.0-15.0 [facility] Comment on above: Performed By: #### C BC #### [facility] [address] [place] [address] Dr. Yamileth France Hematocrit (Bld) [Volume fraction] 41.8 % Normal 36.0-48.0 [facility] Comment on above: Performed By: #### C BC #### [facility] [address] [place] [address] Dr. Yamileth France Hemoglobin (Bld) [Mass/Vol] 14.8 g/dL Normal 12.0-16.0 [facility] Comment on above: Performed By: #### C BC #### [facility] [address] [place] [address] Dr. Yamileth France IG # 0.03 10e3/ul Normal 0.00-0.03 [facility] Comment on above: Performed By: #### C BC #### [facility] [address] [place] [address] Dr. Yamileth France IG % 0.5 % Normal 0.0-0.5 [facility] Comment on above: Performed By: #### C BC #### [facility] [address] [place] [address] Dr. Yamileth France LYMPH # 0.9 103/ul Critically low 1.2-3.8 [facility] Comment on above: Performed By: #### C BC #### [facility] [address] [place] [address] Dr. Yamileth France Lymphocytes/100 WBC (Bld) 15.2 % Critically low 20.5-60.0 [facility] Comment on above: Performed By: #### C BC #### [facility] [address] [place] [address] Dr. Yamileth France MANUAL DIFF REQ NO Normal [facility] Comment on above: Performed By: #### C BC #### [facility] [address] [place] [address] Dr. Yamileth France MCH (RBC) [Entitic mass] 31.0 pg Normal 26.7-34.0 [facility] Comment on above: Performed By: #### C BC #### [facility] [address] [place] [address] Dr. Yamileth France MCHC (RBC) [Mass/Vol] 35.4 g/dL Critically high 29.9-35.2 [facility] Comment on above: Performed By: #### C BC #### [facility] [address] [place] [address] [address] Yamileth France MCV (RBC) [Entitic vol] 87.6 fL Normal 81.0-99.0 [facility] Comment on above: Performed By: #### C BC #### [facility] [address] [place] [address] [address] Yamileth France MONO # 0.7 103/ul Normal 0.3-0.8 [facility] Comment on above: Performed By: #### C BC #### [facility] [address] [place] [address] [address] Yamileth France Monocytes/100 WBC (Bld) 12.5 % Critically high 1.7-12.0 [facility] Comment on above: Performed By: #### C BC #### [facility] [address] [place] [address] [address] Yamileth France NEUT # 3.8 103/ul Normal 1.4-6.5 [facility] Comment on above: Performed By: #### C BC #### [facility] [address] [place] [address] [address] Yamileth France Neutrophils/100 WBC (Bld) 65.6 % Normal 43.0-75.0 [facility] Comment on above: Performed By: #### C BC #### [facility] [address] [place] [address] [address] Yamileth France Platelet mean volume (Bld) [Entitic vol] 9.7 fL Normal 9.5-13.5 [facility] Comment on above: Performed By: #### C BC #### [facility] [address] [place] [address] [address] Yamileth France PLT 198 103/ul Normal 150-450 [facility] Comment on above: Performed By: #### C BC #### [facility] [address] [place] [address] [address] Yamileth France RBC 4.77 106/ul Normal 4.20-5.40 [facility] Comment on above: Performed By: #### C BC #### [facility] [address] [place] [address] Dr. Yamileth France WBC 5.8 103/ul Normal 4.0-11.0 [facility] Comment on above: Performed By: #### C BC #### [facility] [address] [place] [address] Dr. Yamileth France D-DIMERon 10-21-2022 D-DIMER 0.31 mg/L FEU Normal <=0.59 [facility] Comment on above: Performed By: #### D DIM #### [facility] [address] [place] [address] Dr. Yamileth France D-DIMER COMMENTS SEE BELOW Normal [facility] Comment on above: Result Comment: Incr [...] hospitalization. Performed By: #### D DIM #### [facility] [address] [place] [address] Dr. Yamileth France FREE T4on 10-21-2022 Free T4 [Mass/Vol] 1.05 ng/dL Normal 0.76-1.46 [facility] Comment on above: Performed By: #### F T4 #### [facility] [address] [place] [address] Dr. Yamileth France PROF 14(COMP METB)on 022 Albumin [Mass/Vol] 3.4 g/dL Normal 3.4-5.0 [facility] Comment on above: Performed By: #### H JOYCE, CMP #### [facility] [address] [place] [address] Dr. Yamileth France Albumin/Globulin [Mass ratio] 1.0 {ratio} Normal [facility] Comment on above: Performed By: #### H JOYCE, CMP #### [facility] [address] [place] [address] [address] Yaimleth France ALP [Catalytic activity/Vol] 63 U/L Normal 46-116 [facility] Comment on above: Performed By: #### H STROPN, CMP #### [facility] [address] [place] [address] [address] Yamileth France ALT [Catalytic activity/Vol] 21 U/L Normal 14-59 [facility] Comment on above: Performed By: #### H STROPN, CMP #### [facility] [facility] [address] [address] [address] Yamileth France Anion gap [Moles/Vol] 9.9 mmol/L [facility] Comment on above: Performed By: #### H STROPN, CMP #### [facility] [address] [address] [address] Yamileth France AST [Catalytic activity/Vol] 18 U/L Normal 15-37 [facility] Comment on above: Performed By: #### H STROPN, CMP #### [facility] [address] [address] [address] Yamileth France Bilirubin [Mass/Vol] 0.3 mg/dL Normal 0.2-1.0 [facility] Comment on above: Performed By: #### H STROPN, CMP #### [facility] [address] [address] [address] Yamileth France Calcium [Mass/Vol] 8.8 mg/dL Normal 8.5-10.1 [facility] Comment on above: Performed By: #### H STROPN, CMP #### [facility] [address] [address] [address] Yamileth France Chloride [Moles/Vol] 99 mmol/L Normal 98-107 [facility] Comment on above: Performed By: #### H STROPN, CMP #### [facility] [address] [address] [address] Yamileth France CO2 [Moles/Vol] 31.2 mmol/L Normal 21.0-32.0 [facility] Comment on above: Performed By: #### H STROPN, CMP #### [facility] [address] [address] [address] Yamileth France Creatinine [Mass/Vol] 0.74 mg/dL Normal 0.55-1.02 [facility] Comment on above: Performed By: #### H STROPN, CMP #### [facility] [address] [address] [address] Yamileth France EGFR-AF BRITISH >60 Normal >=60 [facility] Comment on above: Performed By: #### H STROPN, CMP #### [facility] [address] [address] [address] Yamileth France EGFR-NON AF BRITISH >60 Normal >=60 [facility] Comment on above: Performed By: #### H STROPN, CMP #### [facility] [address] [address] [address] Yamileth France Globulin (S) [Mass/Vol] 3.5 g/dL Normal [facility] Comment on above: Performed By: #### H STROPN, CMP #### [facility] [address] [address] [address] Yamileth France Glucose [Mass/Vol] 111 mg/dL Critically high 74-106 [facility] Comment on above: Performed By: #### H STROPN, CMP #### [facility] [address] [address] [address] Yamileth France Potassium [Moles/Vol] 3.1 mmol/L Critically low 3.5-5.1 [facility] Comment on above: Performed By: #### H STROPN, CMP #### [facility] [address] [address] [address] Yamileth France Protein [Mass/Vol] 6.9 g/dL Normal 6.4-8.2 [facility] Comment on above: Performed By: #### H STROPN, CMP #### [facility] [address] [address] [address] Yamileth France Sodium [Moles/Vol] 137 mmol/L Normal 136-145 [facility] Comment on above: Performed By: #### H STROPN, CMP #### [facility] [address] [address] [address] Yamileth France Urea nitrogen [Mass/Vol] 14.0 mg/dL Normal 7.0-18.0 [facility] Comment on above: Performed By: #### H ASHLEEPN, CMP #### [facility] [address] [address] [address] Yamileth France Urea nitrogen/Creatinin e [Mass ratio] 18.9 mg/mg Normal [facility] Comment on above: Performed By: #### H ASHLEEPN, CMP #### [facility] [address] [address] [address] Yamileth France TROPONIN, HIGH SENSITIVITYon 10-21-2022 HSTROP 4.7 pg/mL Normal 4.0-51.3 [facility] Comment on above: Result Comment: CUT- OFF POINTS HAVE BEEN ESTABLISHED BASED ON THE FOURTH UNIVERSAL DEFINITIONS OF MYOCARDIAL INFARCTION. THE UPPER REFERENCE LIMIT (URL) OF TROPONIN, DEFINED THE 99TH PERCENTILE OF cTnI DISTRIBUTION IN A REFERENCE POPULATION, HAS BEEN CONFIRMED THE DECISION THRESHOLD FOR SD DIAGNOSIS. Performed By: #### H JOYCE, CMP #### [facility] [address] [address] [address] Yamileth France TSHon 10-21-2022 TSH 2.173 uIU/mL Normal 0.358-3.740 [facility] Comment on above: Performed By: #### T SH #### [facility] [address] [address] [address] Yamileth France XR CHEST 1 Von [...] GIULIA GERMAIN Date: 2022-10-21 04:26 Normal [facility] SCREENING MAMMOGRAM W/MARYCRUZ, BILATERAL*on 07-25-2022 [...] VERY IMPORTANT TO YOUR HEALTH. THE CURRENT [place] [employer] GUIDELINES RECOMMENDS ANNUAL MAMMOGRAPHY BEGINNING AT AGE 40 THIS FACILITY USES A REMINDER SYSTEM TO ENSURE ALL PATIENTS RECEIVE REMINDER NOTIFICATIONS AT THE APPROPRIATE TIME BASED ON THE RECOMMENDATIONS OF THIS EXAM. Report reported and signed by Zane Quinteros on 07/25/2022 1154 Normal [facility] [employer] Vital Signs Date Time Vital Sign Value Performing Clinician Faci lity 07-02-2025 11:49-0400 Body height 163.2 cm Rene Lynch MD Work Phone: [facility] 07-02-2025 11:49-0400 Body mass index (BMI) [Ratio] 24.29 kg/m2 Rene Lynch MD Work Phone: [facility] 07-02-2025 11:49-0400 Body temperature 97.5 [degF] Rene Lynch MD Work Phone: [facility] 07-02-2025 11:49-0400 Body weight 64.68 kg Rene Lynch MD Work Phone: [facility] 07-02-2025 11:49-0400 Diastolic blood pressure 68 mm[Hg] Rene Lynch MD Work Phone: [facility] 07-02-2025 11:49-0400 Heart rate 92 /min Rene Lynch MD Work Phone: [facility] 07-02-2025 11:49-0400 SaO2% (BldA) [Mass fraction] 98 % Rene Lynch MD Work Phone: [facility] 07-02-2025 11:49-0400 Systolic blood pressure 130 mm[Hg] Rene Lynch MD Work Phone: [facility] 03-17-2025 10:20-0400 Body mass index (BMI) [Ratio] 25.55 kg/m2 Kamala Nataprawira DO Work Phone: [facility] 03-17-2025 10:20-0400 Body weight 68.04 kg Kamala Nataprawira DO Work Phone: [facility] 03-17-2025 10:20-0400 Diastolic blood pressure 72 mm[Hg] Kamala Nataprawira DO Work Phone: [facility] 03-17-2025 10:20-0400 Systolic blood pressure 116 mm[Hg] Kamala Nataprawira DO Work Phone: [facility] 12-05-2024 10:46-0500 Blood Pressure Location Inez JONES [facility] 12-05-2024 10:46-0500 Body temperature 98.6 [degF] Inez JONES [facility] 12-05-2024 10:46-0500 Diastolic blood pressure 84 mm[Hg] Inez JONES [facility] 12-05-2024 10:46-0500 Heart rate 68 /min Inez JONES [facility] 12-05-2024 10:46-0500 Respiratory rate 16 /min Inez JONES [facility] 12-05-2024 10:46-0500 Systolic blood pressure 134 mm[Hg] Inez JONES [facility] 11-18-2024 09:22-0500 Body height 163.83 cm [facility] 11-18-2024 09:22-0500 Body mass index (BMI) [Ratio] 24.5 kg/m2 [facility] 11-18-2024 09:22-0500 Body weight 65.77 kg [facility] 09-22-2024 13:15-0500 Body height 163.2 cm Jenny Pump WAGE AND SALARY ADMINISTRATOR Work Phone: [facility] 09-22-2024 13:15-0500 Body mass index (BMI) [Ratio] 25.45 kg/m2 Jenny Pump WAGE AND SALARY ADMINISTRATOR Work Phone: [facility] 09-22-2024 13:15-0500 Body weight 67.77 kg Jenny Pump WAGE AND SALARY ADMINISTRATOR Work Phone: [facility] 09-22-2024 13:15-0500 Diastolic blood pressure 82 mm[Hg] Jenny Pump WAGE AND SALARY ADMINISTRATOR Work Phone: [facility] 09-22-2024 13:15-0500 Heart rate 100 /min Jenny Pump WAGE AND SALARY ADMINISTRATOR Work Phone: [facility] 09-22-2024 13:15-0500 Systolic blood pressure 124 mm[Hg] Jenny Pump WAGE AND SALARY ADMINISTRATOR Work Phone: [facility] 08-07-2024 13:10-0400 Body mass index (BMI) [Ratio] 25.11 kg/m2 Wendy Desouza WAGE AND SALARY ADMINISTRATOR Work Phone: [facility] 08-07-2024 13:10-0400 Body weight 67.41 kg Wendy Desouza WAGE AND SALARY ADMINISTRATOR Work Phone: [facility] 08-07-2024 13:10-0400 Diastolic blood pressure 82 mm[Hg] Wendy Desouza WAGE AND SALARY ADMINISTRATOR Work Phone: [facility] 08-07-2024 13:10-0400 Heart rate 100 /min Wendy Desouza WAGE AND SALARY ADMINISTRATOR Work Phone: [facility] 08-07-2024 13:10-0400 Systolic blood pressure 126 mm[Hg] Wendy Desouza WAGE AND SALARY ADMINISTRATOR Work Phone: [facility] 02-13-2024 12:57-0400 Blood Pressure Location JER MOJICA [facility] 02-13-2024 12:57-0400 Body temperature 96.8 [degF] JER YUNIOR [facility] 02-13-2024 12:57-0400 Diastolic blood pressure 82 mm[Hg] JER YUNIOR [facility] 02-13-2024 12:57-0400 Heart rate 84 /min JER YUNIOR [facility] 02-13-2024 12:57-0400 Systolic blood pressure 128 mm[Hg] JER YUNIOR [facility] 01-30-2024 13:13-0400 Body temperature 98.6 [degF] JER YUNIOR [facility] 01-30-2024 13:13-0400 Diastolic blood pressure 84 mm[Hg] JER YUNIOR [facility] 01-30-2024 13:13-0400 Respiratory rate 14 /min JER YUNIOR [facility] 01-30-2024 13:13-0400 Systolic blood pressure 128 mm[Hg] JER YUNIOR [facility] 01-23-2024 13:10-0400 Blood Pressure Location JER YUNIOR [facility] 01-23-2024 13:10-0400 Body temperature 98.6 [degF] JER YUNIOR [facility] 01-23-2024 13:10-0400 Diastolic blood pressure 88 mm[Hg] JER YUNIOR [facility] 01-23-2024 13:10-0400 Heart rate 78 /min JER YUNIOR [facility] 01-23-2024 13:10-0400 Systolic blood pressure 122 mm[Hg] JER YUNIOR [facility] 01-16-2024 13:29-0400 Blood Pressure Location JER YUNIOR [facility] 01-16-2024 13:29-0400 Diastolic blood pressure 77 mm[Hg] JER YUNIOR [facility] 01-16-2024 13:29-0400 Heart rate 90 /min JER YUNIOR [facility] 01-16-2024 13:29-0400 Systolic blood pressure 125 mm[Hg] JER YUNIOR [facility] 01-09-2024 12:59-0400 Blood Pressure Location JER YUNIOR [facility] 01-09-2024 12:59-0400 Diastolic blood pressure 93 mm[Hg] JER YUNIOR [facility] 01-09-2024 12:59-0400 Heart rate 70 /min JER YUNIOR [facility] 01-09-2024 12:59-0400 Systolic blood pressure 129 mm[Hg] JER YUNIOR [facility] 12-07-2023 11:32-0500 Blood Pressure Location Inez JONES [facility] 12-07-2023 11:32-0500 Diastolic blood pressure 79 mm[Hg] Inez JONES [facility] 12-07-2023 11:32-0500 Heart rate 97 /min Inez JONES [facility] 12-07-2023 11:32-0500 Respiratory rate 16 /min Inez JONES [facility] 12-07-2023 11:32-0500 Systolic blood pressure 124 mm[Hg] Inez JONES [facility] 11-19-2023 09:15-0500 Body height 166.37 cm Andrea Gunter Other [employer] Other 11-19-2023 09:15-0500 Body mass index (BMI) [Ratio] 23.92 kg/m2 Andrae Gunter Other [employer] Other 11-19-2023 09:15-0500 Body weight 66.23 kg Andrea Gunter Other [employer] Other 11-19-2023 09:15-0500 Diastolic blood pressure 76 mm[Hg] Andrea Gunter Other [employer] Other 11-19-2023 09:15-0500 Systolic blood pressure 117 mm[Hg] Andrea Gunter Other [employer] Other 09-18-2023 09:17-0500 Diastolic blood pressure 78 mm[Hg] MD Glenna Keita Work Phone: [facility] 09-18-2023 09:17-0500 Heart rate 80 /min MD Glenna Keita Work Phone: [facility] 09-18-2023 09:17-0500 Respiratory rate 16 /min MD Glenna Keita Work Phone: [facility] 09-18-2023 09:17-0500 SaO2% (BldA) [Mass fraction] 100 % MD Glenna Keita Work Phone: [facility] 09-18-2023 09:17-0500 Systolic blood pressure 118 mm[Hg] MD Glenna Keita Work Phone: [facility] 09-18-2023 07:41-0500 Body height 165.1 cm MD Glenna Keita Work Phone: [facility] 09-18-2023 07:41-0500 Body weight 63.04 kg MD Glenna Keita Work Phone: [facility] 02-28-2023 12:00-0400 Body height 166.37 cm Andrea Gunter Other [employer] Other 02-28-2023 12:00-0400 Body mass index (BMI) [Ratio] 24.58 kg/m2 Andrea Gunter Other [employer] Other 02-28-2023 12:00-0400 Body weight 68.04 kg Andrea Gunter Other [employer] Other 02-28-2023 12:00-0400 Diastolic blood pressure 96 mm[Hg] Andrea Gunter Other [employer] Other 02-28-2023 12:00-0400 Systolic blood pressure 137 mm[Hg] Andrea Gunter Other [employer] Other 12-08-2022 10:46-0500 Blood Pressure Location Inez JONES [facility] 12-08-2022 10:46-0500 Diastolic blood pressure 74 mm[Hg] Inez JONES [facility] 12-08-2022 10:46-0500 Heart rate 68 /min Inez JONES [facility] 12-08-2022 10:46-0500 Respiratory rate 16 /min Inez JONES [facility] 12-08-2022 10:46-0500 Systolic blood pressure 122 mm[Hg] Inez JONES [facility] 02-27-2022 11:00-0400 Body height 166.37 cm Andrea Gunter Other [employer] Other 02-27-2022 11:00-0400 Body mass index (BMI) [Ratio] 24.58 kg/m2 Andrea Gunter Other [employer] Other 02-27-2022 11:00-0400 Body weight 68.04 kg Andrea Gunter Other [employer] Other 01-04-2022 10:45-0400 Body height 166.37 cm Andrea Gunter Other [employer] Other 01-04-2022 10:45-0400 Body mass index (BMI) [Ratio] 25.4 kg/m2 Andrea Gunter Other [employer] Other 01-04-2022 10:45-0400 Body weight 70.31 kg Andrea Gunter Other [employer] Other 10-03-2021 11:30-0500 Body height 166.37 cm Andrea Gunter Other [employer] Other 10-03-2021 11:30-0500 Body mass index (BMI) [Ratio] 25.07 kg/m2 Andrea Gunter Other [employer] Other 10-03-2021 11:30-0500 Body weight 69.4 kg Andrea Gunter Other [employer] Other Encounters Encounter Date Encounter Type Care Provider Facility Start: 12-07-2025 ambulatory Inez Tse ty:POLLO Bro Start: 07-08-2025 ambulatory Inez Tse ty:POLLO Durandy Start: 07-02-2025 End: 07-02-2025 Cheryl Lynch MD Work Phone: [facility] Start: 07-02-2025 End: 07-02-2025 Cheryl Lynch MD Work Phone: [facility] [place] [facility] Start: 07-02-2025 End: 07-02-2025 ambulatory RENE LYNCH Not Available Start: 07-02-2025 End: 07-02-2025 Office outpatient visit 15 minutes Rene Lynch MD Work Phone: [facility] Comment on above: Dysuria (Primary Dx) ; Acute cystitis with hematuria Start: 05-11-2025 End: 05-11-2025 ambulatory KAMALA CHANCE Not Available Start: 03-17-2025 End: 03-17-2025 Office outpatient visit 15 minutes Kamala Chance DO Work Phone: [facility] Comment on above: Vaginal dryness, men opausal (Primary Dx); Osteoporosis, post-menopausal (CMS/HCC); Postmenopausal; Constipation, unspecified constipation type; Screening breast examination; Hx of hysterectomy for benign disease; Hx of BSO (bilateral salpingo-oophorectomy) Start: 03-17-2025 End: 03-17-2025 ambulatory KAMALA Walker MERON Not Available Start: 12-05-2024 End: 12-05-2024 ambulatory Inez JONES Facility:[facility] Start: 12-05-2024 End: 12-05-2024 Patient encounter procedure Inez JONES [facility] Start: 12-02-2024 End: 12-02-2024 Clinisync Result Encounter Generic External Data Provider [facility] External Department Unsolicited Start: 12-02-2024 End: 12-02-2024 Clinisync Result Encounter Generic External Data Provider [facility] External Department Unsolicited Start: 11-18-2024 End: 11-18-2024 ambulatory [facility] Work Phone: Start: 11-18-2024 End: 11-18-2024 Patient encounter procedure [facility] Work Phone: Start: 11-10-2024 End: 11-10-2024 ambulatory KAMALA Walker MERON Not Available Start: 11-06-2024 End: 11-06-2024 ambulatory GLENNA Perez WONDERLY Not Available Start: 09-22-2024 End: 09-22-2024 Bamboo flowsheet Jenny Pump WAGE AND SALARY ADMINISTRATOR Work Phone: [facility] Start: 09-22-2024 End: 09-22-2024 Bamboo flowsheet Jenny Pump WAGE AND SALARY ADMINISTRATOR Work Phone: [facility] Start: 09-22-2024 End: 09-22-2024 Refill Jenny Pump WAGE AND SALARY ADMINISTRATOR Work Phone: [facility] Comment on above: Hemorrhoids, unspeci fied hemorrhoid type Start: 09-22-2024 End: 09-22-2024 ambulatory JENNY PUMP Not Available Start: 09-22-2024 End: 09-22-2024 Patient encounter status Jenny Pump WAGE AND SALARY ADMINISTRATOR Work Phone: [facility] Work Phone: Start: 09-22-2024 End: 09-22-2024 Periodic preventive med est patient 40-64yrs Jenny Pump WAGE AND SALARY ADMINISTRATOR Work Phone: [facility] Comment on [...] 08-11-2024 End: 08-11-2024 Telephone encounter Wendy Desouza NP Work Phone: [facility] Comment on above: Results Start: 08-07-2024 End: 08-07-2024 Bamboo flowsheet Wendy Desouza WAGE AND SALARY ADMINISTRATOR Work Phone: [facility] Start: 08-07-2024 End: 08-07-2024 Bamboo flowsheet Wendy Desouza WAGE AND SALARY ADMINISTRATOR Work Phone: [facility] Start: 08-07-2024 End: 08-07-2024 ambulatory WENDY DESOUZA Not Available Start: 08-07-2024 End: 08-07-2024 Office outpatient visit 15 minutes Wendy Desouza NP Work Phone: [facility] Comment on above: Dysuria (Primary Dx) ; Urine frequency; Urinary urgency Start: 02-13-2024 End: 02-13-2024 Patient encounter procedure JER MOJICA [facility] [employer] Start: 02-06-2024 End: 02-06-2024 Patient encounter procedure JER Olmos YUNIOR [facility] [employer] Start: 01-30-2024 End: 01-30-2024 Patient encounter procedure JER ELAMRY [facility] [employer] Start: 01-23-2024 End: 01-23-2024 Patient encounter procedure JER ELAMRY [facility] [employer] Start: 01-16-2024 End: 01-16-2024 Patient encounter procedure JER ELAMRY [facility] [employer] Start: 01-09-2024 End: 01-09-2024 Patient encounter procedure JER Olmos YUNIOR [employer] Start: 12-07-2023 End: 12-07-2023 Patient encounter procedure Inez JONES [facility] [employer] Start: 11-19-2023 End: 11-19-2023 ambulatory Andrea Gunter Other [employer] Other Start: 11-19-2023 Office outpatient visit 15 minutes Andrea Gunter [facility] Start: 09-21-2023 End: 09-21-2023 ambulatory Andrea Gunter Other [employer] Other Start: 09-21-2023 Telephone encounter Andrea martínez [facility] Start: 09-18-2023 End: 09-18-2023 ambulatory Glenna Keita Facility:[facility] Start: 09-18-2023 End: 09-18-2023 Admission to same day surgery center MD Glenna Keita Work Phone: [facility] Work Phone: Start: 09-18-2023 End: 09-18-2023 ambulatory MD Glenna Keita Work Phone: [facility] Work Phone: Start: 02-28-2023 End: 02-28-2023 ambulatory Andrea Gunter Other [employer] Other Start: 02-28-2023 Office outpatient visit 15 minutes Andrea Gunter [facility] Start: 12-08-2022 End: 12-08-2022 Patient encounter procedure Inez JONES [facility] Start: 12-06-2022 End: 12-07-[address] INEZ JONES . Facility:[facility] Start: 10-21-2022 End: 10-21-[address] GLENNA KEITA Facility: Start: 07-25-2022 End: 07-25-2022 ambulatory Andrea Gunter Other [employer] Other Start: 07-25-2022 Telephone encounter Andrea martínez [facility] Start: 02-27-2022 End: 02-27-2022 ambulatory Andrea Gunter Other [employer] Other Start: 02-27-2022 Office outpatient visit 15 minutes Andrea Gunter [facility] Start: 01-04-2022 End: 01-04-2022 ambulatory Andrea Gunter Other [employer] Other Start: 01-04-2022 Office outpatient visit 15 minutes Andrea Gunter [facility] Start: 10-03-2021 End: 10-03-2021 ambulatory Andrea Gunter Other [employer] Other Start: 10-03-2021 Office outpatient ne w 45 minutes Andrea Lyric [facility] Procedures Date Procedure Procedure Detail Performing Clinician Start: 07-02-2025 Urnls dip stick/tablet rgnt non-auto w/o micrscp Rene Lynch MD Work Phone: Start: 05-11-2025 Mammography Rene Lynch MD Work Phone: Start: 12-02-2024 XR ABDOMEN 1V Generic External Data Provider Start: 11-10-2024 Mammography Generic Provider Start: 10-10-2023 Mammography Wendy Desouza NP Work Phone: Start: 09-18-2023 Esophagogastroduodenoscopy MD Glenna Frederick rly Work Phone: Start: 09-18-2023 Colonoscopy Wendy Desouza WAGE AND SALARY ADMINISTRATOR Work Phone: Start: 12-30-2020 Extracorporeal shockwave lithotripsy of calculus of kidney Inez JONES Start: 06-22-2020 Cystoscope, device (physical object) Inez JONES Start: 06-22-2020 Cystoscopy Inez JONES Start: 10-10-2018 cysto/UD Inez JONES Start: 09-20-2017 RT ESWL Inez JONES Start: 02-03-2016 R stent removal Inez JONES Start: 01-27-2016 bladder BX/ B/L ESWL, R stent placement Inez JONES Start: 09-28-2015 Cysto/UD Inez JONES Start: 12-07-2015 R ESWL Inez JONES Start: 02-01-2012 cysto/UD/stone basket extraction Inez JONES Start: 10-06-2011 cysto/ L stent removal Inez JONES Start: 09-21-2011 cysto/stone basket/ L stent placement Inez JONES Start: 09-11-2011 cysto Inez JONES Start: 07-22-2005 Abdominal hysterectomy and left salpingo-oophorectomy Inez JONES Start: 07-22-2005 Abdominal hysterectomy and right salpingo-oophorectomy Inez JONES Colonoscopy and biopsy of colon Inez JONES Plan of Treatment Date Care Activity Detail Author Start: 09-18-2033 Screening for malign ant neoplasm of colon [facility] Start: 05-11-2026 Screening for malign ant neoplasm of breast Mammogram [facility] Start: 03-18-2026 End: 03-18-2026 Patient encounter procedure 03/18/2026 9:45 AM EDT Office Visit DEEPIKA Stanleychad DA SILVA [address] [place] D [address] [address] Kamala Chance DO [address] [address] [facility] Start: 11-10-2025 Screening for malign ant neoplasm of breast Mammogram [facility] Start: 09-22-2025 Medicare Annual Well ness (AWV) Medicare Annual Wellness (AWV) [facility] Start: 07-02-2025 End: 07-02-2026 Bacteria identified in Urine by Culture Urine culture (clean catch) Microbiology Routine Dysuria Expected: 07/02/2025 (Approximate), Expires: 07/02/2026 [facility] Work Phone: Comment on above: Expected: 07/02/2025 (Approximate), Expires: 07/02/2026 Start: 06-22-2025 Influenza vaccination [facility] Start: 05-11-2025 End: 05-11-2025 Professional / ancillary services management [facility] Start: 03-17-2025 End: 03-17-2025 Patient encounter procedure 03/17/2025 10:15 AM EDT Office Visit [facility] [address] BALTAZAR D [address] [address] Kamala Chance DO [address] [address] [facility] Start: 10-10-2024 Screening for malign ant neoplasm of breast Mammogram [facility] Start: 10-02-2024 Influenza vaccination Influenza Vacc ine (#1) [facility] Comment on above: Postponed from 06/22 (Patient Refused) Start: 09-22-2024 End: 09-22-2025 25-hydroxyvitamin D3 [Mass/volume] in Serum or Plasma Vitamin D 25 hydroxy Lab Routine Osteopenia, unspecified location Vitamin D deficiency Expected: 09/22/2024 (Approximate), Expires: 09/22/2025 [facility] Comment on above: Expected: 09/22/2024 (Approximate), Expires: 09/22/2025 Start: 09-22-2024 End: 09-22-2025 CBC W Auto Differential panel - Blood CBC and differential Lab Routine Wellness examination Ulcerative colitis with complication, unspecified location (CMS/HCC) Expected: 09/22/2024 (Approximate), Expires: 09/22/2025 [facility] Work Phone: Comment on above: Expected: 09/22/2024 (Approximate), Expires: 09/22/2025 Start: 09-22-2024 End: 09-22-2025 Comprehensive metabolic 2000 panel - Serum or Plasma Comprehensive metabolic panel Lab Routine Wellness examination Osteopenia, unspecified location Ulcerative colitis with complication, unspecified location (CMS/HCC) Expected: 09/22/2024 (Approximate), Expires: 09/22/2025 [facility] Comment on above: Expected: 09/22/2024 (Approximate), Expires: 09/22/2025 Start: 09-22-2024 End: 09-22-2025 Lipid 1996 panel - Serum or Plasma Lipid panel Lab Routine Wellness examination Expected: 09/22/2024 (Approximate), Expires: 09/22/2025 [facility] Comment on above: Expected: 09/22/2024 (Approximate), Expires: 09/22/2025 Start: 09-22-2024 End: 09-22-2025 Thyrotropin [Units/volume] in Serum or Plasma TSH Lab Routine Wellness examination Anxiety, generalized (CMS/HCC) Fatigue, unspecified type Hair loss Expected: 09/22/2024 (Approximate), Expires: 09/22/2025 [facility] Comment on above: Expected: 09/22/2024 (Approximate), Expires: 09/22/2025 Start: 09-22-2024 End: 09-22-2025 Thyroxine (T4) free [Mass/volume] in Serum or Plasma T4, free Lab Routine Wellness examination Anxiety, generalized (CMS/HCC) Fatigue, unspecified type Hair loss Expected: 09/22/2024 (Approximate), Expires: 09/22/2025 [facility] Comment on above: Expected: 09/22/2024 (Approximate), Expires: 09/22/2025 Start: 09-22-2024 End: 09-22-2025 Triiodothyronine (T3) Free [Mass/volume] in Serum or Plasma T3, free Lab Routine Wellness examination Anxiety, generalized (CMS/HCC) Fatigue, unspecified type Hair loss Expected: 09/22/2024 (Approximate), Expires: 09/22/2025 [facility] Comment on above: Expected: 09/22/2024 (Approximate), Expires: 09/22/2025 Start: 08-07-2024 End: 08-07-2025 URINALYSIS, COMPLETE W/REFLEX TO CULTURE URINALYSIS, COMPLETE W/REFLEX TO CULTURE Lab Routine Urine frequency Expected: 08/07/2024 (Approximate), Expires: 08/07/2025 [facility] Work Phone: Comment on above: Expected: 08/07/2024 (Approximate), Expires: 08/07/2025 Start: 06-22-2024 Influenza vaccination Influenza Vacc ine (#1) [facility] Start: 09-18-2023 [facility] Start: 02-24-2010 Pneumococcal Vaccine : 65+ Years (1 of 1 - PCV) Pneumococcal Vaccine: 65+ Years (1 of 1 - PCV) [facility] Start: 1960 Screening for malign ant neoplasm of colon [facility] Patient Education Colon Polypectomy (DC) [facility] Work Phone: Immunizations Immunization Date Immunization Notes Care Provider Fa cili 09-20-2023 influenza virus vaccine, unspecified formulation Inez JONES [facility] 09-20-2023 influenza, injectabl e, quadrivalent, preservative free Wendy Desouza NP Work Phone: [facility] 08-10-2022 SARS-CoV-2 (COVID-19 ) [id number] Inez JONES [facility] 01-30-2022 SARS-CoV-2 mRNA (uvruntlcsza-cwci-dpbzz se) vaccine Inez JONES [facility] 09-03-2021 SARS-CoV-2 (COVID-19 ) Ad26 vaccine, recombinant Inez JONES [facility] 08-26-2021 SARS-CoV-2 (COVID-19 ) mRNA BNT-162b2 vax Inez JONES [facility] 07-22-2021 influenza virus vaccine, unspecified formulation Inez JONES [facility] 07-05-2021 influenza virus vaccine, unspecified formulation Inez JONES [facility] 07-05-2021 influenza, injectabl e, quadrivalent, contains preservative Wendy Desouza [employer] SAL[employer] ADMINISTRATOR Work Phone: [facility] 01-31-2021 SARS-CoV-2 (COVID-19 ) mRNA BNT-162b2 vax Inez JONES [facility] 01-29-2021 SARS-CoV-2 (COVID-19 ) mRNA BNT-162b2 vax Inez JONES [facility] 01-10-2021 SARS-CoV-2 (COVID-19 ) mRNA BNT-162b2 vax Inez JONES [facility] 01-04-2021 SARS-CoV-2 (COVID-19 ) mRNA BNT-162b2 vax Inez JONES [facility] 09-13-2019 influenza virus vaccine, unspecified formulation Inez JONES [facility] 09-13-2019 Influenza, injectabl e, Madin Radhika Canine Kidney, preservative free, quadrivalent Wendy Desouza [employer]AGE AND SALARY ADMINISTRATOR Work Phone: [facility] 11-05-2018 influenza virus vaccine, unspecified formulation Inez JONES [facility] 11-05-2018 influenza, injectabl e, quadrivalent, preservative free Wendy Desouza WAGE AND SALARY ADMINISTRATOR Work Phone: [facility] 09-28-2015 influenza, injectabl e, quadrivalent, preservative free Wendy Desouza WAGE AND SALARY ADMINISTRATOR Work Phone: [facility] 11-07-2012 tetanus toxoid, redu matteo diphtheria toxoid, and acellular pertussis vaccine, adsorbed Wendy Desouza WAGE AND SALARY ADMINISTRATOR Work Phone: [facility] Payers Date Payer Category Payer Medicare MEDICARE [id number] 2025 Medicare [id number] 2023 Private Health Insurance [facility] [id number] 2023 Medicaid [id number] 2023 Self-pay [id number] 1960 Unknown [id number] [id number]. 593 1960 Unknown [id number] 2.0.1.611014.3.579.2. 593 1960 Unknown [id number] 2.840.1.772167.3.579.2. 1259 1960 Unknown [id number] 2.0.1.030235.3.579.2. 1259 1960 Unknown [id number] 2.16.840.1.405311.3.579.2. 1258 1960 Unknown [id number] 2.16.840.1.860814.3.579.2. 1258 1960 Unknown [id number] 2.16.840.1.146982.3.579.2. 1258 1960 Unknown [id number] 2.16.840.1.664472.3.579.2. 1258 1960 Unknown [id number] 2.16.840.1.542284.3.579.2. 1258 1960 Unknown [id number] 2.16.840.1.145269.3.579.2. 1258 1960 Unknown [id number] 2.16.840.1.836700.3.579.2. 1258 1960 Unknown [id number] 2.16.840.1.053445.3.579.2. 1258 1960 Unknown [id number] 2.16.840.1.651072.3.579.2. 1960 Unknown [id number] 2.16.840.1.711793.3.579.2. 1960 Unknown [id number] 2.16.840.1.656414.3.579.2. 7 1959 Unknown [id number] 2.16840.1.000718.19 Unknown [employer] [facility] [id number] Unknown [id number] [id number]. 531 Unknown [id number] Unknown [id number] Social History Date Type Detail Facility Start: 09-18-2023 End: 07-02-2025 Sex Assigned At [facility] Start: 12-08-2022 End: 09-22-2024 Tobacco smoking status Ex-smoker (finding) [facility] Tobacco smoking status Never [facility] Start: 1960 Sex Assigned At Female F [facility] Start: 10-22-1981 End: 04-10-2005 History of tobacco [...] To some extent [facility] (I/We) worried whequan er (my/our) food would run out before (I/we) got money to buy more. Never true [facility] Start: 09-20-2023 Tobacco Comment Social smoker [facility] Start: 09-20-2023 Alcohol Comment If at all [facility] Start: 07-25-2023 Gender identity Identifies as female gender (finding) [facility] Start: 09-22-2024 End: 07-02-2025 Alcoholic beverage intake Ex-drinker (finding) [facility] Start: 11-18-2024 Sex Female (finding) [facility] Goals Date Patient Goal Desired Activity /State Functional Status Date Assessment Result Facility 12-05-2024 Functional Status N/A [facility] 02-13-2024 Functional Status N/A [facility] 01-30-2024 Functional Status N/A [facility] 01-23-2024 Functional Status N/A [facility] 01-16-2024 Functional Status N/A [facility] 01-09-2024 Functional Status N/A [facility] 12-07-2023 Functional Status N/A [facility] 12-08-2022 Functional Status N/A [facility] Clinical Notes 10-03-2021 to 07-08-2025 Tamra Acharya MA - 07/02/2025 11:40 AM Deny Lynch MD - 07/02/2025 11:40 AM Isa Chance DO - 03/17/2025 10:15 AM EDTAmber Roberto, FAVIAN - 09/22/2024 1:00 PM EST Note Date & Type Note Facility 07-08-2025 Note Patient Education Urology Kidney Stones Kidney stones are rock-like masses that form inside of the kidneys. Kidneys are organs that make pee (urine). A kidney stone may move into other parts of the urinary tract, including: ??? The tubes that connect the kidneys to the bladder (ureters). ??? The bladder. ??? The tube that carries urine out of the body (urethra). Kidney stones can cause very bad pain and can block the flow of pee. The stone usually leaves your body through your pee. A doctor may need to take out the stone. What are the causes? Kidney stones may be caused by: ??? Too much calcium in the body. This may be caused by too much parathyroid hormone in the blood. ??? Uric acid crystals in the bladder. The body makes uric acid when you eat certain foods. ??? Narrowing of one or both of the ureters. ??? A kidney blockage that you were born with. ??? Past surgery on the kidney or the ureters. What increases the risk? You are more likely to develop this condition if: ??? You have had a kidney stone in the past. ??? Other people in your family have had kidney stones. ??? You do not drink enough water. ??? You eat a diet that is high in protein, salt (sodium), or sugar. ??? You are very overweight (obese). What are the signs or symptoms? Symptoms of a kidney stone may include: ??? Pain in the side of the belly, right below the ribs. Pain usually spreads to the groin. ??? Needing to pee often or right away. ??? Pain when peeing. ??? Blood in your pee. ??? Feeling like you may vomit (nauseous). ??? Vomiting. ??? Fever and chills. How is this treated? Treatment depends on the size, location, and makeup of the kidney stones. The stones will often pass out of the body when you pee. You may need to: ??? Drink more fluid to help pass the stone. ? In some cases, you may be given fluids through an IV tube at the hospital. ??? Take medicine for pain. ??? Change your diet to help keep kidney stones from coming back. Sometimes, you may need: ??? A procedure to break up kidney stones using a beam of light (laser) or shock waves. ??? Surgery to remove the kidney stones. Follow these instructions at home: Medicines ??? Take jqpz-dhz-zrmhorp and prescription medicines only as told by your doctor. ??? Ask your doctor if the medicine prescribed to you requires you to avoid driving or using machinery. Eating and drinking ??? Drink enough fluid to keep your pee pale yellow. ? You may be told to drink at least 8?10 glasses of water each day. This will help you pass the stone. ??? If told by your doctor, change your diet. You may be told to: ? Limit how much salt you eat. ? Eat more fruits and vegetables. ? Limit how much meat, poultry, fish, and eggs you eat. ??? Follow instructions from your doctor about what you may eat and drink. General instructions ??? Collect pee samples as told by your doctor. You may need to collect a pee sample: ? 24 hours after a stone comes out. ? 8?12 weeks after a stone comes out, and every 6?12 months after that. ??? Strain your pee every time you pee. Use the strainer that your doctor recommends. ??? Do not throw out the stone. Keep it so that it can be tested by your doctor. ??? Keep all follow-up visits. You may need X-rays and ultrasounds to make sure the stone has come out. How is this prevented? To prevent another kidney stone: ??? Drink enough fluid to keep your pee pale yellow. This is the best way to prevent kidney stones. ??? Eat healthy foods. ??? Avoid certain foods as told by your doctor. You may be told to eat less protein. ??? Stay at a healthy weight. Where to find more information ??? National Kidney Foundation (NKF): kidney.org ??? U[employer] Care Foundation (UCF): urologyhealth.org Contact a doctor if: ??? You have pain that gets worse or does not get better with medicine. Get help right away if: ??? You have a fever or chills. ??? You get very bad pain. ??? You get new pain in your belly. ??? You faint. ??? You cannot pee. This information is not intended to replace advice given to you by your health care provider. Make sure you discuss any questions you have with your health care provider. Document Revised: 06/01/2023 Document Reviewed: 06/01/2023 [employer] Patient Education ? 2023 [employer] [facility] 07-02-2025 History of Presen t illness Narrative c Images from the original note were not included. Ja Schwab is a 65 y.o. female presents with chief complaint of UTI (Pressure, dysuria, frequency started 2 days ago. Tylenol for pain.) HPI: History of Present Illness The patient is a 65-year-old female who presents for evaluation of urinary tract infection. She has been experiencing pain on her left side since Sunday, which she initially attributed to her known condition of diverticulitis. To manage this, she [...] UNIT/ML liquid Place under the tongue. With [place] clobetasol (Temovate) 0.05 % ointment 1 application [...] cervix 2022 ADHD (attention deficit hyperactivity disorder) 2010 Anxiety 2014? Benign neoplasm of colon Calculus [...] Mother Nhi Adams Heart disease Father Jonnie OlmosNelson oGnzalez Hypertension Father Jonnie OlmosNelson Gonzalez Esophageal cancer Father Jonnie OlmosNelson Gonzalez Diabetes Father Jonnie OlmosNelson Gonzalez Alcohol abuse Father Jonnie OlmosNelson Gonzalez Depression Father Jonnie OlmosNelson Gonzalez Alcohol abuse Sister Hillary Adams Accidental Brother Dylon Bryan Alcohol abuse Brother [...] 30 min Stress: Stress Concern Present (09/18/2023) [employer] - Occupational Stress Questionnaire Feeling of Stress : To some extent Social Connections: Socially Integrated (09/18/2023) Social Connection and Isolation Panel [NHANES] Frequency of Communication with Friends and Family: More than three times a week Frequency of Social Gatherings with Friends and Family: More than three times a week Attends Jewish Services: 1 to 4 times per year [...] 100 92 SpO2 98 % Temp 97.5 F Height (in) 5' 4.5 5' 4.25 5' [...] for monitoring leukocyte esterase, blood, and nitrite levels, and to contact the office if symptoms persist or worsen. Augmentin 875 mg b.I.d. x5 days will be prescribed for treatment. No follow-ups on file. documented in this encounter [facility] 03-17-2025 History of Presen t illness Narrative Images from the original note were not included. Kamala Chance DO Obstetrics and Gynecology Name: Ja Schwab Date/Time of Service:03/17/2025 10:52 AM :1960 Age: 65 y.o. Subjective Ja Schwab is a 65 y.o. female who is here for a routine exam. Gynecologic Exam (Patient here for yearly. Denies problems. Completed mammogram on 11/06/24-BIRADS 0 followed up with left diagnosed mammogram on 11/10/24 which showed benign findings of cyst on left breast. Has appt in March to repeat left diagnostic mammogram and breast ultrasound. Last colonoscopy 08/2023- negative. Up to date on DEXA scan-compatible with osteoporosis with high increased fracture risk.) Control Contraception: status post hysterectomy. LMP: No LMP recorded. Patient has had a hysterectomy. Last Mammogram Results for orders placed in visit on 11/06/24 Bilateral screening mammogram with tomosynthesis Narrative Examination: BI MAMMOGRAM SCREENING TOMOSYNTHESIS BILATERAL Clinical [...] prior study. Axillary lymph nodes noted bilaterally Impression Impression: Asymmetric density left breast as described. [...] ultrasound ELECTRONICALLY SIGNED BY: Raul Keith M.D. Current Outpatient Medications on File Prior to Visit Medication Sig Dispense Refill ALPRAZolam (Xanax) 0.25 MG tablet Take 1 tablet by mouth Daily as needed for anxiety. Alum Hydroxide-Mag Trisilicate (Gaviscon) 80-14.2 MG chewable tablet Chew. amphetamine-dextroamphetamine XR (Adderall XR) 20 MG 24 hr capsule Take 1 capsule by mouth in the morning. Do not crush or chew. . Cholecalciferol (Vitamin D-3) 5000 UNIT/ML liquid Place under the tongue. With [place] clobetasol (Temovate) 0.05 % ointment Apply 1 application topically in the morning and 1 application before bedtime. estradiol (Estrace) 0.1 MG/GM vaginal cream Insert 0.5 g into the vagina 2 (two) times a week hydroCHLOROthiazide (HYDRODiuril) 25 MG tablet Take 1 tablet by mouth in the morning. Klor-Con/EF 25 MEQ effervescent tablet Take 1 tablet by mouth in the morning. lactase (Lactaid) 3000 units tablet Take 3,000 Units by mouth if needed No current facility-administered medications on file prior to visit. Past Medical History: Diagnosis Date Abnormal Pap smear of cervix 2022 ADHD (attention deficit hyperactivity disorder) ([facility]) 2009 Anxiety 2014? Benign neoplasm of colon Calculus in urethra Calculus of kidney and ureter Chronic nonalcoholic liver disease Disorder of liver Disorder of parathyroid gland, unspecified Diverticulitis 07/26/2023 Diverticulosis of colon (without mention of hemorrhage) Elevated hemoglobin (CMS/HCC) 07/26/2023 Esophageal reflux Family history of colon cancer 09/18/2023 Fibrocystic breast 2005? Flank pain 07/26/2023 Hearing loss of right ear, unspecified hearing loss type History of hysterectomy for benign disease 09/19/2023 Hydronephrosis Hydronephrosis 07/26/2023 Insomnia, unspecified Leiomyoma of uterus, unspecified Menopause ovarian failure Hysterectomy 2004 Nocturia 09/19/2023 Osteopenia Osteoporosis ([facility]/HCC) Unspecified Other psoriasis ([facility]) Ovarian cyst ? Overweight (BMI 25.0-29.9) 07/26/2023 Parathyroid disorder ([facility]) Renal calculi 07/26/2023 Renal cyst, right S/P [...] Mother Nhi Adams Heart disease Father Jonnie OlmosNelson Gonzalez Hypertension Father Jonnie OlmosNelson Gonzalez Esophageal cancer Father Jonnie Patti Gonzalez Diabetes Father Jonnie OlmosNelson Gonzalez Alcohol abuse Father Jonnie OlmosNelson Gonzalez Depression Father Jonnie OlmosNelson Gonzalez Alcohol abuse Sister Hillary Adams Accidental Brother Dylon Adams Alcohol abuse Brother Dylon Adams Drug abuse Brother Dylon Adams Dementia Maternal Grandfather Colon cancer Sibling Early natural Brother Jonnie Adams Jr. Colon cancer Brother Jonnie Adams Jr. Social History Tobacco Use Smoking status: Former Current packs/day: 0.00 Average packs/day: 0.3 packs/day for 23.5 years (5.9 ttl pk-yrs) Types: Cigarettes Start date: 10/22/1981 Quit date: 04/10/2005 Years since quittin.9 Passive exposure: Past Smokeless tobacco: Never Tobacco comments: Social smoker Vaping Use Vaping status: Never Used Substance Use Topics Alcohol use: Not Currently Alcohol/week: 0.0 - 2.0 standard drinks of alcohol Comment: If at all Drug use: Never OB History Para Term AB Living 2 2 SAB IAB Ectopic Multiple Live Births 2 # Outcome Date GA Lbr Benigno/2nd Weight Sex Type Anes PTL Lv 2 Vag-Spont SHANELL 1 Vag-Spont SHANELL Obstetric Comments Last pap smear date 09/19/22 ASCUS, HR HPV negative Last mammogram date 08/2022 normal per patient Allergies Allergen Reactions Sulfamethoxazole Other Reaction(s): Swelling of Lip/Tongue/Throat Sulfamethoxazole-Trimethoprim Hives Trimethoprim Other Reaction(s): Swelling of Lip/Tongue/Throat Review of Systems Constitutional: Negative. Respiratory: Negative. Cardiovascular: Negative. Gastrointestinal: Negative. Musculoskeletal: Negative. Skin: Negative. Neurological: Negative. Endocrine: Negative. Objective BP 116/72 Wt 150 lb BMI 25.55 kg/m Body mass index is 25.55 kg/m . Physical Exam Genitourinary: Urethral meatus normal. No lesions in the vagina. Right Labia: No lesions. Left Labia: No lesions. No vaginal discharge. No vaginal prolapse present. Moderate vaginal atrophy present. Right Adnexa: not tender and no mass present. Left Adnexa: not tender and no mass present. Cervix is absent. Uterus is absent. No urethral stress urinary incontinence with cough stress test present. Bladder is not tender. Rectum: External hemorrhoid (non-thrombosed, non-tender to palpation. 9, 2 o'clock position) present. No rectovaginal septum nodularity. Breasts: Right: No mass, nipple discharge, skin change or tenderness. Left: No mass, nipple discharge, skin change or tenderness. HENT: Head: Normocephalic and atraumatic. Mouth/Throat: Mouth: Mucous membranes are moist. Cardiovascular: Rate and Rhythm: Normal rate and regular rhythm. Pulmonary: Effort: Pulmonary effort is normal. Breath sounds: Normal breath sounds. Abdominal: General: Bowel sounds are normal. Palpations: Abdomen is soft. Musculoskeletal: General: No tenderness. Cervical back: Neck supple. Neurological: Mental Status: She is alert and oriented to person, place, and time. Skin: General: Skin is warm and dry. Psychiatric: Mood and Affect: Mood normal. Vitals and nursing note reviewed. Assessment/Plan 1. Vaginal dryness, menopausal (Primary) Continue estrogen cream use. Patient to contact the office when refills needed 2. Osteoporosis, post-menopausal (CMS/HCC) Treatment options discussed. Patient to consider options and to contact the office with her decision 3. Postmenopausal Breast and pelvic exam performed. Discussed findings. Patient to contact the office with any changes to her gynecological condition. 4. Constipation, unspecified constipation type Encouraged patient to increase water and fiber intake 5. Screening breast examination Follow up left breast diagnostic mammogram and ultrasound scheduled, order sent. Will notify patient of results 6. Hx of hysterectomy for benign disease 7. Hx of BSO (bilateral salpingo-oophorectomy) ICD-10-CM 1. Vaginal dryness, menopausal N95.1 2. Osteoporosis, post-menopausal (CMS/HCC) M81.0 3. Postmenopausal Z78.0 4. Constipation, unspecified constipation type K59.00 5. Screening breast examination Z12.39 6. Hx of hysterectomy for benign disease Z90.710 7. Hx of BSO (bilateral salpingo-oophorectomy) Z90.79 Z90.722 Follow up in about 1 year (around 03/17/2026) for Yearly. Kamala Chance DO 03/17/2025 10:52 AM documented in this encounter [facility] 12-05-2024 Hospital Discharg e instructions Patient Education 12/05/2024 11:45:49 Dietary Guidelines to Help Prevent Kidney Stones Dietary Guidelines to Help Prevent Kidney Stones Kidney stones are deposits of minerals and salts that form inside your kidneys. Your risk of developing kidney stones may be greater depending on your diet, your lifestyle, the medicines you take, and whether you have certain medical conditions. Most people can lower their risks of developing kidney stones by following these dietary guidelines. Your dietitian may give you more specific instructions depending on your overall health and the type of kidney stones you tend to develop. What are tips for following this plan? Reading food labels Choose foods with no salt added or low-salt labels. Limit your salt (sodium) intake to less than 1,500 mg a day. Choose foods with calcium for each meal and snack. Try to eat about 300 mg of calcium at each meal. Foods that contain 200 500 mg of calcium a serving include: ?8 oz (237 mL) of milk, zfqeihv-meewolegihum-bhqxv milk, and calcium-fortifiedfruit juice. Calcium-fortified means that calcium has been added to these drinks. ?8 oz (237 mL) of kefir, yogurt, and soy yogurt. ?4 oz (114 g) of tofu. ?1 oz (28 g) of cheese. ?1 cup (150 g) of dried figs. ?1 cup (91 g) of cooked broccoli. ?One 3 oz (85 g) can of sardines or mackerel. Most people need 1,000 1,500 mg of calcium a day. Talk to your dietitian about how much calcium is recommended for you. Shopping Buy plenty of fresh fruits and vegetables. Most people do not need to avoid fruits and vegetables, even if these foods contain nutrients that may contribute to kidney stones. When shopping for convenience foods, choose: ?Whole pieces of fruit. ?Pre-made salads with dressing on the side. ?Low-fat fruit and yogurt smoothies. Avoid buying frozen meals or prepared deli foods. These can be high in sodium. Look for foods with live cultures, such as yogurt and kefir. Choose high-fiber grains, such as whole-wheat breads, oat bran, and wheat cereals. Cooking Do not add salt to food when cooking. Place a salt shaker on the table and allow each person to add their own salt to taste. Use vegetable protein, such as beans, textured vegetable protein (TVP), or tofu, instead of meat in pasta, casseroles, and soups. Meal planning Eat less salt, if told by your dietitian. To do this: ?Avoid eating processed or pre-made food. ?Avoid eating fast food. Eat less animal protein, including cheese, meat, poultry, or fish, if told by your dietitian. To do this: ?Limit the number of times you have meat, poultry, fish, or cheese each week. Eat a diet free of meat at least 2 days a week. ?Eat only one serving each day of meat, poultry, fish, or seafood. ?When you prepare animal proteins, cut pieces into small portion sizes. For most meat and fish, one serving is about the size of the palm of your hand. Eat at least five servings of fresh fruits and vegetables each day. To do this: ?Keep fruits and vegetables on hand for snacks. ?Eat one piece of fruit or a handful of berries with breakfast. ?Have a salad and fruit at lunch. ?Have two kinds of vegetables at dinner. You may be told to limit foods that are high in a substance called oxalate. These include: ?Spinach (cooked), rhubarb, beets, sweet potatoes, and Trinidadian chard. ?Peanuts. ?Potato chips, mohawk fries, and baked potatoes with skin on. ?Nuts and nut products. ?Chocolate. If you regularly take a diuretic medicine, make sure to eat at least 1 or 2 servings of fruits or vegetables that are high in potassium each day. These include: ?Avocado. ?Banana. ?[place], prune, carrot, or tomato juice. ?Baked potato. ?Cabbage. ?Beans and split peas. Lifestyle Drink enough fluid to keep your urine pale yellow. This is the most important thing you can do. Spread your fluid intake throughout the day. If you drink alcohol: ?Limit how much you have to: ?0 1 drink a day for women who are not . ?0 2 drinks a day for men. ?Know how much alcohol is in your drink. In the [place] one drink equals one 12 oz bottle of beer (355 mL), one 5 oz glass of wine (148 mL), or one 1 oz glass of hard liquor (44 mL). Lose weight if told by your health care provider. Work with your dietitian to find an eating plan and weight loss strategies that work best for you. General information Talk to your health care provider and dietitian about taking daily supplements. Depending on your health and the cause of your kidney stones, you may be told: ?Do not take high-dose supplements of vitamin C (1,000 mg a day or more). ?To take a calcium supplement. ?To take a daily probiotic supplement. ?To take other supplements such as magnesium, fish oil, or vitamin B6. Take cxna-ecr-qfblcgs and prescription medicines only as told by your health care provider. These include supplements. What foods should I limit? Limit your intake of the following foods, or eat them as told by your dietitian. Vegetables Spinach. Rhubarb. Beets. Canned vegetables. Pickles. Olives. Baked potatoes with skin. Grains Wheat bran. Baked goods. Salted crackers. Cereals high in sugar. Meats and other proteins Nuts. Nut butters. Large portions of meat, poultry, or fish. Salted, precooked, or cured meats, such as sausages, meat loaves, and hot dogs. Dairy Cheeses. Beverages Regular soft drinks. Regular vegetable juice. Seasonings and condiments Seasoning blends with salt. Salad dressings. Soy sauce. Ketchup. Barbecue sauce. Other foods Canned soups. Canned pasta sauce. Casseroles. Pizza. Lasagna. Frozen meals. Potato chips. Turkish fries. The items listed above may not be a complete list of foods and beverages you should limit. Contact a dietitian for more information. What foods should I avoid? Talk to your dietitian about specific foods you should avoid based on the type of kidney stones you have and your overall health. Fruits Grapefruit. The item listed above may not be a complete list of foods and beverages you should avoid. Contact a dietitian for more information. Summary Kidney stones are deposits of minerals and salts that form inside your kidneys. You can lower your risk of kidney stones by making changes to your diet. The most important thing you can do is drink enough fluid. Drink enough fluid to keep your urine pale yellow. Talk to your dietitian about how much calcium you should have each day, and eat less salt and animal protein as told by your dietitian. This information is not intended to replace advice given to you by your health care provider. Make sure you discuss any questions you have with your health care provider. Document Revised: 01/18/2023 Document Reviewed: 01/18/2023 [employer] Patient Education 2023 [employer]. Follow Up Care 12/07/2023 12:56:11 With:MANPREET BROWN, Inez Ruano, URL Address: [address] [place] [address] [place] [address]- When: Unknown [facility] 12-05-2024 Note Patient Education Nephrology Dietary Guidelines to Help Prevent Kidney Stones Kidney stones are deposits of minerals and salts that form inside your kidneys. Your risk of developing kidney stones may be greater depending on your diet, your lifestyle, the medicines you take, and whether you have certain medical conditions. Most people can lower their risks of developing kidney stones by following these dietary guidelines. Your dietitian may give you more specific instructions depending on your overall health and the type of kidney stones you tend to develop. What are tips for following this plan? Reading food labels ??? Choose foods with no salt added or low-salt labels. Limit your salt (sodium) intake to less than 1,500 mg a day. ??? Choose foods with calcium for each meal and snack. Try to eat about 300 mg of calcium at each meal. Foods that contain 200?500 mg of calcium a serving include: ? 8 oz (237 mL) of milk, gysjtnr-yjofiwqdjcgy-kycdj milk, and calcium-fortifiedfruit juice. Calcium-fortified means that calcium has been added to these drinks. ? 8 oz (237 mL) of kefir, yogurt, and soy yogurt. ? 4 oz (114 g) of tofu. ? 1 oz (28 g) of cheese. ? 1 cup (150 g) of dried figs. ? 1 cup (91 g) of cooked broccoli. ? One 3 oz (85 g) can of sardines or mackerel. Most people need 1,000?1,500 mg of calcium a day. Talk to your dietitian about how much calcium is recommended for you. Shopping ??? Buy plenty of fresh fruits and vegetables. Most people do not need to avoid fruits and vegetables, even if these foods contain nutrients that may contribute to kidney stones. ??? When shopping for convenience foods, choose: ? Whole pieces of fruit. ? Pre-made salads with dressing on the side. ? Low-fat fruit and yogurt smoothies. ??? Avoid buying frozen meals or prepared deli foods. These can be high in sodium. ??? Look for foods with live cultures, such as yogurt and kefir. ??? Choose high-fiber grains, such as whole-wheat breads, oat bran, and wheat cereals. Cooking ??? Do not add salt to food when cooking. Place a salt shaker on the table and allow each person to add their own salt to taste. ??? Use vegetable protein, such as beans, textured vegetable protein (TVP), or tofu, instead of meat in pasta, casseroles, and soups. Meal planning ??? Eat less salt, if told by your dietitian. To do this: ? Avoid eating processed or pre-made food. ? Avoid eating fast food. ??? Eat less animal protein, including cheese, meat, poultry, or fish, if told by your dietitian. To do this: ? Limit the number of times you have meat, poultry, fish, or cheese each week. Eat a diet free of meat at least 2 days a week. ? Eat only one serving each day of meat, poultry, fish, or seafood. ? When you prepare animal proteins, cut pieces into small portion sizes. For most meat and fish, one serving is about the size of the palm of your hand. ??? Eat at least five servings of fresh fruits and vegetables each day. To do this: ? Keep fruits and vegetables on hand for snacks. ? Eat one piece of fruit or a handful of berries with breakfast. ? Have a salad and fruit at lunch. ? Have two kinds of vegetables at dinner. ??? You may be told to limit foods that are high in a substance called oxalate. These include: ? Spinach (cooked), rhubarb, beets, sweet potatoes, and [place] chard. ? Peanuts. ? Potato chips, mohawk fries, and baked potatoes with skin on. ? Nuts and nut products. ? Chocolate. ??? If you regularly take a diuretic medicine, make sure to eat at least 1 or 2 servings of fruits or vegetables that are high in potassium each day. These include: ? Avocado. ? Banana. ? [place], prune, carrot, or tomato juice. ? Baked potato. ? Cabbage. ? Beans and split peas. Lifestyle ??? Drink enough fluid to keep your urine pale yellow. This is the most important thing you can do. Spread your fluid intake throughout the day. ??? If you drink alcohol: ? Limit how much you have to: ? 0?1 drink a day for women who are not . ? 0?2 drinks a day for men. ? Know how much alcohol is in your drink. In the [place] one drink equals one 12 oz bottle of beer (355 mL), one 5 oz glass of wine (148 mL), or one 1? oz glass of hard liquor (44 mL). ??? Lose weight if told by your health care provider. Work with your dietitian to find an eating plan and weight loss strategies that work best for you. General information ??? Talk to your health care provider and dietitian about taking daily supplements. Depending on your health and the cause of your kidney stones, you may be told: ? Do not take high-dose supplements of vitamin C (1,000 mg a day or more). ? To take a calcium supplement. ? To take a daily probiotic supplement. ? To take other supplements such as magnesium, fish oil, or vitamin B6. ??? Take lzpq-dgz-famohgr and prescription medicines only as told by your health (more content not included)... [facility] 09-22-2024 History of Presen t illness Narrative Images from the original note were not included. Ja Schwab is a 64 y.o. female presents with chief complaint of Annual Exam HPI: HPI As above. She follows with urology, [facility], and psychiatry. She sees the dentist every [...] UNIT/ML liquid Place under the tongue. With [place] clobetasol (Temovate) 0.05 % ointment 1 application [...] Diagnosis Date ADHD (attention deficit hyperactivity disorder) ([facility]) 2009 Anxiety 2014? Benign neoplasm of colon Calculus in urethra Calculus of kidney and ureter Chronic nonalcoholic liver disease Disorder of liver Disorder of parathyroid gland, unspecified ([facility]) Diverticulitis 07/26/2023 Diverticulosis of colon (without mention of hemorrhage) Elevated hemoglobin ([facility]) 07/26/2023 Esophageal reflux Family history of colon cancer 09/18/2023 Flank pain 07/26/2023 Hearing loss of right ear, unspecified hearing loss type History of hysterectomy for benign disease 09/19/2023 Hydronephrosis Hydronephrosis 07/26/2023 Insomnia, unspecified Leiomyoma of uterus, unspecified Nocturia 09/19/2023 Osteopenia Osteoporosis ([facility]) Unspecified Other psoriasis (CMS/[facility]) Overweight (BMI 25.0-29.9) 07/26/2023 Parathyroid disorder ([facility]) Renal calculi 07/26/2023 Renal cyst, right S/P [...] abuse Sister Hillary Adams Accidental Brother Dylon Bryan Alcohol abuse Brother Dylon Bryan Drug abuse Brother Dylon Bryan Dementia Maternal Grandfather Colon cancer Sibling Early natural Brother Jnonie Adams Jr. Social History Socioeconomic History Marital [...] 30 min Stress: Stress Concern Present (09/18/2023) [employer] - Occupational Stress Questionnaire Feeling of Stress : To some extent Social Connections: Socially Integrated (09/18/2023) Social Connection and Isolation Panel [NHANES] Frequency of Communication with Friends and Family: More than three times a week Frequency of Social Gatherings with Friends and Family: More than three times a week Attends Jewish Services: 1 to 4 times per year [...] Future Follow up at least annual in [facility] for wellness. documented in this encounter [facility] 08-11-2024 Telephone encounter Note Please let patient know urine culture is negative for infection. See how she's doing. If better she can continue abx until done. If not improved, should see urology. [facility] 08-11-2024 Miscellaneous Notes Please let patient know urine culture is negative for infection. See how she's doing. If better she can continue abx until done. If not improved, should see urology. documented in this encounter [facility] 08-07-2024 History of Presen t [...] UNIT/ML liquid Place under the tongue. With [place] clobetasol (Temovate) 0.05 % ointment 1 application [...] Diagnosis Date ADHD (attention deficit hyperactivity disorder) (CMS/HCC) 2009 Anxiety 2014? Benign neoplasm of colon [...] of uterus, unspecified Nocturia 09/19/2023 Osteopenia Osteoporosis ([facility]) Unspecified Other psoriasis ([facility]) Overweight (BMI 25.0-29.9) 07/26/2023 Parathyroid disorder ([facility]) Renal calculi 07/26/2023 Renal cyst, right S/P [...] Bryan Gonzalez Depression Father Jonnie Armstrong Bryan Carlos Alcohol abuse Sister Hillary Adams Accidental Brother Dylon Bryan Alcohol abuse Brother [...] 30 min Stress: Stress Concern Present (09/18/2023) [employer] - Occupational Stress Questionnaire Feeling of Stress : To some extent Social Connections: Socially Integrated (09/18/2023) Social Connection and Isolation Panel [NHANES] Frequency of Communication with Friends and Family: More than three times a week Frequency of Social Gatherings with Friends and Family: More than three times a week Attends Jewish Services: 1 to 4 times per year [...] wellness after 09/20. documented in this encounter [facility] 02-13-2024 Hospital Discharg e instructions [...] relieve pelvic muscle tension or spasms. Take tvcg-gye-iarwwnd and prescription medicines only as told by [...] Document Reviewed: 02/15/2022 Elsevier Patient Education 2022 [employer]. Follow Up Care 12/19/2023 16:06:38 With:JER MOJICA PA-C, URL Address: [address] [place] [address] [phone] When: Unknown [facility] [place] 01-30-2024 Hospital Discharg e instructions Patient Education [...] nerve stimulation). ?For women, using a medical coding technician to prevent urine leaks. This is a [...] right after experiencing incontinence. General instructions Take pups-qak-dsqzdhd and prescription medicines only as told by [...] important. Where to find more information National [employer] of Diabetes and Digestive and Kidney Diseases: www.niddk.nih.gov [employer]: www.urologyhealth.org Contact a health care [...] provider. Document Revised: 05/13/2021 Document Reviewed: 05/13/2021 [employer] Patient Education 2022 [employer] Follow Up Care 12/19/2023 16:04:38 With:[facility] Address: [address] [place] [address] Business (1) When: Unknown Comments:for procedure as scheduled [facility] 01-23-2024 [facility] Patient Education 01/23/2024 13:33:00 Pelvic [...] relieve pelvic muscle tension or spasms. Take uvzi-fdv-spzfquo and prescription medicines only as told by [...] provider. Document Revised: 02/15/2022 Document Reviewed: 02/15/2022 [employer] Patient Education 2022 [employer]. Follow Up Care 12/19/2023 16:03:24 With:JER MOJICA PA-C, URL Address: [facility] [address] [facility] [address] [phone] When: Unknown Comments:PFPT #4 on 01/30/24 [facility] 01-16-2024 Hospital Discharg e instructions Patient Education [...] relieve pelvic muscle tension or spasms. Take jvqf-qds-klzscae and prescription medicines only as told by [...] provider. Document Revised: 02/15/2022 Document Reviewed: 02/15/2022 [employer] Patient Education 2022 [employer]. Follow Up Care 12/19/2023 16:01:49 With:JER MOJICA PA-C, URL Address: [address] [place] [address] [phone] When: Unknown Comments:PFPT #3 on 01/23/24 [facility] 01-09-2024 Hospital Discharg e instructions Patient Education [...] relieve pelvic muscle tension or spasms. Take orrj-cdg-tnpahig and prescription medicines only as told by [...] provider. Document Revised: 02/15/2022 Document Reviewed: 02/15/2022 [employer] Patient Education 2022 [employer]. Follow Up Care 12/19/2023 16:00:51 With:JER MOJICA PA-C, URL Address: [address] [place], [place] [address] [facility] [place] [address] [phone] When: Unknown Comments:PFPT session #2 on 01/16/24 [facility] 12-07-2023 Hospital Discharg e instructions Patient Education [...] provider. Document Revised: 02/16/2022 Document Reviewed: 02/16/2022 [employer] Patient Education 2022 [employer]. Follow Up Care 12/08/2022 11:38:31 With:MANPREET BROWN, Inez Ruano, URL Address: [address] [place], [place] [id number]- When: Unknown [facility] 11-19-2023 Evaluation note Encounter Date Diagnosis Assessment Notes Oct, Hiatal hernia (ICD-10 - K44.9) Oct, Hemorrhoids (ICD-10 - K64.9) Oct, Sigmoid diverticulosis (ICD-10 - K57.30) Patient advised to increase fiber intake. Patient was give a copy of the low fodmap diet. Oct, Diverticular disease (ICD-10 - K57.90) Rto 1 yr Oct, Tubular adenoma of colon (ICD-10 - D12.6) Repeat colonoscopy in 5 yrs. [facility] Encounter Date Diagnosis Assessment [...] TWICE A DAY TO ONCE A DAY. [facility] Other 02-17-2023 Hospital Discharge instructions Patient Education 12/08/2022 11:23:14 Kidney Stones, Hlcz-kq-Crvv Kidney Stones Kidney stones are rock-like masses [...] Follow these instructions at home: Medicines Take ovks-yru-xtcupbe and prescription medicines only as told by [...] 03/26/2009 Document Revised: 02/24/2020 Document Reviewed: 02/24/2020 D[employer] Patient Education 2019 [employer]. Follow Up Care 12/05/2021 13:35:38 With:MANPREET BROWN, Inez Ruano, URL Address: [address] [place], [place] [id number]- When: Unknown [facility] 10-04-2022 Evaluation note* Encounter Date Diagnosis Assessment Notes Treatment Notes Treatment Clinical Notes Jul, Indigestion (ICD-10 - K30) [facility] Other 05-09-2022 Evaluation note* Encounter Date Diagnosis Assessment Notes Treatment Notes Treatment Clinical Notes February, Indigestion (ICD-10 - K30) PATIENT IS FOLLOWING THE FODMAP DIET AND THIS HAS HELPED. February, Irritable bowel syndrome with constipation (ICD-10 - K58.1) PATIENT STATES THAT THE TRULANCE WAS OVER $600 PATIENT IS USING THE FODMAP DIET AND PROBIOTICS. PATIENT GOES 2 DAYS WITHOUT A BOWEL MOVEMENT [facility] Other 03-16-2022 Evaluation note* Encounter Date Diagnosis Assessment Notes Treatment Notes Treatment Clinical Notes 16 Mar, 2022 Indigestion (ICD-10 - K30) Continue Omeprazole without change Dec, Irritable bowel syndrome with constipation (ICD-10 - K58.1) Start Trulance 3mg daily - samples given to patient Start low fodmap diet - education given to patient [facility] Other 12-13-2021 Evaluation note* Encounter Date Diagnosis Assessment Notes Treatment Notes Treatment Clinical Notes Sep, Indigestion (ICD-10 - K30) PATIENT STATES HAVING BREAKTHROUGH PATIENT DOES CONTINUE ON THE OMEPRAZOLE 40 ONCE A DAY WILL INCREASE OMEPRAZOLE TO 40 TWICE A DAY [employer] Other Evaluation + Plan note Future Appointments Appointment Date:12/07/2023 10:45:00 AM Scheduled Provider:Inez JONES MD Location:[facility] Appointment Type:URO Office Visit [facility] evaluation + Plan note Future Appointments Appointment Date:12/05/2024 10:45:00 AM Scheduled Provider:Inez JONES MD Location:[facility] Appointment Type:URO Office Visit [facility] evaluation + Plan note Future Appointments Appointment Date:01/16/2024 01:00:00 PM Scheduled Provider:JER MOJICA PA-C Location:[facility] Appointment Type:URO Procedure 30 min Appointment Date:01/23/2024 01:00:00 PM Scheduled Provider:JER MOJICA PA-C Location:[facility] Appointment Type:URO Procedure 30 min Appointment Date:01/30/2024 01:00:00 PM Scheduled Provider:JER MOJICA PA-C [facility] Type:[facility]O Procedure 30 min Appointment Date:02/06/2024 01:00:00 PM Scheduled Provider:JER MOJICA PA-C [facility] Appoint[facility] Type:URO Procedure 30 min Appointment Date:02/13/2024 01:00:00 PM Scheduled Provider:JER MOJICA PA-C Location:[facility] Appointment Type:URO Procedure 30 min Appointment Date:12/05/2024 10:45:00 AM Scheduled Provider:[facility] JONES MD [facility] Type:URO Office Visit [facility] Evaluation + Plan note Future Appointments Appointment Date:01/23/2024 01:00:00 PM Scheduled Provider:JER MOJICA PA-C [facility] Appointment Type:URO Procedure 30 min Appointment Date:01/30/2024 01:00:00 PM Scheduled Provider:JER MOJICA PA-C Location:[facility] [facility] Appointment Type:URO Procedure 30 min Appointment Date:02/06/2024 01:00:00 PM Scheduled Provider:JER MOJICA PA-C Location:[facility] Neil Appointment Type:URO Procedure 30 min Appointment Date:02/13/2024 01:00:00 PM Scheduled Provider:JER MOJICA PA-C [facility] App[facility] Type:URO Procedure 30 min Appointment Date:12/05/2024 10:45:00 AM Scheduled Provider:Inez JONES MD [facility] Type:URO Office Visit [facility] Evaluation + Plan note Future Appointments Appointment Date:01/30/2024 01:00:00 PM Scheduled Provider:JER MOJICA PA-C [facility] Appointment Type:URO Procedure 30 min Appointment Date:02/06/2024 01:00:00 PM Scheduled Provider:JER MOJICA PA-C Location:[facility] Neil Appointment Type:URO Procedure 30 min Appointment Date:02/13/2024 01:00:00 PM Scheduled Provider:JER MOJICA PA-C Location:[facility] Neil Appointment Type:URO Procedure 30 min Appointment Date:12/05/2024 10:45:00 AM Scheduled Provider:Inez JONES MD [facility] Appointment Type:URO Office Visit [facility] Evaluation + Plan note Future Appointments Appointment Date:02/13/2024 01:00:00 PM Scheduled Provider:JER MOJICA PA-C Location:[facility] Appointment Type:URO Procedure 30 min Appointment Date:12/05/2024 10:45:00 AM Scheduled Provider:[facility]nez [facility]ONES MD [facility] Type:[facility]O Office Visit [facility] Evaluation + Plan note Future Appointments Appointment Date:12/07/2025 11:15:00 AM Scheduled Provider:Inez JONES MD Location:[facility] Appointment Type:URO Office Visit [facility] evaluation note* Diagnosis Onset Date Resolution Status Family history of colon canc er requiring screening colonoscopy [facility] Work Phone: evaluation noteNo [facility] [employer] Other evaluation note* Diagnosis Dysuria- Primary Urine [...] loss Unspecified alopecia [facility] Diagnosis Hemorrhoids, unspecified hemorrhoid type documented in this encounter [facility] noteNo assessment information [facility] Work Phone: Evaluation note* Diagnosis Vaginal dryness, menopausal- Primary Osteoporosis, post-menopausal ([facility]) Senile osteoporosis Postmenopausal Asymptomatic postmenopausal status (age-related) (natural) Constipation, unspecified constipation type Screening breast examination Other screening breast examination Hx of hysterectomy for benign disease Hx of BSO (bilateral salpingo-oophorectomy) documented in this encounter [facility]* Diagnosis Dysuria- Primary Acute cystitis with hematuria documented in this encounter [facility] HealthcareHistory general Narrative - Reported* Type Description Date Medical History GERD Medical History kidney stones Surgical History hysterectomy Surgical History lithotripsy Surgical History kidney stone Surgical History cystoscopy Surgical History colonoscopy Hospitalization History [employer] Other Hospital course Narrative No data available for this section [facility] Discharge instructions Additional Instructions DISCHARGE INSTRUCTIONS [...] if you have any problems. -Office number [phone] Work Phone: Hospital Discharge instructions No data available for this section [facility] Progress note No data available for this section [facility] Purpose Family History No Family History [...] Annual Exam Reason Comments Med Change Request Reason Comments Gynecologic Exam Patient here for santiago nagel. Denies problems. Completed mammogram on 11/06/24-BIRADS 0 followed up with left diagnosed mammogram on 11/10/24 which showed benign findings of cyst on left breast. Has appt in March to repeat left diagnostic mammogram and breast ultrasound. Last colonoscopy 08/2023- negative. Up to date on DEXA scan-compatible with osteoporosis with high increased fracture risk. Reason Comments UTI Pressure, dysuria, f requency started 2 days ago. Tylenol for pain. INFORMATION SOURCE (unrecogn ized section and content) DATE CREATED AUTHOR 07/26/2022 [facility] DATE CREATED AUTHOR AUTHOR'S ORGANIZ ATION 12/11/2022 [facility] DATE CREATED AUTHOR AUTHOR'S ORGANIZ ATION 11/30/2023 [facility] DATE CREATED AUTHOR AUTHOR'S ORGANIZ ATION 07/04/2025 [facility] EPIC DATE CREATED AUTHOR AUTHOR'S ORGANIZ ATION 07/08/2025 [facility] Patient Care team informatio n (unrecognized section and content) Team Status: Active Member Role Status Dates Glenna Keita MD Primary Care Provider Active Team Status: Inactive Member Role Status Dates Glenna Keita MD Primary Care Provider Active Andrea Gunter MD Attending Provider Active [employer] No[employer] Operator Relationship Specialty Start Date End Date Glenna Keita MD [address] [facility] [place] [address] PCP - General Family Medicine 02/27/23 [employer] No[employer] Operator Relationship Specialty Start Date End Date Glenna Keita MD [address] [facility] [place] [address] PCP - General Family Medicine 02/27/23 [employer] No[employer] Operator Relationship Specialty Start Date End Date Glenna Keita MD [address] [facility] [place] [address] PCP - General Family Medicine 02/27/23 [employer] No[employer] Operator Relationship Specialty Start Date End Date Glenna Keita MD [address] [facility] [place] [address] PCP - General Family Medicine 02/27/23 [employer] No[employer] Operator Relationship Specialty Start Date End Date Glenna Keita MD [address] [facility] [place] [address] PCP - General Family Medicine 02/27/23 [employer] No[employer] Operator Relationship Specialty Start Date End Date Glenna Keita MD [address] [place] [address] PCP - General Family Medicine 02/27/23 Team Status: Inactive Member Role Status Dates Glenna Keita MD Primary Care Provider Active Start: November 18, 2024 End: November 18, 2024 Augustus Hill MD Attending Provider Active S tart: November 18, 2024 End: November 18, 2024 [employer] No[employer] Operator Relationship Specialty Start Date End Date Glenna Keita MD [address] [place] [address] PCP - General Family Medicine 02/27/23 [employer] Nozzle Operator Relationship Specialty Start Date End Date Glenna Keita MD [address] [facility] [place] [address] PCP - General Family Medicine 02/27/23 [employer] Nozzle Operator Relationship Specialty Start Date End Date Rene Lynch MD [address] [facility] [place] [address] PCP - General Family Medicine 07/01/25 [employer] Operator Relationship Specialty Start Date End Date Rene Lynch MD [address] [facility] [place] [address] PCP - General Family Medicine 07/01/25 Goals (unrecognized section and content) Goals may [...] BE BASED ON THE PRIMARY CLINICAL RECORDS. [facility]. provides no warranty or guarantee of the accuracy or completeness of information in this document.
== END 2025-07-08 15:06 | disposition home or self-care (01) ==
LOC: CT 15:09
PROVIDERS: Visit Provider Urology
DX: N13.2 Hydronephrosis with renal and ureteral calculous obstruction (principal); R31.0 Gross hematuria; K57.32 Diverticulitis of large intestine without perforation or abscess without bleeding
CPT/HCPCS: 74176

== ENCOUNTER 2025-07-17 09:54 | Outpatient (OUT) | payer MEDICARE, OTHER, SELFPAY ==
--- OUTSIDE RECORDS SUMMARY | 2025-07-17 10:01 | XMS_ITS | CCD ---
Author Organization [facility] Care Team Providers Care Software Configuration Manager Name Role Phone Andrea Gunter Unavailable [phone] GLENNA KEITA Primary Care Physician NEELA, DR [...] Unavailable MD Glenna Keita Primary Care Provider MD Andrea Gunter Attending Provider [phone] Glenna Keita Primary Care Unavailable Andrea Gunter Attending Andrea Mendez Admitting Glenna Reece MD Primary Care Provider Rene Lynch MD Primary Care Provider [phone] KAMALA HINES Attending Unavailable KAMALA HINES Referring Unavailable WENDY DESOUZA Attending Unavailable JENNY MEJIA Attending Unavailable RENE LYNCH Attending Unavailable GLENNA KEITA Referring Unavailable KAMALA HINES Referring Unavailable KAMALA HINES Referring Unavailable Inez JONES Attending Unavailable Inez JONES Attending Unavailable Inez JONES Attending Unavailable Inez JONES Attending Unavailable Allergies Allergy Classification Reported Allergen(s) Allergy Type Date of Onset Reaction(s) Facility (20 sources) Sulfamethoxazole / Trimethoprim Drug Allergy 07-26-20 6connect Other (10 sources) Sulfonamides (Antibiotic); Translations: [sulfa drugs] Drug allergy Feeling of throat tightness (finding) [facility] Comment on above: hives mild to modera te and throat closes (1 source) Sulfamethoxazole / Trimethoprim Drug Allergy 10-20-20 13 [facility] Repository (16 sources) Sulfamethoxazole; Translations: [sulfamethoxazole] Drug Allergy 07-12-20 20 Swelling of Lip/Tongue/Thr oat [facility] (16 sources) Trimethoprim; Translations: [trimethoprim] Drug Allergy 07-12-20 20 Swelling of Lip/Tongue/Thr oat [facility] (1 source) Sulfonamides (Antibiotic); Translations: [sulfa drugs] Propensity to adverse reactions (disorder) [facility] Repository Medications Current Medications Medication Drug Class(es) Dates Sig (Normalized) Sig (Original) ALPRAZolam 0.25 mg oral tablet (20 sources) Benzodiazepine Start: 07-12-2020 alprazolam 0.25 mg Tab Refills(s) 0 Start Date: 12/08/22 Status: Ordered Repeat number: 1 ALPRAZolam PRN A ctive ALPRAZolam Activ e aluminum hydroxide 80 mg / magnesium trisilicate 14.2 mg chewable tablet (14 sources) Alum Hydroxide-M ag Trisilicate (Gaviscon) 80-14.2 MG chewable tablet Chew. Active amoxicillin 875 mg / clavulanate 125 mg oral tablet (2 sources) Penicillin-class Antibacterial Start: 025 End: 025 take 1 tablet by mouth in the morning amoxicillin-clavulan ate (Augmentin) 875-125 MG tablet Indications: Acute cystitis with hematuria Take 1 tablet (875 mg) by mouth in the morning and 1 tablet (875 mg) before bedtime. Do all this for 5 days. 10 tablet 07/02/2025 07/07/2025 Active Amphetamine / Dextroamphetamine (10 sources) Central Nervous System Stimulant Start: 019 take 1 mg by mouth twice daily Adderall 20 mg oral tablet mg, tab(s), Oral, BID, Refill(s) 0 Start Date: 08/25/19 Status: Ordered Repeat number: 1 Start: 08-25-2019 take 1 mg by mouth twice daily Adderall 20 mg oral tablet mg, tab(s), Oral, BID, Refill(s) 0 Start Date: 08/25/19 Status: Ordered amphetamine aspartate 5 mg / amphetamine sulfate 5 mg / dextroamphetamine saccharate 5 mg / dextroamphetamine sulfate 5 mg oral tablet (20 sources) Central Nervous System Stimulant Start: 07-12-2020 take 1 tablet by mouth once daily Dextroamphetamine-Amphetamine 20 mg tablet Active 20 MG PO Daily July 11, 2020 11:00pm take 1 capsule by mo uth every twenty-four hours in the morning amphetamine-dextroamphetamine XR (Addera ll XR) 20 MG 24 hr capsule Take 1 capsule by mouth in the morning. Do not crush or chew. . Active take 2 tablets by mo uth every twenty-four hours Adderall 20 MG 2 tablets Orally Once a d ay Active cephalexin 500 mg oral capsule (4 sources) Cephalosporin Antibacterial Start: 07-08-2025 End: 07-15-2025 take 1 capsule by mouth every twelve hours Keflex 500 mg Cap 500 mg = 1 cap(s), Oral, q12hr, X 7 day(s), # 14 cap(s), Refills(s) 0, Pharmacy: [facility], 165, cm, 07/08/25 12:58:00 EDT, Height/Length Dosing, 65.3, kg, 07/08/25 12:58:00 EDT, Weight Dosing Start Date: 07/08/25 Stop Date: 07/15/25 Status: Ordered Quantity: 14.0 Unit: cap(s) Repeat number: 1 Indications: Urinary tract infection, site not specified; Start: 08-07-2024 End: 08-17-2024 take 1 capsule [...] UNIT/ML liquid Place under the tongue. With Maxatawny Active clobetasol propionate 0.0005 mg/mg topical ointment [...] # 60 tab(s), Refills(s) 11, Pharmacy: [facility] [facility], 165, cm, 12/05/21 12:42:00 EST, Height/Length Dosing, 70, kg, 12/05/21 12:42:00 EST, Weight Dosing Start Date: 12/05/21 Status: Ordered estradiol 0.1 mg/ml vaginal cream (20 sources) Estrogen Start: 12-05-2024 estradiol 0.1 mg/g Vag Crm 1 gm, Vaginal, MonWedFri, 42.5 gm, Refill(s) 4, [facility], 165, cm, 12/05/24 11:08:00 EST, Height/Length Dosing, 72.4, kg, 12/05/24 11:08:00 EST, Weight Dosing Start Date: 12/05/24 Status: Ordered Quantity: 42.5 Unit: g Repeat number: 5 Start: 12-07-2023 estradiol 0.1 mg/g Vag Crm 1 gm, Vaginal, MonWedFri, 42.5 gm, Refill(s) 4, [id number], 165, cm, 12/07/23 11:34:00 EST, Height/Length Dosing, [...] Daily, # 90 tab(s), Refills(s) 3, Pharmacy: [facility], 165, cm, 02/13/24 13:01:00 EDT, Height/Length Dosing, 66, kg, 02/13/24 13:01:00 EDT, Weight Dosing Start Date: 08/04/24 Status: Ordered Quantity: 90.0 Unit: tab(s) Repeat number: 4 Start: 07-12-2020 take 2 capsules by m outh once daily Hydrochlorothiazide 12.5 mg capsule Active 25 MG PO Daily July 11, 2020 11:00pm Start: 07-12-2020 take 25 mg by mouth once daily Hydrochlorothiazide Active 25 MG PO Daily July 11, 2020 11:00pm Hydrochlorothiazide-12.5 mg (7 sources) Hydrochlorothiaz gabi-12.5 mg Active hydrocortisone acetate 25 mg rectal suppository (4 sources) Corticosteroid Start: End: hydrocortisone (Anusol-HC) 2 5 MG suppository Indications: Hemorrhoids, unspecified hemorrhoid type Insert 1 suppository (25 mg) into the rectum 2 (two) times a day as needed for hemorrhoids for up to 14 days 14 suppository 09/22/2024 10/06/2024 Active lactase 3000 unt oral tablet (14 sources) lactase (Lactaid ) 3000 units tablet Take 3,000 Units by mouth if needed Active Loratadine (9 sources) Start: loratadine Daily, Refills(s) 0 Start Date: 12/07/23 Status: Ordered Repeat number: 1 Start: 12-07-2023 loratadine Rachael ly, Refills(s) 0 Start Date: 12/07/23 Status: Ordered magnesium citrate (9 sources) Start: 12-07-2023 magnesium citr ate Oral, Refill(s) 0 Start Date: 12/07/23 Status: Ordered Repeat number: 1 Start: 12-07-2023 magnesium citr ate Oral, Refill(s) 0 Start Date: 12/07/23 Status: Ordered melatonin 3 mg oral tablet (2 sources) Start: 07-12-2020 take 1.5 mg by mouth at bedtime as needed for sleep Melatonin 3 mg Tablet Active 1.5 MG PO Bedtime as needed for Sleep July 11, 2020 11:00pm Start: 07-12-2020 take 1.5 mg by mouth at bedtim e Melatonin Active 1.5 MG PO Bedtime July 11, 2020 11:00pm Nature's Bounty Probiotic (10 sources) Start: 12-24-2020 Nature's Bount y Probiotic Oral, Daily, Refill(s) 0 Start Date: 12/24/20 Status: Ordered Repeat number: 1 Start: 12-24-2020 Nature's Bount y Probiotic Oral, Daily, Refill(s) 0 Start Date: 12/24/20 Status: Ordered Omeprazole (20 sources) Proton Pump Inhibitor Start: 12-24-2020 omeprazo le Oral, Daily, Refills(s) 0 Start Date: 12/24/20 Status: Ordered Repeat number: 1 Start: 12-24-2020 omeprazole Ora l, Daily, Refills(s) 0 Start Date: 12/24/20 Status: Ordered Start: 07-12-2020 End: 11-18-2024 take 1 capsule by mouth once daily omeprazole (PriLOSEC) [address] capsule Take 20 mg by mouth Daily 11/18/2024 Active take 1 capsule by [facility] every twenty-four hours Omeprazole 40 MG 1 capsule Orally Once a day for 30 days Active take 1 capsule by mo ut every twelve hours Omeprazole 40 MG 1 [...] mouth in the morning. 07/16/2023 Active Psyllium (10 sources) Start: 12-24-2020 Metamucil Oral , Refills(s) 0 Start Date: 12/24/20 Status: Ordered Repeat number: 1 Start: 12-24-2020 Metamucil Oral , Refills(s) 0 [...] MISCELLANE July 11, 2020 11:00pm Vitamin D (9 sources) Start: 12-07-2023 Vitamin D International_Unit, Oral, qWeek, Refills(s) 0 Start Date: 12/07/23 Status: Ordered Repeat number: 1 Start: 12-07-2023 Vitamin D Inte rnational_Unit, Oral, qWeek, Refills(s) 0 Start Date: 12/07/23 [...] 7:40am K-Effervescent 25 mEq oral tablet, effervescent (9 sources) Start: 08-04-2024 End: 07-30-2025 take 1 tablet by mouth twice daily K-Effervescent 25 mEq oral tablet, effervescent 25 mEq = 1 tab(s), Oral, BID, X 30 day(s), # 60 tab(s), Refills(s) 11, Pharmacy: [facility], 165, cm, 02/13/24 13:01:00 EDT, Height/Length Dosing, 66, kg, 02/13/24 13:01:00 EDT, Weight Dosing Start Date: 08/04/24 Stop Date: 07/30/25 Status: Ordered Quantity: 60.0 Unit: tab(s) Repeat number: 12 Start: 08-04-2024 End: 07-30-2025 take 1 tablet by mouth twice daily K-Effervescent 25 mEq oral tablet, effervescent 25 mEq = 1 tab(s), Oral, BID, X 30 day(s), # 60 tab(s), Refills(s) 11, Pharmacy: [facility], 165, cm, 02/13/24 13:01:00 EDT, Height/Length Dosing, 66, kg, 02/13/24 13:01:00 EDT, Weight Dosing Start Date: 08/04/24 Stop Date: 07/30/25 Status: Ordered Start: 05-21-2023 End: 05-15-2024 take 1 tablet by mouth twice daily K-Effervescent 25 mEq oral tablet, effervescent 25 mEq = 1 tab(s), Oral, BID, X 30 day(s), # 60 tab(s), Refills(s) 11, Pharmacy: [facility] #[id number], 165, cm, 12/08/22 10:48:00 EST, Height/Length Dosing, 66, kg, 12/08/22 10:48:00 EST, Weight Dosing Start Date: 05/21/23 Stop Date: 05/15/24 Status: Ordered Methylcellulose (6 sources) Citrucel Orally Not-Taking Citrucel Orally Active potassium chloride 10 meq extended release oral tablet (2 sources) Start: 12-05-2024 take 1 tablet by mouth once daily Klor Con 10 mEq Cap-ER 10 mEq = 1 tab(s), Oral, Daily, # 7 tab(s), Refills(s) 0, Pharmacy: [facility], 165, cm, 12/05/24 11:08:00 EST, Height/Length Dosing, 72.4, kg, 12/05/24 11:08:00 EST, Weight Dosing Start Date: 12/05/24 Status: Ordered Quantity: 7.0 Unit: tab(s) Repeat number: 1 Probiotic Product (DIGESTIVE ADV PREBIOT+PROBIOT PO) (7 sources) End: 09-22-2024 Probiotic Product (DIGESTIVE ADV PREBIOT+PROBIOT PO) Take by mouth. Trust Your Gut 09/22/2024 Discontinued (Therapy completed) Probiotic Produc t (DIGESTIVE ADV PREBIOT+PROBIOT PO) Take by mouth. Trust Your Gut Active Problems Active Problems Problem Classification Problem Date Documented Da te Episodic/Chronic Abdominal pain (20 sources) Flank pain; Translations: [Suprapubic pain] Onset: 2 Resolved: 3 02-23-2020 Episodic Anxiety disorders (17 sources) Anxiety disorder, unspecified; Translations: [Generalized anxiety disorder] Onset: 3 07-26-2023 Chronic Calculus of urinary tract (20 sources) Kidney stone; Translations: [Calculus of kidney] Onset: 3 Resolved: 3 Episodic Disorders usually diagnosed in infancy, childhood, or [...] female climacteric states] 03-17-2025 Chronic Menstrual disorders (10 sources) Dysmenorrhea 05-07-2019 Chronic Miscellaneous mental health disorders (2 sources) Primary insomnia; Translations: [Primary insomnia] 09-22-2024 Chronic Nutritional deficiencies (16 sources) Vitamin D deficiency; Translations: [Vitamin D deficiency, unspecified] Onset: 3 07-26-2023 Chronic Osteoporosis (2 sources) Postmenopausal osteoporosis; Translations: [Age-related osteoporosis without current pathological fracture] 03-17-2025 Chronic Other aftercare (1 source) Other mcfp (current) drug therapy; Translations: [[facility] CURRENT DRUG THERAPY] Onset: 3 Episodic Other and unspecified benign neoplasm (7 sources) Benign neoplasm of ascending colon; Translations: [Benign neoplasm of ascending colon] Episodic Other and unspecified benign neoplasm (1 source) Benign neoplasm of colon, unspecified Episodic Other diseases of bladder and urethra (2 sources) Urethral stricture; Translations: [Other urethral stricture, female] Onset: 5 Episodic Other disorders of stomach and duodenum [...] Onset: 3 07-26-2023 Chronic Other liver diseases (10 sources) Liver cyst 05-07-2019 Chronic Other liver [...] of mental health and substance abuse codes (10 sources) Tobacco use and exposure - finding 02-23-2020 Chronic Unclassified (9 sources) Finding of sensation of bladder 12-07-2023 Urinary tract infections (4 sources) Acute cystitis; Translations: [Acute cystitis with hematuria] Onset: 07-02-2025 Episodic Past or Other Problems Problem Classification Problem Date Documented Da te Episodic/Chronic Abdominal hernia (17 sources) Diaphragmatic hernia without obstruction or gangrene; Translations: [Hiatal hernia] Onset: 09-18-2023 Episodic Deficiency and other anemia (14 sources) [...] Inez JONES MD Where: [facility] [address] [id number]- You Need to Schedule the Following Appointments Follow Up with Inez JONES MD, URL When: Comments: sched cysto/UD, CT scan Where: [facility] [place] [address] Medications What How Much When Why Instructions New cephalexin (Keflex 500 mg Cap) 1 Capsules By Mouth Every 12 hours UTI (urinary tract infection) Duration: 7 Days Pickup at [facility] Unchanged estradiol topical (estradiol 0.1 mg/ [...] physician if questions or concerns Pharmacy Information [facility]: [address] [phone] Allergies sulfa drugs (Throat tightness) Problems Ongoing [...] are rock-lik (more content not included)... Normal [facility] Urology Office/Clinic Noteon 07-08-2025 Urology Office/Clinic Note [...] See #1. Follow-up With When Contact Information MANPREET BROWN, Inez Ruano, URL [address] [place] [address] [place] [address] Additional Instructions: sched cysto/UD, CT scan Patient Education Kidney Stones, [id number]-ci-[id number] I, Violet Manzo, personally scribed for Dr. [...] placement ( (more content not included)... Normal [facility] Comment on above: Result Comment: Elec tronically Signed By: Inez JONES MD\.br\Date and Time Signed: 07/08/25 13:47 EDT\.br\Electronically Co-Signed By: Violet Manzo\.br\Date and Time Co-Signed: 07/08/25 13:45 EDT Urinalysis macro (dipstick) panel (U)on 07-02-2025 Bilirubin, UA Negative Negative - 4(70) +++ mg/dL [facility] Blood, UA Positive Negative - 50 Douglas/mcL [facility] Clarity, UA Clear [facility] Color, UA Yellow [facility] Glucose, UA Negative Negative - 2000(110) ++++ mg/dL [facility] Ketones, UA Negative Negative - 160(16) ++++ mg/dL [facility] Leukocytes, UA Positive Negative - 500+++ Nuno/mcL [facility] Nitrite, UA Negative Negative - Positive [facility] pH, UA 5 5 - 9 [facility] Protein, UA Trace Negative - 2000(20) ++++ mg/dL [facility] Spec Grav, UA 1.015 1 - 1.03 [facility] Urobilinogen, UA 0.2 0.2 - 12 mg/dL [facility] BI MAMMOGRAM DIAGNOSTIC MARYCRUZ SYNTHESIS LEFTon 05-11-2025 [...] IS VERY IMPORTANT TO YOUR HEALTH. THE [employer] GUIDELINES RECOMMEND THAT WOMEN 40 [...] Ambulatory Visit Summary JA SCHWAB :1960 Visit Date:12/05/2024 Ambulatory Visit Instructions Your [...] Inez JONES MD Where: [facility] [address] [facility] [address] [address] [place] [address]- You Need to Schedule the Following Appointments Follow Up with Inez JONES MD, URL When: Where: [facility] [place] [address]- Medications What How Much When Instructions New potassium chloride (Klor Con 10 mEq Cap-ER) 1 Tablets By Mouth Every day Pickup at [facility] Unchanged estradiol topical (estradiol 0.1 mg/ g Vag Crm) 1 Gram Vaginal Sunday Pickup at [facility] Unchanged hydrochlorothiazide (hydrochlorothiazide 25 mg Tab) [...] physician if questions or concerns Pharmacy Information [facility]: [address] [place], [place] [phone] Allergies sulfa drugs (Throat tightness) Problems Ongoing [...] (more content not included)... Normal [facility] Urology Office/Clinic Noteon 12-05-2024 Urology Office/Clinic Note [...] kidney) S/p R ESWL 12/30/20. Presented to [facility] ER 07/16/23 with complaints of LLQ [...] Information MANPREET BROWN, Inez Ruano, URL [address] [place] [address]- Additional Instructions: 1 year w/ KUB Patient Education Dietary Guidelines to Help Prevent Kidney Stones I, Janis Cárdenas, personally scribed for Dr. Jones on 12/05/2024 [...] (more content not included)... Normal [facility] Comment on above: Result Comment: Elec tronically Signed By: Inez JONES MD\.br\Date and Time Signed: 12/05/24 11:52 EST\.br\Electronically Co-Signed By: Janis Cárdenas\.br\Date and Time Co-Signed: 12/05/24 11:46 EST XR ABDOMEN 1Von 12-02-2024 [place] [address] XRay Report Signed Patient: JA SCHWAB MR#: [id number] : 1960 Acct:[id number] Age/Sex: 64 / F ADM Date: 12/02/24 Loc: RAD Attending Dr: Inez Jones M.D. Ordering Physician: Inez Jones M.D. Date of Service: 12/02/24 Procedure(s): XR abdomen 1V Accession Number(s): [id number] cc: GLENNA KEITA ; Inez Jones M.D. [address] [address] Patient Name: JA SCHWAB MRN: [id number] date: 1960 Sex: F Assigned Patient Location: RAD Current Patient Location: RAD Accession/Order Number: [id number] Exam Date: 12/02/2024 13:55 Report Date: 12/02/2024 [...] Signed By: 12/02/24 1501 DD/ 1458 TD/TT: Paper Sales Representative: [facility] Radiology, Radiologi MD elisa - 12/02/2024 [place] [address] XRay Report Signed Patient: JA SCHWAB MR#: [id number] : 1960 Acct:[id number] Age/Sex: 64 / F ADM Date: 12/02/24 Loc: RAD Attending Dr: Inez Jones M.D. Ordering Physician: Inez Jones M.D. Date of Service: 12/02/24 Procedure(s): XR abdomen 1V Accession Number(s): [id number] cc: GLENNA KEITA ; Inez Jones M.D. The [place] [id number] Patient Name: JA SCHWAB MRN: [facility]:[id number] date: 1960 Sex: F Assigned Patient Location: [facility] Current Patient Location: [facility] Accession/Order Number: [id number] Exam Date: 12/02/2024 13:55 Report Date: 12/02/2024 [...] By: Placido Pelayo M.D. Signed By: 12/02/24 1502 DD/ 1458 TD/TT: Paper Sales Representative: [facility] [employer] [facility] Study observation (narrative) [facility] [employer] XR ABDOMEN 1VOrdered By: Yousif iologsean Radiology on 12-02-2024 [facility] [employer] Work Phone: BI MAMMOGRAM DIAGNOSTIC MARYCRUZ SYNTHESIS [...] IS VERY IMPORTANT TO YOUR HEALTH. THE [employer] GUIDELINES RECOMMEND THAT WOMEN 40 [...] BY: Raul Keith M.D. Normal Not Available [facility] 09-18-2023 L ---- Specimen: [id number] Received: 09/18/23 Status: ZOECari [facility] Num: [id number] Spec Type: Surgical Subm Dr: Andrea Gunter MD Tissues: A Stomach - Biopsy/Polyp (ANTRUM) B Duodenum - Biopsy (DUODENAL BX) C Colon Biopsy (DESC) D Colon Biopsy (SIGMOID) Procedures: /Curry, Gross/Micro L4/4 Age/ Patient Sex Location Account Attending Physician Ja Schwab 63/F [id number] Andrea Gunter MD SPEC NUM: [id number] RECD: 09/18/23 STATUS: CHARY [facility] NUM: [id number] MARY: 09/18/23- SUBM DR: Andrea Gunter MD ENTERED: 09/18/23 [facility] DR: SPEC TYPE: Surgical DEPT: S REC BY: [id number] ORDERED: HE/8, Gross/Micro L4/4 ORDERED: HE/8, Gross/Micro [...] Benign colonic mucosa with hyperplastic changes Specimen: [id number] Received: 09/18/23 Status: CHARY [facility] Num: [id number] Spec Type: Surgical Subm Dr: Andrea Gunter MD Tissues: A Stomach - Biopsy/Polyp (ANTRUM) B Duodenum - Biopsy (DUODENAL BX) C Colon Biopsy (DESC) D Colon Biopsy (SIGMOID) Procedures: HE/8, Gross/Micro L4/4 Patient: Ja Schwab [id number] (Continued) Specimen: [id number] Received: 09/18/23 (Continued) Signed (signature on file) Fish Girard MD 09/20/23 1042 Specimen: [id number] Received: 09/18/23 Status: CHARY [facility] Num: [id number] Spec Type: Surgical Subm Dr: Andrea Gunter MD Tissues: A Stomach - Biopsy/Polyp (ANTRUM) B Duodenum - Biopsy (DUODENAL BX) C Colon Biopsy (DESC) D Colon Biopsy (SIGMOID) Procedures: HE/Curry, Gross/Micro L4/4 Patient: Ja Schwab [id number] (Continued) Specimen: Received: 09/18/23 (Continued) Clinical Information Abdomen pain, [...] microscopic examination confirms the diagnosis. CPT Codes 01007s5 Specimen: [id number] Received: 09/18/23 Status: CHARY [facility] Num: [id number] Spec Type: Surgical Subm Dr: Andrea Gunter MD Tissues: A Stomach - Biopsy/Polyp (ANTRUM) B Duodenum - Biopsy (DUODENAL BX) C Colon Biopsy (DESC) D Colon Biopsy (SIGMOID) Procedures: HE/8, Gross/Micro L4/4 Patient: Ja Schwab [id number] (Continued) (more content not included)... Normal [facility] XR KUB 1 VIEWon 12-06-2022 XR [...] ANNMARIE BINGHAM Date: 2022-12-06 13:25 Normal [facility] CBC AUTO DIFFon 10-21-2022 BASO # 0.0 103/ul Normal 0.0-0.1 [facility] Comment on above: Performed By: #### C BC #### [facility] [address] [place] [address] Dr. Yamileth France Basophils/100 WBC (Bld) 0.7 % Normal 0.2-2.0 [facility] Comment on above: Performed By: #### C BC #### [facility] [address] [place] [address] [address] Yamileth France EO # 0.3 103/ul Normal 0.0-0.7 [facility] Comment on above: Performed By: #### C BC #### [facility] [address] [place] [address] Dr. Yamileth France Eosinophils/100 WBC (Bld) 5.5 % Normal 0.9-7.0 [facility] Comment on above: Performed By: #### C BC #### [facility] [address] [place] [address] Dr. Yamileth France Erythrocyte distribution width (RBC) [Ratio] 12.3 % Normal 11.0-15.0 [facility] Comment on above: Performed By: #### C BC #### [facility] [address] [place] [address] Dr. Yamileth France Hematocrit (Bld) [Volume fraction] 41.8 % Normal 36.0-48.0 [facility] Comment on above: Performed By: #### C BC #### [facility] [address] [place] [address] Dr. Yamileth France Hemoglobin (Bld) [Mass/Vol] 14.8 g/dL Normal 12.0-16.0 [facility] Comment on above: Performed By: #### C BC #### [facility] [address] [place] [address] Dr. Yamileth France IG # 0.03 10e3/ul Normal 0.00-0.03 [facility] Comment on above: Performed By: #### C BC #### [facility] [address] [place] [address] Dr. Yamileth France IG % 0.5 % Normal 0.0-0.5 [facility] Comment on above: Performed By: #### C BC #### [facility] [address] [place] [address] Dr. Yamileth France LYMPH # 0.9 103/ul Critically low 1.2-3.8 [facility] Comment on above: Performed By: #### C BC #### [facility] [address] [place] [address] Dr. Yamileth France Lymphocytes/100 WBC (Bld) 15.2 % Critically low 20.5-60.0 [facility] Comment on above: Performed By: #### C BC #### [facility] [address] [place] [address] Dr. Yamileth France MANUAL DIFF REQ NO Normal [facility] Comment on above: Performed By: #### C BC #### [facility] [address] [place] [address] Dr. Yamileth France MCH (RBC) [Entitic mass] 31.0 pg Normal 26.7-34.0 [facility] Comment on above: Performed By: #### C BC #### [facility] [address] [place] [address] Dr. Yamileth France MCHC (RBC) [Mass/Vol] 35.4 g/dL Critically high 29.9-35.2 [facility] Comment on above: Performed By: #### C BC #### [facility] [address] [place] [address] Dr. Yamileth France MCV (RBC) [Entitic vol] 87.6 fL Normal 81.0-99.0 [facility] Comment on above: Performed By: #### C BC #### [facility] [address] [place] [address] Dr. Yamileth France MONO # 0.7 103/ul Normal 0.3-0.8 [facility] Comment on above: Performed By: #### C BC #### [facility] [address] [place] [address] Dr. Yamileth France Monocytes/100 WBC (Bld) 12.5 % Critically high 1.7-12.0 [facility] Comment on above: Performed By: #### C BC #### [facility] [address] [place] [address] Dr. Yamileth France NEUT # 3.8 103/ul Normal 1.4-6.5 [facility] Comment on above: Performed By: #### C BC #### [facility] [address] [place] [address] Dr. Yamileth France Neutrophils/100 WBC (Bld) 65.6 % Normal 43.0-75.0 [facility] Comment on above: Performed By: #### C BC #### [facility] [address] [place] [address] Dr. Yamileth France Platelet mean volume (Bld) [Entitic vol] 9.7 fL Normal 9.5-13.5 [facility] Comment on above: Performed By: #### C BC #### [facility] [address] [place] [address] Dr. Yamileth France PLT 198 103/ul Normal 150-450 [facility] Comment on above: Performed By: #### C BC #### [facility] [address] [place] [address] Dr. Yamileth France RBC 4.77 106/ul Normal 4.20-5.40 [facility] Comment on above: Performed By: #### C BC #### [facility] [address] [place] [address] Dr. Yamileth France WBC 5.8 103/ul Normal 4.0-11.0 [facility] Comment on above: Performed By: #### C BC #### [facility] [address] [place] [address] Dr. Yamileth France D-DIMERon 10-21-2022 D-DIMER 0.31 mg/L FEU Normal <=0.59 [facility] Comment on above: Performed By: #### D DIM #### [facility] [address] [place] [address] Dr. Yamileth France D-DIMER COMMENTS SEE BELOW Normal [facility] Comment on above: Result Comment: Incr eases [...] hospitalization. Performed By: #### D DIM #### [facility] [address] [place] [address] Dr. Yamileth France FREE T4on 10-21-2022 Free T4 [Mass/Vol] 1.05 ng/dL Normal 0.76-1.46 [facility] Comment on above: Performed By: #### F T4 #### [facility] [address] [address] [address] Yamileth France PROF 14(COMP METB)on 022 Albumin [Mass/Vol] 3.4 g/dL Normal 3.4-5.0 [facility] Comment on above: Performed By: #### H STROPN, CMP #### [facility] [address] [address] [address] Yamileth France Albumin/Globulin [Mass ratio] 1.0 {ratio} Normal [facility] Comment on above: Performed By: #### H STROPN, CMP #### [facility] [address] [address] [address] Yamileth France ALP [Catalytic activity/Vol] 63 U/L Normal 46-116 [facility] Comment on above: Performed By: #### H STROPN, CMP #### [facility] [address] [place] [address] Dr. Yamileth France ALT [Catalytic activity/Vol] 21 U/L Normal 14-59 [facility] Comment on above: Performed By: #### H STROPN, CMP #### [facility] [address] [address] [address] Yamileth France Anion gap [Moles/Vol] 9.9 mmol/L Normal [facility] Comment on above: Performed By: #### H STROPN, CMP #### [facility] [address] [address] [address] Yamileth France AST [Catalytic activity/Vol] 18 U/L Normal 15-37 [facility] Comment on above: Performed By: #### H STROPN, CMP #### [facility] [address] [address] [address] Yamileth France Bilirubin [Mass/Vol] 0.3 mg/dL Normal 0.2-1.0 [facility] Comment on above: Performed By: #### H STROPN, CMP #### [facility] [address] [address] [address] Yamileth France Calcium [Mass/Vol] 8.8 mg/dL Normal 8.5-10.1 [facility] Comment on above: Performed By: #### H STROPN, CMP #### [facility] [address] [address] [address] Yamileth France Chloride [Moles/Vol] 99 mmol/L Normal 98-107 [facility] Comment on above: Performed By: #### H STROPN, CMP #### [facility] [address] [address] [address] Yamileth France CO2 [Moles/Vol] 31.2 mmol/L Normal 21.0-32.0 [facility] Comment on above: Performed By: #### H STROPN, CMP #### [facility] [address] [place] [address] Dr. Yamileth France Creatinine [Mass/Vol] 0.74 mg/dL Normal 0.55-1.02 [facility] Comment on above: Performed By: #### H STROPN, CMP #### [facility] [address] [address] [address] Yamileth France EGFR-AF CROATIAN >60 Normal >=60 [facility] Comment on above: Performed By: #### H STROPN, CMP #### [facility] [address] [place] [address] Dr. Yamileth France EGFR-NON AF CROATIAN >60 Normal >=60 [facility] Comment on above: Performed By: #### H STROPN, CMP #### [facility] [address] [address] [address] Yamileth France Globulin (S) [Mass/Vol] 3.5 g/dL Normal [facility] Comment on above: Performed By: #### H STROPN, CMP #### [facility] [address] [address] [address] Yamileth France Glucose [Mass/Vol] 111 mg/dL Critically high 74-106 [facility] Comment on above: Performed By: #### H STROPN, CMP #### [facility] [address] [place] [address] Dr. Yamileth France Potassium [Moles/Vol] 3.1 mmol/L Critically low 3.5-5.1 [facility] Comment on above: Performed By: #### H STROPN, CMP #### [facility] [address] [place] [address] Dr. Yamileth France Protein [Mass/Vol] 6.9 g/dL Normal 6.4-8.2 [facility] Comment on above: Performed By: #### H ASHLEEPN, CMP #### [facility] [address] [place] [address] Dr. Yamileth France Sodium [Moles/Vol] 137 mmol/L Normal 136-145 [facility] Comment on above: Performed By: #### H ASHLEEPN, CMP #### [facility] [address] [place] [address] Dr. Yamileth France Urea nitrogen [Mass/Vol] 14.0 mg/dL Normal 7.0-18.0 [facility] Comment on above: Performed By: #### H JOYCE, CMP #### [facility] [address] [place] [address] Dr. Yamileth France Urea nitrogen/Creatinin e [Mass ratio] 18.9 mg/mg Normal [facility] Comment on above: Performed By: #### H ASHLEEPN, CMP #### [facility] [address] [place] [address] Dr. Yamileth France TROPONIN, HIGH SENSITIVITYon 10-21-2022 HSTROP 4.7 pg/mL Normal 4.0-51.3 The [facility] Comment on above: Result Comment: CUT- OFF POINTS HAVE BEEN ESTABLISHED BASED ON THE FOURTH UNIVERSAL DEFINITIONS OF MYOCARDIAL INFARCTION. THE UPPER REFERENCE LIMIT (URL) OF TROPONIN, DEFINED THE 99TH PERCENTILE OF cTnI DISTRIBUTION IN A REFERENCE POPULATION, HAS BEEN CONFIRMED THE DECISION THRESHOLD FOR [place] DIAGNOSIS. Performed By: #### H ASHLEEPN, CMP #### [facility] [address] [place] [address] Dr. Yamileth France TSHon 10-21-2022 TSH 2.173 uIU/mL Normal 0.358-3.740 [facility] Comment on above: Performed By: #### T SH #### [facility] [address] [place] [address] Dr. Yamileth France XR CHEST 1 Von [...] GIULIA GERMAIN Date: 2022-10-21 04:26 Normal [facility] SCREENING MAMMOGRAM W/MARYCRUZ, BILATERAL*on 07-25-2022 SCREENING MAMMOGRAM [...] VERY IMPORTANT TO YOUR HEALTH. THE CURRENT [employer] GUIDELINES RECOMMENDS ANNUAL MAMMOGRAPHY BEGINNING AT AGE 40 THIS FACILITY USES A REMINDER SYSTEM TO ENSURE ALL PATIENTS RECEIVE REMINDER NOTIFICATIONS AT THE APPROPRIATE TIME BASED ON THE RECOMMENDATIONS OF THIS EXAM. Report reported and signed by Zane Quinteros on 07/25/2022 1154 Normal [facility] Senior Technologist Vital Signs Date Time Vital Sign Value Performing Clinician Issaci wero 07-02-2025 11:49-0400 Body height 163.2 cm Rene Lynch MD Work Phone: [facility] 07-02-2025 11:49-0400 Body mass index (BMI) [Ratio] 24.29 kg/m2 Rene Lynch MD Work Phone: [facility] 07-02-2025 11:49-0400 Body temperature 97.5 [degF] Rene Lynch MD Work Phone: [facility] 07-02-2025 11:49-0400 Body weight 64.68 kg Rene Lynch MD Work Phone: [facility] 07-02-2025 11:49-0400 Diastolic blood pressure 68 mm[Hg] Rene Lynch MD Work Phone: [facility] 07-02-2025 11:49-0400 Heart rate 92 /min Rene Lynch MD Work Phone: [facility] 07-02-2025 11:49-0400 SaO2% (BldA) [Mass fraction] 98 % Rene Lynch MD Work Phone: [facility] 07-02-2025 11:49-0400 Systolic blood pressure 130 mm[Hg] Rene Lynch MD Work Phone: [facility] 03-17-2025 10:20-0400 Body mass index (BMI) [Ratio] 25.55 kg/m2 Kamala Nataprawira DO Work Phone: [facility] 03-17-2025 10:20-0400 Body weight 68.04 kg Kamala Nataprawira DO Work Phone: [facility] 03-17-2025 10:20-0400 Diastolic blood pressure 72 mm[Hg] Kamala Nataprawira DO Work Phone: [facility] 03-17-2025 10:20-0400 Systolic blood pressure 116 mm[Hg] Kamala Nataprawira DO Work Phone: [facility] 12-05-2024 10:46-0500 Blood Pressure Location Inez JONES [facility] 12-05-2024 10:46-0500 Body temperature 98.6 [degF] Inez JONES [facility] 12-05-2024 10:46-0500 Diastolic blood pressure 84 mm[Hg] Inez JONES [facility] 12-05-2024 10:46-0500 Heart rate 68 /min Inez JONES [facility] 12-05-2024 10:46-0500 Respiratory rate 16 /min Inez JONES [facility] 12-05-2024 10:46-0500 Systolic blood pressure 134 mm[Hg] Inez JONES [facility] 11-18-2024 09:22-0500 Body height 163.83 cm [facility] 11-18-2024 09:22-0500 Body mass index (BMI) [Ratio] 24.5 kg/m2 [facility] 11-18-2024 09:22-0500 Body weight 65.77 kg [facility] 09-22-2024 13:15-0500 Body height 163.2 cm Jenny Pump [employer] Work Phone: [facility] 09-22-2024 13:15-0500 Body mass index (BMI) [Ratio] 25.45 kg/m2 Jenny Pump [employer] MECHANIC Work Phone: [facility] 09-22-2024 13:15-0500 Body weight 67.77 kg Jenny Pump [employer] MECH[employer]IC Work Phone: [facility] 09-22-2024 13:15-0500 Diastolic blood pressure 82 mm[Hg] Jenny Pump V[employer] MECHANIC Work Phone: [facility] 09-22-2024 13:15-0500 Heart rate 100 /min Jenny Pump VRT MECHANIC Work Phone: [facility] 09-22-2024 13:15-0500 Systolic blood pressure 124 mm[Hg] Jenny Pump VRT MECHANIC Work Phone: [facility] 08-07-2024 13:10-0400 Body mass index (BMI) [Ratio] 25.11 kg/m2 Wendy Desouza V[employer] MECHANIC Work Phone: [facility] 08-07-2024 13:10-0400 Body weight 67.41 kg Wendy Desouza V[employer] MECHANIC Work Phone: [facility] 08-07-2024 13:10-0400 Diastolic blood pressure 82 mm[Hg] Wendy Desouza VRT MECHANIC Work Phone: [facility] 08-07-2024 13:10-0400 Heart rate 100 /min Wendykayla Desouza [employer] MECHANIC Work Phone: [facility] 08-07-2024 13:10-0400 Systolic blood pressure 126 mm[Hg] Wendy Desouza VRT MECHANIC Work Phone: [facility] 02-13-2024 12:57-0400 Blood Pressure Location JER YUNIOR [facility] 02-13-2024 12:57-0400 Body temperature 96.8 [degF] JER YUNIOR [facility] 02-13-2024 12:57-0400 Diastolic blood pressure 82 mm[Hg] JER YUNIOR [facility] 02-13-2024 12:57-0400 Heart rate 84 /min JER YUNIOR [facility] 02-13-2024 12:57-0400 Systolic blood pressure 128 mm[Hg] JER YUNIOR [facility] 01-30-2024 13:13-0400 Body temperature 98.6 [degF] JER YUNIOR [facility] 01-30-2024 13:13-0400 Diastolic blood pressure 84 mm[Hg] JER YUNIOR [facility] 01-30-2024 13:13-0400 Respiratory rate 14 /min JER YUNIOR [facility] 01-30-2024 13:13-0400 Systolic blood pressure 128 mm[Hg] JER YUNIOR [facility] 01-23-2024 13:10-0400 Blood Pressure Location JER YUNIOR [facility] 01-23-2024 13:10-0400 Body temperature 98.6 [degF] JER YUNIOR [facility] 01-23-2024 13:10-0400 Diastolic blood pressure 88 mm[Hg] JER YUNIOR [facility] 01-23-2024 13:10-0400 Heart rate 78 /min JER YUNIOR [facility] 01-23-2024 13:10-0400 Systolic blood pressure 122 mm[Hg] JER YUNIOR [facility] 01-16-2024 13:29-0400 Blood Pressure Location JER YUNIOR [facility] 01-16-2024 13:29-0400 Diastolic blood pressure 77 mm[Hg] JER YUNIOR [facility] 01-16-2024 13:29-0400 Heart rate 90 /min JER YUNIOR [facility] 01-16-2024 13:29-0400 Systolic blood pressure 125 mm[Hg] JER YUNIOR [facility] 01-09-2024 12:59-0400 Blood Pressure Location JER YUNIOR [facility] 01-09-2024 12:59-0400 Diastolic blood pressure 93 mm[Hg] JER MOJICA [facility] 01-09-2024 12:59-0400 Heart rate 70 /min JER MOJICA [facility] 01-09-2024 12:59-0400 Systolic blood pressure 129 mm[Hg] JER MOJICA [facility] 12-07-2023 11:32-0500 Blood Pressure Location Inez JONES [facility] 12-07-2023 11:32-0500 Diastolic blood pressure 79 mm[Hg] Inez JONES [facility] 12-07-2023 11:32-0500 Heart rate 97 /min Inez JONES [facility] 12-07-2023 11:32-0500 Respiratory rate 16 /min Inez JONES [facility] 12-07-2023 11:32-0500 Systolic blood pressure 124 mm[Hg] Inez JONES [facility] 11-19-2023 09:15-0500 Body height 166.37 cm Andrea Gunter Other [facility] Other 11-19-2023 09:15-0500 Body mass index (BMI) [Ratio] 23.92 kg/m2 Andrea Gunter Other [facility] Other 11-19-2023 09:15-0500 Body weight 66.23 kg Andrea Gunter Other [facility] Other 11-19-2023 09:15-0500 Diastolic blood pressure 76 mm[Hg] Andrea Lyric Other [facility] Other 11-19-2023 09:15-0500 Systolic blood pressure 117 mm[Hg] Andrea Gunter Other [facility] Other 09-18-2023 09:17-0500 Diastolic blood pressure 78 mm[Hg] MD Glenna Keita Work Phone: [facility] 09-18-2023 09:17-0500 Heart rate 80 /min MD Glenna Keita Work Phone: [facility] 09-18-2023 09:17-0500 Respiratory rate 16 /min MD Glenna Keita Work Phone: [facility] 09-18-2023 09:17-0500 SaO2% (BldA) [Mass fraction] 100 % MD Glenna Keita Work Phone: [facility] 09-18-2023 09:17-0500 Systolic blood pressure 118 mm[Hg] MD Glenna Adhikari Phone: [facility] 09-18-2023 07:41-0500 Body height 165.1 cm MD Glenna Keita Work Phone: [facility] 09-18-2023 07:41-0500 Body weight 63.04 kg MD Glenna Keita Work Phone: [facility] 02-28-2023 12:00-0400 Body height 166.37 cm Andrea Gunter Other [facility] Other 02-28-2023 12:00-0400 Body mass index (BMI) [Ratio] 24.58 kg/m2 Andrea Gunter Other [facility] Other 02-28-2023 12:00-0400 Body weight 68.04 kg Andrea Gunter Other [facility] Other 02-28-2023 12:00-0400 Diastolic blood pressure 96 mm[Hg] Andrea Gunter Other [facility] Other 02-28-2023 12:00-0400 Systolic blood pressure 137 mm[Hg] Andrea Gunter Other [facility] Other 12-08-2022 10:46-0500 Blood Pressure Location Inez JONES [facility] 12-08-2022 10:46-0500 Diastolic blood pressure 74 mm[Hg] Inez JONES [facility] 12-08-2022 10:46-0500 Heart rate 68 /min Inez JONES [facility] 12-08-2022 10:46-0500 Respiratory rate 16 /min Inez JONES [facility] 12-08-2022 10:46-0500 Systolic blood pressure 122 mm[Hg] Inez JONES [facility] 02-27-2022 11:00-0400 Body height 166.37 cm Andrea Gunter Other [facility] Other 02-27-2022 11:00-0400 Body mass index (BMI) [Ratio] 24.58 kg/m2 Andrea Gunter Other [facility] Other 02-27-2022 11:00-0400 Body weight 68.04 kg Andrea Gunter Other [facility] Other 01-04-2022 10:45-0400 Body height 166.37 cm Andrea Meltonack Other [facility] Other 01-04-2022 10:45-0400 Body mass index (BMI) [Ratio] 25.4 kg/m2 Andrea Meltonack Other [facility] Other 01-04-2022 10:45-0400 Body weight 70.31 kg Andrea Gunter Other [facility] Other 10-03-2021 11:30-0500 Body height 166.37 cm Andrea Nurormack Other [facility] Other 10-03-2021 11:30-0500 Body mass index (BMI) [Ratio] 25.07 kg/m2 Andrea Meltonack Other [facility] Other 10-03-2021 11:30-0500 Body weight 69.4 kg Andrea Gunter Other [facility] Other Encounters Encounter Date Encounter Type Care Provider Facility Start: 12-07-2025 ambulatory Inez Tse ty:[facility] Start: 07-23-2025 ambulatory Inez Pricei ty:[id number] Start: 07-08-2025 End: 07-08-2025 ambulatory Inez JONES Facility: [facility] Start: 07-08-2025 End: 07-08-2025 Patient encounter procedure Inez JONES [facility] Start: 07-02-2025 End: 07-02-2025 Cheryl Lynch MD Work Phone: [facility] Start: 07-02-2025 End: 07-02-2025 Cheryl Lynch MD Work Phone: [facility] Start: 07-02-2025 End: 07-02-2025 ambulatory RENE LYNCH Not Available Start: 07-02-2025 End: 07-02-2025 Office outpatient visit 15 minutes Rene Lynch MD Work Phone: [facility] Comment on above: Dysuria (Primary Dx) ; Acute cystitis with hematuria Start: 05-11-2025 End: 05-11-2025 ambulatory KAMALA HINES Not Available Start: 03-17-2025 End: 03-17-2025 Office outpatient visit 15 minutes Kamala Hines DO Work Phone: [facility] Comment on above: Vaginal dryness, men opausal (Primary Dx); Osteoporosis, post-menopausal (CMS/HCC); Postmenopausal; Constipation, unspecified constipation type; Screening breast examination; Hx of hysterectomy for benign disease; Hx of BSO (bilateral salpingo-oophorectomy) Start: 03-17-2025 End: 03-17-2025 ambulatory KAMALA HINES Not Available Start: 12-05-2024 End: 12-05-2024 ambulatory Inez JONES Facility:[facility] Start: 12-05-2024 End: 12-05-2024 Patient encounter procedure Inez JONES [facility] Start: 12-02-2024 End: 12-02-2024 Clinisync Result Encounter Generic External Data Provider [facility] External Department Unsolicited Start: 12-02-2024 End: 12-02-2024 Clinisync Result Encounter Generic External Data Provider [facility] External Department Unsolicited Start: 11-18-2024 End: 11-18-2024 ambulatory [facility] Work Phone: Start: 11-18-2024 End: 11-18-2024 Patient encounter procedure [facility] Work Phone: Start: 11-10-2024 End: 11-10-2024 ambulatory KAMALA HINES Not Available Start: 11-06-2024 End: 11-06-2024 ambulatory GLENNA KEITA Not Available Start: 09-22-2024 End: 09-22-2024 Bamboo flowsheet Jenny Pump V[employer] MECHANIC Work Phone: [facility] Start: 09-22-2024 End: 09-22-2024 Bamboo flowsheet Jenny Pump V[employer] MECHANIC Work Phone: [facility] Start: 09-22-2024 End: 09-22-2024 Refill Jenny Pump [employer] MECH[employer] Work Phone: [facility] Comment on above: Hemorrhoids, unspeci fied hemorrhoid type Start: 09-22-2024 End: 09-22-2024 ambulatory JENNY PUMP Not Available Start: 09-22-2024 End: 09-22-2024 Patient encounter status Jenny Pump VRT MECHANIC Work Phone: [facility] Work Phone: Start: 09-22-2024 End: 09-22-2024 Periodic preventive med est patient 40-64yrs Jenny Pump VRT MECHANIC Work Phone: [facility] Comment on [...] 08-11-2024 End: 08-11-2024 Telephone encounter Wendy Desouza V[employer] MECH[employer] Work Phone: [facility] Comment on above: Results Start: 08-07-2024 End: 08-07-2024 Bamboo flowsheet Wendy Desouza VRT MECHANIC Work Phone: [facility] Start: 08-07-2024 End: 08-07-2024 Bamboo flowsheet Wendy Desouza V[employer] MECH[employer] Work Phone: [facility] Start: 08-07-2024 End: 08-07-2024 ambulatory WENDY DESOUZA Not Available Start: 08-07-2024 End: 08-07-2024 Office outpatient visit 15 minutes Wendy Desouza [employer] MECHAN[employer] Work Phone: [facility] Comment on above: Dysuria (Primary Dx) ; Urine frequency; Urinary urgency Start: 02-13-2024 End: 02-13-2024 Patient encounter procedure JER MOJICA [facility] [place] [employer] Start: 02-06-2024 End: 02-06-2024 Patient encounter procedure JER MOJICA [facility] [place] Start: 01-30-2024 End: 01-30-2024 Patient encounter procedure JER MOJICA [facility] [place] [facility] Start: 01-23-2024 End: 01-23-2024 Patient encounter procedure JER MOJICA [facility] [place] [facility] Start: 01-16-2024 End: 01-16-2024 Patient encounter procedure JER MOJICA [facility] [place] [facility] Start: 01-09-2024 End: 01-09-2024 Patient encounter procedure JER MOJICA [facility] Start: 12-07-2023 End: 12-07-2023 Patient encounter procedure Inez JONES [facility] Start: 11-19-2023 End: 11-19-2023 ambulatory Andrea Gunter Other [facility] Other Start: 11-19-2023 Office outpatient visit 15 minutes Andrea Gunter [facility] Start: 09-21-2023 End: 09-21-2023 ambulatory Andrea Gunter Other [facility] Other Start: 09-21-2023 Telephone encounter Andrea martínez [facility] Start: 09-18-2023 End: 09-18-2023 ambulatory Glenna Keita Facility:[facility] Start: 09-18-2023 End: 09-18-2023 Admission to same day surgery center MD Glenna Keita Work Phone: [facility] Work Phone: Start: 09-18-2023 End: 09-18-2023 ambulatory MD Glenna Keita Work Phone: [facility] Work Phone: Start: 02-28-2023 End: 02-28-2023 ambulatory Andrea Gunter Other [facility] Other Start: 02-28-2023 Office outpatient visit 15 minutes Andrea Gunter [facility] Start: 12-08-2022 End: 12-08-2022 Patient encounter procedure Inez JONES [facility] [place] Start: 12-06-2022 End: 12-07-[address] INEZ JONES . Facility:[facility] Start: 10-21-2022 End: 10-21-[address] GLENNA KEITA Facility:[facility] Start: 07-25-2022 End: 07-25-2022 ambulatory Andrea Lyric Other [facility] Other Start: 07-25-2022 Telephone encounter Andrea Thakur [facility] Start: 02-27-2022 End: 02-27-2022 ambulatory Andrea Lyrci Other [facility] Other Start: 02-27-2022 Office outpatient visit 15 minutes Andrea Lyric [facility] Gastro[facility]ology Start: 01-04-2022 End: 01-04-2022 ambulatory Andrea Meltonack Other [employer] Other Start: 01-04-2022 Office outpatient visit 15 minutes Andrea Lyric [facility] Gastro[facility]ology Start: 10-03-2021 End: 10-03-2021 ambulatory Andrea Lyric Other [employer] Other Start: 10-03-2021 Office outpatient ne w 45 minutes Andrea Lyric [facility] Gastroenterology Procedures Date Procedure Procedure Detail Performing [...] Work Phone: Start: 09-18-2023 Colonoscopy Wendy Desouza NP Work Phone: Start: 12-30-2020 Extracorporeal shockwave lithotripsy [...] Screening for malign ant neoplasm of colon [facility] Start: 05-11-2026 Screening for malign ant neoplasm of breast Mammogram [facility] Start: 03-18-2026 End: 03-18-2026 Patient encounter procedure 03/18/2026 9:45 AM EDT Office Visit [facility] [address] [address] Kamala Hines DO [address] [address] [facility] Start: 11-10-2025 Screening for malign ant neoplasm of breast Mammogram [facility] Start: 09-22-2025 Medicare Annual Well ness (AWV) Medicare Annual Wellness (AWV) [facility] Start: 07-02-2025 End: 07-02-2026 Bacteria identified in Urine by Culture Urine culture (clean catch) Microbiology Routine Dysuria Expected: 07/02/2025 (Approximate), Expires: 07/02/2026 [facility] Work Phone: Comment on above: Expected: 07/02/2025 (Approximate), Expires: 07/02/2026 Start: 06-22-2025 Influenza vaccination [facility] Start: 05-11-2025 End: 05-11-2025 Professional / ancillary services management [facility] Start: 03-17-2025 End: 03-17-2025 Patient encounter procedure 03/17/2025 10:15 AM EDT [facility] [address] [address] Kamala Hines DO [address] [facility] D [address] [address] [facility] Start: 10-10-2024 Screening for malign ant neoplasm of breast Mammogram [facility] Start: 10-02-2024 Influenza vaccination Influenza Vacc ine (#1) [facility] Comment on above: Postponed from 06/22 (Patient Refused) Start: 09-22-2024 End: 09-22-2025 25-hydroxyvitamin D3 [Mass/volume] in Serum or Plasma Vitamin D 25 hydroxy Lab Routine Osteopenia, unspecified location Vitamin D deficiency Expected: 09/22/2024 (Approximate), Expires: 09/22/2025 [facility] Comment on above: Expected: 09/22/2024 (Approximate), Expires: 09/22/2025 Start: 09-22-2024 End: 09-22-2025 CBC W Auto Differential panel - Blood CBC and differential Lab Routine Wellness examination Ulcerative colitis with complication, unspecified location (CMS/HCC) Expected: 09/22/2024 (Approximate), Expires: 09/22/2025 [facility] Work Phone: Comment on above: Expected: 09/22/2024 (Approximate), Expires: 09/22/2025 Start: 09-22-2024 End: 09-22-2025 Comprehensive metabolic 2000 panel - Serum or Plasma Comprehensive metabolic panel Lab Routine Wellness examination Osteopenia, unspecified location Ulcerative colitis with complication, unspecified location (CMS/HCC) Expected: 09/22/2024 (Approximate), Expires: 09/22/2025 [facility] Comment on above: Expected: 09/22/2024 (Approximate), Expires: 09/22/2025 Start: 09-22-2024 End: 09-22-2025 Lipid 1996 panel - Serum or Plasma Lipid panel Lab Routine Wellness examination Expected: 09/22/2024 (Approximate), Expires: 09/22/2025 [facility] Comment on above: Expected: 09/22/2024 (Approximate), Expires: 09/22/2025 Start: 09-22-2024 End: 09-22-2025 Thyrotropin [Units/volume] in Serum or Plasma TSH Lab Routine Wellness examination Anxiety, generalized (CMS/HCC) Fatigue, unspecified type Hair loss Expected: 09/22/2024 (Approximate), Expires: 09/22/2025 [facility] Comment on above: Expected: 09/22/2024 (Approximate), Expires: 09/22/2025 Start: 09-22-2024 End: 09-22-2025 Thyroxine (T4) free [Mass/volume] in Serum or Plasma T4, free Lab Routine Wellness examination Anxiety, generalized (CMS/HCC) Fatigue, unspecified type Hair loss Expected: 09/22/2024 (Approximate), Expires: 09/22/2025 [facility] Comment on above: Expected: 09/22/2024 (Approximate), Expires: 09/22/2025 Start: 09-22-2024 End: 09-22-2025 Triiodothyronine (T3) Free [Mass/volume] in Serum or Plasma T3, free Lab Routine Wellness examination Anxiety, generalized (CMS/HCC) Fatigue, unspecified type Hair loss Expected: 09/22/2024 (Approximate), Expires: 09/22/2025 [facility] Comment on above: Expected: 09/22/2024 (Approximate), Expires: 09/22/2025 Start: 08-07-2024 End: 08-07-2025 URINALYSIS, COMPLETE W/REFLEX TO CULTURE URINALYSIS, COMPLETE W/REFLEX TO CULTURE Lab Routine Urine frequency Expected: 08/07/2024 (Approximate), Expires: 08/07/2025 [facility] Work Phone: Comment on above: Expected: 08/07/2024 (Approximate), Expires: 08/07/2025 Start: 06-22-2024 Influenza vaccination Influenza Vacc ine (#1) [facility] Start: 09-18-2023 [facility] Start: 02-24-2010 Pneumococcal Vaccine : 65+ Years (1 of 1 - PCV) Pneumococcal Vaccine: 65+ Years (1 of 1 - PCV) [facility] Start: 1960 Screening for malign ant neoplasm of colon [facility] Patient Education Colon Polypectomy (DC) [facility] Work Phone: Immunizations Immunization Date Immunization Notes Care Provider [facility] 09-20-2023 influenza virus vaccine, unspecified formulation Inez JONES [facility] 09-20-2023 influenza, injectabl e, quadrivalent, preservative free Wendy Desouza NP Work Phone: [facility] 08-10-2022 SARS-CoV-2 (COVID-19 ) [id number] Inez JONES [facility] 01-30-2022 SARS-CoV-2 mRNA (btgymuzzalq-rskj-pgbdm se) vaccine Inez JONES [facility] 09-03-2021 SARS-CoV-2 (COVID-19 ) Ad26 vaccine, recombinant Inez JONES [facility] 08-26-2021 SARS-CoV-2 (COVID-19 ) mRNA BNT-162b2 vax Inez JONES [facility] 07-22-2021 influenza virus vaccine, unspecified formulation Inez JONES [facility] 07-05-2021 influenza virus vaccine, unspecified formulation Inez JONES [facility] 07-05-2021 influenza, injectabl e, quadrivalent, contains preservative Wendy Desouza NP Work Phone: [facility] 01-31-2021 SARS-CoV-2 (COVID-19 ) mRNA BNT-162b2 vax Inez JONES [facility] 01-29-2021 SARS-CoV-2 (COVID-19 ) mRNA BNT-162b2 vax Inez JONES [facility] 01-10-2021 SARS-CoV-2 (COVID-19 ) mRNA BNT-162b2 vax Ienz JONES [facility] 01-04-2021 SARS-CoV-2 (COVID-19 ) mRNA BNT-162b2 vax Inez JONES [facility] 09-13-2019 influenza virus vaccine, unspecified formulation Inez JONES [facility] 09-13-2019 Influenza, injectabl e, Madin [place] Canine Kidney, preservative free, quadrivalent Wendy Desuoza VRT MECHANIC Work Phone: [facility] 11-05-2018 influenza virus vaccine, unspecified formulation Inez JONES [facility] 11-05-2018 influenza, injectabl e, quadrivalent, preservative free Wendy Desouza VRT MECHANIC Work Phone: [facility] 09-28-2015 influenza, injectabl e, quadrivalent, preservative free Wendy Desouza VRT MECHANIC Work Phone: [facility] 11-07-2012 tetanus toxoid, redu matteo diphtheria toxoid, and acellular pertussis vaccine, adsorbed Wendy Senait VRT MECHANIC Work Phone: [facility] Payers Date Payer Category Payer Medicare [id number] 2025 Medicare [id number] 2023 Private Health Insurance [id number] 2023 Medicaid [id number] 2023 Self-pay [id number] 1960 Unknown [id number] [id number]. 593 1960 Unknown [id number] .[id number]. 593 1960 Unknown [id number] .[id number]. 1259 1960 Unknown [id number] 2.16.840.1.112848.3.579.2. 1258 1960 Unknown [id number] 2.16.840.1.386186.3.579.2. 1258 1960 Unknown [id number] 2.16.840.1.905289.3.579.2. 1258 1960 Unknown [id number] 2.16.840.1.823776.3.579.2. 1258 1960 Unknown [id number] 2.16.840.1.052348.3.579.2. 1258 1960 Unknown [id number] 2.16.840.1.996574.3.579.2. 1258 1960 Unknown [id number] 2.16.840.1.751281.3.579.2. 1258 1960 Unknown [id number] 2.16.840.1.169228.3.579.2. 1258 1960 Unknown [id number] 2.16.840.1.927386.3.579.2. 1258 1960 Unknown [id number] 2.16.840.1.073587.3.579.2. 1960 Unknown [id number] 2.16.840.1.340471.3.579.2. 1960 Unknown [id number] 2.16.840.1.635391.3.579.2. 1959 Unknown [id number] 2.16.840.1.586536.19 Unknown [employer] [facility] [id number] Unknown [id number] 2.16.840.1.604309.3.579.2. 531 Unknown [id number] Unknown [id number] Social History Date Type Detail Facility Start: 09-18-2023 End: 07-02-2025 Sex Assigned At [facility] Start: 12-08-2022 End: 07-08-2025 Tobacco smoking status Ex-smoker (finding) [facility] Tobacco smoking status Never [facility] Start: 1960 Sex Assigned At Female F [facility] Start: 10-22-1981 End: 04-10-2005 History of tobacco [...] or less [facility] How many standard dr inks containing alcohol do you have on a [...] To some extent [facility] (I/We) worried tunde er (my/our) food would run out before (I/we) got money to buy more. Never true [facility] Start: 09-20-2023 Tobacco Comment [facility]oker [facility] Start: 09-20-2023 Alcohol Comment If at all [facility] Start: 07-25-2023 Gender identity Identifies as female gender (finding) [facility] Start: 09-22-2024 End: 07-02-2025 Alcoholic beverage intake Ex-drinker (finding) [facility] Start: 09-30-2018 End: 11-18-2024 Sex Female (finding) [facility] Sexual Orientation [facility] Goals Date Patient Goal Desired Activity /State Functional Status Date Assessment Result Facility 12-05-2024 Functional Status N/A [facility] 02-13-2024 Functional Status N/A [facility] 01-30-2024 Functional Status N/A [facility] 01-23-2024 Functional Status N/A [facility] 01-16-2024 Functional Status N/A [facility] 01-09-2024 Functional Status N/A [facility] 12-07-2023 Functional Status N/A [facility] 12-08-2022 Functional Status N/A [facility] Clinical Notes 10-03-2021 to 07-08-2025 Tamra Acharya MA - 07/02/2025 11:40 AM Deny Lynch MD - 07/02/2025 11:40 AM Isa Hines DO - 03/17/2025 10:15 AM EDTAmber Pump, VRT MECHANIC - 09/22/2024 1:00 PM EST Note Date & Type Note Facility 07-08-2025 Hospital Discharg e instructions Patient Education 07/08/2025 13:45:08 Kidney Stones, Gwav-ew-Pfuv Kidney Stones Kidney stones are rock-like masses [...] causes? Kidney stones may be caused by: Too much calcium in the body. This may be caused by too much parathyroid hormone in the blood. Uric acid crystals in the bladder. The body makes uric acid when you eat certain foods. Narrowing of one or both of the ureters. A kidney blockage that you were born with. Past surgery on the kidney or the ureters. What increases the risk? You are more likely to develop this condition if: You have had a kidney stone in the past. Other people in your family have had kidney stones. You do not drink enough water. You eat a diet that is high in protein, salt (sodium), or sugar. You are very overweight (obese). What are the signs or symptoms? Symptoms of a kidney stone may include: Pain in the side of the belly, right below the ribs. Pain usually spreads to the groin. Needing to pee often or right away. Pain when peeing. Blood in your pee. Feeling like you may vomit (nauseous). Vomiting. Fever and chills. How is this treated? Treatment depends on the size, location, and makeup of the kidney stones. The stones will often pass out of the body when you pee. You may need to: Drink more fluid to help pass the stone. ?In some cases, you may be given fluids through an IV tube at the hospital. Take medicine for pain. Change your diet to help keep kidney stones from coming back. Sometimes, you may need: A procedure to break up kidney stones using a beam of light (laser) or shock waves. Surgery to remove the kidney stones. Follow these instructions at home: Medicines Take skfi-hkl-faxezzd and prescription medicines only as told by your doctor. Ask your doctor if the medicine prescribed to you requires you to avoid driving or using machinery. Eating and drinking Drink enough fluid to keep your pee pale yellow. ?You may be told to drink at least 8 10 glasses of water each day. This will help you pass the stone. If told by your doctor, change your diet. You may be told to: ?Limit how much salt you eat. ?Eat more fruits and vegetables. ?Limit how much meat, poultry, fish, and eggs you eat. Follow instructions from your doctor about what you may eat and drink. General instructions Collect pee samples as told by your doctor. You may need to collect a pee sample: ?24 hours after a stone comes out. ?8 12 weeks after a stone comes out, and every 6 12 months after that. Strain your pee every time you pee. Use the strainer that your doctor recommends. Do not throw out the stone. Keep it so that it can be tested by your doctor. Keep all follow-up visits. You may need [...] find more information National Kidney Foundation (NKF): kidney.org Urology Care Foundation (UCF): urologyhealth.org Contact a doctor if: You have pain that gets worse or does not get better with medicine. Get help right away if: You have a fever or chills. You get very bad pain. You get new pain in your belly. You faint. You cannot pee. This information is not intended to replace advice given to you by your health care provider. Make sure you discuss any questions you have with your health care provider. Document Revised: 06/01/2023 Document Reviewed: 06/01/2023 [employer] Patient Education 2023 [employer]. Follow Up Care 07/07/2025 10:36:47 With:MANPREET BROWN, Inez Ruano, URL Address: [address] [place] [address] When: Unknown Comments:sched cysto/UD, CT scan [facility] 07-08-2025 Note Patient Education Urology Kidney Stones [...] these instructions at home: Medicines ??? Take kwcw-xwb-qzndifc and prescription medicines only as told by [...] provider. Document Revised: 06/01/2023 Document Reviewed: 06/01/2023 [employer] Patient Education ? 2023 [employer] [facility] 07-02-2025 History of Presen t illness Narrative [...] UNIT/ML liquid Place under the tongue. With Maxatawny clobetasol (Temovate) 0.05 % ointment 1 application [...] Father Jonnie OlmosNelson Gonzalez Diabetes Father Jonnie ENelson Gonzalez Alcohol abuse Father Jonnie Gonzalez Depression [...] 30 min Stress: Stress Concern Present (09/18/2023) [employer] [place] [employer] - Occupational Stress Questionnaire Feeling of Stress : To some extent Social Connections: Socially Integrated (09/18/2023) Social Connection and Isolation Panel [NHANES] Frequency of Communication with Friends and Family: More than three times a week Frequency of Social Gatherings with Friends and Family: More than three times a week Attends Jainism Services: 1 to 4 times per year [...] follow-ups on file. documented in this encounter [facility] 03-17-2025 History of Presen t illness Narrative Images from the original note were not included. Kamala Hines DO Obstetrics and Gynecology Name: Ja Schwab [...] UNIT/ML liquid Place under the tongue. With Maxatawny clobetasol (Temovate) 0.05 % ointment Apply 1 [...] cervix 2022 ADHD (attention deficit hyperactivity disorder) ([facility]) 2009 Anxiety 2014? Benign neoplasm of colon Calculus in urethra Calculus of kidney and ureter Chronic nonalcoholic liver disease Disorder of liver Disorder of parathyroid gland, unspecified Diverticulitis 07/26/2023 Diverticulosis of colon (without mention of hemorrhage) Elevated hemoglobin ([facility]) 07/26/2023 Esophageal reflux Family history of colon cancer 09/18/2023 Fibrocystic breast 2005? Flank pain 07/26/2023 Hearing loss of right ear, unspecified hearing loss type History of hysterectomy for benign disease 09/19/2023 Hydronephrosis Hydronephrosis 07/26/2023 Insomnia, unspecified Leiomyoma of uterus, unspecified Menopause ovarian failure Hysterectomy 2005 Nocturia 09/19/2023 Osteopenia Osteoporosis ([facility]) Unspecified Other psoriasis ([facility]) Ovarian cyst ? Overweight (BMI 25.0-29.9) 07/26/2023 Parathyroid disorder ([facility]) Renal calculi 07/26/2023 Renal cyst, right S/P [...] 1 year (around 03/17/2026) for Yearly. Kamala Hines DO 03/17/2025 10:52 AM documented in this encounter [facility] 12-05-2024 [facility] Discharg e instructions Patient Education 12/05/2024 [...] include: ?8 oz (237 mL) of milk, wlptegm-wohbdqxspsvt-jutoc milk, and calcium-fortifiedfruit juice. Calcium-fortified means that [...] ?Spinach (cooked), rhubarb, beets, sweet potatoes, and Colombian chard. ?Peanuts. ?Potato chips, nepali fries, and baked potatoes with skin on. ?Nuts and nut products. ?Chocolate. If you regularly take a diuretic medicine, make sure to eat at least 1 or 2 servings of fruits or vegetables that are high in potassium each day. These include: ?Avocado. ?Banana. ?[place], prune, carrot, or tomato juice. ?Baked potato. [...] magnesium, fish oil, or vitamin B6. Take nbnv-ttk-okqppsa and prescription medicines only as told by [...] Casseroles. Pizza. Lasagna. Frozen meals. Potato chips. Vietnamese fries. The items listed above may not [...] provider. Document Revised: 01/18/2023 Document Reviewed: 01/18/2023 [employer] Patient Education 2023 [employer]. Follow Up Care 12/07/2023 12:56:11 With:MANPREET BROWN, Inez Ruano, URL Address: [address] [place], [place] [id number]- When: Unknown [facility] [employer] 12-05-2024 Note Patient Education Nephrology Dietary Guidelines [...] ? 8 oz (237 mL) of milk, aurtead-osmrrktdeizn-vbiio milk, and calcium-fortifiedfruit juice. Calcium-fortified means that [...] Spinach (cooked), rhubarb, beets, sweet potatoes, and Colombian chard. ? Peanuts. ? Potato chips, nepali fries, and baked potatoes with skin on. ? Nuts and nut products. ? Chocolate. ??? If you regularly take a diuretic medicine, make sure to eat at least 1 or 2 servings of fruits or vegetables that are high in potassium each day. These include: ? Avocado. ? Banana. ? [place], prune, carrot, or tomato juice. ? Baked [...] fish oil, or vitamin B6. ??? Take djjg-rov-txrppok and prescription medicines only as told by your health (more content not included)... [facility] 09-22-2024 History of Presen t illness Narrative Images from the original note were not included. Ja Schwab is a 64 y.o. female presents with chief complaint of Annual Exam HPI: HPI As above. 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 She sees the dentist every [...] UNIT/ML liquid Place under the tongue. With Maxatawny clobetasol (Temovate) 0.05 % ointment 1 application [...] Diagnosis Date ADHD (attention deficit hyperactivity disorder) ([facility]) 2009 Anxiety 2014? Benign neoplasm of colon Calculus in urethra Calculus of kidney and ureter Chronic nonalcoholic liver disease Disorder of liver Disorder of parathyroid gland, unspecified ([facility]) Diverticulitis 07/26/2023 Diverticulosis of colon (without mention of hemorrhage) Elevated hemoglobin ([facility]) 07/26/2023 Esophageal reflux Family history of colon cancer 09/18/2023 Flank pain 07/26/2023 Hearing loss of right ear, unspecified hearing loss type History of hysterectomy for benign disease 09/19/2023 Hydronephrosis Hydronephrosis 07/26/2023 Insomnia, unspecified Leiomyoma of uterus, unspecified Nocturia 09/19/2023 Osteopenia Osteoporosis (CMS/HCC) Unspecified Other psoriasis (CMS/HCC) Overweight (BMI 25.0-29.9) 07/26/2023 Parathyroid disorder ([facility]) Renal calculi 07/26/2023 Renal cyst, right S/P [...] Age of Onset Crohn's disease Mother Nhi Lopezhn Breast cancer Mother Nhi Lopezhn Alcohol abuse Mother Nhi Bryan Depression Mother Nhi Bryan Heart disease Father Jonnie Gonzalez Hypertension Father Jonnie Patti Gonzalez Esophageal cancer Father Jonnie Patti Gonzalez Diabetes Father Jonnie Armstrong Bryan Gonzalez Alcohol abuse Father Jonnie OlmosNelson Gonzalez [...] 30 min Stress: Stress Concern Present (09/18/2023) [employer] [employer] - Occupational Stress Questionnaire Feeling of Stress : To some extent Social Connections: Socially Integrated (09/18/2023) Social Connection and Isolation Panel [NHANES] Frequency of Communication with Friends and Family: More than three times a week Frequency of Social Gatherings with Friends and Family: More than three times a week Attends Jainism Services: 1 to 4 times per year [...] Sep for wellness. documented in this encounter [facility] 08-11-2024 Telephone encounter Note Please let patient know urine culture is negative for infection. See how she's doing. If better she can continue abx until done. If not improved, should see urology. [facility] 08-11-2024 Miscellaneous Notes Please let patient know urine culture is negative for infection. See how she's doing. If better she can continue abx until done. If not improved, should see urology. documented in this encounter [facility] 08-07-2024 History of Presen t illness Narrative [...] UNIT/ML liquid Place under the tongue. With Maxatawny clobetasol (Temovate) 0.05 % ointment 1 application [...] Diagnosis Date ADHD (attention deficit hyperactivity disorder) ([facility]) 2009 Anxiety 2014? Benign neoplasm of colon Calculus in urethra Calculus of kidney and ureter Chronic nonalcoholic liver disease Disorder of liver Disorder of parathyroid gland, unspecified ([facility]) Diverticulitis 07/26/2023 Diverticulosis of colon (without mention of hemorrhage) Elevated hemoglobin ([facility]) 07/26/2023 Esophageal reflux Family history of colon cancer 09/18/2023 Flank pain 07/26/2023 Hearing loss of right ear, unspecified hearing loss type History of hysterectomy for benign disease 09/19/2023 Hydronephrosis Hydronephrosis 07/26/2023 Insomnia, unspecified Leiomyoma of uterus, unspecified Nocturia 09/19/2023 Osteopenia Osteoporosis ([facility]) Unspecified Other psoriasis ([facility]) Overweight (BMI 25.0-29.9) 07/26/2023 Parathyroid disorder ([facility]) Renal calculi 07/26/2023 Renal cyst, right S/P [...] Jonnie Armstrong Bryan Gonzalez Hypertension Father Jonnie Armstrong Bryan Gonzalez Esophageal cancer Father Jonnie OlmosNelson Gonzalez Diabetes Father Jonnie Armstrong Bryan Gonzalez Alcohol abuse Father Jonnie Patti Gonzalez Depression Father Jonnie Patti Gonzalez Alcohol abuse Sister Hillary Bryan Accidental Brother Dylon Adams Alcohol abuse Brother Dylon Adams Drug abuse Brother Dylon Adams Dementia Maternal Grandfather Colon cancer Sibling Early natural Brother Jonnie Adams . Social History Socioeconomic History Marital status: Spouse [...] 30 min Stress: Stress Concern Present (09/18/2023) [place] [employer] - Occupational Stress Questionnaire Feeling of Stress : To some extent Social Connections: Socially Integrated (09/18/2023) Social Connection and Isolation Panel [NHANES] Frequency of Communication with Friends and Family: More than three times a week Frequency of Social Gatherings with Friends and Family: More than three times a week Attends Jainism Services: 1 to 4 times per year [...] wellness after 09/20. documented in this encounter [facility] 02-13-2024 Hospital Discharg e instructions Patient Education [...] relieve pelvic muscle tension or spasms. Take xode-mkc-wbvusqz and prescription medicines only as told by [...] provider. Document Revised: 02/15/2022 Document Reviewed: 02/15/2022 [employer] Patient Education 2022 [employer]. Follow Up Care 12/19/2023 16:06:38 With:YUNIOR CHAPMAN, JER E, URL Address: [address] [place] [address] [phone] When: Unknown [facility] [place] 01-30-2024 Hospital Discharg e instructions [...] nerve stimulation). ?For women, using a medical secretary teacher to prevent urine leaks. This is a [...] right after experiencing incontinence. General instructions Take esdh-zdh-oonuvnr and prescription medicines only as told by [...] important. Where to find more information National [place] of Diabetes and Digestive and Kidney Diseases: www.niddk.nih.gov [place] [employer]: www.urologyhealth.org Contact a health care [...] provider. Document Revised: 05/13/2021 Document Reviewed: 05/13/2021 [employer] Patient Education 2022 [employer] Follow Up Care 12/19/2023 16:04:38 With:[facility] [place] Address: [place] [address] Business (1) When: Unknown Comments:for procedure as scheduled [facility] [place] 01-23-2024 Hospital Discharg e instructions Patient Education [...] relieve pelvic muscle tension or spasms. Take stsl-dff-cexdgef and prescription medicines only as told by [...] provider. Document Revised: 02/15/2022 Document Reviewed: 02/15/2022 [employer] Patient Education 2022 [employer]. Follow Up Care 12/19/2023 16:03:24 With:YUNIOR CHAPMAN, JER Olmos, URL Address: [address] [place] [address] [phone] When: Unknown Comments:PFPT #4 on 01/30/24 [facility] 01-16-2024 Hospital Discharg e instructions Patient Education [...] relieve pelvic muscle tension or spasms. Take efuz-qdh-xnneofp and prescription medicines only as told by [...] provider. Document Revised: 02/15/2022 Document Reviewed: 02/15/2022 [employer] Patient Education 2022 [employer]. Follow Up Care 12/19/2023 16:01:49 With:YUNIOR CHAPMAN, JER Olmos, URL Address: [address] [address] [phone] When: Unknown Comments:PFPT #3 on 01/23/24 [facility] [place] 01-09-2024 Hospital Discharg e instructions Patient Education [...] relieve pelvic muscle tension or spasms. Take gjoq-bwp-gfgklwy and prescription medicines only as told by [...] provider. Document Revised: 02/15/2022 Document Reviewed: 02/15/2022 [employer] Patient Education 2022 [employer]. Follow Up Care 12/19/2023 16:00:51 With:JER MOJICA PA-C, URL Address: [address] [place] [address] [phone] When: Unknown Comments:PFPT session #2 on 01/16/24 [facility] 12-07-2023 Hospital Discharg e instructions Patient Education [...] provider. Document Revised: 02/16/2022 Document Reviewed: 02/16/2022 [employer] Patient Education 2022 [employer]. Follow Up Care 12/08/2022 11:38:31 With:MANPREET BROWN, Inez Ruano, URL Address: [address] [place], [place] [id number]- When: Unknown [facility] [place] 11-19-2023 Evaluation note Encounter Date [...] - D12.6) Repeat colonoscopy in 5 yrs. [facility]* Encounter Date Diagnosis Assessment [...] TWICE A DAY TO ONCE A DAY. [facility] Other 02-17-2023 Hospital Discharge instructions Patient Education 12/08/2022 11:23:14 Kidney Stones, Oimh-aq-Wmst Kidney Stones Kidney stones are rock-like masses [...] Follow these instructions at home: Medicines Take idiu-gkm-duondys and prescription medicines only as told by [...] 03/26/2009 Document Revised: 02/24/2020 Document Reviewed: 02/24/2020 [employer] Patient Education 2019 [employer]. Follow Up Care 12/05/2021 13:35:38 With:MANPREET BROWN, Inez Ruano, URL Address: [address] [place] [address]- When: Unknown [facility] 10-04-2022 Evaluation note* Encounter Date Diagnosis Assessment Notes Treatment Notes Treatment Clinical Notes Jul, Indigestion (ICD-10 - K30) [facility] Other 05-09-2022 Evaluation note* Encounter Date Diagnosis Assessment Notes Treatment Notes Treatment Clinical Notes February, Indigestion (ICD-10 - K30) PATIENT IS FOLLOWING THE FODMAP DIET AND THIS HAS HELPED. February, Irritable bowel syndrome with constipation (ICD-10 - K58.1) PATIENT STATES THAT THE TRULANCE WAS OVER $600 PATIENT IS USING THE FODMAP DIET AND PROBIOTICS. PATIENT GOES 2 DAYS WITHOUT A BOWEL MOVEMENT [facility] Other 03-16-2022 Evaluation note* Encounter Date Diagnosis Assessment Notes Treatment Notes Treatment Clinical Notes Dec, Indigestion (ICD-10 - K30) Continue Omeprazole without change Dec, Irritable bowel syndrome with constipation (ICD-10 - K58.1) Start Trulance 3mg daily - samples given to patient Start low fodmap diet - education given to patient [facility] Other 12-13-2021 Evaluation note* Encounter Date Diagnosis Assessment Notes Treatment Notes Treatment Clinical Notes Sep, Indigestion (ICD-10 - K30) PATIENT STATES HAVING BREAKTHROUGH PATIENT DOES CONTINUE ON THE OMEPRAZOLE 40 ONCE A DAY WILL INCREASE OMEPRAZOLE TO 40 TWICE A DAY [facility] Other Evaluation + Plan note Future Appointments Appointment Date:12/07/2023 10:45:00 AM Scheduled Provider:Inez JONES MD Location:[facility] Appointment Type:URO Office Visit [facility] evaluation + Plan note Future Appointments Appointment Date:12/05/2024 10:45:00 AM Scheduled Provider:[facility]ON[facility] Type:[facility]O Office Visit [facility] evaluation + Plan note Future Appointments Appointment Date:01/16/2024 01:00:00 PM Scheduled Provider:JER MOJICA PA-C Location:[facility] [place] Appointment Type:URO Procedure 30 min Appointment Date:01/23/2024 01:00:00 PM Scheduled Provider:JER MOJICA PA-C Location:[facility] [place] Appointment Type:URO Procedure 30 min Appointment Date:01/30/2024 01:00:00 PM Scheduled Provider:JER MOJICA PA-C Location:[facility] Appointment Type:URO Procedure 30 min Appointment Date:02/06/2024 01:00:00 PM Scheduled Provider:JRE MOJICA PA-C [facility] Type:[facility]O Procedure 30 min Appointment Date:02/13/2024 01:00:00 PM Scheduled Provider:JER MOJICA PA-C [facility] App[facility] Type:URO Procedure 30 min Appointment Date:12/05/2024 10:45:00 AM Scheduled Provider:Inez JONES MD [facility] Type:URO Office Visit [facility] evaluation + Plan note Future Appointments Appointment Date:01/23/2024 01:00:00 PM Scheduled Provider:JER MOJICA PA-C Location:[facility] Appointment Type:URO Procedure 30 min Appointment Date:01/30/2024 01:00:00 PM Scheduled Provider:JER MOJICA PA-C Location:[facility] Appointment Type:URO Procedure 30 min Appointment Date:02/06/2024 01:00:00 PM Scheduled Provider:JER MOJICA PA-C Location:[facility] Appointment Type:URO Procedure 30 min Appointment Date:02/13/2024 01:00:00 PM Scheduled Provider:JER MOJICA PA-C [facility] App[facility] Type:URO Procedure 30 min Appointment Date:12/05/2024 10:45:00 AM Scheduled Provider:Inez JOENS [facility] Type[facility] Office Visit [facility] evaluation + Plan note Future Appointments Appointment Date:01/30/2024 01:00:00 PM Scheduled Provider:JER MOJICA PA-C Location:[facility] Appointment Type:URO Procedure 30 min Appointment Date:02/06/2024 01:00:00 PM Scheduled Provider:JER MOJICA PA-C Location:[facility] Appointment Type:URO Procedure 30 min Appointment Date:02/13/2024 01:00:00 PM Scheduled Provider:JER MOJICA PA-C Location:[facility] Appointment Type:URO Procedure 30 min Appointment Date:12/05/2024 10:45:00 AM Scheduled Provider:Inez JONES MD [facility] Type:URO Office Visit [facility] Evaluation + Plan note Future Appointments Appointment Date:02/13/2024 01:00:00 PM Scheduled Provider:JER MOJICA PA-C [facility] App[facility] Type:URO Procedure 30 min Appointment Date:12/05/2024 10:45:00 AM Scheduled Provider:Inez JONES MD [facility] App[facility] Type:URO Office Visit [facility] Evaluation + Plan note Future Appointments Appointment Date:12/07/2025 11:15:00 AM Scheduled Provider:Inez JONES MD Location:[facility] Appointment Type:URO Office Visit [facility] evaluation note* Diagnosis Onset Date Resolution Status Family history of colon canc er requiring screening colonoscopy [facility] Work Phone: Evalutvnjd noteNo [employer] [place] [employer] Other Evaluation note* Diagnosis Dysuria- Primary Urine frequency Urinary [...] unspecified hemorrhoid type documented in this encounter [facility] HealthcareEvaluation noteNo assessment information availableAultman [facility] Work Phone: Evaluation note* Diagnosis Vaginal dryness, menopausal- Primary Osteoporosis, post-menopausal ([facility]) Senile osteoporosis Postmenopausal Asymptomatic postmenopausal status (age-related) (natural) Constipation, unspecified constipation type Screening breast examination Other screening breast examination Hx of hysterectomy for benign disease Hx of BSO (bilateral salpingo-oophorectomy) documented in this encounter [facility] HealthcareEvaluation note* Diagnosis Dysuria- Primary Acute cystitis with hematuria documented in this encounter [facility] HealthcareHistory general Narrative - Reported* Type Description Date Medical History GERD Medical History kidney stones Surgical History hysterectomy Surgical History lithotripsy Surgical History kidney stone Surgical History cystoscopy Surgical History colonoscopy Hospitalization History ABOVE [facility] Other Hospital course Narrative No data available for this section [facility] Hospital Discharge instructions Additional Instructions DISCHARGE INSTRUCTIONS [...] if you have any problems. -Office number [phone] Work Phone: Hospital Discharge instructions No data available for this section [facility] Progress note No data available for this section [facility] Summary Purpose Family History No Family History [...] Reason for Visit Family history of co roldan cancer requiring screening colonoscopy Chief Complaint Admit [...] section and content) DATE CREATED AUTHOR 07/26/2022 [facility] dical Specialist DATE CREATED AUTHOR AUTHOR'S ORGANIZ ATION 12/11/2022 [facility]ital DATE CREATED AUTHOR AUTHOR'S ORGANIZ ATION 11/30/2023 [facility] DATE CREATED AUTHOR AUTHOR'S ORGANIZ ATION 07/04/2025 [facility] dical Specialists EPIC DATE CREATED AUTHOR AUTHOR'S ORGANIZ ATION 07/10/2025 [facility] Patient Care team informatio n (unrecognized section and content) Team Status: Active Member Role Status Dates Glenna Keita MD Primary Care Provider Active Team Status: Inactive Member Role Status Dates Glenna Keita MD Primary Care Provider Active Andrea Gunter MD Attending Provider Active Software Configuration Manager Relationship Specialty Start Date End Date Glenna Keita MD [address] [place] [address] PCP - General Family Medicine 02/27/23 Software Configuration Manager Relationship Specialty Start Date End Date Glenna Keita MD [address] [place] [address] PCP - General Family Medicine 02/27/23 Software Configuration Manager Relationship Specialty Start Date End Date Glenna Keita MD [address] [place] [address] PCP - General Family Medicine 02/27/23 Software Configuration Manager Relationship Specialty Start Date End Date Glenna Keita MD [address] [place] [address] PCP - General Family Medicine 02/27/23 Software Configuration Manager Relationship Specialty Start Date End Date Glenna Keita MD [address] [place] [address] PCP - General Family Medicine 02/27/23 Software Configuration Manager Relationship Specialty Start Date End Date Glenna Keita MD [address] [place] [address] PCP - General Family Medicine 02/27/23 Team Status: Inactive Member Role Status Deysi Keita MD Primary Care Provider Active Start: November 18, 2024 End: November 18, 2024 Augustus Hill MD Attending Provider Active S tart: November 18, 2024 End: November 18, 2024 Software Configuration Manager Relationship Specialty Start Date End Date Glenna Keita MD [address] [place] [address] PCP - General Family Medicine 02/27/23 Software Configuration Manager Relationship Specialty Start Date End Date Glenna Keita MD [address] [place] [address] PCP - General Family Medicine 02/27/23 Software Configuration Manager Relationship Specialty Start Date End Date Rene Lynch MD [address] [place] [address] PCP - General Family Medicine 07/01/25 Software Configuration Manager Relationship Specialty Start Date End Date Rene Lynch MD [address] [place] [address] PCP - General Family Medicine 07/01/25 Goals [...] BE BASED ON THE PRIMARY CLINICAL RECORDS. [facility] [employer] [facility]. provides no warranty or guarantee of the accuracy or completeness of information in this document.
--- NOTE | 2025-07-17 10:02 | ECG_ITS ---
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 Measurements Intervals [place] Rate: 73 P: 22 AL: 138 QRS: -50 QRSD: 101 T: 51 QT: 398 QTc: 440 Interpretive Statements SINUS RHYTHM LEFT ANTERIOR FASCICULAR BLOCK [QRS AXIS <= -45, QR IN I, RS IN II] Abnormal ECG Compared to ECG 10/21/2022 03:47:28 No significant changes Electronically Signed On 07-17-2025 17:00:47 EDT by SATISH MUNGUIA M.D.
--- NOTE | 2025-07-17 10:37 | PM.PRESUREVA ---
History of Present Illness History of Present Illness Chief complaint: Right Ureteral Stone Narrative: Patient presents for presurgical testing. Please see HPI from Dr. Jones dated July 08, 2025. Review of Systems ROS Narrative Please see ROS from Dr. Jones dated July 08, 2025. [facility] Medical History (Updated 07/17/25 @ 10:33 by Tyra Means NP) Hematuria ?R31.9 - Hematuria, unspecified (ICD-10) Back pain ?M54.9 - Dorsalgia, unspecified (ICD-10) Arthritis ?M19.90 - Unspecified osteoarthritis, unspecified site (ICD-10) Low iron ?E61.1 - Iron deficiency (ICD-10) PTSD (post-traumatic stress disorder) ?F43.10 - Post-traumatic stress disorder, unspecified (ICD-10) ADHD ?F90.9 - Attention-deficit hyperactivity disorder, unspecified type (ICD-10) Anxiety ?F41.9 - Anxiety disorder, unspecified (ICD-10) Kidney stones ?N20.0 - Calculus of kidney (ICD-10) Heartburn ?R12 - Heartburn (ICD-10) Constipation ?K59.00 - Constipation, unspecified (ICD-10) Colitis ?K52.9 - Noninfective gastroenteritis and colitis, unspecified (ICD-10) IBS (irritable bowel syndrome) ?K58.9 - Irritable bowel syndrome, unspecified (ICD-10) GERD (gastroesophageal reflux disease) ?K21.9 - Gastro-esophageal reflux disease without esophagitis (ICD-10) Hypokalemia ?E87.6 - Hypokalemia (ICD-10) Postoperative nausea and vomiting ?R11.2 - Nausea with vomiting, unspecified (ICD-10) ?Z98.890 - Other specified postprocedural states (ICD-10) S/P extracorporeal shock wave therapy ?Z98.890 - Other specified postprocedural states (ICD-10) Surgical History (Updated 07/17/25 @ 10:23 by Tyra Means NP) History of esophagogastroduodenoscopy (EGD) ?Z98.890 - Other specified postprocedural states (ICD-10) History of hysterectomy ?Z90.710 - Acquired absence of both cervix and uterus (ICD-10) History of colonoscopy ?Z98.890 - Other specified postprocedural states (ICD-10) S/P ureteral stent placement ?Z96.0 - Presence of urogenital implants (ICD-10) S/P cystoscopy ?Z98.890 - Other specified postprocedural states (ICD-10) H/O ureteroscopy ?Z98.890 - Other specified postprocedural states (ICD-10) Family History (Updated 07/17/25 @ 10:23 by Tyra Means NP) Other Esophageal cancer Family history of DVT Family history of breast cancer Family history of colon cancer Family history of diabetes mellitus Family history of hypertension Social History (Updated 07/17/25 @ 10:17 by Tyra Means NP) Within the past year, how often did you have a drink containing alcohol: monthly or less Smoking status: Former smoker Non-prescribed substance use: denies use Highest level of school completed/degree received: some college, no degree Meds Home Medications and Allergies Home Medications ?Medication ?Instructions ?Recorded ?Confirmed ?Type alprazolam 0.25 mg tablet 0.25 mg PO BEDTIME 09/26/23 07/17/25 History dextroamphetamine-amphetamine ER 40 mg PO DAILY 09/26/23 07/17/25 History 20 mg 24hr capsule,extend release hydrochlorothiazide 25 mg tablet 25 mg PO .every other day kidney 09/26/23 07/17/25 History stones omeprazole 40 mg capsule,delayed 40 mg PO DAILY 09/26/23 07/17/25 History release potassium bicarbonate-citric acid 25 meq PO DAILY 09/26/23 07/17/25 History 25 mEq effervescent tablet (Klor-Con/EF) cholecalciferol (vitamin D3) 50 2,000 unit PO DAILY 07/17/25 07/17/25 History mcg (2,000 unit) capsule ciprofloxacin HCl 500 mg tablet 500 mg PO Q12H 07/17/25 07/17/25 History estradiol 0.01% (0.1 mg/gram) 1 appful vaginal .MWF 07/17/25 07/17/25 History vaginal cream famotidine 40 mg tablet 40 mg PO Q12H PRN GERD 07/17/25 07/17/25 History magnesium 200 mg tablet 200 mg PO DAILY 07/17/25 07/17/25 History psyllium husk 0.4 gram capsule 0.4 g PO DAILY 07/17/25 07/17/25 History (Metamucil) tamsulosin 0.4 mg capsule 0.4 mg PO DAILY 07/17/25 07/17/25 History zinc 50 mg capsule 50 mg PO DAILY 07/17/25 07/17/25 History Allergies Allergy/AdvReac Type Severity Reaction Status Date / Time sulfamethoxazole (From Allergy Severe Anaphylaxis Verified 07/17/25 10:09 Bactrim) trimethoprim (From Bactrim) Allergy Severe Anaphylaxis Verified 07/17/25 10:09 Exam Narrative Exam Narrative: Constitutional: Awake, alert, comfortable, well-appearing, nontoxic, interactive, vital signs as charted Head: Normocephalic, atraumatic Neck: Supple, normal appearance, normal range of motion, no meningeal signs, no lymphadenopathy Respiratory: No respiratory distress, breath sounds clear Cardiovascular: Regular rate and rhythm, strong and regular heart tones Abdomen: Nontender, normal bowel sounds, soft, no CVA tenderness Musculoskeletal: Normal gait, no swelling or edema Skin: No rashes or induration, no lesions, only visible skin inspected Neuro: No neurological deficits, normal sensation Psychiatric: Oriented ?3, normal affect Assessment and Plan Assessment and Plan (1) Hematuria: (2) Kidney stones: Plan Cystoscopy, right retrograde, right ureteroscopy, laser, possible right stent placement scheduled with Dr. Jones July 23, 2025
[2025-07-17 10:58] LABS: Hematocrit 42.4 % (36.0-48.0); Hemoglobin 14.7 g/dL (12.0-16.0); Immature Granulocytes Abs Auto 0.03 10^3/uL (0.00-0.03); Immature Granulocytes Pct Auto 0.6 % (0.0-0.5); Lymphocytes Absolute Auto 1.8 10^3/uL (1.2-3.8); Mean Corpuscular HGB Conc 34.7 g/dL (29.9-35.2); Mean Corpuscular Hemoglobin 30.7 pg (26.7-34.0); Mean Corpuscular Volume 88.5 fL (81.0-99.0); Platelet Count 291 10^3/uL (150-450); Red Blood Count 4.79 10^6/uL (4.20-5.40); White Blood Count 5.1 10^3/uL (4.0-11.0)
[2025-07-17 11:07] LABS: Anion Gap 8.9; Blood Urea Nitrogen 21.0 mg/dL (7.0-18.0); Calcium 8.6 mg/dL (8.5-10.1); Carbon Dioxide 28.4 mmol/L (21.0-32.0); Chloride 102 mmol/L (98-107); Estimated GFR (African America >60 (>=60 mL/min/1.73m^2); Estimated GFR (Non-African Ame >60 (>=60 mL/min/1.73m^2); Glucose 101 mg/dL (74-106); INR 1.01; Partial Thromboplastin Time 27.2 sec (22.3-36.2); Potassium 3.3 mmol/L (3.5-5.1); Prothrombin Time 10.7 sec (9.0-11.6); Sodium 136 mmol/L (136-145)
== END 2025-07-17 09:55 | disposition home or self-care (01) ==
LOC: PST 09:55
PROVIDERS: Visit Provider Urology
DX: Z01.810 Encounter for preprocedural cardiovascular examination (principal); Z01.812 Encounter for preprocedural laboratory examination; Z01.818 Encounter for other preprocedural examination; N20.1 Calculus of ureter
CPT/HCPCS: 36415; 80048; 85025; 85610; 85730; 93005; G0463

== ENCOUNTER 2025-07-23 08:00 | Day surgery (SDC) | payer MEDICARE, OTHER, SELFPAY ==
[2025-07-17 10:30] VITALS: BP 116/76; PULSE 91; TEMP 36.2; O2SAT 96; BMI 25.2
[2025-07-23] VITALS (10 sets, daily range): BP systolic 105–126; BP diastolic 62–74; PULSE 72–90; TEMP 36.2–36.3; O2SAT 92–98; BMI 24.6
--- OUTSIDE RECORDS SUMMARY | 2025-07-23 | XMS_ITS ---
Author Name Auto Generated Organization OHIP Care Team Providers Care Trainman Name Role Phone MARIO CHANCE Attending Unavailable MARIO CHANCE Referring Unavailable KINA DESOUZA Attending Unavailable PRECIOUS CHRISTY Attending Unavailable MARIO CHANCE Referring Unavailable LIVAN LYNCH Attending Unavailable SANJUANITA KEITA Referring Unavailable MARIO CHANCE Referring Unavailable MARIO CHANCE Referring Unavailable MARIO CHANCE Referring Unavailable Andres JONES Attending Unavailable Andres JONES Attending Unavailable Andres JONES Attending Unavailable PROBLEMS No Problem Records Found PROCEDURES No Procedure Records Found RESULTS PATIENT EDUCATION Observed: 07/08/2025 1:45 PM Status: F Source: [facility] Patient Education Urology Kidney Stones Kidney stones [...] these instructions at home: Medicines ??? Take qazp-wrl-pyheytj and prescription medicines only as told by [...] provider. Document Revised: 06/01/2023 Document Reviewed: 06/01/2023 [employer] Patient Education ? 2023 [employer]. AMBULATORY VISIT SUMMARY Observed: 07/08 12:44 PM Status: F Source: [facility] Ambulatory Visit Summary JA MATOS :1960 Visit Date:07/08/2025 Ambulatory Visit Instructions Your Diagnosis UTI (urinary tract infection) Gross hematuria Kidney stone Mixed incontinence Other urethral stricture, female Tests Performed CT Abdomen/Pelvis w/o Contrast -- Results Pending -- Please visit your patient portal for your results or contact your primary care physician. Your Care Team Attending Physician - MANPREET BROWN, Andres Ruano Primary Care Physician - SANJUANITA KEITA This Is Your Medications List cephalexin (Keflex 500 mg Cap) estradiol topical (estradiol 0.1 mg/g Vag Crm) hydrochlorothiazide (hydrochlorothiazide 25 mg Tab) potassium bicarbonate (K-Effervescent 25 mEq oral tablet, effervescent) potassium chloride (Klor Con 10 mEq Cap-ER) Contact prescribing physician if questions or concerns alprazolam (alprazolam 0.25 mg Tab) amphetamine-dextroamphetamine (Adderall 20 mg oral tablet) bifidobacterium-lactobacillus (Nature's Bounty Probiotic) ergocalciferol (Vitamin D) loratadine [...] Follow-Up Appointments Sunday2025 11:15 AM EST With: Andres JONES MD Where: [facility] [address] [place] [address]- You Need to Schedule the Following Appointments Follow Up with MANPREET BROWN, Andres Ruano, URL When: Comments: sched cysto/UD, CT scan Where: [address] [place] [address] Medications What How Much When Why Instructions New cephalexin (Keflex 500 mg Cap) 1 Capsules By Mouth Every 12 hours UTI (urinary tract infection) Duration: 7 Days Pickup at [facility] Unchanged estradiol topical (estradiol 0.1 mg/ [...] prescribing physician if questions or concerns Unchanged amphetamine-dextroamphetamine (Adderall 20 mg oral tablet) By Mouth 2 times a day Contact prescribing physician if questions or concerns Unchanged bifidobacterium-lactobacillus (Nature's Bounty Probiotic) By Mouth Every day [...] physician if questions or concerns Pharmacy Information [facility]: [address], [place] [id number] [phone] Allergies sulfa drugs (Throat tightness) Problems Ongoing [...] these instructions at home: Medicines ??? Take fogx-jkq-vofjmvx and prescription medicines only as told by your doctor. ??? Ask your doctor if the medicine prescribed to you requires you to avoid driving or using machinery. Eating and drinking ??? Drink enough fluid to keep your pee pale yellow. ? You may be told to drink at least 8???10 glasses of water each day. This will [...] hours after a stone comes out. ? 8???12 weeks after a stone comes out, and every 6???12 months after that. ??? Strain your pee [...] provider. Document Revised: 06/01/2023 Document Reviewed: 06/01/2023 [employer] Patient Education ??? 2023 [employer] Patient Portal You may access all of your results and other medical record information on our secure patient portal. If you are not signed up for this yet, please contact [employer] at [phone] to get signed up today. Language Information Language assistance services are available as needed. UROLOGY OFFICE/CLINIC NOTE Observed: 12:44 PM Status: F Source: [facility] Urology Office/Clinic Note Chief Complaint Office visit [...] Completed 5 sessions of PFPT with Anastasiia August PA-C 02/13/24. Pt continues at home PFPT. Not addressed due to acute issue of UTI. 5. Other urethral stricture, female (N35.82: Other urethral stricture, female) See #1. Follow-up With When Contact Information MANPREET BROWN, Andres Ruano, URL [address] [place] [address] [place] [address] Additional Instructions: sched cysto/UD, CT scan Patient Education Kidney Stones, Qwff-jc-Qtbp Violet Tran, personally scribed for Dr. Jones on 07/08/2025 [...] salpingo-oophorectomy (07/22/2005), Colonoscopy and biopsy of colon. Medications Adderall 20 mg oral tablet, Oral, BID alprazolam 0.25 mg Tab estradiol 0.1 mg/g Vag Crm, 1 gm, Vaginal, MonWedFri, 4 refills hydrochlorothiazide 25 mg Tab, 25 mg= 1 tab(s), Oral, Daily, 3 refills K-Effervescent 25 mEq oral tablet, effervescent, 25 mEq= 1 tab(s), Oral, BID, 11 refills Klor Con 10 mEq Cap-ER, 10 mEq= 1 tab(s), Oral, Daily loratadine, Daily magnesium citrate, Oral Metamucil, Oral Nature's Bounty Probiotic, Oral, Daily omeprazole, Oral, Daily Vitamin D, Oral, qWeek Allergies sulfa drugs (Throat tightness) Social History Alcohol - Denies Alcohol Use, 05/07/2019 Current. Beer, Wine, Liquor. 1-2 times per month., 12/05/2024 Substance Abuse Never., 12/05/2024 Tobacco Former smoker, quit more than 30 days ago Tobacco Use:. Never Smokeless Tobacco Use:. Cigarettes, Household tobacco concerns: No. Yes, 07/08/2025 Family History Hypertension: Father. Primary malignant neoplasm of colon: Mother. Immunizations Vaccine Date Status influenza virus vaccine, inactivated 09/20/2023 Recorded SARS-CoV-2 (COVID-19) mRNAMUL.[id number] 08/10/2022 Recorded SARSCoV2 mRNA(rqemdselo-icos-lvfdfx) vac 01/30/2022 Recorded SARS-CoV-2 (COVID-19) Ad26 vaccine 09/03/2021 Recorded SARS-CoV-2 (COVID-19) mRNA BNT-162b2 vax 08/26/2021 Recorded influenza virus vaccine, inactivated 07/2021 Recorded influenza virus vaccine, inactivated 07/05/2021 Recorded SARS-CoV-2 (COVID-19) mRNA BNT-162b2 vax 01/31/2021 Recorded SARS-CoV-2 (COVID-19) mRNA BNT-162b2 vax 01/29/2021 Recorded SARS-CoV-2 (COVID-19) mRNA BNT-162b2 vax 01/10/2021 Recorded SARS-CoV-2 (COVID-19) mRNA BNT-162b2 vax 01/04/2021 Recorded influenza virus vaccine, inactivated 09/13/2019 Recorded influenza virus vaccine, inactivated 11/05/2018 Recorded Lab Results Ambulatory Point of Care Results Bilirubin Urine Dipstick: Negative (07/08/25 12:54:00) Blood Urine Dipstick: Negative (07/08/25 12:54:00) Glucose Urine Dipstick: Negative (07/08/25 12:54:00) Ketones Urine Dipstick: Negative (07/08/25 12:54:00) Leukocytes Urine Dipstick: 3+ Large (07/08/25 12:54:00) Nitrite Urine Dipstick: Negative (07/08/25 12:54:00) Protein Urine Dipstick: 1+ (30 mg/dl) (07/08/25 12:54:00) Specific Como Urine Dipstick: 1.015 (07/08/25 12:54:00) Urine Appearance Urine Dipstick: Clear (07/08/25 12:54:00) Urine Color Urine Dipstick: Yellow (07/08/25 12:54:00) Urobilinogen Urine Dipstick: Normal 0.2-1 EU/dl (07/08/25 12:54:00) pH Urine Dipstick: 8.5 (07/08/25 12:54:00) [1] URO- 1 year; Andres JONES MD 12/05/2024 11:46 EST [2] URO- 1 year; Andres JONES MD 12/05/2024 11:46 EST Result Comment: Electronical ly Signed By: Andres JONES MD\.br\Date and Time Signed: 07/08/25 13:47 EDT\.br\Electronically Co-Signed By: Violet Manzo\.br\Date and Time Co-Signed: 07/08/25 13:45 EDT BI MAMMOGRAM DIAGNOSTIC TOMOSYNTHESIS LEFT Observed: 05/11/2025 10:37 AM Status: F Source: [facility] This is a summary report. Th e complete report is available in the patient's [...] IS VERY IMPORTANT TO YOUR HEALTH. THE [employer] GUIDELINES RECOMMEND THAT WOMEN 40 YEARS OF AGE AND OLDER SHOULD HAVE A MAMMOGRAM EVERY YEAR. A REMINDER LETTER WILL BE SENT AT THE APPROPRIATE TIME. ELECTRONICALLY SIGNED BY: Raul Keith M.D. BI US BREAST LIMITED LEFT Observed: 04/22 10:37 AM Status: F Source: [facility] EPIC Order Comment: Due in April 22 Examination: BI US BREAST LI MITED LEFT Reason for Study: 6 month Comparison: [...] 3 ELECTRONICALLY SIGNED BY: Raul Keith M.D. AMBULATORY VISIT SUMMARY Observed: 12/05 12:20 PM Status: F Source: [facility] Ambulatory Visit Summary JA MATOS :1960 Visit Date:12/05/2024 Ambulatory Visit Instructions Your Diagnosis Kidney stone Urinary urgency Mixed incontinence Feeling of incomplete bladder emptying Tests Performed XR Abdomen 1 View -- Results Pending -- Please visit your patient portal for your results or contact your primary care physician. Your Care Team Attending Physician - Andres JONES MD Primary Care Physician - SANJUANITA KEITA This Is Your Medications List estradiol topical (estradiol 0.1 mg/g Vag Crm) hydrochlorothiazide (hydrochlorothiazide 25 mg Tab) potassium bicarbonate (K-Effervescent 25 mEq oral tablet, effervescent) potassium chloride (Klor Con 10 mEq Cap-ER) Contact prescribing physician if questions or concerns alprazolam (alprazolam 0.25 mg Tab) amphetamine-dextroamphetamine (Adderall 20 mg oral tablet) bifidobacterium-lactobacillus (Nature's Bounty Probiotic) ergocalciferol (Vitamin D) loratadine [...] Follow-Up Appointments Sunday2025 11:15 AM EST With: Andres JONES MD Where: [facility] [address] [place] [address]- You Need to Schedule the Following Appointments Follow Up with Andres JONES MD, URL When: Where: [address] [place] [address]- Medications What How Much When Instructions New potassium chloride (Klor Con 10 mEq Cap-ER) 1 Tablets By Mouth Every day Pickup at [facility] Unchanged estradiol topical (estradiol 0.1 mg/ g Vag Crm) 1 Gram Vaginal Sunday Pickup at [facility] Unchanged hydrochlorothiazide (hydrochlorothiazide 25 mg Tab) 1 Tablets By Mouth Every day Unchanged potassium bicarbonate (K-Effervescent 25 mEq oral tablet, effervescent) 1 Tablets By Mouth 2 times a day Duration: 30 Days Unchanged alprazolam (alprazolam 0.25 mg Tab) Contact prescribing physician if questions or concerns Unchanged amphetamine-dextroamphetamine (Adderall 20 mg oral tablet) By Mouth 2 times a day Contact prescribing physician if questions or concerns Unchanged bifidobacterium-lactobacillus (Nature's Bounty Probiotic) By Mouth Every day [...] physician if questions or concerns Pharmacy Information [facility]: [address] [id number] [phone] Allergies sulfa drugs (Throat tightness) Problems Ongoing [...] calcium at each meal. Foods that contain 200???500 mg of calcium a serving include: ? 8 oz (237 mL) of milk, ghffndk-uapgvsnikyux-kttsh milk, and calcium- fortifiedfruit juice. Calcium-fortified means that calcium has been [...] of sardines or mackerel. Most people need 1,000???1,500 mg of calcium a day. Talk to [...] Spinach (cooked), rhubarb, beets, sweet potatoes, and Anguillan chard. ? Peanuts. ? Potato chips, serbian fries, and baked potatoes with skin on. ? Nuts and nut products. ? Chocolate. ??? If you regularly take a diuretic medicine, make sure to eat at least 1 or 2 servings of fruits or vegetables that are high in potassium each day. These include: ? Avocado. ? Banana. ? Mcintosh, prune, carrot, or tomato juice. ? Baked potato. ? Cabbage. ? Beans and split peas. Lifestyle ??? Drink enough fluid to keep your urine pale yellow. This is the most important thing you can do. Spread your fluid intake throughout the day. ??? If you drink alcohol: ? Limit how much you have to: ? 0???1 drink a day for women who are not . ? 0???2 drinks a day for men. ? Know how much alcohol is in your drink. In the [place] one drink equals one 12 oz bottle of beer (355 mL), one 5 oz glass of wine (148 mL), or one 1??? oz glass of hard liquor (44 mL). [...] fish oil, or vitamin B6. ??? Take abhv-dtb-rvzkgod and prescription medicines only as told by [...] Casseroles. Pizza. Lasagna. Frozen meals. Potato chips. St Helenian fries. The items listed above may not [...] Contact a dietitian for more information. Summary ??? Kidney stones are deposits of minerals and salts that form inside your kidneys. ??? You can lower your risk of kidney stones by making changes to your diet. ??? The most important thing you can do is drink enough fluid. Drink enough fluid to keep your urine pale yellow. ??? Talk to your dietitian about how much calcium you should have each day, and eat less salt and animal protein as told by your dietitian. This information is not intended to replace advice given to you by your health care provider. Make sure you discuss any questions you have with your health care provider. Document Revised: 01/18/2023 Document Reviewed: 01/18/2023 [employer] Patient Education ??? 2023 [employer] UROLOGY OFFICE/CLINIC NOTE Observed: 11:46 AM Status: F Source: [facility] Urology Office/Clinic Note Chief Complaint 1 year [...] kidney) S/p R ESWL 12/30/20. Presented to [facility] ER 07/16/23 with complaints of LLQ pain [...] Completed 5 sessions of PFPT with Anastasiia August PA-C 02/13/24. Pt continues at home PFPT. 4. Feeling of incomplete bladder emptying (R39.14: Feeling of incomplete bladder emptying) PVR 12/07/23 - 0 Follow-up With When Contact Information MANPREET BROWN, Andres Ruano, URL [address] [place] [address]- Additional Instructions: 1 year w/ KUB Patient Education Dietary Guidelines to Help Prevent Kidney Stones I, Janis Cárdenas, personally scribed for Dr. Jones on 12/05/2024 11:46:15. . Documentation recorded by the scribe, Janis Cárdenas, accurately reflects the services(s) I performed and [...] salpingo-oophorectomy (07/22/2005), Colonoscopy and biopsy of colon. Medications Adderall 20 mg oral tablet, Oral, BID alprazolam 0.25 mg Tab estradiol 0.1 mg/g Vag Crm, 1 gm, Vaginal, MonWedFri, 4 refills, Not taking: Pt stopped within the past month due to finding a small lump in her breast. hydrochlorothiazide 25 mg Tab, 25 mg= 1 tab(s), Oral, Daily, 3 refills K-Effervescent 25 mEq oral tablet, effervescent, 25 mEq= 1 tab(s), Oral, BID, 11 refills loratadine, Daily magnesium citrate, Oral Metamucil, Oral Nature's Bounty Probiotic, Oral, Daily omeprazole, Oral, Daily Vitamin D, Oral, qWeek Allergies sulfa drugs (Throat tightness) Social History Alcohol - Denies Alcohol Use, 05/07/2019 Current. Beer, Wine, Liquor. 1-2 times per month., 12/05/2024 Substance Abuse Never., 12/05/2024 Tobacco Former smoker, quit more than 30 days ago Tobacco Use:. Household tobacco concerns: No. Yes, 12/05/2024 Family History Hypertension: Father. Primary malignant neoplasm of colon: Mother. Immunizations Vaccine Date Status influenza virus vaccine, inactivated 09/20/2023 Recorded SARS-CoV-2 (COVID-19) mRNAMUL.ORD![id number] 08/10/2022 Recorded SARSCoV2 mRNA(jkbzhxvwr-wakd-cmgakb) vac 01/30/2022 Recorded SARS-CoV-2 (COVID-19) Ad26 vaccine 09/03/2021 Recorded SARS-CoV-2 (COVID-19) mRNA BNT-162b2 vax 08/26/2021 Recorded influenza virus vaccine, inactivated 07/2021 Recorded influenza virus vaccine, inactivated 07/05/2021 Recorded SARS-CoV-2 (COVID-19) mRNA BNT-162b2 vax 01/31/2021 Recorded SARS-CoV-2 (COVID-19) mRNA BNT-162b2 vax 01/29/2021 Recorded SARS-CoV-2 (COVID-19) mRNA BNT-162b2 vax 01/10/2021 Recorded SARS-CoV-2 (COVID-19) mRNA BNT-162b2 vax 01/04/2021 Recorded influenza virus vaccine, inactivated 09/13/2019 Recorded influenza virus vaccine, inactivated 11/05/2018 Recorded Lab Results Ambulatory Point of Care Results Bilirubin Urine Dipstick: Negative (12/05/24 10:56:00) Blood Urine Dipstick: Negative (12/05/24 10:56:00) Glucose Urine Dipstick: Negative (12/05/24 10:56:00) Ketones Urine Dipstick: Negative (12/05/24 10:56:00) Leukocytes Urine Dipstick: 1+ Small (12/05/24 10:56:00) Nitrite Urine Dipstick: Negative (12/05/24 10:56:00) Protein Urine Dipstick: Negative (12/05/24 10:56:00) Specific Como Urine Dipstick: 1.015 (12/05/24 10:56:00) Urine Appearance Urine Dipstick: Clear (12/05/24 10:56:00) Urine Color Urine Dipstick: Yellow (12/05/24 10:56:00) Urobilinogen Urine Dipstick: Normal 0.2-1 EU/dl (12/05/24 10:56:00) pH Urine Dipstick: 6 (12/05/24 10:56:00) Result Comment: Electronical ly Signed By: Andres JONES MD\.br\Date and Time Signed: 12/05/24 11:52 EST\.br\Electronically Co-Signed By: Janis Cárdenas.br\Date and Time Co-Signed: 12/05/24 11:46 EST PATIENT EDUCATION Observed: 12/05/2024 11:45 AM Status: F Source: [facility] Patient Education Nephrology Dietary Guidelines to Help [...] ? 8 oz (237 mL) of milk, lhawffp-hssmwqqtdfnr-hlktg milk, and calcium- fortifiedfruit juice. Calcium-fortified means that calcium has been [...] Spinach (cooked), rhubarb, beets, sweet potatoes, and Anguillan chard. ? Peanuts. ? Potato chips, serbian fries, and baked potatoes with skin on. ? Nuts and nut products. ? Chocolate. ??? If you regularly take a diuretic medicine, make sure to eat at least 1 or 2 servings of fruits or vegetables that are high in potassium each day. These include: ? Avocado. ? Banana. ? Mcintosh, prune, carrot, or tomato juice. ? Baked [...] fish oil, or vitamin B6. ??? Take dzhn-fgq-amfrevm and prescription medicines only as told by [...] Casseroles. Pizza. Lasagna. Frozen meals. Potato chips. St Helenian fries. The items listed above may not [...] Contact a dietitian for more information. Summary ??? Kidney stones are deposits of minerals and salts that form inside your kidneys. ??? You can lower your risk of kidney stones by making changes to your diet. ??? The most important thing you can do is drink enough fluid. Drink enough fluid to keep your urine pale yellow. ??? Talk to your dietitian about how much calcium you should have each day, and eat less salt and animal protein as told by your dietitian. This information is not intended to replace advice given to you by your health care provider. Make sure you discuss any questions you have with your health care provider. Document Revised: 01/18/2023 Document Reviewed: 01/18/2023 [employer] Patient Education ? 2023 [employer] BI MAMMOGRAM DIAGNOSTIC TOMOSYNTHESIS LEFT Observed: 11/10/2024 2:58 PM Status: F Source: [facility] This is a summary report. Th e complete report is available in the patient's [...] IS VERY IMPORTANT TO YOUR HEALTH. THE [employer] GUIDELINES RECOMMEND THAT WOMEN 40 YEARS OF AGE AND OLDER SHOULD HAVE A MAMMOGRAM EVERY YEAR. A REMINDER LETTER WILL BE SENT AT THE APPROPRIATE TIME. ELECTRONICALLY SIGNED BY: Raul Keith M.D. BI US BREAST LIMITED LEFT Observed: 10/23 2:58 PM Status: F Source: [facility] EPIC Examination: BI US BREAST LI MITED LEFT Reason for Study: call back Comparison: [...] 3 ELECTRONICALLY SIGNED BY: Raul Keith M.D. BI MAMMOGRAM SCREENING TOMOSYNTHESIS BILATERAL Observed: 11/06/2024 12:57 PM Status: F Source: [facility] EPIC Order Comment: Us or spot co mpression prn This is a summary report. Th e complete report is available in the patient's [...] ultrasound ELECTRONICALLY SIGNED BY: Raul Keith M.D. DEXA BONE DENSITY Observed: 11/06/2024 12:57 PM Status: F Source: [facility] Examination: DEXA BONE DENSI TY Clinical History: osteopenia Technique: Bone density study [...] exam. ELECTRONICALLY SIGNED BY: Raul Keith M.D. ALLERGIES DATE TYPE / CODE NAME / CODE REACTION SEVERITY SOURCE /[id number](SNOMED CT) sulfa drugs [id number] [facility] ENCOUNTERS ADMIT/DISCHARGE ACCOUNT NUMBER ADMITTING ENCOUNTER CLASS LOCATION SOURCE 07/23/2025 [id number] Ambulatory CD:[id number] 7Building:CD :[id number] [facility] 07/08/2025/ 5 [id number] Ambulatory [place] Exam 7 [facility] 07/02/2025/ 5 [id number] Ambulatory Building:FNR FAMMED [facility] 05/11/2025/ 5 [id number] Ambulatory Building:FNR BREAST [facility] 05/11/2025/ 5 [id number] Ambulatory Building:NOM SFNRUS [facility] 03/17/2025/ 5 [id number] Ambulatory Building:NOM S NB OB [facility] 12/05/2024/ 5 [id number] Ambulatory [place] : Exam 1 [facility] 11/10/2024/ 5 [id number] Ambulatory Building:FNR BREAST [facility] EPIC 11/10/2024/ 5 [id number] Ambulatory Building:NOM SFNRUS [facility] EPIC 11/06/2024/ 5 [id number] Ambulatory Building:NOM SFNRDXA [facility] EPIC 11/06/2024/ 5 [id number] Ambulatory Building:FNR BREAST [facility] EPIC 09/22/2024/ 4 [id number] Ambulatory Building:FNR [facility] EPIC 08/07/2024/ 4 [id number] Ambulatory Building:R [facility] EPIC PAYERS ENCOUNTER GUARANTOR PAYER SUBSCRIBER SOURCE 07/08/2025 JA RENTERIAB: [facility] 175Tel: ~~(5 6 (HP) Primary Insurance:MEDICAREPo licy Number: [id number] Date:[id number] [place] [address]CH: [facility] Secondary Insurance:MEDICAL MUTUALPolicy Number: [id number] Date:1799-10-[address] [facility]25 JA [place]ENTERIAB: [place] [address]Iog: (HP) Primary Insurance:[employer] Policy Number: [id number] Date:2023-07-26 JA RENTERIAB: [id number] [place] [address] [facility] 07/02/2025 Secondary Insurance:MEDICAREPo licy Number: [id number] Date:5461-60-63Oony Name:Medicare JA RENTERIAB: [id number] [place] [address] [facility] EPIC 05/11/2025 JA [place]DOB: [place] [address]Bjm: (HP) Primary Insurance:MEDICAREPo licy Number: [id number] Date:3803-16-41Ddbb Name:Medicare JA MATOSDOB: [id number] [place] [address] [facility] 05/11/2025 JA A ROLANDRMDOB: [place] [address]Uwc: (HP) Primary Insurance:MEDICAREPo licy Number: [id number] Date:9288-39-40Hsnn Name:Medicare JA MATOSDOB: [id number] [place] [address] [facility] EPIC 03/17/2025 JA A ROLANDRMDOB: [place] [address]Hcs: (HP) Primary Insurance:MEDICAREPo licy Number: [id number] Date:4291-25-59Evnw Name:Medicare JA MATOSDOB: [id number] [place] [address] [facility] EPIC 12/05/2024 JA A ROLANDRMDOB: [facility] ~~(5 6 (HP) Primary Insurance:[facility] Policy Number: [id number] Date:3831-38-82WB [address] [address]JS: JA JOAQUIN [facility] 11/10/2024 JA Tyler SHAWNADOB: [place] [address]Cls: (HP) [facility] Policy Number: [id number] Date:2023-07-26 JA A ROLANDETTDOB: [id number] [place] [address] [facility] EPIC 11/10/2024 JA A ROLANDETTDOB: [place] [address]Oap: (HP) Primary Insurance:[facility] Policy Number: [id number] Date:2023-07-26 JA Tyler ROLANDETTDOB: [id number] [place] [address] [facility] EPIC 11/06/2024 JA Tyler R[place]ANDETTDOB: [place] [address]Qat: () Primary Insurance:[facility] [facility] Policy Number: [id number] Date:2023-07-26 JA Tyler ROLANDETTDOB: [id number] [place] [place] [address] [facility] EPIC 11/06/2024 JA Tyler ROLANDETTDOB: [place] [address]Obh: (HP) Primary Insurance[facility] Policy Number: [id number] Date:2023-07-26 JA WATKINSETTDOB: [id number] [place] [address] [facility] EPIC 09/22/2024 JA Tyler WATKINSETTDOB: [place] [address]Rro: (HP) Primary Insurance:[employer] Policy Number: [id number] Date:2023-07-26 JA WATKINSETTDOB: [id number] [place] [address] [facility] 08/07/2024 JA COOPER: [place] [address]Api: () Primary Insurance:[facility] Policy Number: [id number] Date:2023-07-26 JA COOPER: [id number] [place] [address] [facility]
--- OUTSIDE RECORDS SUMMARY | 2025-07-23 08:15 | XMS_ITS | Encounter Summary ---
Author Organization [facility] Address [address] [facility] [place] [address] Care Team Providers Care Education Specialist Name Role Phone Glenna Hui MD Primary Care Provider [phone] Rene Roberts MD Primary Care Provider [phone] Encounter Details Date Type Department Care Team (Late st Contact Info) Description 09/18/[address] [facility] [address] [place] [address] Glenna Hui MD Social History Tobacco Use Types Packs/Day Years Used Date Smoking Tobacco: Former Cigarettes Smokeless Tobacco: Never Alcohol Use Standard Drinks/Week Comments Yes 0 (1 standard drink = 0.6 oz pur e alcohol) Humiliation, Afraid, Rape, and Kick questionnair e [...] often do you attend chur ch or scientologist services? 1 to 4 times per year 09/18/2023 Do you belong to any clubs o r organizations such as druze groups, unions, fraternal or athletic groups, or [...] and heating? Not hard at all 09/18/2023 [facility] - Occupational [...] place to sleep or slept in a fpc (including now)? No 09/18/2023 Comments Unknown Sex and Gender Information Value Date Recorded Sex Assigned at Female 07/25/2023 12:41 PM EDT Legal Sex Female 6:34 PM EDT Gender Identity Female 07/25/2023 12:41 PM EDT Sexual Orientation Not on file COVID-19 Exposure Response Date Recorded In the last 10 days, have yo u been in contact with someone who was confirmed or suspected to have Coronavirus/COVID-19? No / Unsure 09/18/2023 5:17 AM EST documented as of this encounter Functional Status * Audit-C Score Answer Date of Assessment Author 1 09/18/2023 5:16 AM EST Mychart, Generic * Q1: How often do you have a drink containing alcohol? Answer Date of Assessment Author Monthly or less 09/18/2023 5:16 AM EST Mychart, Generic * Q2: How many drinks containing alcohol do you have on a typical day when you are drinking? Answer Date of Assessment Author 1 or 2 09/18/2023 5:16 AM EST Mychart, Generic * Q3: How often do you have six or more drinks on one occasion? Answer Date of Assessment Author Never 09/18/2023 5:16 AM EST Mychart, Generic documented as of this encounter Plan of Treatment Upcoming Encounters Date Type Department Care Team (Late st Contact Info) Description 03/18/2026 9:45 AM EDT Office Visit [facility] [address] [address] Kamala Hines, DO [address] [address] documented as of this encounter Procedures Procedure Name Priority Date/Time Associated Diagnosis Comments HM COLONOSCOPY Routine 09/18/2023 5:00 PM EST documented in this encounter Results * Hm Colonoscopy (09/18/2023 5:00 PM EST) Anatomical Region Laterality Modality Other Glenna Hui MD HEALTH MAINTENANCE Final Resu lt documented in this encounter Visit Diagnoses Not on filedocumented in this encounter Care Teams Education Specialist Relationship Specialty Start Date End Date Glenna Hui MD PCP - General Family Medicine 02/27/23 06/30/25 Rene Roberts MD [address] [place] [address] PCP - General Family Medicine 07/01/25 documented as of this encounter
--- OUTSIDE RECORDS SUMMARY | 2025-07-23 08:16 | XMS_ITS | Clinical Summary ---
Author Organization [facility] Address [address] [facility] [place] [address] Care Team Providers Care Singing Waiter Or Waitress Name Role Phone Rene Roberts MD Primary Care Provider [phone] Allergies Active Allergy Reactions Criticality Noted Date [...] UNIT/ML liquid Place under the tongue. With Hooper Active lactase (Lactaid) 3000 units tablet Take [...] Description 07/02/2025 11:40 AM EDT Office Visit [facility] [place] [facility] [address] [place] [address] Rene Roberts MD Dysuria (Primary Dx); Acute cystitis with hematuria 07/02/2025 Bamboo flowsheet [facility] [place] [facility] [address] [place] [phone] Rene Roberts MD 07/02/2025 Travel 05/12/2025 Orders Only [facility] [address] [facility] [address] [place] [address] Cathryn Rice MA Mammogram abnormal 05/11/2025 11:30 AM EDT Ancillary Procedure [facility] [place] [facility] [address] [facility] [address] [place] [phone] Abnormal mammogram of left breast 05/11/2025 11:00 AM EDT Ancillary Procedure [facility] [place] [facility] [address] [facility] [address] [place] [phone] Mammogram abnormal 05/11/2025 Results Follow-Up [facility] [address] [facility] 2 [place] [address] Kamala Hines, Left diagnostic mammogram with tomosynthesis [...] often do you attend chur ch or scientology services? 1 to 4 times per year 09/18/2023 Do you belong to any clubs o r organizations such as restoration groups, unions, fraternal or athletic groups, or [...] and heating? Not hard at all 09/18/2023 [facility] - Occupational Stress [...] place to sleep or slept in a long term (including now)? No 09/18/2023 Comments No Sex [...] EDT Office Visit [facility] [address] [place] [address] Kamala Hines DO [address] [address] Health Maintenance Due Date Last [...] AND HPV MRNA E6/E7 REFLEX HPV 16,18/45 (41966) Routine 02/07/2023 Q - THINPREP(R) TIS W/RFL HPV MRNA E6/E7 Routine 07/21/2020 from Last 3 Months or Most Recently Relevant to Health Maintenance Results * (ABNORMAL) Urine culture (clean catch) (07/02/2025 12:31 PM EDT) MICRO NUMBER [id number] QUEST SPECIMEN QUALITY Adequate QUEST SOURCE: (QUEST) [...] Performing Organization Information Site ID: QPT Name: [facility] Address: [address] [place] [address], [address] [place] [address] Director: Man So MD Rene Roberts MD [...] IS VERY IMPORTANT TO YOUR HEALTH. THE [employer] CANC[employer] SOCIET[employer] GUIDELINES RECOMMEND THAT WOMEN 40 [...] AND HPV MRNA E6/E7 REFLEX HPV 16,18/45 ([id number]) (02/07/2023) CLINICAL INFORMATION: None given [facility] [...] computer assisted technology. [facility] ADDICTION MEDICINE PHYSICIAN: SEE COMMENT See Note: [facility] Comment: Reference Range: ZL, CT(ASCP) CT screening location: [place] [address]. REVIEW ADDICTION MEDICINE PHYSICIAN: SEE COMMENT [facility] Comment: LLT, CT(ASCP) CT screening location: [facility] [place] [address]. COMMENT SEE COMMENT [facility] EXTERNAL [...] Detected [facility] Comment: Methodology: Power Line Installer And Repairer-Mediated Amplification This assay detects E6/E7 viral messenger RNA (mRNA) from 14 high-risk HPV types (16,18,31,33,35,39,45,51,52,56,58,59,66,68). Cervical sources are required for HPV testing. If a vaginal source from a patient who has had a total hysterectomy with removal of cervix was submitted, please contact the testing laboratory for alternative testing options. For additional information, please refer to http://education.[employer]/faq/GOE573t1 (This link if provided for information/ educational [...] LAB Comment: KMB, CT(ASCP) CT screening location: [facility] [place], [address] [place] [address], [place] [address]. COMMENT SEE NOTE [facility] EXTERNAL [...] Most Recently Relevant to Health Maintenance Insurance [facility] MEDICARE [employer]ICAL [employer] MEDICARE Care Teams Singing Waiter Or Waitress Relationship Specialty Start Date End Date Rene Roberts MD [address] [place] [address] PCP - General Family Medicine 07/01/25
--- OUTSIDE RECORDS SUMMARY | 2025-07-23 08:16 | XMS_ITS | Encounter Summary ---
Author Organization [facility] Address [address] [place] [address] Care Team Providers Care Ice Puller Name Role Phone Sanjuanita Keita MD Primary Care Provider Rene Roberts MD Primary Care Provider [phone] Encounter Details Date Type Department Care Team [...] any clubs o r organizations such as sikhism groups, unions, fraternal or athletic groups, or [...] and heating? Not hard at all 09/18/2023 [facility] - Occupational [...] to sleep or slept in a senior living (including now)? No 09/18/2023 Comments Unknown Sex [...] 03/18/2026 9:45 AM EDT Office Visit [facility] [place] [facility] [address] [address] Kamala Hines DO [address] [phone] documented as of this encounter Procedures Procedure Name Priority Date/Time Associated Diagnosis Comments XR ABDOMEN 1V 12/06/2023 10:55 AM EST documented in this encounter Results * XR ABDOMEN 1V (12/06/2023 10:55 AM EST) Anatomical Region Laterality Modality Other 12/06/2023 10:5 5 AM EST Narrative 12/06/2023 10:57 AM EST The [address] [address] XRay Report Signed Patient: JA SCHWAB MR#: [id number] : 1960 Acct:[id number] Age/Sex: 63 / F ADM Date: 12/06/23 Loc: RAD Attending Dr: Inez Case M.D. Ordering Physician: Inez Case M.D. Date of Service: 12/06/23 Procedure(s): XR abdomen 1V Accession Number(s): [id number] cc: SANJUANITA KEITA ; Inez Case M.D. The [place] [id number] Patient Name: JA SCHWAB MRN: [id number] date: 1960 Sex: F Assigned Patient Location: RAD Current Patient Location: RAD Accession/Order Number: [id number] Exam Date: 12/06/2023 10:35 Report Date: 12/06/2023 [...] Signed By: 12/06/23 1057 DD/ 1055 TD/TT: Cut File Clerk: Procedure Note Radiology, Radiologist, MD - 12/06/2023 [place] [address] XRay Report Signed Patient: JA SCHWAB AMR#: [id number] : 1960Acct:[id number] Age/Sex: 63 / FADM Date: 12/06/23 Loc: RAD Attending Dr: Inez Case M.D. Ordering Physician: Inez Case M.D. Date of Service: 12/06/23 Procedure(s): XR abdomen 1V Accession Number(s): [id number] cc: SANJUANITA KEITA ; Inez Case M.D. [address] [address] Patient Name: JA SCHWAB MRN: [id number] date: 1960 Sex: F Assigned Patient Location: RAD Current Patient Location: RAD Accession/Order Number: [id number] Exam Date: 12/06/2023 10:35 Report Date: 12/06/2023 [...] M.D. Signed By:12/06/23 1057 DD/ 1055 TD/TT: Cut File Clerk: Generic External Data Provider [facility] Final Result documented in this encounter Visit Diagnoses Not on filedocumented in this encounter Care Teams Ice Puller Relationship Specialty Start Date End Date Sanjuanita Keita MD PCP - General Family Medicine 02/27/23 06/30/25 Rene Roberts MD [address] [place] [address] PCP - General Family Medicine 07/01/25 documented as of this encounter
--- OUTSIDE RECORDS SUMMARY | 2025-07-23 08:17 | XMS_ITS | Clinical Summary ---
Author Organization [facility] Address [id number] [address] [place] [address] Care Team Providers Care Funeral Director/Embalmer/Owner Name Role Phone Unavailable Primary Care Provider [...]
--- OUTSIDE RECORDS SUMMARY | 2025-07-23 08:17 | XMS_ITS | Encounter Summary ---
Author Organization [facility] Address [address] [facility] [place] [address] Care Team Providers Care Structural Biologist Name Role Phone Glenna Hui MD Primary Care Provider [phone] Rene Roberts MD Primary Care Provider [phone] Encounter Details Date Type Department Care Team (Late st Contact Info) Description 05/12/2025 Orders Only [facility] [address] [facility] 2 [place] [phone] Cathryn Rice MA Mammogram abnormal Social History [...] often do you attend chur ch or gnosticism services? 1 to 4 times per year 09/18/2023 Do you belong to any clubs o r organizations such as denominational groups, unions, fraternal or athletic groups, or [...] and heating? Not hard at all 09/18/2023 [facility] - Occupational Stress [...] place to sleep or slept in a retirement (including now)? No 09/18/2023 Comments No Sex [...] Office Visit [facility] [address] [phone] Kamala Hines DO [address] [address] Scheduled Orders Name Type Priority Associated Diagnoses Orde r Schedule Left diagnostic mammogram with tomosynthesis Imaging Routine Mammogram abnormal Expected: 11/12/2025, Expires: 07/13/2026 documented as of this encounter Visit Diagnoses Diagnosis Mammogram abnormal Abnormal mammogram, unspecified documented in this encounter Care Teams Structural Biologist Relationship Specialty Start Date End Date Glenna Hui MD PCP - General Family Medicine 02/27/23 06/30/25 Rene Roberts MD [address] [place] [address] PCP - General Family Medicine 07/01/25 documented as of this encounter
[2025-07-23] MEDS: CEFAZOLIN SODIUM 2 GM/50 ML D5W PREMIX IV (09:44)
[2025-07-23] MEDS: IOHEXOL 300 MG/ML - 50 ML BTL INJ (10:45)
--- NOTE | 2025-07-23 11:14 | PM.URSON ---
Urology Surgery Operative Note Operative Note Procedure Date: 07/23/25 Time Out Performed: yes Pre-op Diagnosis: Right ureteral calculus Post-op Diagnosis: same as pre-op (Impacted right ureteral calculus) Procedures performed: 1. Cystoscopy. 2. Right retrograde pyelogram. 3. Right ureteroscopy. 4. Thulium laser lithotripsy of impacted right ureteral calculus. 5. Stone fragment basket extraction. 6. Right pyeloscopy. 7. Placement of a 6 Salvadorean variable length right ureteral stent Anesthesia: BECKY Primary Surgeon: Andres Jones Complications: None Estimated blood loss (mL): 5 Findings: 1. Impacted distal right ureteral calculus. 2. Diffuse Jordan's plaques throughout the calyces Specimens: Right ureteral calculus fragments Drains: 6 Salvadorean variable length right ureteral stent Indications for Procedures: This lady has had an obstructing right ureteral calculus about 7 mm for a few weeks now. She is unable to pass the stone. She now presents for definitive right ureteroscopic laser lithotripsy and probable right stent placement. She has signed an informed consent after risks were explained. Detailed description of Procedure: The patient was brought to the operating room and placed on the operating room table in the supine position. SCDs were placed on the lower extremities and turned on and functioning during the entire case. Timeout was done by all parties in the room. We all agreed upon the patient's identification and the planned procedures for this patient. Genn. anesthesia was then administered. The patient was then repositioned into the modified dorsal lithotomy position. All pressure points were satisfactorily padded. Genitalia were sterilely prepped and draped in usual fashion. I started by passing a 22 Salvadorean Olympus cystoscope per urethra and into the bladder. Careful panendoscopy in the bladder revealed no evidence of any tumors stones or lesions. I then attempted to slide a Glidewire through the scope and up the right ureter and within 1 cm the wire buckled. Numerous attempts at passing the wire failed to due to the stone in the distal ureter. The scope was then removed. I then passed a semirigid ureteroscope into the bladder and into the right ureter. I was able to get to this stone. It was impacted. A 270 Angstrom laser fiber was then passed through the scope and made contact with the stone. I then used the thulium laser at 7 W on the fragment mode. I fragmented the laser and a careful staccato fashion. It was rather stuck to the wall of the ureter. The fiber itself was used as a chisel to free the impacted stone from the wall. Once most of the stone was fragmented into a few pieces I then used a 0 tip nitinol basket and engaged pieces and dumped them in the base of the bladder. I went up and down the ureter numerous times extracting all pieces. I then did a retrograde through the scope and the proximal 2 cm of the ureter were not visualized but I did get contrast within the renal pelvis. I was unable to get a wire up into the renal pelvis definitively and therefore I remove the scope and then passed an 1012 access sheath over the wire up to the L5 position and remove the wire and stylette. I then passed a flexible ureteroscope through the sheath into the ureter. I ascended up the ureter and the proximal 2 cm of the ureter were rather edematous and erythematous. I was able to negotiate the scope through it and into the kidney. I looked in the upper mid and lower pole calyces. There were no free stones but multiple Jordan's plaques and tiny embedded stones. A wire was passed through the scope and the scope was then removed as well as the access sheath. Cystoscope was backloaded over the wire and passed into the bladder. I then slid a 6 Salvadorean variable length stent over the wire up into the kidney. The wire was reremoved and there were good curls in the kidney and in the bladder. The Elick was then used to get stone pieces out from the base of the bladder. These were sent for stone analysis. The bladder was drained of its contents and the scope was then removed. The anesthetic was then reversed. She was then transferred to a motion picture & television hospital bed and wheeled to PACU in stable condition.
[2025-07-23] MEDS: SOLIFENACIN SUCCINATE 10 MG TABLET PO (11:47)
--- NOTE | 2025-07-23 14:06 | PC.NURSE ---
1255: pt ambulates to bathroom with minimal assistance,voids without difficulty. urine blood tinged with no clots.
== END 2025-07-23 13:10 | disposition home or self-care (01) ==
LOC: SURGOUT 08:01
PROVIDERS: Visit Provider Urology
PROC: (CPT 52356; principal; 2025-07-23 09:30)
DX: N20.1 Calculus of ureter (principal); Z87.891 Personal history of nicotine dependence; R31.9 Hematuria, unspecified; I10 Essential (primary) hypertension; K21.9 Gastro-esophageal reflux disease without esophagitis; M54.50 Low back pain, unspecified; M19.90 Unspecified osteoarthritis, unspecified site
CPT/HCPCS: 52356; 36415; 74420; 82365; 99999; J0690; J1100; J1885; J2250; J2371; J2405; J2704; J3010; Q9967

== ENCOUNTER 2025-07-28 10:32 | Outpatient (OUT) | payer MEDICARE, OTHER, SELFPAY ==
--- OUTSIDE RECORDS SUMMARY | 2025-07-28 10:37 | XMS_ITS | Clinical Summary ---
Author Organization [facility] Address [address] [facility] [address] Care Team Providers Care Washing Machine Repairer Name Role Phone Rene Roberts MD Primary Care Provider [phone] Allergies Active Allergy Reactions Criticality Noted Date [...] UNIT/ML liquid Place under the tongue. With Bowlegs Active lactase (Lactaid) 3000 units tablet Take [...] Description 07/02/2025 11:40 AM EDT Office Visit [facility] [place] [facility] [address] [place] [facility] [phone] Rene Roberts MD Dysuria (Primary Dx); Acute cystitis with hematuria 07/02/2025 Bamboo flowsheet [facility] [place] [facility] [address] [facility] [place] [phone] Rene Roberts MD 07/02/2025 Travel 05/12/2025 Orders Only [facility] [address] [facility] [place] [address] Cathryn Rice MA Mammogram abnormal 05/11/2025 11:30 AM EDT Ancillary Procedure [facility] [facility] [address] [facility] [address] [place] [phone] Abnormal mammogram of left breast 05/11/2025 11:00 AM EDT Ancillary Procedure [facility] [address] [facility] [address] [place] [phone] Mammogram abnormal 05/11/2025 Results Follow-Up [facility] [address] [facility] [place] [phone] Kamala Hines, Left diagnostic mammogram with tomosynthesis [...] often do you attend chur ch or jainism services? 1 to 4 times per year 09/18/2023 Do you belong to any clubs o r organizations such as sabianism groups, unions, fraternal or athletic groups, or [...] and heating? Not hard at all 09/18/2023 [facility] - [...] senior living (including now)? No 09/18/2023 Comments No Sex [...] EDT Office Visit [facility] [address] [place] [address] Kamala Hines DO [address] [address] Health Maintenance Due Date Last [...] AND HPV MRNA E6/E7 REFLEX HPV 16,18/45 ([id number]) Routine 02/07/2023 Q - THINPREP(R) TIS W/RFL HPV MRNA E6/E7 Routine 07/21/2020 from Last 3 Months or Most Recently Relevant to Health Maintenance Results * (ABNORMAL) Urine culture (clean catch) (07/02/2025 12:31 PM EDT) MICRO NUMBER [id number] QUEST SPECIMEN QUALITY Adequate QUEST SOURCE: (QUEST) [...] Performing Organization Information Site ID: QPT Name: [facility] Address: [address] [place] [address], [address] [place] [address] Director: Man So MD Rene Roberts MD [...] IS VERY IMPORTANT TO YOUR HEALTH. THE [place] CANC[employer] SOCIETY GUIDELINES RECOMMEND THAT WOMEN 40 [...] AND HPV MRNA E6/E7 REFLEX HPV 16,18/45 ([id number]) (02/07/2023) CLINICAL INFORMATION: None given [facility] [...] computer assisted technology. [facility] ELECTRICAL DESIGN TECHNICIAN: SEE COMMENT See Note: [facility] Comment: Reference Range: ZL, CT(ASCP) CT screening location: [facility] [place] [address]. REVIEW ELECTRICAL DESIGN TECHNICIAN: SEE COMMENT [facility] Comment: LLT, CT(ASCP) CT screening location: [facility] [place] [address]. COMMENT SEE COMMENT [facility] EXTERNAL [...] Detected [facility] Comment: Methodology: Agricultural Plow Operator-Mediated Amplification This assay detects E6/E7 viral messenger RNA (mRNA) from 14 high-risk HPV types (16,18,31,33,35,39,45,51,52,56,58,59,66,68). Cervical sources are required for HPV testing. If a vaginal source from a patient who has had a total hysterectomy with removal of cervix was submitted, please contact the testing laboratory for alternative testing options. For additional information, please refer to http://education.[employer]/faq/ZJD496i5 (This link if provided for information/ educational [...] LAB Comment: KMB, CT(ASCP) CT screening location: [facility] [place], [address] [place] [address], [place] [address]. COMMENT SEE NOTE [facility] EXTERNAL [...] Most Recently Relevant to Health Maintenance Insurance [facility] MEDICARE MEDICAL MUTUAL MEDICARE Care Teams Washing Machine Repairer Relationship Specialty Start Date End Date Rene Roberts MD [address] [place] [address] PCP - General Family Medicine 07/01/25
--- OUTSIDE RECORDS SUMMARY | 2025-07-28 10:37 | XMS_ITS | Clinical Summary ---
Author Organization [employer] [facility] Address [id number] [place] [address] Care Team Providers Care Kitman Name Role Phone Unavailable Primary Care Provider [...]
--- OUTSIDE RECORDS SUMMARY | 2025-07-28 10:37 | XMS_ITS | Encounter Summary ---
Author Organization [facility] Address [address] [facility] [place] [address] Care Team Providers Care Shaker Screen Operator Name Role Phone Glenna Hui MD Primary Care Provider [phone] Rene Roberts MD Primary Care Provider [phone] Encounter Details Date Type Department Care Team (Late st Contact Info) Description 05/12/2025 Orders Only [facility] [address] [facility] [address] [place] [phone] Cathryn Rice MA Mammogram abnormal Social History [...] often do you attend chur ch or amish services? 1 to 4 times per year [...] and heating? Not hard at all 09/18/2023 [facility] - Occupational [...] place to sleep or slept in a mcc (including now)? No 09/18/2023 Comments No Sex [...] Office Visit [facility] [address] [place] [address] [phone] Kamala Hines DO [address] [phone] Scheduled Orders Name Type Priority Associated Diagnoses Orde r Schedule Left diagnostic mammogram with tomosynthesis Imaging Routine Mammogram abnormal Expected: 11/12/2025, Expires: 07/13/2026 documented as of this encounter Visit Diagnoses Diagnosis Mammogram abnormal Abnormal mammogram, unspecified documented in this encounter Care Teams Shaker Screen Operator Relationship Specialty Start Date End Date Glenna Hui MD PCP - General Family Medicine 02/27/23 06/30/25 Rene Roberts MD [address] [place] [address] PCP - General Family Medicine 07/01/25 documented as of this encounter
--- OUTSIDE RECORDS SUMMARY | 2025-07-28 10:37 | XMS_ITS | Encounter Summary ---
Author Organization [facility] Address [address] [place] [address] Care Team Providers Care Programmer Engineering And Scientific Name Role Phone Sanjuanita Keita MD Primary Care Provider [phone] Rene Roberts MD Primary Care Provider [phone] Encounter Details Date Type Department Care Team [...] often do you attend chur ch or faith services? 1 to 4 times per year 09/18/2023 Do you belong to any clubs o r organizations such as quaker groups, unions, fraternal or athletic groups, or [...] and heating? Not hard at all 09/18/2023 [facility] - [...] place to sleep or slept in a long-term (including now)? No 09/18/2023 Comments Unknown Sex [...] 03/18/2026 9:45 AM EDT Office Visit [facility] [address] [place] [address] [address] Kamala Hines DO [address] [phone] documented as of this encounter Procedures Procedure Name Priority Date/Time Associated Diagnosis Comments XR ABDOMEN 1V 12/06/2023 10:55 AM EST documented in this encounter Results * XR ABDOMEN 1V (12/06/2023 10:55 AM EST) Anatomical Region Laterality Modality Other 12/06/2023 10:5 5 AM EST Narrative 12/06/2023 10:57 AM EST The [address] [address] XRay Report Signed Patient: JA SCHWAB MR#: [id number] : 1960 Acct:[id number] Age/Sex: 63 / F ADM Date: 12/06/23 Loc: RAD Attending Dr: Inez Case M.D. Ordering Physician: Inez Case M.D. Date of Service: 12/06/23 Procedure(s): XR abdomen 1V Accession Number(s): [id number] cc: SANJUANITA KEITA ; Inez Case M.D. The [place] [id number] Patient Name: JA SCHWAB MRN: [id number] date: 1960 Sex: F Assigned Patient Location: RAD Current Patient Location: RAD Accession/Order Number: [id number] Exam Date: 12/06/2023 10:35 Report Date: 12/06/2023 [...] Signed By: 12/06/23 1057 DD/ 1055 TD/TT: Supervisor Rework: Procedure Note Radiology, Radiologist, MD - 12/06/2023 [place] [address] XRay Report Signed Patient: JA SCHWAB AMR#: [id number] : 1960Acct:[id number] Age/Sex: 63 / FADM Date: 12/06/23 Loc: RAD Attending Dr: Inez Case M.D. Ordering Physician: Inez Case M.D. Date of Service: 12/06/23 Procedure(s): XR abdomen 1V Accession Number(s): [id number] cc: SANJUANITA KEITA ; Inez Case M.D. [address] [address] Patient Name: JA SCHWAB MRN: [id number] date: 1960 Sex: F Assigned Patient Location: RAD Current Patient Location: RAD Accession/Order Number: [id number] Exam Date: 12/06/2023 10:35 Report Date: 12/06/2023 [...] M.D. Signed By:12/06/23 1057 DD/ 1055 TD/TT: Supervisor Rework: Generic External Data Provider [facility] Final Result documented in this encounter Visit Diagnoses Not on filedocumented in this encounter Care Teams Programmer Engineering And Scientific Relationship Specialty Start Date End Date Sanjuanita Keita MD PCP - General Family Medicine 02/27/23 06/30/25 Rene Roberts MD [address] [place] [address] PCP - General Family Medicine 07/01/25 documented as of this encounter
--- OUTSIDE RECORDS SUMMARY | 2025-07-28 10:40 | XMS_ITS | CCD ---
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 Name Role Phone Andrea Gunter Unavailable GLENNA [...] Care Provider MD Andrea Gunter Attending Provider [phone] Glenna Keita Primary Care Unavailable Andrea Gunter Attending Andrea Mendez Admitting Glenna Reece MD Primary Care Provider Rene Lynch MD Primary Care Provider [phone] KAMALA HINES Attending Unavailable KAMALA HINES Referring Unavailable WENDY DESOUZA Attending Unavailable JENNY MEJIA Attending Unavailable RENE LYNCH Attending Unavailable GLENNA KEITA Referring Unavailable KAMALA HINES Referring Unavailable KAMALA HIENS Referring Unavailable Inez JONES Attending Unavailable Inez JONES Attending Unavailable Inez JONES Attending Unavailable Inez JONES Attending Unavailable Allergies Allergy Classification Reported Allergen(s) Allergy Type Date of Onset Reaction(s) Facility (20 sources) Sulfamethoxazole / Trimethoprim Drug Allergy 07-26-20 51fanli Other (10 sources) Sulfonamides (Antibiotic); Translations: [sulfa drugs] Drug allergy Feeling of throat tightness (finding) [facility] Comment on above: hives mild to modera te and throat closes (1 source) Sulfamethoxazole / Trimethoprim Drug Allergy 10-20-20 13 [facility] Repository (16 sources) Sulfamethoxazole; Translations: [sulfamethoxazole] Drug Allergy 07-12-20 20 Swelling of Lip/Tongue/Thr oat [facility] (16 sources) Trimethoprim; Translations: [trimethoprim] Drug Allergy 07-12-20 20 Swelling of Lip/Tongue/Thr oat [facility] (1 source) Sulfonamides (Antibiotic); Translations: [sulfa drugs] Propensity to adverse reactions (disorder) [facility] Repository Medications Current Medications Medication Drug Class(es) [...] day(s), # 14 cap(s), Refills(s) 0, Pharmacy: [facility], 165, cm, 07/08/25 12:58:00 EDT, Height/Length [...] UNIT/ML liquid Place under the tongue. With [place] Active clobetasol propionate 0.0005 mg/mg topical ointment [...] # 60 tab(s), Refills(s) 11, Pharmacy: [facility] [facility], 165, cm, 12/05/21 12:42:00 EST, Height/Length Dosing, 70, kg, 12/05/21 12:42:00 EST, Weight Dosing Start Date: 12/05/21 Status: Ordered estradiol 0.1 mg/ml vaginal cream (20 sources) Estrogen Start: 12-05-2024 estradiol 0.1 mg/g Vag Crm 1 gm, Vaginal, MonWedFri, 42.5 gm, Refill(s) 4, [facility], 165, cm, 12/05/24 11:08:00 EST, Height/Length Dosing, 72.4, kg, 12/05/24 11:08:00 EST, Weight Dosing Start Date: 12/05/24 Status: Ordered Quantity: 42.5 Unit: g Repeat number: 5 Start: 12-07-2023 estradiol 0.1 mg/g Vag Crm 1 gm, Vaginal, MonWedFri, 42.5 gm, Refill(s) 4, [id number], 165, cm, 12/07/23 11:34:00 EST, Height/Length Dosing, [...] Daily, # 90 tab(s), Refills(s) 3, Pharmacy: [facility], 165, cm, 02/13/24 13:01:00 EDT, Height/Length [...] Daily 11/18/2024 Active take 1 capsule by [facility] every twenty-four hours Omeprazole 40 MG [...] day(s), # 60 tab(s), Refills(s) 11, Pharmacy: [facility], 165, cm, 02/13/24 13:01:00 EDT, Height/Length Dosing, 66, kg, 02/13/24 13:01:00 EDT, Weight Dosing Start Date: 08/04/24 Stop Date: 07/30/25 Status: Ordered Quantity: 60.0 Unit: tab(s) Repeat number: 12 Start: 08-04-2024 End: 07-30-2025 take 1 tablet by mouth twice daily K-Effervescent 25 mEq oral tablet, effervescent 25 mEq = 1 tab(s), Oral, BID, X 30 day(s), # 60 tab(s), Refills(s) 11, Pharmacy: [facility], 165, cm, 02/13/24 13:01:00 EDT, Height/Length Dosing, 66, kg, 02/13/24 13:01:00 EDT, Weight Dosing Start Date: 08/04/24 Stop Date: 07/30/25 Status: Ordered Start: 05-21-2023 End: 05-15-2024 take 1 tablet by mouth twice daily K-Effervescent 25 mEq oral tablet, effervescent 25 mEq = 1 tab(s), Oral, BID, X 30 day(s), # 60 tab(s), Refills(s) 11, Pharmacy: [facility] #[id number], 165, cm, 12/08/22 10:48:00 EST, Height/Length Dosing, [...] Daily, # 7 tab(s), Refills(s) 0, Pharmacy: [facility], 165, cm, 12/05/24 11:08:00 EST, Height/Length [...] 03-17-2025 Chronic Other aftercare (1 source) 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; Translations: [OTH CORRECTION CURRENT DRUG THERAPY] Onset: 3 Episodic Other [...] Inez JONES MD Where: [facility] [address] [id number]- You Need to Schedule the Following Appointments Follow Up with Inez JONES MD, URL When: Comments: sched cysto/UD, CT scan Where: [facility] [place] [address] Medications What How Much When Why Instructions New cephalexin (Keflex 500 mg Cap) 1 Capsules By Mouth Every 12 hours UTI (urinary tract infection) Duration: 7 Days Pickup at [facility] Unchanged estradiol topical (estradiol 0.1 mg/ [...] physician if questions or concerns Pharmacy Information [facility]: [address] [phone] Allergies sulfa drugs (Throat tightness) Problems Ongoing [...] are rock-lik (more content not included)... Normal [facility] Urology Office/Clinic Noteon 07-08-2025 Urology Office/Clinic Note [...] Contact Information MANPREET BROWN, Inez Ruano, URL [address] [place] [address] [place] [address] Additional Instructions: sched cysto/UD, CT scan Patient Education Kidney Stones, Gmha-cd-Deao I, Violet Manzo, personally scribed for Dr. [...] placement ( (more content not included)... Normal [facility] Comment on above: Result Comment: Elec tronically Signed By: Inez JONES MD\.br\Date and Time Signed: 07/08/25 13:47 EDT\.br\Electronically Co-Signed By: Violet Manzo\.br\Date and Time Co-Signed: 07/08/25 13:45 EDT Urinalysis macro (dipstick) panel (U)on 07-02-2025 Bilirubin, UA Negative Negative - 4(70) +++ mg/dL [facility] Blood, UA Positive Negative - 50 Douglas/mcL [facility] Clarity, UA Clear [facility] Color, UA Yellow [facility] Glucose, UA Negative Negative - 2000(110) ++++ mg/dL [facility] Ketones, UA Negative Negative - 160(16) ++++ mg/dL [facility] Leukocytes, UA Positive Negative - 500+++ Nuno/mcL [facility] Nitrite, UA Negative Negative - Positive [facility] pH, UA 5 5 - 9 [facility] Protein, UA Trace Negative - 2000(20) ++++ mg/dL [facility] Spec Grav, UA 1.015 1 - 1.03 [facility] Urobilinogen, UA 0.2 0.2 - 12 mg/dL [facility] BI MAMMOGRAM DIAGNOSTIC MARYCRUZ SYNTHESIS LEFTon 05-11-2025 [...] IS VERY IMPORTANT TO YOUR HEALTH. THE [employer] GUIDELINES RECOMMEND THAT WOMEN 40 [...] Inez JONES MD Where: [facility] [address] [place] [address] [place] [address]- You Need to Schedule the Following Appointments Follow Up with Inez JONES MD, URL When: Where: [facility] [place] [address]- Medications What How Much When Instructions New potassium chloride (Klor Con 10 mEq Cap-ER) 1 Tablets By Mouth Every day Pickup at [facility] Unchanged estradiol topical (estradiol 0.1 mg/ g Vag Crm) 1 Gram Vaginal Sunday Pickup at [facility] Unchanged hydrochlorothiazide (hydrochlorothiazide 25 mg Tab) [...] physician if questions or concerns Pharmacy Information [facility]: [address] [place], [place] [phone] Allergies sulfa drugs (Throat tightness) Problems Ongoing [...] certain med (more content not included)... Normal [facility] Urology Office/Clinic Noteon 12-05-2024 Urology Office/Clinic Note [...] S/p R ESWL 12/30/20. Presented to [facility] ER 07/16/23 with complaints of LLQ [...] Information MANPREET BROWN, Inez Ruano, URL [address] [place] [address]- Additional Instructions: 1 year w/ KUB Patient [...] Diverticulitis Dysmenorrhea (more content not included)... Normal [facility] Comment on above: Result Comment: Elec tronically Signed By: Inez JONES MD\.br\Date and Time Signed: 12/05/24 11:52 EST\.br\Electronically Co-Signed By: Janis Cárdenas\.br\Date and Time Co-Signed: 12/05/24 11:46 EST XR ABDOMEN 1Von 12-02-2024 [place] [address] XRay Report Signed Patient: JA SCHWAB MR#: [id number] : 1960 Acct:[id number] Age/Sex: 64 / F ADM Date: 12/02/24 Loc: RAD Attending Dr: Inez Jones M.D. Ordering Physician: Inez Jones M.D. Date of Service: 12/02/24 Procedure(s): XR abdomen 1V Accession Number(s): [id number] cc: GLENNA KEITA ; Inez Jones M.D. [address] [address] Patient Name: JA SCHWAB MRN: [id number] date: 1960 Sex: F Assigned Patient Location: RAD Current Patient Location: RAD Accession/Order Number: [id number] Exam Date: 12/02/2024 13:55 Report Date: 12/02/2024 [...] Signed By: 12/02/24 1501 DD/ 1458 TD/TT: Finish Mixer: [facility] Radiology, Radiologi MD elisa - 12/02/2024 [place] [address] XRay Report Signed Patient: JA SCHWAB MR#: [id number] : 1960 Acct:[id number] Age/Sex: 64 / F ADM Date: 12/02/24 Loc: RAD Attending Dr: Inez Jones M.D. Ordering Physician: Inez Jones M.D. Date of Service: 12/02/24 Procedure(s): XR abdomen 1V Accession Number(s): [id number] cc: GLENNA KEITA ; Inez Jones M.D. The [place] [id number] Patient Name: JA SCHWAB MRN: [facility]:[id number] date: 1960 Sex: F Assigned Patient Location: [facility] Current Patient Location: [facility] Accession/Order Number: [id number] Exam Date: 12/02/2024 13:55 Report Date: 12/02/2024 [...] By: Placido Pelayo M.D. Signed By: 12/02/24 1506 DD/ 1458 TD/TT: Finish Mixer: [facility] X-Scan Imaging Radiology Study observation (narrative) [facility] X-Scan Imaging XR ABDOMEN 1VOrdered By: Yousif iologsean Radiology on 12-02-2024 [facility] X-Scan Imaging Work Phone: BI MAMMOGRAM DIAGNOSTIC MARYCRUZ SYNTHESIS [...] IS VERY IMPORTANT TO YOUR HEALTH. THE [employer] GUIDELINES RECOMMEND THAT WOMEN 40 [...] BY: Raul Keith M.D. Normal Not Available [facility] 09-18-2023 L ---- Specimen: [id number] Received: 09/18/23 Status: ZOECari [facility] Num: [id number] Spec Type: Surgical Subm Dr: Andrea Gunter MD Tissues: A Stomach - Biopsy/Polyp (ANTRUM) B Duodenum - Biopsy (DUODENAL BX) C Colon Biopsy (DESC) D Colon Biopsy (SIGMOID) Procedures: /Curry, Gross/Micro L4/4 Age/ Patient Sex Location Account Attending Physician Ja Schwab 63/F [id number] Andrea Gunter MD SPEC NUM: [id number] RECD: 09/18/23 STATUS: CHARY [facility] NUM: [id number] MARY: 09/18/23- SUBM DR: Andrea Gunter MD ENTERED: 09/18/23 [facility] DR: SPEC TYPE: Surgical DEPT: S REC BY: [id number] ORDERED: HE/8, Gross/Micro L4/4 ORDERED: HE/8, Gross/Micro [...] Benign colonic mucosa with hyperplastic changes Specimen: [id number] Received: 09/18/23 Status: CHARY [facility] Num: [id number] Spec Type: Surgical Subm Dr: Andrea Gunter MD Tissues: A Stomach - Biopsy/Polyp (ANTRUM) B Duodenum - Biopsy (DUODENAL BX) C Colon Biopsy (DESC) D Colon Biopsy (SIGMOID) Procedures: HE/8, Gross/Micro L4/4 Patient: Ja Schwab [id number] (Continued) Specimen: [id number] Received: 09/18/23 (Continued) Signed (signature on file) Fish Girard MD 09/20/23 1042 Specimen: [id number] Received: 09/18/23 Status: CHARY [facility] Num: [id number] Spec Type: Surgical Subm Dr: Andrea Gunter MD Tissues: A Stomach - Biopsy/Polyp (ANTRUM) B Duodenum - Biopsy (DUODENAL BX) C Colon Biopsy (DESC) D Colon Biopsy (SIGMOID) Procedures: HE/Curry, Gross/Micro L4/4 Patient: Ja Schwab [id number] (Continued) Specimen: Received: 09/18/23 (Continued) Clinical Information [...] microscopic examination confirms the diagnosis. CPT Codes 62960s2 Specimen: [id number] Received: 09/18/23 Status: CHARY [facility] Num: [id number] Spec Type: Surgical Subm Dr: Andrea Gunter MD Tissues: A Stomach - Biopsy/Polyp (ANTRUM) B Duodenum - Biopsy (DUODENAL BX) C Colon Biopsy (DESC) D Colon Biopsy (SIGMOID) Procedures: HE/8, Gross/Micro L4/4 Patient: Ja Schwab [id number] (Continued) (more content not included)... Normal [facility] XR KUB 1 VIEWon 12-06-2022 XR KUB [...] ANNMARIE BINGHAM Date: 2022-12-06 13:25 Normal [facility] CBC AUTO DIFFon 10-21-2022 BASO # 0.0 103/ul Normal 0.0-0.1 [facility] Comment on above: Performed By: #### C BC #### [facility] [address] [place] [address] Dr. Yamileth France Basophils/100 WBC (Bld) 0.7 % Normal 0.2-2.0 [facility] Comment on above: Performed By: #### C BC #### [facility] [address] [address] [address] Yamileth France EO # 0.3 103/ul Normal 0.0-0.7 [facility] Comment on above: Performed By: #### C BC #### [facility] [address] [place] [address] Dr. Yamileth France Eosinophils/100 WBC (Bld) 5.5 % Normal 0.9-7.0 [facility] Comment on above: Performed By: #### C BC #### [facility] [address] [place] [address] Dr. Yamileth France Erythrocyte distribution width (RBC) [Ratio] 12.3 % Normal 11.0-15.0 [facility] Comment on above: Performed By: #### C BC #### [facility] [address] [place] [address] Dr. Yamileth France Hematocrit (Bld) [Volume fraction] 41.8 % Normal 36.0-48.0 [facility] Comment on above: Performed By: #### C BC #### [facility] [address] [place] [address] Dr. Yamileth France Hemoglobin (Bld) [Mass/Vol] 14.8 g/dL Normal 12.0-16.0 [facility] Comment on above: Performed By: #### C BC #### [facility] [address] [place] [address] Dr. Yamileth France IG # 0.03 10e3/ul Normal 0.00-0.03 [facility] Comment on above: Performed By: #### C BC #### [facility] [address] [place] [address] Dr. Yamileth France IG % 0.5 % Normal 0.0-0.5 [facility] Comment on above: Performed By: #### C BC #### [facility] [address] [place] [address] Dr. Yamileth France LYMPH # 0.9 103/ul Critically low 1.2-3.8 [facility] Comment on above: Performed By: #### C BC #### [facility] [address] [place] [address] Dr. Yamileth France Lymphocytes/100 WBC (Bld) 15.2 % Critically low 20.5-60.0 [facility] Comment on above: Performed By: #### C BC #### [facility] [address] [place] [address] Dr. Yamileth France MANUAL DIFF REQ NO Normal [facility] Comment on above: Performed By: #### C BC #### [facility] [address] [place] [address] Dr. Yamileth France MCH (RBC) [Entitic mass] 31.0 pg Normal 26.7-34.0 [facility] Comment on above: Performed By: #### C BC #### [facility] [address] [place] [address] Dr. Yamileth France MCHC (RBC) [Mass/Vol] 35.4 g/dL Critically high 29.9-35.2 [facility] Comment on above: Performed By: #### C BC #### [facility] [address] [place] [address] Dr. Yamileth France MCV (RBC) [Entitic vol] 87.6 fL Normal 81.0-99.0 [facility] Comment on above: Performed By: #### C BC #### [facility] [address] [place] [address] Dr. Yamileth Fracne MONO # 0.7 103/ul Normal 0.3-0.8 [facility] Comment on above: Performed By: #### C BC #### [facility] [address] [place] [address] Dr. Yamileth France Monocytes/100 WBC (Bld) 12.5 % Critically high 1.7-12.0 [facility] Comment on above: Performed By: #### C BC #### [facility] [address] [place] [address] Dr. Yamileth France NEUT # 3.8 103/ul Normal 1.4-6.5 [facility] Comment on above: Performed By: #### C BC #### [facility] [address] [place] [address] Dr. Yamileth France Neutrophils/100 WBC (Bld) 65.6 % Normal 43.0-75.0 [facility] Comment on above: Performed By: #### C BC #### [facility] [address] [place] [address] Dr. Yamileth France Platelet mean volume (Bld) [Entitic vol] 9.7 fL Normal 9.5-13.5 [facility] Comment on above: Performed By: #### C BC #### [facility] [address] [place] [address] Dr. Yamileth France PLT 198 103/ul Normal 150-450 [facility] Comment on above: Performed By: #### C BC #### [facility] [address] [place] [address] Dr. Yamileth France RBC 4.77 106/ul Normal 4.20-5.40 [facility] Comment on above: Performed By: #### C BC #### [facility] [address] [place] [address] Dr. Yamileth France WBC 5.8 103/ul Normal 4.0-11.0 [facility] Comment on above: Performed By: #### C BC #### [facility] [address] [place] [address] Dr. Yamileth France D-DIMERon 10-21-2022 D-DIMER 0.31 mg/L FEU Normal <=0.59 [facility] Comment on above: Performed By: #### D DIM #### [facility] [address] [place] [address] Dr. Yamileth France D-DIMER COMMENTS SEE BELOW Normal [facility] Comment on above: Result Comment: Incr [...] hospitalization. Performed By: #### D DIM #### [facility] [address] [place] [address] Dr. Yamileth France FREE T4on 10-21-2022 Free T4 [Mass/Vol] 1.05 ng/dL Normal 0.76-1.46 [facility] Comment on above: Performed By: #### F T4 #### [facility] [address] [place] [address] [address] Yamileth France PROF 14(COMP METB)on 022 Albumin [Mass/Vol] 3.4 g/dL Normal 3.4-5.0 [facility] Comment on above: Performed By: #### H STROPN, CMP #### [facility] [address] [place] [address] [address] Yamileth France Albumin/Globulin [Mass ratio] 1.0 {ratio} Normal [facility] Comment on above: Performed By: #### H STROPN, CMP #### [facility] [address] [place] [address] [address] Yamileth France ALP [Catalytic activity/Vol] 63 U/L Normal 46-116 [facility] Comment on above: Performed By: #### H STROPN, CMP #### [facility] [address] [place] [address] Dr. Yamileth France ALT [Catalytic activity/Vol] 21 U/L Normal 14-59 [facility] Comment on above: Performed By: #### H STROPN, CMP #### [facility] [address] [address] [address] Yamileth Farnce Anion gap [Moles/Vol] 9.9 mmol/L Normal [facility] Comment on above: Performed By: #### H STROPN, CMP #### [facility] [address] [address] [address] Yamileth France AST [Catalytic activity/Vol] 18 U/L Normal 15-37 [facility] Comment on above: Performed By: #### H STROPN, CMP #### [facility] [address] [address] [address] Yamileth France Bilirubin [Mass/Vol] 0.3 mg/dL Normal 0.2-1.0 [facility] Comment on above: Performed By: #### H STROPN, CMP #### [facility] [address] [address] [address] Yamileth France Calcium [Mass/Vol] 8.8 mg/dL Normal 8.5-10.1 [facility] Comment on above: Performed By: #### H STROPN, CMP #### [facility] [address] [address] [address] Yamileth France Chloride [Moles/Vol] 99 mmol/L Normal 98-107 [facility] Comment on above: Performed By: #### H STROPN, CMP #### [facility] [address] [address] [address] Yamileth France CO2 [Moles/Vol] 31.2 mmol/L Normal 21.0-32.0 [facility] Comment on above: Performed By: #### H STROPN, CMP #### [facility] [address] [place] [address] Dr. Yamileth France Creatinine [Mass/Vol] 0.74 mg/dL Normal 0.55-1.02 [facility] Comment on above: Performed By: #### H STROPN, CMP #### [facility] [address] [address] [address] Yamileth France EGFR-AF DUTCH >60 Normal >=60 [facility] Comment on above: Performed By: #### H STROPN, CMP #### [facility] [address] [place] [address] Dr. Yamileth France EGFR-NON AF DUTCH >60 Normal >=60 [facility] Comment on above: Performed By: #### H STROPN, CMP #### [facility] [address] [place] [address] [address] Yamileth France Globulin (S) [Mass/Vol] 3.5 g/dL Normal [facility] Comment on above: Performed By: #### H STROPN, CMP #### [facility] [address] [address] [address] Yamileth France Glucose [Mass/Vol] 111 mg/dL Critically high 74-106 [facility] Comment on above: Performed By: #### H STROPN, CMP #### [facility] [address] [place] [address] Dr. Yamileth France Potassium [Moles/Vol] 3.1 mmol/L Critically low 3.5-5.1 [facility] Comment on above: Performed By: #### H STROPN, CMP #### [facility] [address] [place] [address] Dr. Yamileth France Protein [Mass/Vol] 6.9 g/dL Normal 6.4-8.2 [facility] Comment on above: Performed By: #### H ASHLEEPN, CMP #### [facility] [address] [place] [address] Dr. Yamileth France Sodium [Moles/Vol] 137 mmol/L Normal 136-145 [facility] Comment on above: Performed By: #### H ASHLEEPN, CMP #### [facility] [address] [place] [address] Dr. Yamileth France Urea nitrogen [Mass/Vol] 14.0 mg/dL Normal 7.0-18.0 [facility] Comment on above: Performed By: #### H JOYCE, CMP #### [facility] [address] [place] [address] Dr. Yamileth France Urea nitrogen/Creatinin e [Mass ratio] 18.9 mg/mg Normal [facility] Comment on above: Performed By: #### H ASHLEEPN, CMP #### [facility] [address] [place] [address] Dr. Yamileth France TROPONIN, HIGH SENSITIVITYon 10-21-2022 HSTROP 4.7 pg/mL Normal 4.0-51.3 [facility] Comment on above: Result Comment: CUT- OFF POINTS HAVE BEEN ESTABLISHED BASED ON THE FOURTH UNIVERSAL DEFINITIONS OF MYOCARDIAL INFARCTION. THE UPPER REFERENCE LIMIT (URL) OF TROPONIN, DEFINED THE 99TH PERCENTILE OF cTnI DISTRIBUTION IN A REFERENCE POPULATION, HAS BEEN CONFIRMED THE DECISION THRESHOLD FOR MO DIAGNOSIS. Performed By: #### H ASHLEEPN, CMP #### [facility] [address] [place] [address] Dr. Yamileth France TSHon 10-21-2022 TSH 2.173 uIU/mL Normal 0.358-3.740 [facility] Comment on above: Performed By: #### T SH #### [facility] [address] [place] [address] Dr. Yamileth France XR CHEST 1 Von [...] GIULIA GERMAIN Date: 2022-10-21 04:26 Normal [facility] SCREENING MAMMOGRAM W/MARYCRUZ, BILATERAL*on 07-25-2022 SCREENING MAMMOGRAM [...] VERY IMPORTANT TO YOUR HEALTH. THE CURRENT [employer] [employer] GUIDELINES RECOMMENDS ANNUAL MAMMOGRAPHY BEGINNING AT AGE 40 THIS FACILITY USES A REMINDER SYSTEM TO ENSURE ALL PATIENTS RECEIVE REMINDER NOTIFICATIONS AT THE APPROPRIATE TIME BASED ON THE RECOMMENDATIONS OF THIS EXAM. Report reported and signed by Zane Quinteros on 07/25/2022 1154 Normal [facility] [place] Vital Signs Date Time Vital Sign Value Performing Clinician Issaci wero 07-02-2025 11:49-0400 Body height 163.2 cm Rene Lynch MD Work Phone: [facility] 07-02-2025 11:49-0400 Body mass index (BMI) [Ratio] 24.29 kg/m2 Rene Lynch MD Work Phone: [facility] 07-02-2025 11:49-0400 Body temperature 97.5 [degF] Rene Lynch MD Work Phone: [facility] 07-02-2025 11:49-0400 Body weight 64.68 kg Rene Lynch MD Work Phone: [facility] 07-02-2025 11:49-0400 Diastolic blood pressure 68 mm[Hg] Rene Lynch MD Work Phone: [facility] 07-02-2025 11:49-0400 Heart rate 92 /min Rene Lynch MD Work Phone: [facility] 07-02-2025 11:49-0400 SaO2% (BldA) [Mass fraction] 98 % Rene Lynch MD Work Phone: [facility] 07-02-2025 11:49-0400 Systolic blood pressure 130 mm[Hg] Rene Lynch MD Work Phone: [facility] 03-17-2025 10:20-0400 Body mass index (BMI) [Ratio] 25.55 kg/m2 Kamala Nataprawira DO Work Phone: [facility] 03-17-2025 10:20-0400 Body weight 68.04 kg Kamala Nataprawira DO Work Phone: [facility] 03-17-2025 10:20-0400 Diastolic blood pressure 72 mm[Hg] Kamala Nataprawira DO Work Phone: [facility] 03-17-2025 10:20-0400 Systolic blood pressure 116 mm[Hg] Kamala Nataprawira DO Work Phone: [facility] 12-05-2024 10:46-0500 Blood Pressure Location Inez JONES [facility] 12-05-2024 10:46-0500 Body temperature 98.6 [degF] Inez JONES [facility] 12-05-2024 10:46-0500 Diastolic blood pressure 84 mm[Hg] Inez JONES [facility] 12-05-2024 10:46-0500 Heart rate 68 /min Inez JONES [facility] 12-05-2024 10:46-0500 Respiratory rate 16 /min Inez JONES [facility] 12-05-2024 10:46-0500 Systolic blood pressure 134 mm[Hg] Inez JONES [facility] 11-18-2024 09:22-0500 Body height 163.83 cm [facility] 11-18-2024 09:22-0500 Body mass index (BMI) [Ratio] 24.5 kg/m2 [facility] 11-18-2024 09:22-0500 Body weight 65.77 kg [facility] 09-22-2024 13:15-0500 Body height 163.2 cm Jenny Pump [employer] Work Phone: [facility] 09-22-2024 13:15-0500 Body mass index (BMI) [Ratio] 25.45 kg/m2 Jenny Pump [employer] Work Phone: [facility] 09-22-2024 13:15-0500 Body weight 67.77 kg Jenny Pump [employer] Work Phone: [facility] 09-22-2024 13:15-0500 Diastolic blood pressure 82 mm[Hg] Jenny Pump [employer] HEL[employer] Work Phone: [facility] 09-22-2024 13:15-0500 Heart rate 100 /min Jenny Pump [employer] HEL[employer] Work Phone: [facility] 09-22-2024 13:15-0500 Systolic blood pressure 124 mm[Hg] Jenny Pump [employer] HEL[employer] Work Phone: [facility] 08-07-2024 13:10-0400 Body mass index (BMI) [Ratio] 25.11 kg/m2 Wendy Desouza LIBRARY HELPER Work Phone: [facility] 08-07-2024 13:10-0400 Body weight 67.41 kg Wendy Desouza [employer] HELPER Work Phone: [facility] 08-07-2024 13:10-0400 Diastolic blood pressure 82 mm[Hg] Wendy Desouza [employer]RARY HELPER Work Phone: [facility] 08-07-2024 13:10-0400 Heart rate 100 /min Wendykayla Desouza LIBRARY HELPER Work Phone: [facility] 08-07-2024 13:10-0400 Systolic blood pressure 126 mm[Hg] Wendy Desouza LIBRARY HELPER Work Phone: [facility] 02-13-2024 12:57-0400 Blood Pressure Location JER YUNIOR [facility] 02-13-2024 12:57-0400 Body temperature 96.8 [degF] JER YUNIOR [facility] 02-13-2024 12:57-0400 Diastolic blood pressure 82 mm[Hg] JER YUNIOR [facility] 02-13-2024 12:57-0400 Heart rate 84 /min JER YUNIOR [facility] 02-13-2024 12:57-0400 Systolic blood pressure 128 mm[Hg] EJR YUNIOR [facility] 01-30-2024 13:13-0400 Body temperature 98.6 [degF] JER YUNIOR [facility] 01-30-2024 13:13-0400 Diastolic blood pressure 84 mm[Hg] JER YUNIOR [facility] 01-30-2024 13:13-0400 Respiratory rate 14 /min JER YUNIOR [facility] 01-30-2024 13:13-0400 Systolic blood pressure 128 mm[Hg] JER YUNIOR [facility] 01-23-2024 13:10-0400 Blood Pressure Location JER YUNIOR [facility] 01-23-2024 13:10-0400 Body temperature 98.6 [degF] JER YUNIOR [facility] 01-23-2024 13:10-0400 Diastolic blood pressure 88 mm[Hg] JER YUNIOR [facility] 01-23-2024 13:10-0400 Heart rate 78 /min JER YUNIOR [facility] 01-23-2024 13:10-0400 Systolic blood pressure 122 mm[Hg] JER YUNIOR [facility] 01-16-2024 13:29-0400 Blood Pressure Location JER YUNIOR [facility] 01-16-2024 13:29-0400 Diastolic blood pressure 77 mm[Hg] JER YUNIOR [facility] 01-16-2024 13:29-0400 Heart rate 90 /min JER YUNIOR [facility] 01-16-2024 13:29-0400 Systolic blood pressure 125 mm[Hg] JER YUNIOR [facility] 01-09-2024 12:59-0400 Blood Pressure Location JER YUNIOR [facility] 01-09-2024 12:59-0400 Diastolic blood pressure 93 mm[Hg] JER MOIJCA [facility] 01-09-2024 12:59-0400 Heart rate 70 /min JER MOJICA [facility] 01-09-2024 12:59-0400 Systolic blood pressure 129 mm[Hg] JER MOJICA [facility] 12-07-2023 11:32-0500 Blood Pressure Location Inez JONES [facility] 12-07-2023 11:32-0500 Diastolic blood pressure 79 mm[Hg] Inez JONES [facility] 12-07-2023 11:32-0500 Heart rate 97 /min Inez JONES [facility] 12-07-2023 11:32-0500 Respiratory rate 16 /min Inez JONES [facility] 12-07-2023 11:32-0500 Systolic blood pressure 124 mm[Hg] Inez JONES [facility] 11-19-2023 09:15-0500 Body height 166.37 cm Andrea Gunter Other [employer] Other 11-19-2023 09:15-0500 Body mass index (BMI) [Ratio] 23.92 kg/m2 Andrea Gunter Other [employer] Other 11-19-2023 09:15-0500 Body weight 66.23 kg Andrea Gunter Other [employer] Other 11-19-2023 09:15-0500 Diastolic blood pressure 76 mm[Hg] Andrea Lyric Other [employer] Other 11-19-2023 09:15-0500 Systolic blood pressure 117 mm[Hg] Andrea Gunter Other [employer] Other 09-18-2023 09:17-0500 Diastolic blood pressure 78 mm[Hg] MD Glenna Keita Work Phone: [facility] 09-18-2023 09:17-0500 Heart rate 80 /min MD Glenna Keita Work Phone: [facility] 09-18-2023 09:17-0500 Respiratory rate 16 /min MD Glenna Keita Work Phone: [facility] 09-18-2023 09:17-0500 SaO2% (BldA) [Mass fraction] 100 % MD Glenna Keita Work Phone: [facility] 09-18-2023 09:17-0500 Systolic blood pressure 118 mm[Hg] MD Glenna Adhikari Phone: [facility] 09-18-2023 07:41-0500 Body height 165.1 cm MD Glenna Keita Work Phone: [facility] 09-18-2023 07:41-0500 Body weight 63.04 kg MD Glenna Keita Work Phone: [facility] 02-28-2023 12:00-0400 Body height 166.37 cm Andrea Gunter Other [employer] Other 02-28-2023 12:00-0400 Body mass index (BMI) [Ratio] 24.58 kg/m2 Andrea Gunter Other [facility] Other 02-28-2023 12:00-0400 Body weight 68.04 kg Andrea Gunter Other [facility] Other 02-28-2023 12:00-0400 Diastolic blood pressure 96 mm[Hg] Andrea Gunter Other [facility] Other 02-28-2023 12:00-0400 Systolic blood pressure 137 mm[Hg] Andrea Gunter Other [facility] Other 12-08-2022 10:46-0500 Blood Pressure Location Inez JONES [facility] 12-08-2022 10:46-0500 Diastolic blood pressure 74 mm[Hg] Inez JONES [facility] 12-08-2022 10:46-0500 Heart rate 68 /min Inez JONES [facility] 12-08-2022 10:46-0500 Respiratory rate 16 /min Inez JONES [facility] 12-08-2022 10:46-0500 Systolic blood pressure 122 mm[Hg] Inez JONES [facility] 02-27-2022 11:00-0400 Body height 166.37 cm Andrea Gunter Other [employer] Other 02-27-2022 11:00-0400 Body mass index (BMI) [Ratio] 24.58 kg/m2 Andrea Gunter Other [employer] Other 02-27-2022 11:00-0400 Body weight 68.04 kg Andrea Gunter Other [employer] Other 01-04-2022 10:45-0400 Body height 166.37 cm Andrea Meltonack Other [facility] Other 01-04-2022 10:45-0400 Body mass index (BMI) [Ratio] 25.4 kg/m2 Andrea Meltonack Other [facility] Other 01-04-2022 10:45-0400 Body weight 70.31 kg Andrea Gunter Other [facility] Other 10-03-2021 11:30-0500 Body height 166.37 cm Andrea Nurormack Other [facility] Other 10-03-2021 11:30-0500 Body mass index (BMI) [Ratio] 25.07 kg/m2 Andrea Meltonack Other [facility] Other 10-03-2021 11:30-0500 Body weight 69.4 kg Andrea Gunter Other [facility] Other Encounters Encounter Date Encounter Type Care Provider Facility Start: 12-07-2025 ambulatory Inez Tse ty:[facility] Start: 07-23-2025 ambulatory Inez Pricei ty:[id number] Start: 07-08-2025 End: 07-08-2025 ambulatory Inez JONES Facility: [facility] Start: 07-08-2025 End: 07-08-2025 Patient encounter procedure Inez JONES [facility] Start: 07-02-2025 End: 07-02-2025 Cheryl Lynch MD Work Phone: [facility] Start: 07-02-2025 End: 07-02-2025 Cheryl Lynch MD Work Phone: [facility] Start: 07-02-2025 End: 07-02-2025 ambulatory RENE LYNCH Not Available Start: 07-02-2025 End: 07-02-2025 Office outpatient visit 15 minutes Rene Lynch MD Work Phone: [facility] Comment on above: Dysuria (Primary Dx) ; Acute cystitis with hematuria Start: 05-11-2025 End: 05-11-2025 ambulatory KAMALA HINES Not Available Start: 03-17-2025 End: 03-17-2025 Office outpatient visit 15 minutes Kamala Hines DO Work Phone: [facility] Comment on above: Vaginal dryness, men opausal (Primary Dx); Osteoporosis, post-menopausal (CMS/HCC); Postmenopausal; Constipation, unspecified constipation type; Screening breast examination; Hx of hysterectomy for benign disease; Hx of BSO (bilateral salpingo-oophorectomy) Start: 03-17-2025 End: 03-17-2025 ambulatory KAMALA HINES Not Available Start: 12-05-2024 End: 12-05-2024 ambulatory Inez JONES Facility:[facility] Start: 12-05-2024 End: 12-05-2024 Patient encounter procedure Inez JONES [facility] Start: 12-02-2024 End: 12-02-2024 Clinisync Result Encounter Generic External Data Provider [facility] External Department Unsolicited Start: 12-02-2024 End: 12-02-2024 Clinisync Result Encounter Generic External Data Provider [facility] External Department Unsolicited Start: 11-18-2024 End: 11-18-2024 ambulatory [facility] Work Phone: Start: 11-18-2024 End: 11-18-2024 Patient encounter procedure [facility] Work Phone: Start: 11-10-2024 End: 11-10-2024 ambulatory KAMALA HINES Not Available Start: 11-06-2024 End: 11-06-2024 ambulatory GLENNA KEITA Not Available Start: 09-22-2024 End: 09-22-2024 Bamboo flowsheet Jenny Pump LIBRARY HELPER Work Phone: [facility] Start: 09-22-2024 End: 09-22-2024 Bamboo flowsheet Jenny Pump LIBRARY HELPER Work Phone: [facility] Start: 09-22-2024 End: 09-22-2024 Refill Jenny Pump [employer] Work Phone: [facility] Comment on above: Hemorrhoids, unspeci fied hemorrhoid type Start: 09-22-2024 End: 09-22-2024 ambulatory JENNY PUMP Not Available Start: 09-22-2024 End: 09-22-2024 Patient encounter status Jenny Pump LIBRARY HELPER Work Phone: [facility] Work Phone: Start: 09-22-2024 End: 09-22-2024 Periodic preventive med est patient 40-64yrs Jenny Pump LIBRARY HELPER Work Phone: [facility] Comment on [...] 08-11-2024 End: 08-11-2024 Telephone encounter Wendy Desouza LIBRARY HELPER Work Phone: [facility] Comment on above: Results Start: 08-07-2024 End: 08-07-2024 Bamboo flowsheet Wendy Desouza LIBRARY HELPER Work Phone: [facility] Start: 08-07-2024 End: 08-07-2024 Bamboo flowsheet Wendy Desouza LIBRARY HELPER Work Phone: [facility] Start: 08-07-2024 End: 08-07-2024 ambulatory WENDY DESOUZA Not Available Start: 08-07-2024 End: 08-07-2024 Office outpatient visit 15 minutes Wendy Desouza [employer] HELPER Work Phone: [facility] Comment on above: Dysuria (Primary Dx) ; Urine frequency; Urinary urgency Start: 02-13-2024 End: 02-13-2024 Patient encounter procedure JER MOJICA [facility] [employer] Start: 02-06-2024 End: 02-06-2024 Patient encounter procedure JER MOJICA [facility] Start: 01-30-2024 End: 01-30-2024 Patient encounter procedure JER MOJICA [facility] [employer] Start: 01-23-2024 End: 01-23-2024 Patient encounter procedure JER MOJICA [facility] [employer] Start: 01-16-2024 End: 01-16-2024 Patient encounter procedure JER MOJICA [facility] [employer] Start: 01-09-2024 End: 01-09-2024 Patient encounter procedure JER MOJICA [facility] Start: 12-07-2023 End: 12-07-2023 Patient encounter procedure Inez JONES [facility]onne Start: 11-19-2023 End: 11-19-2023 ambulatory Andrea Gunter Other [employer] Other Start: 11-19-2023 Office outpatient visit 15 minutes Andrea Gunter [facility] Start: 09-21-2023 End: 09-21-2023 ambulatory Andrea Gunter Other [employer] Other Start: 09-21-2023 Telephone encounter Andrea martínez [facility] Start: 09-18-2023 End: 09-18-2023 ambulatory Glenna Keita Facility:[facility] Start: 09-18-2023 End: 09-18-2023 Admission to same day surgery center MD Glenna Keita Work Phone: [facility] Work Phone: Start: 09-18-2023 End: 09-18-2023 ambulatory MD Glenna Keita Work Phone: [facility] Work Phone: Start: 02-28-2023 End: 02-28-2023 ambulatory Andrea Gunter Other [employer] Other Start: 02-28-2023 Office outpatient visit 15 minutes Andrea Gunter [facility] Start: 12-08-2022 End: 12-08-2022 Patient encounter procedure Inez JONES [facility] Start: 12-06-2022 End: 12-07-[address] INEZ JONES . Facility:[facility] Start: 10-21-2022 End: 10-21-[address] GLENNA KEITA Facility:[facility] Start: 07-25-2022 End: 07-25-2022 ambulatory Andrea Lyric Other [facility] Other Start: 07-25-2022 Telephone encounter Andrea Thakur [facility] Start: 02-27-2022 End: 02-27-2022 ambulatory Andrea Lyric Other [employer] Other Start: 02-27-2022 Office outpatient visit 15 minutes Andrea Lyric [facility] Start: 01-04-2022 End: 01-04-2022 ambulatory Andrea Meltonack Other [facility] Other Start: 01-04-2022 Office outpatient visit 15 minutes Andrea Lyric [facility] Start: 10-03-2021 End: 10-03-2021 ambulatory Andrea Lyric Other [employer] Other Start: 10-03-2021 Office outpatient ne w 45 minutes Andrea Lyric [facility] Procedures Date Procedure Procedure Detail Performing [...] for malign ant neoplasm of colon [facility] Start: 05-11-2026 Screening for malign ant neoplasm of breast Mammogram [facility] Start: 03-18-2026 End: 03-18-2026 Patient encounter procedure 03/18/2026 9:45 AM EDT Office Visit [facility] [address] [address] Kamala Hines DO [address] [address] [facility] Start: 11-10-2025 Screening for malign ant neoplasm of breast Mammogram [facility] Start: 09-22-2025 Medicare Annual Well ness (AWV) Medicare Annual Wellness (AWV) [facility] Start: 07-02-2025 End: 07-02-2026 Bacteria identified in Urine by Culture Urine culture (clean catch) Microbiology Routine Dysuria Expected: 07/02/2025 (Approximate), Expires: 07/02/2026 [facility] Work Phone: Comment on above: Expected: 07/02/2025 (Approximate), Expires: 07/02/2026 Start: 06-22-2025 Influenza vaccination [facility] Start: 05-11-2025 End: 05-11-2025 Professional / ancillary services management [facility] Start: 03-17-2025 End: 03-17-2025 Patient encounter procedure 03/17/2025 10:15 AM EDT [facility] [address] [address] Kamala Hines DO [address] [facility] [address] [address] [facility] Start: 10-10-2024 Screening for malign ant neoplasm of breast Mammogram [facility] Start: 10-02-2024 Influenza vaccination Influenza Vacc ine (#1) [facility] Comment on above: Postponed from 06/22 (Patient Refused) Start: 09-22-2024 End: 09-22-2025 25-hydroxyvitamin D3 [Mass/volume] in Serum or Plasma Vitamin D 25 hydroxy Lab Routine Osteopenia, unspecified location Vitamin D deficiency Expected: 09/22/2024 (Approximate), Expires: 09/22/2025 [facility] Comment on above: Expected: 09/22/2024 (Approximate), Expires: 09/22/2025 Start: 09-22-2024 End: 09-22-2025 CBC W Auto Differential panel - Blood CBC and differential Lab Routine Wellness examination Ulcerative colitis with complication, unspecified location (CMS/HCC) Expected: 09/22/2024 (Approximate), Expires: 09/22/2025 [facility] Work Phone: Comment on above: Expected: 09/22/2024 (Approximate), Expires: 09/22/2025 Start: 09-22-2024 End: 09-22-2025 Comprehensive metabolic 2000 panel - Serum or Plasma Comprehensive metabolic panel Lab Routine Wellness examination Osteopenia, unspecified location Ulcerative colitis with complication, unspecified location (CMS/HCC) Expected: 09/22/2024 (Approximate), Expires: 09/22/2025 [facility] Comment on above: Expected: 09/22/2024 (Approximate), Expires: 09/22/2025 Start: 09-22-2024 End: 09-22-2025 Lipid 1996 panel - Serum or Plasma Lipid panel Lab Routine Wellness examination Expected: 09/22/2024 (Approximate), Expires: 09/22/2025 [facility] Comment on above: Expected: 09/22/2024 (Approximate), Expires: 09/22/2025 Start: 09-22-2024 End: 09-22-2025 Thyrotropin [Units/volume] in Serum or Plasma TSH Lab Routine Wellness examination Anxiety, generalized (CMS/HCC) Fatigue, unspecified type Hair loss Expected: 09/22/2024 (Approximate), Expires: 09/22/2025 [facility] Comment on above: Expected: 09/22/2024 (Approximate), Expires: 09/22/2025 Start: 09-22-2024 End: 09-22-2025 Thyroxine (T4) free [Mass/volume] in Serum or Plasma T4, free Lab Routine Wellness examination Anxiety, generalized (CMS/HCC) Fatigue, unspecified type Hair loss Expected: 09/22/2024 (Approximate), Expires: 09/22/2025 [facility] Comment on above: Expected: 09/22/2024 (Approximate), Expires: 09/22/2025 Start: 09-22-2024 End: 09-22-2025 Triiodothyronine (T3) Free [Mass/volume] in Serum or Plasma T3, free Lab Routine Wellness examination Anxiety, generalized (CMS/HCC) Fatigue, unspecified type Hair loss Expected: 09/22/2024 (Approximate), Expires: 09/22/2025 [facility] Comment on above: Expected: 09/22/2024 (Approximate), Expires: 09/22/2025 Start: 08-07-2024 End: 08-07-2025 URINALYSIS, COMPLETE W/REFLEX TO CULTURE URINALYSIS, COMPLETE W/REFLEX TO CULTURE Lab Routine Urine frequency Expected: 08/07/2024 (Approximate), Expires: 08/07/2025 [facility] Work Phone: Comment on above: Expected: 08/07/2024 (Approximate), Expires: 08/07/2025 Start: 06-22-2024 Influenza vaccination Influenza Vacc ine (#1) [facility] Start: 09-18-2023 [facility] Start: 02-24-2010 Pneumococcal Vaccine : 65+ Years (1 of 1 - PCV) Pneumococcal Vaccine: 65+ Years (1 of 1 - PCV) [facility] Start: 1960 Screening for malign ant neoplasm of colon [facility] Patient Education Colon Polypectomy (DC) [facility] Work Phone: Immunizations Immunization Date Immunization Notes Care Provider Tony avera [facility] 09-20-2023 influenza virus vaccine, unspecified formulation Inez JONES [facility] 09-20-2023 influenza, injectabl e, quadrivalent, preservative free Wendy Desouza NP Work Phone: [facility] 08-10-2022 SARS-CoV-2 (COVID-19 ) [id number] Inez JONES [facility] 01-30-2022 SARS-CoV-2 mRNA ([id number] se) vaccine Inez JONES [facility] 09-03-2021 SARS-CoV-2 (COVID-19 ) Ad26 vaccine, recombinant Inez JONES [facility] 08-26-2021 SARS-CoV-2 (COVID-19 ) mRNA BNT-162b2 vax Inze JONES [facility] 07-22-2021 influenza virus vaccine, unspecified formulation Inez JONES [facility] 07-05-2021 influenza virus vaccine, unspecified formulation Inez JONES [facility] 07-05-2021 influenza, injectabl e, quadrivalent, contains preservative Wendy Desouza NP Work Phone: [facility] 01-31-2021 SARS-CoV-2 (COVID-19 ) mRNA BNT-162b2 vax Inez JONES [facility] 01-29-2021 SARS-CoV-2 (COVID-19 ) mRNA BNT-162b2 vax Inez JONES [facility] 01-10-2021 SARS-CoV-2 (COVID-19 ) mRNA BNT-162b2 vax Inez JONES [facility] 01-04-2021 SARS-CoV-2 (COVID-19 ) mRNA BNT-162b2 vax Inez JONES [facility] 09-13-2019 influenza virus vaccine, unspecified formulation Inez JONES [facility] 09-13-2019 Influenza, injectabl e, Madin Radhika Canine Kidney, preservative free, quadrivalent Wendy Desouza LIBR[employer] HEL[employer] Work Phone: [facility] 11-05-2018 influenza virus vaccine, unspecified formulation Inez JONES [facility] 11-05-2018 influenza, injectabl e, quadrivalent, preservative free Wendy Desouza LIBRARY HELPER Work Phone: [facility] 09-28-2015 influenza, injectabl e, quadrivalent, preservative free Wendy Desouza LIBRARY HELPER Work Phone: [facility] 11-07-2012 tetanus toxoid, redu matteo diphtheria toxoid, and acellular pertussis vaccine, adsorbed Wendy Senait LIBRARY HELPER Work Phone: [facility] Payers Date Payer Category Payer Medicare [id number] 2025 Medicare [id number] 2023 Private Health Insurance [id number] 2023 Medicaid [id number] 2023 Self-pay [id number] 1960 Unknown [id number] 593 1960 Unknown [id number]. [id number] 1960 Unknown [id number]. [id number] 1960 Unknown [id number]. 1258 1960 Unknown [id number]. 1258 1960 Unknown [id number]. 1258 1960 Unknown [id number]. 1258 1960 Unknown [id number]. 1258 1960 Unknown [id number] [id number]. 1258 1960 Unknown [id number]. 1258 1960 Unknown [id number]. 1258 1960 Unknown [id number] 1960 Unknown [id number] 1960 Unknown [id number] 1960 Unknown [id number] 1959 Unknown [id number] Unknown [facility] [id number] Unknown [id number] 531 Unknown [id number] Unknown [id number] Social History Date Type Detail Facility Start: 09-18-2023 End: 07-02-2025 Sex Assigned At [facility] Start: 12-08-2022 End: 07-08-2025 Tobacco smoking status Ex-smoker (finding) [facility] Tobacco smoking status Never [facility] Start: 1960 Sex Assigned At Female F [facility] Start: 10-22-1981 End: 04-10-2005 History of tobacco [...] Start: 09-30-2018 End: 11-18-2024 Sex Female (finding) [facility] Sexual Orientation [facility] Goals Date Patient Goal Desired Activity /State Functional Status Date Assessment Result Facility 12-05-2024 Functional Status N/A [facility] 02-13-2024 Functional Status N/A [facility] 01-30-2024 Functional Status N/A [facility] 01-23-2024 Functional Status N/A [facility] 01-16-2024 Functional Status N/A [facility] 01-09-2024 Functional Status N/A [facility] 12-07-2023 Functional Status N/A [facility] 12-08-2022 Functional Status N/A [facility] Clinical Notes 10-03-2021 to 07-08-2025 Tamra Acharya MA - 07/02/2025 11:40 AM Deny Lynch MD - 07/02/2025 11:40 AM Isa Hines DO - 03/17/2025 10:15 AM EDTAmber Pump, LIBRARY HELPER - 09/22/2024 1:00 PM EST Note Date & Type Note Facility 07-08-2025 Hospital Discharg e instructions Patient Education 07/08/2025 13:45:08 Kidney Stones, Lbmh-iv-Txtu Kidney Stones Kidney stones are rock-like masses [...] Follow these instructions at home: Medicines Take tixe-bkb-thsytvp and prescription medicines only as told by [...] provider. Document Revised: 06/01/2023 Document Reviewed: 06/01/2023 [employer] Patient Education 2023 SERPs. Follow Up Care 07/07/2025 10:36:47 With:MANPREET BROWN, Inez Ruano, URL Address: [address] [place] [phone] When: Unknown Comments:sched cysto/UD, CT scan [facility] 07-08-2025 Note Patient Education Urology Kidney Stones [...] these instructions at home: Medicines ??? Take wjbn-xzu-hacvxpb and prescription medicines only as told by [...] provider. Document Revised: 06/01/2023 Document Reviewed: 06/01/2023 [employer] Patient Education ? 2023 [employer] [facility] 07-02-2025 History of Presen t illness Narrative [...] UNIT/ML liquid Place under the tongue. With Tivoli clobetasol (Temovate) 0.05 % ointment 1 application [...] 30 min Stress: Stress Concern Present (09/18/2023) [employer] [place] [employer]ational [employer] - Occupational Stress Questionnaire Feeling of Stress : To some extent Social Connections: Socially Integrated (09/18/2023) Social Connection and Isolation Panel [NHANES] Frequency of Communication with Friends and Family: More than three times a week Frequency of Social Gatherings with Friends and Family: More than three times a week Attends Islam Services: 1 to 4 times per year [...] follow-ups on file. documented in this encounter [facility] 03-17-2025 History of Presen t illness [...] UNIT/ML liquid Place under the tongue. With Tivoli clobetasol (Temovate) 0.05 % ointment Apply 1 [...] cervix 2022 ADHD (attention deficit hyperactivity disorder) ([facility]) 2009 Anxiety 2014? Benign neoplasm of colon Calculus in urethra Calculus of kidney and ureter Chronic nonalcoholic liver disease Disorder of liver Disorder of parathyroid gland, unspecified Diverticulitis 07/26/2023 Diverticulosis of colon (without mention of hemorrhage) Elevated hemoglobin ([facility]) 07/26/2023 Esophageal reflux Family history of colon cancer 09/18/2023 Fibrocystic breast 2005? Flank pain 07/26/2023 Hearing loss of right ear, unspecified hearing loss type History of hysterectomy for benign disease 09/19/2023 Hydronephrosis Hydronephrosis 07/26/2023 Insomnia, unspecified Leiomyoma of uterus, unspecified Menopause ovarian failure Hysterectomy 2005 Nocturia 09/19/2023 Osteopenia Osteoporosis ([facility]) Unspecified Other psoriasis ([facility]) Ovarian cyst ? Overweight (BMI 25.0-29.9) 07/26/2023 Parathyroid disorder ([facility]) Renal calculi 07/26/2023 Renal cyst, right S/P [...] 03/17/2025 10:52 AM documented in this encounter [facility] 12-05-2024 [facility] Discharg e instructions Patient Education 12/05/2024 11:45:49 [...] include: ?8 oz (237 mL) of milk, cgkjiir-dkmeyxllkbkb-dxcut milk, and calcium-fortifiedfruit juice. Calcium-fortified means that [...] ?Spinach (cooked), rhubarb, beets, sweet potatoes, and [place] chard. ?Peanuts. ?Potato chips, swedish fries, and baked potatoes with skin on. ?Nuts and nut products. ?Chocolate. If you regularly take a diuretic medicine, make sure to eat at least 1 or 2 servings of fruits or vegetables that are high in potassium each day. These include: ?Avocado. ?Banana. ?[place], prune, carrot, or tomato juice. ?Baked potato. [...] magnesium, fish oil, or vitamin B6. Take skop-dfp-qbeviup and prescription medicines only as told by [...] Casseroles. Pizza. Lasagna. Frozen meals. Potato chips. Italian fries. The items listed above may not [...] provider. Document Revised: 01/18/2023 Document Reviewed: 01/18/2023 [employer] Patient Education 2023 SERPs. Follow Up Care 12/07/2023 12:56:11 With:MANPREET BROWN, Inez Ruano, URL Address: [address] [place], [place] [id number]- When: Unknown [facility] avandeo 12-05-2024 Note Patient Education Nephrology Dietary Guidelines [...] ? 8 oz (237 mL) of milk, ncnegyu-xxopbreocsje-wjuex milk, and calcium-fortifiedfruit juice. Calcium-fortified means that [...] Spinach (cooked), rhubarb, beets, sweet potatoes, and [place] African chard. ? Peanuts. ? Potato chips, swedish fries, and baked potatoes with skin on. ? Nuts and nut products. ? Chocolate. ??? If you regularly take a diuretic medicine, make sure to eat at least 1 or 2 servings of fruits or vegetables that are high in potassium each day. These include: ? Avocado. ? Banana. ? [place], prune, carrot, or tomato juice. ? Baked [...] fish oil, or vitamin B6. ??? Take bcrv-ahr-kvisfmx and prescription medicines only as told by your health (more content not included)... [facility] 09-22-2024 History of Presen t illness Narrative Images from the original note were not included. Ja Schwab is a 64 y.o. female presents with chief complaint of Annual Exam HPI: HPI As above. She follows with urology, [facility], and psychiatry. She sees the dentist every [...] UNIT/ML liquid Place under the tongue. With Tivoli clobetasol (Temovate) 0.05 % ointment 1 application [...] Diagnosis Date ADHD (attention deficit hyperactivity disorder) ([facility]) 2009 Anxiety 2014? Benign neoplasm of colon Calculus in urethra Calculus of kidney and ureter Chronic nonalcoholic liver disease Disorder of liver Disorder of parathyroid gland, unspecified ([facility]) Diverticulitis 07/26/2023 Diverticulosis of colon (without mention of hemorrhage) Elevated hemoglobin ([facility]) 07/26/2023 Esophageal reflux Family history of colon cancer 09/18/2023 Flank pain 07/26/2023 Hearing loss of right ear, unspecified hearing loss type History of hysterectomy for benign disease 09/19/2023 Hydronephrosis Hydronephrosis 07/26/2023 Insomnia, unspecified Leiomyoma of uterus, unspecified Nocturia 09/19/2023 Osteopenia Osteoporosis (CMS/HCC) Unspecified Other psoriasis (CMS/HCC) Overweight (BMI 25.0-29.9) 07/26/2023 Parathyroid disorder ([facility]) Renal calculi 07/26/2023 Renal cyst, right S/P [...] 30 min Stress: Stress Concern Present (09/18/2023) [employer] - Occupational Stress Questionnaire Feeling of Stress : To some extent Social Connections: Socially Integrated (09/18/2023) Social Connection and Isolation Panel [NHANES] Frequency of Communication with Friends and Family: More than three times a week Frequency of Social Gatherings with Friends and Family: More than three times a week Attends Islam Services: 1 to 4 times per year [...] for wellness. documented in this encounter [facility] 08-11-2024 Telephone encounter Note Please let patient know urine culture is negative for infection. See how she's doing. If better she can continue abx until done. If not improved, should see urology. [facility] 08-11-2024 Miscellaneous Notes Please let patient know urine culture is negative for infection. See how she's doing. If better she can continue abx until done. If not improved, should see urology. documented in this encounter [facility] 08-07-2024 History of Presen t illness [...] UNIT/ML liquid Place under the tongue. With Tivoli clobetasol (Temovate) 0.05 % ointment 1 application [...] Diagnosis Date ADHD (attention deficit hyperactivity disorder) ([facility]) 2009 Anxiety 2014? Benign neoplasm of colon Calculus in urethra Calculus of kidney and ureter Chronic nonalcoholic liver disease Disorder of liver Disorder of parathyroid gland, unspecified ([facility]) Diverticulitis 07/26/2023 Diverticulosis of colon (without mention of hemorrhage) Elevated hemoglobin ([facility]) 07/26/2023 Esophageal reflux Family history of colon cancer 09/18/2023 Flank pain 07/26/2023 Hearing loss of right ear, unspecified hearing loss type History of hysterectomy for benign disease 09/19/2023 Hydronephrosis Hydronephrosis 07/26/2023 Insomnia, unspecified Leiomyoma of uterus, unspecified Nocturia 09/19/2023 Osteopenia Osteoporosis ([facility]) Unspecified Other psoriasis ([facility]) Overweight (BMI 25.0-29.9) 07/26/2023 Parathyroid disorder ([facility]) Renal calculi 07/26/2023 Renal cyst, right S/P [...] 30 min Stress: Stress Concern Present (09/18/2023) [employer] - Occupational Stress Questionnaire Feeling of Stress : To some extent Social Connections: Socially Integrated (09/18/2023) Social Connection and Isolation Panel [NHANES] Frequency of Communication with Friends and Family: More than three times a week Frequency of Social Gatherings with Friends and Family: More than three times a week Attends Islam Services: 1 to 4 times per year [...] after 09/20. documented in this encounter [facility] 02-13-2024 Hospital Discharg e instructions Patient [...] relieve pelvic muscle tension or spasms. Take bgto-tyy-ltuizqu and prescription medicines only as told by [...] provider. Document Revised: 02/15/2022 Document Reviewed: 02/15/2022 [employer] Patient Education 2022 SERPs. Follow Up Care 12/19/2023 16:06:38 With:YUNIOR CHAPMAN, JER E, URL Address: [address] [place] [phone] When: Unknown [facility] [place] 01-30-2024 Hospital Discharg e instructions [...] (electrical nerve stimulation). ?For women, using a manager medical writing to prevent urine leaks. This is a [...] right after experiencing incontinence. General instructions Take yyzs-gza-oddbndx and prescription medicines only as told by [...] important. Where to find more information National [place] of Diabetes and Digestive and Kidney Diseases: www.niddk.nih.gov [employer]: www.urologyhealth.org Contact a health care [...] provider. Document Revised: 05/13/2021 Document Reviewed: 05/13/2021 [employer] Patient Education 2022 Elsevier Inc. Follow Up Care 12/19/2023 16:04:38 With:[facility] [place] Address: [place] [address] Business (1) When: Unknown Comments:for procedure as scheduled [facility] 01-23-2024 Hospital Discharg e instructions Patient Education [...] relieve pelvic muscle tension or spasms. Take xjaq-gen-rszkrct and prescription medicines only as told by [...] provider. Document Revised: 02/15/2022 Document Reviewed: 02/15/2022 [employer] Patient Education 2022 SERPs. Follow Up Care 12/19/2023 16:03:24 With:YUNIOR CHAPMAN, JER Olmos, URL Address: [address] [place] [phone] When: Unknown Comments:PFPT #4 on 01/30/24 [facility] 01-16-2024 Hospital Discharg e instructions Patient Education [...] relieve pelvic muscle tension or spasms. Take aqxi-zxc-ifahcsp and prescription medicines only as told by [...] provider. Document Revised: 02/15/2022 Document Reviewed: 02/15/2022 [employer] Patient Education 2022 SERPs. Follow Up Care 12/19/2023 16:01:49 With:YUNIOR CHAPMAN, JER Olmos, URL Address: [address] [phone] When: Unknown Comments:PFPT #3 on 01/23/24 [facility] [place] 01-09-2024 Hospital Discharg e instructions [...] relieve pelvic muscle tension or spasms. Take zqrn-ltx-mugcwgy and prescription medicines only as told by [...] provider. Document Revised: 02/15/2022 Document Reviewed: 02/15/2022 [employer] Patient Education 2022 SERPs. Follow Up Care 12/19/2023 16:00:51 With:JER MOJICA PA-C, URL Address: [address] [place] [address] [phone] When: Unknown Comments:PFPT session #2 on 01/16/24 [facility] 12-07-2023 Hospital Discharg e instructions Patient Education [...] provider. Document Revised: 02/16/2022 Document Reviewed: 02/16/2022 [employer] Patient Education 2022 SERPs. Follow Up Care 12/08/2022 11:38:31 With:MANPREET BROWN, Inez Ruano, URL Address: [address] [place], [place] [id number]- When: Unknown [facility] [place] 11-19-2023 Evaluation note Encounter Date Diagnosis Assessment Notes Oct, Hiatal hernia (ICD-10 - K44.9) Oct, Hemorrhoids (ICD-10 - K64.9) Oct, Sigmoid diverticulosis (ICD-10 - K57.30) Patient advised to increase fiber intake. Patient was give a copy of the low fodmap diet. Oct, Diverticular disease (ICD-10 - K57.90) Rto 1 yr Oct, Tubular adenoma of colon (ICD-10 - D12.6) Repeat colonoscopy in 5 yrs. [facility] Encounter Date Diagnosis Assessment Notes [...] TWICE A DAY TO ONCE A DAY. [facility] Other 02-17-2023 Hospital Discharge instructions Patient Education 12/08/2022 11:23:14 Kidney Stones, Pqzh-dx-Ccqs Kidney Stones Kidney stones are rock-like masses [...] Follow these instructions at home: Medicines Take strz-aew-aurfljy and prescription medicines only as told by [...] 03/26/2009 Document Revised: 02/24/2020 Document Reviewed: 02/24/2020 [employer] Patient Education 2019 SERPs. Follow Up Care 12/05/2021 13:35:38 With:MANPREET BROWN, Inez Ruano, URL Address: [address] [place] [address]- When: Unknown [facility] 10-04-2022 Evaluation note* Encounter Date Diagnosis Assessment Notes Treatment Notes Treatment Clinical Notes Jul, Indigestion (ICD-10 - K30) [facility] Other 05-09-2022 Evaluation note* Encounter Date Diagnosis Assessment Notes Treatment Notes Treatment Clinical Notes February, Indigestion (ICD-10 - K30) PATIENT IS FOLLOWING THE FODMAP DIET AND THIS HAS HELPED. February, Irritable bowel syndrome with constipation (ICD-10 - K58.1) PATIENT STATES THAT THE TRULANCE WAS OVER $600 PATIENT IS USING THE FODMAP DIET AND PROBIOTICS. PATIENT GOES 2 DAYS WITHOUT A BOWEL MOVEMENT [facility] Other 03-16-2022 Evaluation note* Encounter Date Diagnosis Assessment Notes Treatment Notes Treatment Clinical Notes Dec, Indigestion (ICD-10 - K30) Continue Omeprazole without change Dec, Irritable bowel syndrome with constipation (ICD-10 - K58.1) Start Trulance 3mg daily - samples given to patient Start low fodmap diet - education given to patient [facility] Other 12-13-2021 Evaluation note* Encounter Date Diagnosis Assessment Notes Treatment Notes Treatment Clinical Notes Sep, Indigestion (ICD-10 - K30) PATIENT STATES HAVING BREAKTHROUGH PATIENT DOES CONTINUE ON THE OMEPRAZOLE 40 ONCE A DAY WILL INCREASE OMEPRAZOLE TO 40 TWICE A DAY [facility] Other Evaluation + Plan note Future Appointments Appointment Date:12/07/2023 10:45:00 AM Scheduled Provider:Inez JONES MD Location:[facility] Appointment Type:URO Office Visit [facility] evaluation + Plan note Future Appointments Appointment Date:12/05/2024 10:45:00 AM Scheduled Provider:Inez JONES MD [facility] Type:[facility]O Office Visit [facility] evaluation + Plan note Future Appointments Appointment Date:01/16/2024 01:00:00 PM Scheduled Provider:JER MOJICA PA-C Location:[facility] [place] Appointment Type:URO Procedure 30 min Appointment Date:01/23/2024 01:00:00 PM Scheduled Provider:JER MOJICA PA-C Location:[facility] [place] Appointment Type:URO Procedure 30 min Appointment Date:01/30/2024 01:00:00 PM Scheduled Provider:EJR MOJICA PA-C Location:[facility] Appointment Type:URO Procedure 30 min Appointment Date:02/06/2024 01:00:00 PM Scheduled Provider:JER MOJICA PA-C [facility] Type:URO Procedure 30 min Appointment Date:02/13/2024 01:00:00 PM Scheduled Provider:JER MOJICA PA-C [facility] Appointment Type:URO Procedure 30 min Appointment Date:12/05/2024 10:45:00 AM Scheduled Provider:Inez JONES MD [facility] Type:[facility]O Office Visit [facility] evaluation + Plan note Future Appointments Appointment Date:01/23/2024 01:00:00 PM Scheduled Provider:JER MOJICA PA-C Location:[facility] Appointment Type:URO Procedure 30 min Appointment Date:01/30/2024 01:00:00 PM Scheduled Provider:JER MOJICA PA-C Location:[facility] Appointment Type:URO Procedure 30 min Appointment Date:02/06/2024 01:00:00 PM Scheduled Provider:JER MOJICA PA-C Location:[facility] Appointment Type:URO Procedure 30 min Appointment Date:02/13/2024 01:00:00 PM Scheduled Provider:JER MOJICA PA-C [facility] Appoint[facility] Type:URO Procedure 30 min Appointment Date:12/05/2024 10:45:00 AM Scheduled Provider:Inez JONES MD [facility] Type:[facility]O Office Visit [facility] evaluation + Plan note Future Appointments Appointment Date:01/30/2024 01:00:00 PM Scheduled Provider:JER MOJICA PA-C Location:[facility] Appointment Type:URO Procedure 30 min Appointment Date:02/06/2024 01:00:00 PM Scheduled Provider:JER MOJICA PA-C Location:[facility] Appointment Type:URO Procedure 30 min Appointment Date:02/13/2024 01:00:00 PM Scheduled Provider:JER MOJICA PA-C Location:[facility] Appointment Type:URO Procedure 30 min Appointment Date:12/05/2024 10:45:00 AM Scheduled Provider:Inez JONES MD [facility] Type:[facility]O Office Visit [facility] Evaluation + Plan note Future Appointments Appointment Date:02/13/2024 01:00:00 PM Scheduled Provider:JER MOJICA PA-C [facility] App[facility] Type:URO Procedure 30 min Appointment Date:12/05/2024 10:45:00 AM Scheduled Provider:Inez JONES MD [facility] Type:URO Office Visit [facility] Evaluation + Plan note Future Appointments Appointment Date:12/07/2025 11:15:00 AM Scheduled Provider:Inez JONES MD Location:[facility] Appointment Type:URO Office Visit [facility] evaluation note* Diagnosis Onset Date Resolution Status Family history of colon canc er requiring screening colonoscopy [facility] Work Phone: Evaluzxctb noteNo [employer] Other Evaluation note* Diagnosis Dysuria- Primary Urine [...] unspecified hemorrhoid type documented in this encounter [facility] HealthcareEvaluation noteNo assessment information availableOhio[facility] Work Phone: Evaluation note* Diagnosis Vaginal dryness, menopausal- Primary Osteoporosis, post-menopausal ([facility]) Senile osteoporosis Postmenopausal Asymptomatic postmenopausal status (age-related) (natural) Constipation, unspecified constipation type Screening breast examination Other screening breast examination Hx of hysterectomy for benign disease Hx of BSO (bilateral salpingo-oophorectomy) documented in this encounter [facility] HealthcareEvaluation note* Diagnosis Dysuria- Primary Acute cystitis with hematuria documented in this encounter [facility] HealthcareHistory general Narrative - Reported* Type Description Date Medical History GERD Medical History kidney stones Surgical History hysterectomy Surgical History lithotripsy Surgical History kidney stone Surgical History cystoscopy Surgical History colonoscopy Hospitalization History ABOVE [facility] Other Hospital course Narrative No data available for this section [facility] Hospital Discharge instructions Additional Instructions DISCHARGE [...] if you have any problems. -Office number [phone] Work Phone: Hospital Discharge instructions No data available for this section [facility] Progress note No data available for this section [facility] Summary Purpose Family History No Family [...] and content) DATE CREATED AUTHOR 07/26/2022 [facility] dical Specialist DATE CREATED AUTHOR AUTHOR'S ORGANIZ ATION 12/11/2022 [facility] pital DATE CREATED AUTHOR AUTHOR'S ORGANIZ ATION 11/30/2023 [facility] DATE CREATED AUTHOR AUTHOR'S ORGANIZ ATION 07/04/2025 [facility] dical Specialists EPIC DATE CREATED AUTHOR AUTHOR'S ORGANIZ ATION 07/10/2025 [facility] Patient Care team informatio n (unrecognized section and content) Team Status: Active Member Role Status Dates Glenna Keita MD Primary Care Provider Active Team Status: Inactive Member Role Status Dates Glenna Keita MD Primary Care Provider Active Andrea Gunter MD Attending Provider Active Grave Cleaner Relationship Specialty Start Date End Date Glenna Keita MD [address] [place] [address] PCP - General Family Medicine 02/27/23 Grave Cleaner Relationship Specialty Start Date End Date Glenna Keita MD [address] [place] [address] PCP - General Family Medicine 02/27/23 Grave Cleaner Relationship Specialty Start Date End Date Glenna Keita MD [address] [place] [address] PCP - General Family Medicine 02/27/23 Grave Cleaner Relationship Specialty Start Date End Date Glenna Keita MD [address] [place] [address] PCP - General Family Medicine 02/27/23 Grave Cleaner Relationship Specialty Start Date End Date Glenna Keita MD [address] [place] [address] PCP - General Family Medicine 02/27/23 Grave Cleaner Relationship Specialty Start Date End Date Glenna Keita MD [address] [place] [address] PCP - General Family Medicine 02/27/23 Team Status: Inactive Member Role Status Deysi Keita MD Primary Care Provider Active Start: November 18, 2024 End: November 18, 2024 Augustus Hill MD Attending Provider Active S tart: November 18, 2024 End: November 18, 2024 Grave Cleaner Relationship Specialty Start Date End Date Glenna Keita MD [address] [place] [address] PCP - General Family Medicine 02/27/23 Grave Cleaner Relationship Specialty Start Date End Date Glenna Keita MD [address] [place] [address] PCP - General Family Medicine 02/27/23 Grave Cleaner Relationship Specialty Start Date End Date Rene Lynch MD [address] [place] [address] PCP - General Family Medicine 07/01/25 Grave Cleaner Relationship Specialty Start Date End Date Rene Lynch MD [address] [place] [address] PCP - General Family Medicine 07/01/25 Goals [...] BE BASED ON THE PRIMARY CLINICAL RECORDS. [facility] [employer] [facility]. provides no warranty or guarantee of the accuracy or completeness of information in this document.
[2025-07-28 12:20] LABS: Blood Urea Nitrogen 21.0 mg/dL (7.0-18.0); Calcium 9.1 mg/dL (8.5-10.1); Carbon Dioxide 28.8 mmol/L (21.0-32.0); Chloride 104 mmol/L (98-107); Estimated GFR (African America >60 (>=60 mL/min/1.73m^2); Estimated GFR (Non-African Ame >60 (>=60 mL/min/1.73m^2); Sodium 141 mmol/L (136-145); Uric Acid 3.6 mg/dL (2.6-6.0)
== END 2025-07-28 10:33 | disposition home or self-care (01) ==
PROVIDERS: Visit Provider Urology
DX: N20.0 Calculus of kidney (principal)
CPT/HCPCS: 36415; 82310; 82374; 82435; 82565; 83970; 84100; 84295; 84520; 84550

== ENCOUNTER 2025-08-19 10:57 | Outpatient (REF) | payer MEDICARE, OTHER, SELFPAY ==
--- OUTSIDE RECORDS SUMMARY | 2025-07-28 15:39 | XMS_ITS | CCD ---
Author Organization [facility] Care Team Providers Care Cad Technician Name Role Phone Andrea Gunter Unavailable GLENNA [...] Rene Lynch MD Primary Care Provider KAMALA HINES Attending Unavailable KAMALA HINES Referring [...] sources) Sulfamethoxazole / Trimethoprim Drug Allergy 07-26-20 [employer] Other (10 sources) Sulfonamides (Antibiotic); Translations: [sulfa drugs] Drug allergy Feeling of throat tightness (finding) [facility] Comment on above: hives mild to modera te and throat closes (1 source) Sulfamethoxazole / Trimethoprim Drug Allergy 10-20-20 13 [facility] (16 sources) Sulfamethoxazole; Translations: [sulfamethoxazole] Drug Allergy 07-12-20 20 Swelling of Lip/Tongue/Thr oat [facility] (16 sources) Trimethoprim; Translations: [trimethoprim] Drug Allergy 07-12-20 20 Swelling of Lip/Tongue/Thr oat [facility] (1 source) Sulfonamides (Antibiotic); Translations: [sulfa drugs] Propensity to adverse reactions (disorder) [facility] Repository Medications Current Medications Medication Drug [...] day(s), # 14 cap(s), Refills(s) 0, Pharmacy: [facility], 165, cm, 07/08/25 12:58:00 EDT, Height/Length [...] UNIT/ML liquid Place under the tongue. With [place] Active clobetasol propionate 0.0005 mg/mg topical ointment [...] # 60 tab(s), Refills(s) 11, Pharmacy: [facility], 165, cm, 12/05/21 12:42:00 EST, Height/Length Dosing, 70, kg, 12/05/21 12:42:00 EST, Weight Dosing Start Date: 12/05/21 Status: Ordered estradiol 0.1 mg/ml vaginal cream (20 sources) Estrogen Start: 12-05-2024 estradiol 0.1 mg/g Vag Crm 1 gm, Vaginal, MonWedFri, 42.5 gm, Refill(s) 4, [facility], 165, cm, 12/05/24 11:08:00 EST, Height/Length Dosing, 72.4, kg, 12/05/24 11:08:00 EST, Weight Dosing Start Date: 12/05/24 Status: Ordered Quantity: 42.5 Unit: g Repeat number: 5 Start: 12-07-2023 estradiol 0.1 mg/g Vag Crm 1 gm, Vaginal, MonWedFri, 42.5 gm, Refill(s) 4, [id number], 165, cm, 12/07/23 11:34:00 EST, Height/Length Dosing, [...] Daily, # 90 tab(s), Refills(s) 3, Pharmacy: [facility], 165, cm, 02/13/24 13:01:00 EDT, Height/Length [...] Daily 11/18/2024 Active take 1 capsule by [facility] every twenty-four hours Omeprazole 40 MG [...] day(s), # 60 tab(s), Refills(s) 11, Pharmacy: [facility], 165, cm, 02/13/24 13:01:00 EDT, Height/Length Dosing, 66, kg, 02/13/24 13:01:00 EDT, Weight Dosing Start Date: 08/04/24 Stop Date: 07/30/25 Status: Ordered Quantity: 60.0 Unit: tab(s) Repeat number: 12 Start: 08-04-2024 End: 07-30-2025 take 1 tablet by mouth twice daily K-Effervescent 25 mEq oral tablet, effervescent 25 mEq = 1 tab(s), Oral, BID, X 30 day(s), # 60 tab(s), Refills(s) 11, Pharmacy: [facility], 165, cm, 02/13/24 13:01:00 EDT, Height/Length Dosing, 66, kg, 02/13/24 13:01:00 EDT, Weight Dosing Start Date: 08/04/24 Stop Date: 07/30/25 Status: Ordered Start: 05-21-2023 End: 05-15-2024 take 1 tablet by mouth twice daily K-Effervescent 25 mEq oral tablet, effervescent 25 mEq = 1 tab(s), Oral, BID, X 30 day(s), # 60 tab(s), Refills(s) 11, Pharmacy: [facility] #[id number], 165, cm, 12/08/22 10:48:00 EST, Height/Length Dosing, [...] Daily, # 7 tab(s), Refills(s) 0, Pharmacy: [facility], 165, cm, 12/05/24 11:08:00 EST, Height/Length [...] 03-17-2025 Chronic Other aftercare (1 source) Other long term care phlebotomist (current) drug therapy; Translations: [OTH HALFWAY CURRENT DRUG THERAPY] Onset: 3 Episodic Other [...] Inez JONES MD Where: [facility] [address] [id number]- You Need to Schedule the Following Appointments Follow Up with Inez JONES MD, URL When: Comments: sched cysto/UD, CT scan Where: [facility] [place] [address] Medications What How Much When Why Instructions New cephalexin (Keflex 500 mg Cap) 1 Capsules By Mouth Every 12 hours UTI (urinary tract infection) Duration: 7 Days Pickup at [facility] Unchanged estradiol topical (estradiol 0.1 mg/ [...] physician if questions or concerns Pharmacy Information [facility]: [address] [place] [phone] Allergies sulfa drugs (Throat tightness) Problems Ongoing [...] (more content not included)... Normal [facility] Urology Office/Clinic Noteon 07-08-2025 Urology Office/Clinic [...] Contact Information MANPREET BROWN, Inez Ruano, URL [address] [place] [address] [place] [address] Additional Instructions: sched cysto/UD, CT scan Patient Education Kidney Stones, [id number] I, Violet Manzo, personally scribed for Dr. [...] ( (more content not included)... Normal [facility] Comment on above: Result Comment: Elec tronically Signed By: Inez JONES MD\.br\Date and Time Signed: 07/08/25 13:47 EDT\.br\Electronically Co-Signed By: Violet Manzo\.br\Date and Time Co-Signed: 07/08/25 13:45 EDT Urinalysis macro (dipstick) panel (U)on 07-02-2025 Bilirubin, UA Negative Negative - 4(70) +++ mg/dL [facility] Blood, UA Positive Negative - 50 Douglas/mcL [facility] Clarity, UA Clear [facility] Color, UA Yellow [facility] Glucose, UA Negative Negative - 2000(110) ++++ mg/dL [facility] Ketones, UA Negative Negative - 160(16) ++++ mg/dL [facility] Leukocytes, UA Positive Negative - 500+++ Nuno/mcL [facility] Nitrite, UA Negative Negative - Positive [facility] pH, UA 5 5 - 9 [facility] Protein, UA Trace Negative - 2000(20) ++++ mg/dL [facility] Spec Grav, UA 1.015 1 - 1.03 [facility] Urobilinogen, UA 0.2 0.2 - 12 mg/dL [facility] BI MAMMOGRAM DIAGNOSTIC MARYCRUZ SYNTHESIS LEFTon [...] IS VERY IMPORTANT TO YOUR HEALTH. THE BULGARIAN CANCER SOCIETY GUIDELINES RECOMMEND THAT WOMEN 40 [...] Inez JONES MD Where: [facility] [address] [place] [address] [place] [address]- You Need to Schedule the Following Appointments Follow Up with Inez JONES MD, URL When: Where: [facility] [place] [address]- Medications What How Much When Instructions New potassium chloride (Klor Con 10 mEq Cap-ER) 1 Tablets By Mouth Every day Pickup at [facility] Unchanged estradiol topical (estradiol 0.1 mg/ g Vag Crm) 1 Gram Vaginal Sunday Pickup at [facility] Unchanged hydrochlorothiazide (hydrochlorothiazide 25 mg Tab) [...] physician if questions or concerns Pharmacy Information [facility]: [address] [place], [place] [phone] Allergies sulfa drugs (Throat tightness) Problems Ongoing [...] (more content not included)... Normal [facility] Urology Office/Clinic Noteon 12-05-2024 Urology Office/Clinic [...] kidney) S/p R ESWL 12/30/20. Presented to [facility] ER 07/16/23 with complaints of LLQ [...] Information MANPREET BROWN, Inez Ruano, URL [address] [place] [address]- Additional Instructions: 1 year w/ KUB Patient [...] (more content not included)... Normal [facility] Comment on above: Result Comment: Elec tronically Signed By: Inez JONES MD\.br\Date and Time Signed: 12/05/24 11:52 EST\.br\Electronically Co-Signed By: Janis Cárdenas\.br\Date and Time Co-Signed: 12/05/24 11:46 EST XR ABDOMEN 1Von 12-02-2024 [place] [address] XRay Report Signed Patient: JA SCHWAB MR#: [id number] : 1960 Acct:[id number] Age/Sex: 64 / F ADM Date: 12/02/24 Loc: RAD Attending Dr: Inez Jones M.D. Ordering Physician: Inez Jones M.D. Date of Service: 12/02/24 Procedure(s): XR abdomen 1V Accession Number(s): [id number] cc: GLENNA KEITA ; Inez Jones M.D. [address] [address] Patient Name: JA SCHWAB MRN: [id number] date: 1960 Sex: F Assigned Patient Location: RAD Current Patient Location: RAD Accession/Order Number: [id number] Exam Date: 12/02/2024 13:55 Report Date: 12/02/2024 [...] Signed By: 12/02/24 1501 DD/ 1458 TD/TT: Manager Medicare Marketing: [facility] Radiology, Radiologi MD elisa - 12/02/2024 [place] [address] XRay Report Signed Patient: JA SCHWAB MR#: [id number] : 1960 Acct:[id number] Age/Sex: 64 / F ADM Date: 12/02/24 Loc: RAD Attending Dr: Inez Jones M.D. Ordering Physician: Inez Jones M.D. Date of Service: 12/02/24 Procedure(s): XR abdomen 1V Accession Number(s): [id number] cc: GLENNA KEITA ; Inez Jones M.D. [address] [place] [id number] Patient Name: JA SCHWAB MRN: [facility]:[id number] date: 1960 Sex: F Assigned Patient Location: [facility] Current Patient Location: [facility] Accession/Order Number: [id number] Exam Date: 12/02/2024 13:55 Report Date: 12/02/2024 [...] By: Placido Pelayo M.D. Signed By: 12/02/24 1503 DD/ 1458 TD/TT: Manager Medicare Marketing: [facility] [employer] Radiology Study observation (narrative) [facility] [employer] XR ABDOMEN 1VOrdered By: Yousif iologsean Radiology on 12-02-2024 [facility] [employer] Work Phone: BI MAMMOGRAM DIAGNOSTIC MARYCRUZ SYNTHESIS [...] IS VERY IMPORTANT TO YOUR HEALTH. THE BULGARIAN CANCER SOCIETY GUIDELINES RECOMMEND THAT WOMEN 40 [...] BY: Raul Keith M.D. Normal Not Available [facility] 09-18-2023 L ---- Specimen: [id number] Received: 09/18/23 Status: ZOECari [facility] Num: [id number] Spec Type: Surgical Subm Dr: Andrea Gunter MD Tissues: A Stomach - Biopsy/Polyp (ANTRUM) B Duodenum - Biopsy (DUODENAL BX) C Colon Biopsy (DESC) D Colon Biopsy (SIGMOID) Procedures: /Curry, Gross/Micro L4/4 Age/ Patient Sex Location Account Attending Physician Ja Schwab 63/F [id number] Andrea Gunter MD SPEC NUM: [id number] RECD: 09/18/23 STATUS: CHARY [facility] NUM: [id number] MARY: 09/18/23- SUBM DR: Andrea Gunter MD ENTERED: 09/18/[address] [facility] [address]: SPEC TYPE: Surgical DEPT: S REC BY: [id number] ORDERED: HE/8, Gross/Micro L4/4 ORDERED: HE/8, Gross/Micro [...] Benign colonic mucosa with hyperplastic changes Specimen: [id number] Received: 09/18/23 Status: CHARY [facility] Num: [id number] Spec Type: Surgical Subm Dr: Andrea Gunter MD Tissues: A Stomach - Biopsy/Polyp (ANTRUM) B Duodenum - Biopsy (DUODENAL BX) C Colon Biopsy (DESC) D Colon Biopsy (SIGMOID) Procedures: HE/8, Gross/Micro L4/4 Patient: Ja Schwab [id number] (Continued) Specimen: [id number] Received: 09/18/23 (Continued) Signed (signature on file) Fish Girard MD 09/20/23 1042 Specimen: [id number] Received: 09/18/23 Status: CHARY [facility] Num: [id number] Spec Type: Surgical Subm Dr: Andrea Gunter MD Tissues: A Stomach - Biopsy/Polyp (ANTRUM) B Duodenum - Biopsy (DUODENAL BX) C Colon Biopsy (DESC) D Colon Biopsy (SIGMOID) Procedures: HE/Curry, Gross/Micro L4/4 Patient: Ja Schwab [id number] (Continued) Specimen: Received: 09/18/23 (Continued) Clinical Information [...] microscopic examination confirms the diagnosis. CPT Codes 89505h5 Specimen: [id number] Received: 09/18/23 Status: CHARY [facility] Num: [id number] Spec Type: Surgical Subm Dr: Andrea Gunter MD Tissues: A Stomach - Biopsy/Polyp (ANTRUM) B Duodenum - Biopsy (DUODENAL BX) C Colon Biopsy (DESC) D Colon Biopsy (SIGMOID) Procedures: HE/8, Gross/Micro L4/4 Patient: Ja Schwab [id number] (Continued) (more content not included)... Normal [facility] XR KUB 1 VIEWon 12-06-2022 [...] ANNMARIE BINGHAM Date: 2022-12-06 13:25 Normal [facility] CBC AUTO DIFFon 10-21-2022 BASO # 0.0 103/ul Normal 0.0-0.1 [facility] Comment on above: Performed By: #### C BC #### [facility] [address] [place] [address] Dr. Yamileth France Basophils/100 WBC (Bld) 0.7 % Normal 0.2-2.0 [facility] Comment on above: Performed By: #### C BC #### [facility] [address] [address] [address] Yamileth France EO # 0.3 103/ul Normal 0.0-0.7 [facility] Comment on above: Performed By: #### C BC #### [facility] [address] [place] [address] Dr. Yamileth France Eosinophils/100 WBC (Bld) 5.5 % Normal 0.9-7.0 [facility] Comment on above: Performed By: #### C BC #### [facility] [address] [place] [address] Dr. Yamileth France Erythrocyte distribution width (RBC) [Ratio] 12.3 % Normal 11.0-15.0 [facility] Comment on above: Performed By: #### C BC #### [facility] [address] [place] [address] Dr. Yamileth France Hematocrit (Bld) [Volume fraction] 41.8 % Normal 36.0-48.0 [facility] Comment on above: Performed By: #### C BC #### [facility] [address] [place] [address] Dr. Yamileth France Hemoglobin (Bld) [Mass/Vol] 14.8 g/dL Normal 12.0-16.0 [facility] Comment on above: Performed By: #### C BC #### [facility] [address] [place] [address] Dr. Yamileth France IG # 0.03 10e3/ul Normal 0.00-0.03 [facility] Comment on above: Performed By: #### C BC #### [facility] [address] [place] [address] Dr. Yamileth France IG % 0.5 % Normal 0.0-0.5 [facility] Comment on above: Performed By: #### C BC #### [facility] [address] [place] [address] Dr. Yamileth France LYMPH # 0.9 103/ul Critically low 1.2-3.8 [facility] Comment on above: Performed By: #### C BC #### [facility] [address] [place] [address] Dr. Yamileth France Lymphocytes/100 WBC (Bld) 15.2 % Critically low 20.5-60.0 [facility] Comment on above: Performed By: #### C BC #### [facility] [address] [place] [address] Dr. Yamileth France MANUAL DIFF REQ NO Normal [facility] Comment on above: Performed By: #### C BC #### [facility] [address] [place] [address] Dr. Yamileth France MCH (RBC) [Entitic mass] 31.0 pg Normal 26.7-34.0 [facility] Comment on above: Performed By: #### C BC #### [facility] [address] [place] [address] Dr. Yamileth France MCHC (RBC) [Mass/Vol] 35.4 g/dL Critically high 29.9-35.2 [facility] Comment on above: Performed By: #### C BC #### [facility] [address] [place] [address] Dr. Yamileth France MCV (RBC) [Entitic vol] 87.6 fL Normal 81.0-99.0 [facility] Comment on above: Performed By: #### C BC #### [facility] [address] [place] [address] Dr. Yamileth France MONO # 0.7 103/ul Normal 0.3-0.8 [facility] Comment on above: Performed By: #### C BC #### [facility] [address] [place] [address] Dr. Yamileth France Monocytes/100 WBC (Bld) 12.5 % Critically high 1.7-12.0 [facility] Comment on above: Performed By: #### C BC #### [facility] [address] [place] [address] Dr. Yamileth France NEUT # 3.8 103/ul Normal 1.4-6.5 [facility] Comment on above: Performed By: #### C BC #### [facility] [address] [place] [address] Dr. Yamileth France Neutrophils/100 WBC (Bld) 65.6 % Normal 43.0-75.0 [facility] Comment on above: Performed By: #### C BC #### [facility] [address] [place] [address] Dr. Yamileth France Platelet mean volume (Bld) [Entitic vol] 9.7 fL Normal 9.5-13.5 [facility] Comment on above: Performed By: #### C BC #### [facility] [address] [place] [address] Dr. Yamileth France PLT 198 103/ul Normal 150-450 [facility] Comment on above: Performed By: #### C BC #### [facility] [address] [place] [address] Dr. Yamileth France RBC 4.77 106/ul Normal 4.20-5.40 [facility] Comment on above: Performed By: #### C BC #### [facility] [address] [place] [address] Dr. Yamileth France WBC 5.8 103/ul Normal 4.0-11.0 [facility] Comment on above: Performed By: #### C BC #### [facility] [address] [place] [address] Dr. Yamileth France D-DIMERon 10-21-2022 D-DIMER 0.31 mg/L FEU Normal <=0.59 [facility] Comment on above: Performed By: #### D DIM #### [facility] [address] [place] [address] Dr. Yamileth France D-DIMER COMMENTS SEE BELOW Normal [facility] Comment on above: Result Comment: Incr eases [...] hospitalization. Performed By: #### D DIM #### [facility] [address] [place] [address] Dr. Yamileth France FREE T4on 10-21-2022 Free T4 [Mass/Vol] 1.05 ng/dL Normal 0.76-1.46 [facility] Comment on above: Performed By: #### F T4 #### [facility] [address] [address] [address] Yamileth France PROF 14(COMP METB)on 022 Albumin [Mass/Vol] 3.4 g/dL Normal 3.4-5.0 [facility] Comment on above: Performed By: #### H STROPN, CMP #### [facility] [address] [address] [address] Yamileth France Albumin/Globulin [Mass ratio] 1.0 {ratio} Normal [facility] Comment on above: Performed By: #### H STROPN, CMP #### [facility] [address] [address] [address] Yamileth France ALP [Catalytic activity/Vol] 63 U/L Normal 46-116 [facility] Comment on above: Performed By: #### H STROPN, CMP #### [facility] [address] [place] [address] Dr. Yamileth France ALT [Catalytic activity/Vol] 21 U/L Normal 14-59 [facility] Comment on above: Performed By: #### H STROPN, CMP #### [facility] [address] [address] [address] Yamileth France Anion gap [Moles/Vol] 9.9 mmol/L Normal [facility] Comment on above: Performed By: #### H STROPN, CMP #### [facility] [address] [address] [address] Yamileth France AST [Catalytic activity/Vol] 18 U/L Normal 15-37 [facility] Comment on above: Performed By: #### H STROPN, CMP #### [facility] [address] [address] [address] Yamileth France Bilirubin [Mass/Vol] 0.3 mg/dL Normal 0.2-1.0 [facility] Comment on above: Performed By: #### H STROPN, CMP #### [facility] [address] [address] [address] Yamileth France Calcium [Mass/Vol] 8.8 mg/dL Normal 8.5-10.1 [facility] Comment on above: Performed By: #### H STROPN, CMP #### [facility] [address] [address] [address] Yamileth France Chloride [Moles/Vol] 99 mmol/L Normal 98-107 [facility] Comment on above: Performed By: #### H STROPN, CMP #### [facility] [address] [address] [address] Yamileth France CO2 [Moles/Vol] 31.2 mmol/L Normal 21.0-32.0 [facility] Comment on above: Performed By: #### H STROPN, CMP #### [facility] [address] [place] [address] Dr. Yamileth France Creatinine [Mass/Vol] 0.74 mg/dL Normal 0.55-1.02 [facility] Comment on above: Performed By: #### H STROPN, CMP #### [facility] [address] [address] [address] Yamileth France EGFR-AF BULGARIAN >60 Normal >=60 [facility] Comment on above: Performed By: #### H STROPN, CMP #### [facility] [address] [place] [address] Dr. Yamileth France EGFR-NON AF BULGARIAN >60 Normal >=60 [facility] Comment on above: Performed By: #### H STROPN, CMP #### [facility] [address] [address] [address] Yamileth France Globulin (S) [Mass/Vol] 3.5 g/dL Normal [facility] Comment on above: Performed By: #### H STROPN, CMP #### [facility] [address] [address] [address] Yamileth France Glucose [Mass/Vol] 111 mg/dL Critically high 74-106 [facility] Comment on above: Performed By: #### H STROPN, CMP #### [facility] [address] [place] [address] Dr. Yamileth France Potassium [Moles/Vol] 3.1 mmol/L Critically low 3.5-5.1 [facility] Comment on above: Performed By: #### H STROPN, CMP #### [facility] [address] [place] [address] Dr. Yamileth France Protein [Mass/Vol] 6.9 g/dL Normal 6.4-8.2 [facility] Comment on above: Performed By: #### H ASHLEEPN, CMP #### [facility] [address] [place] [address] Dr. Yamileth France Sodium [Moles/Vol] 137 mmol/L Normal 136-145 [facility] Comment on above: Performed By: #### H ASHLEEPN, CMP #### [facility] [address] [place] [address] Dr. Yamileth France Urea nitrogen [Mass/Vol] 14.0 mg/dL Normal 7.0-18.0 [facility] Comment on above: Performed By: #### H JOYCE, CMP #### [facility] [address] [place] [address] Dr. Yamileth France Urea nitrogen/Creatinin e [Mass ratio] 18.9 mg/mg Normal [facility] Comment on above: Performed By: #### H ASHLEEPN, CMP #### [facility] [address] [place] [address] Dr. Yamileth France TROPONIN, HIGH SENSITIVITYon 10-21-2022 HSTROP 4.7 pg/mL Normal 4.0-51.3 [facility] Comment on above: Result Comment: CUT- OFF POINTS HAVE BEEN ESTABLISHED BASED ON THE FOURTH UNIVERSAL DEFINITIONS OF MYOCARDIAL INFARCTION. THE UPPER REFERENCE LIMIT (URL) OF TROPONIN, DEFINED THE 99TH PERCENTILE OF cTnI DISTRIBUTION IN A REFERENCE POPULATION, HAS BEEN CONFIRMED THE DECISION THRESHOLD FOR [place] DIAGNOSIS. Performed By: #### H ASHLEEPN, CMP #### [facility] [address] [place] [address] Dr. Yamileth France TSHon 10-21-2022 TSH 2.173 uIU/mL Normal 0.358-3.740 [facility] Comment on above: Performed By: #### T SH #### [facility] [address] [place] [address] Dr. Yamileth France XR CHEST 1 Von [...] GIULIA GERMAIN Date: 2022-10-21 04:26 Normal [facility] SCREENING MAMMOGRAM W/MARYCRUZ, BILATERAL*on 07-25-2022 SCREENING [...] VERY IMPORTANT TO YOUR HEALTH. THE CURRENT [employer]ULG[employer]IAN [employer]LE[employer] OF RADIOLOGY AND NATIONAL COMPREHENSIVE CANCER NETWORK GUIDELINES RECOMMENDS ANNUAL MAMMOGRAPHY BEGINNING AT AGE 40 THIS FACILITY USES A REMINDER SYSTEM TO ENSURE ALL PATIENTS RECEIVE REMINDER NOTIFICATIONS AT THE APPROPRIATE TIME BASED ON THE RECOMMENDATIONS OF THIS EXAM. Report reported and signed by Zane Quinteros on 07/25/2022 1154 Normal [facility] Insurance Risk Analyst Vital Signs Date Time Vital Sign Value Performing Clinician Issaci wero 07-02-2025 11:49-0400 Body height 163.2 cm Rene Lynch MD Work Phone: [facility] 07-02-2025 11:49-0400 Body mass index (BMI) [Ratio] 24.29 kg/m2 Rene Lynch MD Work Phone: [facility] 07-02-2025 11:49-0400 Body temperature 97.5 [degF] Rene Lynch MD Work Phone: [facility] [facility] 07-[facility]-2025 11:49-0400 Body weight 64.68 kg Rene Lynch MD Work Phone: [facility] 07-02-2025 11:49-0400 Diastolic blood pressure 68 mm[Hg] Rene Lynch MD Work Phone: [facility] 07-02-2025 11:49-0400 Heart rate 92 /min Rene Lynch MD Work Phone: [facility] 07-02-2025 11:49-0400 SaO2% (BldA) [Mass fraction] 98 % Rene Lynch MD Work Phone: [facility] 07-02-2025 11:49-0400 Systolic blood pressure 130 mm[Hg] Rene Lynch MD Work Phone: [facility] 03-17-2025 10:20-0400 Body mass index (BMI) [Ratio] 25.55 kg/m2 Kamala Nataprawira DO Work Phone: [facility] 03-17-2025 10:20-0400 Body weight 68.04 kg Kamala Nataprawira DO Work Phone: [facility] 03-17-2025 10:20-0400 Diastolic blood pressure 72 mm[Hg] Kamala Nataprawira DO Work Phone: [facility] 03-17-2025 10:20-0400 Systolic blood pressure 116 mm[Hg] Kamala Nataprawira DO Work Phone: [facility] 12-05-2024 10:46-0500 Blood Pressure Location Inez JONES [facility] 12-05-2024 10:46-0500 Body temperature 98.6 [degF] Inez JONES [facility] 12-05-2024 10:46-0500 Diastolic blood pressure 84 mm[Hg] Inez JONES [facility] 12-05-2024 10:46-0500 Heart rate 68 /min Inez JONES [facility] 12-05-2024 10:46-0500 Respiratory rate 16 /min Inez JONES [facility] 12-05-2024 10:46-0500 Systolic blood pressure 134 mm[Hg] Inez JONES [facility] 11-18-2024 09:22-0500 Body height 163.83 cm [facility] 11-18-2024 09:22-0500 Body mass index (BMI) [Ratio] 24.5 kg/m2 [facility] 11-18-2024 09:22-0500 Body weight 65.77 kg [facility] 09-22-2024 13:15-0500 Body height 163.2 cm Jenny Pump SCALE MANAGER Work Phone: [facility] 09-22-2024 13:15-0500 Body mass index (BMI) [Ratio] 25.45 kg/m2 Jenny Pump SCALE MANAGER Work Phone: [facility] 09-22-2024 13:15-0500 Body weight 67.77 kg Jenny Pump SCALE MANAGER Work Phone: [facility] 09-22-2024 13:15-0500 Diastolic blood pressure 82 mm[Hg] Jenny Pump SCALE MANAGER Work Phone: [facility] 09-22-2024 13:15-0500 Heart rate 100 /min Jenny Pump SCALE MANAGER Work Phone: [facility] 09-22-2024 13:15-0500 Systolic blood pressure 124 mm[Hg] Jenny Pump SCALE MANAGER Work Phone: [facility] 08-07-2024 13:10-0400 Body mass index (BMI) [Ratio] 25.11 kg/m2 Wendy Desouza SCALE MANAGER Work Phone: [facility] 08-07-2024 13:10-0400 Body weight 67.41 kg Wendy Desouza SCALE MANAGER Work Phone: [facility] 08-07-2024 13:10-0400 Diastolic blood pressure 82 mm[Hg] Wendy Desouza SCALE MANAGER Work Phone: [facility] 08-07-2024 13:10-0400 Heart rate 100 /min Wendykayla Desouza SCALE MANAGER Work Phone: [facility] 08-07-2024 13:10-0400 Systolic blood pressure 126 mm[Hg] Wendy Desouza SCALE MANAGER Work Phone: [facility] 02-13-2024 12:57-0400 Blood Pressure Location JER YUNIOR [facility] 02-13-2024 12:57-0400 Body temperature 96.8 [degF] JER YUNIOR [facility] 02-13-2024 12:57-0400 Diastolic blood pressure 82 mm[Hg] JER YUNIOR [facility] 02-13-2024 12:57-0400 Heart rate 84 /min JER YUNIOR [facility] 02-13-2024 12:57-0400 Systolic blood pressure 128 mm[Hg] JER YUNIOR [facility] 01-30-2024 13:13-0400 Body temperature 98.6 [degF] JER YUNIOR [facility] 01-30-2024 13:13-0400 Diastolic blood pressure 84 mm[Hg] JER YUNIOR [facility] 01-30-2024 13:13-0400 Respiratory rate 14 /min JER YUNIOR [facility] 01-30-2024 13:13-0400 Systolic blood pressure 128 mm[Hg] JER YUNIOR [facility] 01-23-2024 13:10-0400 Blood Pressure Location JER YUNIOR [facility] 01-23-2024 13:10-0400 Body temperature 98.6 [degF] JER YUNIOR [facility] 01-23-2024 13:10-0400 Diastolic blood pressure 88 mm[Hg] JER YUNIOR [facility] 01-23-2024 13:10-0400 Heart rate 78 /min JER YUNIOR [facility] 01-23-2024 13:10-0400 Systolic blood pressure 122 mm[Hg] JER YUNIOR [facility] 01-16-2024 13:29-0400 Blood Pressure Location JER YUNIOR [facility] 01-16-2024 13:29-0400 Diastolic blood pressure 77 mm[Hg] JER YUNIOR [facility] 01-16-2024 13:29-0400 Heart rate 90 /min JER YUNIOR [facility] 01-16-2024 13:29-0400 Systolic blood pressure 125 mm[Hg] JER YUNIOR [facility] 01-09-2024 12:59-0400 Blood Pressure Location JER YUNIOR [facility] 01-09-2024 12:59-0400 Diastolic blood pressure 93 mm[Hg] JER MOJICA [facility] 01-09-2024 12:59-0400 Heart rate 70 /min JER MOJICA [facility] 01-09-2024 12:59-0400 Systolic blood pressure 129 mm[Hg] JER MOJICA [facility] 12-07-2023 11:32-0500 Blood Pressure Location Inez JONES [facility] 12-07-2023 11:32-0500 Diastolic blood pressure 79 mm[Hg] Inez JONES [facility] 12-07-2023 11:32-0500 Heart rate 97 /min Inez JONES [facility] 12-07-2023 11:32-0500 Respiratory rate 16 /min Inez JONES [facility] 12-07-2023 11:32-0500 Systolic blood pressure 124 mm[Hg] Inez JONES [facility] 11-19-2023 09:15-0500 Body height 166.37 cm Andrea Gunter Other [facility] Other 11-19-2023 09:15-0500 Body mass index (BMI) [Ratio] 23.92 kg/m2 Andrea Gunter Other [facility] Other 11-19-2023 09:15-0500 Body weight 66.23 kg Andrea Gunter Other [facility] Other 11-19-2023 09:15-0500 Diastolic blood pressure 76 mm[Hg] Andrea Lyric Other [facility] Other 11-19-2023 09:15-0500 Systolic blood pressure 117 mm[Hg] Andrea Gunter Other [facility] Other 09-18-2023 09:17-0500 Diastolic blood pressure 78 mm[Hg] MD Glenna Keita Work Phone: [facility] 09-18-2023 09:17-0500 Heart rate 80 /min MD Glenna Keita Work Phone: [facility] 09-18-2023 09:17-0500 Respiratory rate 16 /min MD Glenna Keita Work Phone: [facility] 09-18-2023 09:17-0500 SaO2% (BldA) [Mass fraction] 100 % MD Glenna Keita Work Phone: [facility] 09-18-2023 09:17-0500 Systolic blood pressure 118 mm[Hg] MD Glenna Adhikari Phone: [facility] 09-18-2023 07:41-0500 Body height 165.1 cm MD Glenna Keita Work Phone: [facility] 09-18-2023 07:41-0500 Body weight 63.04 kg MD Glenna Keita Work Phone: [facility] 02-28-2023 12:00-0400 Body height 166.37 cm Andrea Gunter Other [facility] Other 02-28-2023 12:00-0400 Body mass index (BMI) [Ratio] 24.58 kg/m2 Andrea Gunter Other [facility] Other 02-28-2023 12:00-0400 Body weight 68.04 kg Andrea Gunter Other [facility] Other 02-28-2023 12:00-0400 Diastolic blood pressure 96 mm[Hg] Andrea Gunter Other [facility] Other 02-28-2023 12:00-0400 Systolic blood pressure 137 mm[Hg] Andrea Gunter Other [facility] Other 12-08-2022 10:46-0500 Blood Pressure Location Inez JONES [facility] 12-08-2022 10:46-0500 Diastolic blood pressure 74 mm[Hg] Inez JONES [facility] 12-08-2022 10:46-0500 Heart rate 68 /min Inez JONES [facility] 12-08-2022 10:46-0500 Respiratory rate 16 /min Inez JONES [facility] 12-08-2022 10:46-0500 Systolic blood pressure 122 mm[Hg] Inez JONES [facility] 02-27-2022 11:00-0400 Body height 166.37 cm Andrea Gunter Other [facility] Other 02-27-2022 11:00-0400 Body mass index (BMI) [Ratio] 24.58 kg/m2 Andrea Gunter Other [facility] Other 02-27-2022 11:00-0400 Body weight 68.04 kg Andrea Gunter Other [facility] Other 01-04-2022 10:45-0400 Body height 166.37 cm Andrea Meltonack Other [facility] Other 01-04-2022 10:45-0400 Body mass index (BMI) [Ratio] 25.4 kg/m2 Andrea Meltonack Other [facility] Other 01-04-2022 10:45-0400 Body weight 70.31 kg Andrea Gunter Other [facility] Other 10-03-2021 11:30-0500 Body height 166.37 cm Andrea Nurormack Other [facility] Other 10-03-2021 11:30-0500 Body mass index (BMI) [Ratio] 25.07 kg/m2 Andrea Meltonack Other [facility] Other 10-03-2021 11:30-0500 Body weight 69.4 kg Andrea Gunter Other [facility] Other Encounters Encounter Date Encounter Type Care Provider Facility Start: 12-07-2025 ambulatory Inez Tse ty:[facility] Start: 07-23-2025 ambulatory Inez Pricei ty:[id number] Start: 07-08-2025 End: 07-08-2025 ambulatory Inez JONES Facility: [facility] Start: 07-08-2025 End: 07-08-2025 Patient encounter procedure Inez JONES [facility] Start: 07-02-2025 End: 07-02-2025 Cheryl Lynch MD Work Phone: [facility] Start: 07-02-2025 End: 07-02-2025 Cheryl Lynch MD Work Phone: [facility] Start: 07-02-2025 End: 07-02-2025 ambulatory RENE LYNCH Not Available Start: 07-02-2025 End: 07-02-2025 Office outpatient visit 15 minutes Rene Lynch MD Work Phone: [facility] Comment on above: Dysuria (Primary Dx) ; Acute cystitis with hematuria Start: 05-11-2025 End: 05-11-2025 ambulatory KAMALA HINES Not Available Start: 03-17-2025 End: 03-17-2025 Office outpatient visit 15 minutes Kamala Hines DO Work Phone: [facility] Comment on above: Vaginal dryness, men opausal (Primary Dx); Osteoporosis, post-menopausal (CMS/HCC); Postmenopausal; Constipation, unspecified constipation type; Screening breast examination; Hx of hysterectomy for benign disease; Hx of BSO (bilateral salpingo-oophorectomy) Start: 03-17-2025 End: 03-17-2025 ambulatory KAMALA HINES Not Available Start: 12-05-2024 End: 12-05-2024 ambulatory Inez JONES Facility:[facility] Start: 12-05-2024 End: 12-05-2024 Patient encounter procedure Inez JONES [facility] Start: 12-02-2024 End: 12-02-2024 Clinisync Result Encounter Generic External Data Provider [facility] External [facility] Unsolicited Start: 12-02-2024 End: 12-02-2024 Clinisync Result Encounter Generic External Data Provider [facility] External Department Unsolicited Start: 11-18-2024 End: 11-18-2024 ambulatory [facility] Work Phone: Start: 11-18-2024 End: 11-18-2024 Patient encounter procedure [facility] Work Phone: Start: 11-10-2024 End: 11-10-2024 ambulatory KAMALA HINES Not Available Start: 11-06-2024 End: 11-06-2024 ambulatory GLENNA KEITA Not Available Start: 09-22-2024 End: 09-22-2024 Bamboo flowsheet Jenny Pump SCALE MANAGER Work Phone: [facility] Start: 09-22-2024 End: 09-22-2024 Bamboo flowsheet Jenny Pump SCALE MANAGER Work Phone: [facility] Start: 09-22-2024 End: 09-22-2024 Refill Jenny Pump SCALE MANAGER Work Phone: [facility] Comment on above: Hemorrhoids, unspeci fied hemorrhoid type Start: 09-22-2024 End: 09-22-2024 ambulatory JENNY PUMP Not Available Start: 09-22-2024 End: 09-22-2024 Patient encounter status Jenny Pump SCALE MANAGER Work Phone: [facility] Work Phone: Start: 09-22-2024 End: 09-22-2024 Periodic preventive med est patient 40-64yrs Jenny Pump SCALE MANAGER Work Phone: [facility] Comment [...] 08-11-2024 End: 08-11-2024 Telephone encounter Wendy Desouza SCALE MANAGER Work Phone: [facility] Comment on above: Results Start: 08-07-2024 End: 08-07-2024 Bamboo flowsheet Wendy Desouza SCALE MANAGER Work Phone: [facility] Start: 08-07-2024 End: 08-07-2024 Bamboo flowsheet Wendy Desouza SCALE MANAGER Work Phone: [facility] Start: 08-07-2024 End: 08-07-2024 ambulatory WENDY DESOUZA Not Available Start: 08-07-2024 End: 08-07-2024 Office outpatient visit 15 minutes Wendy Desouza SCALE MANAGER Work Phone: [facility] Comment on above: Dysuria (Primary Dx) ; Urine frequency; Urinary urgency Start: 02-13-2024 End: 02-13-2024 Patient encounter procedure JER MOJICA [facility] Start: 02-06-2024 End: 02-06-2024 Patient encounter procedure JER MOJICA [facility] Start: 01-30-2024 End: 01-30-2024 Patient encounter procedure JER MOJICA [facility] [employer] Start: 01-23-2024 End: 01-23-2024 Patient encounter procedure JER MOJICA [facility] Start: 01-16-2024 End: 01-16-2024 Patient encounter procedure JER MOJICA [facility] Start: 01-09-2024 End: 01-09-2024 Patient encounter procedure JER MOJICA [facility] Start: 12-07-2023 End: 12-07-2023 Patient encounter procedure Inez JONES [facility] Start: 11-19-2023 End: 11-19-2023 ambulatory Andrea Gunter Other [facility] Other Start: 11-19-2023 Office outpatient visit 15 minutes Andrea Gunter [facility] Start: 09-21-2023 End: 09-21-2023 ambulatory Andrea Gunter Other [facility] Other Start: 09-21-2023 Telephone encounter Andrea martínez [facility] Start: 09-18-2023 End: 09-18-2023 ambulatory Glenna Keita Facility:[facility] Start: 09-18-2023 End: 09-18-2023 Admission to same day surgery center MD Glenna Keita Work Phone: [facility] Work Phone: Start: 09-18-2023 End: 09-18-2023 ambulatory MD Glenna Keita Work Phone: [facility] Work Phone: Start: 02-28-2023 End: 02-28-2023 ambulatory Andrea Gunter Other [facility] Other Start: 02-28-2023 Office outpatient visit 15 minutes Andrea Gunter [facility] Start: 12-08-2022 End: 12-08-2022 Patient encounter procedure Inez JONES [facility] Start: 12-06-2022 End: 12-07-[address] INEZ JONES . Facility:[facility] Start: 10-21-2022 End: 10-21-[address] GLENNA KEITA Facility:[facility] Start: 07-25-2022 End: 07-25-2022 ambulatory Andrea Lyric Other [facility] Other Start: 07-25-2022 Telephone encounter Andrae Thakur [facility] Start: 02-27-2022 End: 02-27-2022 ambulatory Andrea Lyric Other [facility] Other Start: 02-27-2022 Office outpatient visit 15 minutes Andrea Lyric [facility] Start: 01-04-2022 End: 01-04-2022 ambulatory Andrea Meltonack Other [facility] Other Start: 01-04-2022 Office outpatient visit 15 minutes Andrea Lyric [facility] Start: 10-03-2021 End: 10-03-2021 ambulatory Andrea Lyric Other [facility] Other Start: 10-03-2021 Office outpatient ne w 45 minutes Andrea Lyric [facility] Procedures Date Procedure Procedure Detail [...] Screening for malign ant neoplasm of colon [facility] Start: 05-11-2026 Screening for malign ant neoplasm of breast Mammogram [facility] Start: 03-18-2026 End: 03-18-2026 Patient encounter procedure 03/18/2026 9:45 AM EDT Office Visit [facility] [address] [address] Kamala Hines DO [address] [address] [facility] Start: 11-10-2025 Screening for malign ant neoplasm of breast Mammogram [facility] Start: 09-22-2025 Medicare Annual Well ness (AWV) Medicare Annual Wellness (AWV) [facility] Start: 07-02-2025 End: 07-02-2026 Bacteria identified in Urine by Culture Urine culture (clean catch) Microbiology Routine Dysuria Expected: 07/02/2025 (Approximate), Expires: 07/02/2026 [facility] Work Phone: Comment on above: Expected: 07/02/2025 (Approximate), Expires: 07/02/2026 Start: 06-22-2025 Influenza vaccination [facility] Start: 05-11-2025 End: 05-11-2025 Professional / ancillary services management [facility] Start: 03-17-2025 End: 03-17-2025 Patient encounter procedure 03/17/2025 10:15 AM EDT [facility] [address] [address] Kamala Hines DO [address] [facility] [address] [address] [facility] Start: 10-10-2024 Screening for malign ant neoplasm of breast Mammogram [facility] Start: 10-02-2024 Influenza vaccination Influenza Vacc ine (#1) [facility] Comment on above: Postponed from 06/22 (Patient Refused) Start: 09-22-2024 End: 09-22-2025 25-hydroxyvitamin D3 [Mass/volume] in Serum or Plasma Vitamin D 25 hydroxy Lab Routine Osteopenia, unspecified location Vitamin D deficiency Expected: 09/22/2024 (Approximate), Expires: 09/22/2025 [facility] Comment on above: Expected: 09/22/2024 (Approximate), Expires: 09/22/2025 Start: 09-22-2024 End: 09-22-2025 CBC W Auto Differential panel - Blood CBC and differential Lab Routine Wellness examination Ulcerative colitis with complication, unspecified location (CMS/HCC) Expected: 09/22/2024 (Approximate), Expires: 09/22/2025 [facility] Work Phone: Comment on above: Expected: 09/22/2024 (Approximate), Expires: 09/22/2025 Start: 09-22-2024 End: 09-22-2025 Comprehensive metabolic 2000 panel - Serum or Plasma Comprehensive metabolic panel Lab Routine Wellness examination Osteopenia, unspecified location Ulcerative colitis with complication, unspecified location (CMS/HCC) Expected: 09/22/2024 (Approximate), Expires: 09/22/2025 [facility] Comment on above: Expected: 09/22/2024 (Approximate), Expires: 09/22/2025 Start: 09-22-2024 End: 09-22-2025 Lipid 1996 panel - Serum or Plasma Lipid panel Lab Routine Wellness examination Expected: 09/22/2024 (Approximate), Expires: 09/22/2025 [facility] Comment on above: Expected: 09/22/2024 (Approximate), Expires: 09/22/2025 Start: 09-22-2024 End: 09-22-2025 Thyrotropin [Units/volume] in Serum or Plasma TSH Lab Routine Wellness examination Anxiety, generalized (CMS/HCC) Fatigue, unspecified type Hair loss Expected: 09/22/2024 (Approximate), Expires: 09/22/2025 [facility] Comment on above: Expected: 09/22/2024 (Approximate), Expires: 09/22/2025 Start: 09-22-2024 End: 09-22-2025 Thyroxine (T4) free [Mass/volume] in Serum or Plasma T4, free Lab Routine Wellness examination Anxiety, generalized (CMS/HCC) Fatigue, unspecified type Hair loss Expected: 09/22/2024 (Approximate), Expires: 09/22/2025 [facility] Comment on above: Expected: 09/22/2024 (Approximate), Expires: 09/22/2025 Start: 09-22-2024 End: 09-22-2025 Triiodothyronine (T3) Free [Mass/volume] in Serum or Plasma T3, free Lab Routine Wellness examination Anxiety, generalized (CMS/HCC) Fatigue, unspecified type Hair loss Expected: 09/22/2024 (Approximate), Expires: 09/22/2025 [facility] Comment on above: Expected: 09/22/2024 (Approximate), Expires: 09/22/2025 Start: 08-07-2024 End: 08-07-2025 URINALYSIS, COMPLETE W/REFLEX TO CULTURE URINALYSIS, COMPLETE W/REFLEX TO CULTURE Lab Routine Urine frequency Expected: 08/07/2024 (Approximate), Expires: 08/07/2025 [facility] Work Phone: Comment on above: Expected: 08/07/2024 (Approximate), Expires: 08/07/2025 Start: 06-22-2024 Influenza vaccination Influenza Vacc ine (#1) [facility] Start: 09-18-2023 [facility] Start: 02-24-2010 Pneumococcal Vaccine : 65+ Years (1 of 1 - PCV) Pneumococcal Vaccine: 65+ Years (1 of 1 - PCV) [facility] Start: 1960 Screening for malign ant neoplasm of colon [facility] Patient Education Colon Polypectomy (DC) [facility] Work Phone: Immunizations Immunization Date Immunization Notes Care Provider Tony [facility] 09-20-2023 influenza virus vaccine, unspecified formulation Inez JONES [facility] 09-20-2023 influenza, injectabl e, quadrivalent, preservative free Wendy Desouza NP Work Phone: [facility] 08-10-2022 SARS-CoV-2 (COVID-19 ) [id number] Inez JONES [facility] 01-30-2022 SARS-CoV-2 mRNA (ydlbgcauzbn-nyui-lcjhm se) vaccine Inez JONES [facility] 09-03-2021 SARS-CoV-2 (COVID-19 ) Ad26 vaccine, recombinant Inez JONES [facility] 08-26-2021 SARS-CoV-2 (COVID-19 ) mRNA BNT-162b2 vax Inez JONES [facility] 07-22-2021 influenza virus vaccine, unspecified formulation Inez JONES [facility] 07-05-2021 influenza virus vaccine, unspecified formulation Inez JONES [facility] 07-05-2021 influenza, injectabl e, quadrivalent, contains preservative Wendy Desouza NP Work Phone: [facility] 01-31-2021 SARS-CoV-2 (COVID-19 ) mRNA BNT-162b2 vax Inez JONES [facility] 01-29-2021 SARS-CoV-2 (COVID-19 ) mRNA BNT-162b2 vax Inez JONES [facility] 01-10-2021 SARS-CoV-2 (COVID-19 ) mRNA BNT-162b2 vax Inez JONES [facility] 01-04-2021 SARS-CoV-2 (COVID-19 ) mRNA BNT-162b2 vax Inez JONES [facility] 09-13-2019 influenza virus vaccine, unspecified formulation Inez JONES [facility] 09-13-2019 Influenza, injectabl e, Madin Radhika Canine Kidney, preservative free, quadrivalent Wendy Desouza SCALE MANAGER Work Phone: [facility] 11-05-2018 influenza virus vaccine, unspecified formulation Inez JONES [facility] 11-05-2018 influenza, injectabl e, quadrivalent, preservative free Wendy Desouza SCALE MANAGER Work Phone: [facility] 09-28-2015 influenza, injectabl e, quadrivalent, preservative free Wendy Desouza SCALE MANAGER Work Phone: [facility] 11-07-2012 tetanus toxoid, redu matteo diphtheria toxoid, and acellular pertussis vaccine, adsorbed Wendy Senait SCALE MANAGER Work Phone: [facility] Payers Date Payer Category Payer Medicare [id number] 2025 Medicare [id number] 2023 Private Health Insurance [id number] 2023 Medicaid [id number] 2023 Self-pay [id number] 1960 Unknown [id number] 2.16.840.1.595350.3.579.2. 593 1960 Unknown [id number] .16.840.1.336799.3.579.2. 593 1960 Unknown [id number] .840.1.004910.3.579.2. 1259 1960 Unknown [id number] 2.16.840.1.987697.3.579.2. 1258 1960 Unknown [id number] 2.16.840.1.908927.3.579.2. 1258 1960 Unknown [id number] 2.16.840.1.517170.3.579.2. 1258 1960 Unknown [id number] 2.16.840.1.449920.3.579.2. 1258 1960 Unknown [id number] 2.16.840.1.124175.3.579.2. 1258 1960 Unknown [id number] 2.16.840.1.999175.3.579.2. 1258 1960 Unknown [id number] 2.16.840.1.764978.3.579.2. 1258 1960 Unknown [id number] 2.16.840.1.425972.3.579.2. 1258 1960 Unknown [id number] 2.16.840.1.551642.3.579.2. 1258 1960 Unknown [id number] 2.16.840.1.320995.3.579.2. 1960 Unknown [id number] 2.16.840.1.803474.3.579.2. 1960 Unknown [id number] 2.16.840.1.314235.3.579.2. 1959 Unknown [id number] 2.16.840.1.118542.19 Unknown [employer] [facility] [id number] Unknown [id number] 2.16.840.1.814873.3.579.2. 531 Unknown [id number] Unknown [id number] Social History Date Type Detail Facility Start: 09-18-2023 End: 07-02-2025 Sex [address] [facility] Start: 12-08-2022 End: 07-08-2025 Tobacco smoking status Ex-smoker (finding) [facility] Tobacco smoking status Never [facility] Start: 1960 Sex Assigned At Female F [facility] Start: 10-22-1981 End: 04-10-2005 History of [...] Start: 09-30-2018 End: 11-18-2024 Sex Female (finding) [facility] Sexual Orientation [facility] Goals Date Patient Goal Desired Activity /State Functional Status Date Assessment Result Facility 12-05-2024 Functional Status N/A [facility] 02-13-2024 Functional Status N/A [facility] 01-30-2024 Functional Status N/A [facility] 01-23-2024 Functional Status N/A [facility] 01-16-2024 Functional Status N/A [facility] 01-09-2024 Functional Status N/A [facility] 12-07-2023 Functional Status N/A [facility] 12-08-2022 Functional Status N/A [facility] Clinical Notes 10-03-2021 to 07-08-2025 Tamra Acharya MA - 07/02/2025 11:40 AM Deny Lynch MD - 07/02/2025 11:40 AM Isa Hines DO - 03/17/2025 10:15 AM EDTAmber Pump, SCALE MANAGER - 09/22/2024 1:00 PM EST Note Date & Type Note Facility 07-08-2025 Hospital Discharg e instructions Patient Education 07/08/2025 13:45:08 Kidney Stones, Supr-cc-Turp Kidney Stones Kidney stones are rock-like masses [...] Follow these instructions at home: Medicines Take hclb-ocf-yijrorm and prescription medicines only as told by [...] provider. Document Revised: 06/01/2023 Document Reviewed: 06/01/2023 [employer]Landing Patient Education 2023 Mir[employer]ul[employer]. Follow Up Care 07/07/2025 10:36:47 With:MANPREET BROWN, Inez Ruano, URL Address: [address] [place] [phone] When: Unknown Comments:sched cysto/UD, CT scan [facility] 07-08-2025 Note Patient Education Urology Kidney [...] these instructions at home: Medicines ??? Take ugdm-wye-ejixzsg and prescription medicines only as told by [...] provider. Document Revised: 06/01/2023 Document Reviewed: 06/01/2023 [employer] Patient Education ? 2023 [employer] [facility] 07-02-2025 History of Presen t illness [...] UNIT/ML liquid Place under the tongue. With [place] clobetasol (Temovate) 0.05 % ointment 1 application [...] Accidental Brother Dylon Adams Alcohol abuse Brother Dyoln Adams Drug abuse Brother Dylon Adams Dementia [...] 30 min Stress: Stress Concern Present (09/18/2023) [place] [employer] - Occupational Stress Questionnaire Feeling of Stress : To some extent Social Connections: Socially Integrated (09/18/2023) Social Connection and Isolation Panel [NHANES] Frequency of Communication with Friends and Family: More than three times a week Frequency of Social Gatherings with Friends and Family: More than three times a week Attends Voodoo Services: 1 to 4 times per year [...] follow-ups on file. documented in this encounter [facility] 03-17-2025 History of Presen t [...] UNIT/ML liquid Place under the tongue. With [place] clobetasol (Temovate) 0.05 % ointment Apply 1 [...] cervix 2022 ADHD (attention deficit hyperactivity disorder) ([facility]) 2009 Anxiety 2014? Benign neoplasm of colon Calculus in urethra Calculus of kidney and ureter Chronic nonalcoholic liver disease Disorder of liver Disorder of parathyroid gland, unspecified Diverticulitis 07/26/2023 Diverticulosis of colon (without mention of hemorrhage) Elevated hemoglobin ([facility]) 07/26/2023 Esophageal reflux Family history of colon cancer 09/18/2023 Fibrocystic breast 2005? Flank pain 07/26/2023 Hearing loss of right ear, unspecified hearing loss type History of hysterectomy for benign disease 09/19/2023 Hydronephrosis Hydronephrosis 07/26/2023 Insomnia, unspecified Leiomyoma of uterus, unspecified Menopause ovarian failure Hysterectomy 2005 Nocturia 09/19/2023 Osteopenia Osteoporosis ([facility]) Unspecified Other psoriasis ([facility]) Ovarian cyst ? Overweight (BMI 25.0-29.9) 07/26/2023 Parathyroid disorder ([facility]) Renal calculi 07/26/2023 Renal cyst, right S/P [...] 03/17/2025 10:52 AM documented in this encounter [facility] 12-05-2024 [facility] Discharg e instructions Patient Education 12/05/2024 [...] include: ?8 oz (237 mL) of milk, zyapojf-ojskxetzycyg-cjygl milk, and calcium-fortifiedfruit juice. Calcium-fortified means that [...] ?Spinach (cooked), rhubarb, beets, sweet potatoes, and Maldivian chard. ?Peanuts. ?Potato chips, vietnamese fries, and baked potatoes with skin on. ?Nuts and nut products. ?Chocolate. If you regularly take a diuretic medicine, make sure to eat at least 1 or 2 servings of fruits or vegetables that are high in potassium each day. These include: ?Avocado. ?Banana. ?Tom Green, prune, carrot, or tomato juice. ?Baked potato. [...] magnesium, fish oil, or vitamin B6. Take ozzj-prv-ttvryux and prescription medicines only as told by [...] Casseroles. Pizza. Lasagna. Frozen meals. Potato chips. Turkmen fries. The items listed above may not [...] provider. Document Revised: 01/18/2023 Document Reviewed: 01/18/2023 [employer]Landing Patient Education 2023 Mir[employer]ulins. Follow Up Care 12/07/2023 12:56:11 With:MANPREET BROWN, Inez Ruano, URL Address: [address] [place], [place] [id number]- When: Unknown [facility] 12-05-2024 Note Patient Education Nephrology Dietary Guidelines [...] ? 8 oz (237 mL) of milk, ltmgbon-qbarclpyzuok-ndozf milk, and calcium-fortifiedfruit juice. Calcium-fortified means that [...] Spinach (cooked), rhubarb, beets, sweet potatoes, and Maldivian chard. ? Peanuts. ? Potato chips, vietnamese fries, and baked potatoes with skin on. ? Nuts and nut products. ? Chocolate. ??? If you regularly take a diuretic medicine, make sure to eat at least 1 or 2 servings of fruits or vegetables that are high in potassium each day. These include: ? Avocado. ? Banana. ? Tom Green, prune, carrot, or tomato juice. ? Baked [...] fish oil, or vitamin B6. ??? Take snmf-qoi-beksvkw and prescription medicines only as told by your health (more content not included)... [facility] 09-22-2024 History of Presen t illness Narrative Images from the original note were not included. Ja Schwab is a 64 y.o. female presents with chief complaint of Annual Exam HPI: HPI As above. 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 She sees the dentist every [...] UNIT/ML liquid Place under the tongue. With [place] clobetasol (Temovate) 0.05 % ointment 1 application [...] Diagnosis Date ADHD (attention deficit hyperactivity disorder) ([facility]) 2009 Anxiety 2014? Benign neoplasm of colon Calculus in urethra Calculus of kidney and ureter Chronic nonalcoholic liver disease Disorder of liver Disorder of parathyroid gland, unspecified ([facility]) Diverticulitis 07/26/2023 Diverticulosis of colon (without mention of hemorrhage) Elevated hemoglobin ([facility]) 07/26/2023 Esophageal reflux Family history of colon cancer 09/18/2023 Flank pain 07/26/2023 Hearing loss of right ear, unspecified hearing loss type History of hysterectomy for benign disease 09/19/2023 Hydronephrosis Hydronephrosis 07/26/2023 Insomnia, unspecified Leiomyoma of uterus, unspecified Nocturia 09/19/2023 Osteopenia Osteoporosis (CMS/HCC) Unspecified Other psoriasis (CMS/HCC) Overweight (BMI 25.0-29.9) 07/26/2023 Parathyroid disorder ([facility]) Renal calculi 07/26/2023 Renal cyst, right S/P [...] 30 min Stress: Stress Concern Present (09/18/2023) [place] [employer] - Occupational Stress Questionnaire Feeling of Stress : To some extent Social Connections: Socially Integrated (09/18/2023) Social Connection and Isolation Panel [NHANES] Frequency of Communication with Friends and Family: More than three times a week Frequency of Social Gatherings with Friends and Family: More than three times a week Attends Voodoo Services: 1 to 4 times per year [...] Sep for wellness. documented in this encounter [facility] 08-11-2024 Telephone encounter Note Please let patient know urine culture is negative for infection. See how she's doing. If better she can continue abx until done. If not improved, should see urology. [facility] 08-11-2024 Miscellaneous Notes Please let patient know urine culture is negative for infection. See how she's doing. If better she can continue abx until done. If not improved, should see urology. documented in this encounter [facility] 08-07-2024 History of Presen t [...] UNIT/ML liquid Place under the tongue. With [place] clobetasol (Temovate) 0.05 % ointment 1 application [...] Diagnosis Date ADHD (attention deficit hyperactivity disorder) ([facility]) 2009 Anxiety 2014? Benign neoplasm of colon Calculus in urethra Calculus of kidney and ureter Chronic nonalcoholic liver disease Disorder of liver Disorder of parathyroid gland, unspecified ([facility]) Diverticulitis 07/26/2023 Diverticulosis of colon (without mention of hemorrhage) Elevated hemoglobin ([facility]) 07/26/2023 Esophageal reflux Family history of colon cancer 09/18/2023 Flank pain 07/26/2023 Hearing loss of right ear, unspecified hearing loss type History of hysterectomy for benign disease 09/19/2023 Hydronephrosis Hydronephrosis 07/26/2023 Insomnia, unspecified Leiomyoma of uterus, unspecified Nocturia 09/19/2023 Osteopenia Osteoporosis ([facility]) Unspecified Other psoriasis ([facility]) Overweight (BMI 25.0-29.9) 07/26/2023 Parathyroid disorder ([facility]) Renal calculi 07/26/2023 Renal cyst, right S/P [...] 30 min Stress: Stress Concern Present (09/18/2023) [place] [employer] - Occupational Stress Questionnaire Feeling of Stress : To some extent Social Connections: Socially Integrated (09/18/2023) Social Connection and Isolation Panel [NHANES] Frequency of Communication with Friends and Family: More than three times a week Frequency of Social Gatherings with Friends and Family: More than three times a week Attends Voodoo Services: 1 to 4 times per year [...] wellness after 09/20. documented in this encounter [facility] 02-13-2024 Hospital Discharg e instructions [...] relieve pelvic muscle tension or spasms. Take jwdi-viq-zgrvrvz and prescription medicines only as told by [...] provider. Document Revised: 02/15/2022 Document Reviewed: 02/15/2022 [employer]Landing Patient Education 2022 Miraculins. Follow Up Care 12/19/2023 16:06:38 With:YUNIOR CHAPMAN, JER E, URL Address: [address] [place] [address] [phone] When: Unknown [facility] [place] 01-30-2024 Hospital Discharg e instructions Patient [...] nerve stimulation). ?For women, using a medical front desk coordinator to prevent urine leaks. This is a [...] right after experiencing incontinence. General instructions Take pvqe-upn-scavmpv and prescription medicines only as told by [...] important. Where to find more information National [place] of Diabetes and Digestive and Kidney Diseases: www.niddk.nih.gov [place] [employer]: www.urologyhealth.org Contact a health care [...] provider. Document Revised: 05/13/2021 Document Reviewed: 05/13/2021 [employer]Landing Patient Education 2022 Elsevier Inc. Follow Up Care 12/19/2023 16:04:38 With:[facility] [place] Address: [place] [address] Business (1) When: Unknown Comments:for procedure as scheduled [facility] [place] 01-23-2024 Hospital Discharg e instructions Patient Education [...] relieve pelvic muscle tension or spasms. Take zbxt-won-vfpdrsl and prescription medicines only as told by [...] provider. Document Revised: 02/15/2022 Document Reviewed: 02/15/2022 [employer]Landing Patient Education 2022 Miraculins. Follow Up Care 12/19/2023 16:03:24 With:YUNIOR CHAPMAN, JER Olmos, URL Address: [address] [place] [address] [phone] When: Unknown Comments:PFPT #4 on 01/30/24 [facility] 01-16-2024 Hospital Discharg e instructions Patient [...] relieve pelvic muscle tension or spasms. Take vyxe-gwu-wrdkqzg and prescription medicines only as told by [...] provider. Document Revised: 02/15/2022 Document Reviewed: 02/15/2022 [employer]Landing Patient Education 2022 Mir[employer]ulins. Follow Up Care 12/19/2023 16:01:49 With:YUNIOR CHAPMAN, JER Olmos, URL Address: [address] [place] [address] [phone] When: Unknown Comments:PFPT #3 on 01/23/24 [facility] [place] 01-09-2024 Hospital Discharg e instructions Patient [...] relieve pelvic muscle tension or spasms. Take iuhf-two-bbqgegu and prescription medicines only as told by [...] provider. Document Revised: 02/15/2022 Document Reviewed: 02/15/2022 [employer]Landing Patient Education 2022 Miraculins. Follow Up Care 12/19/2023 16:00:51 With:JER MOJICA PA-C, URL Address: [address] [place] [address] [phone] When: Unknown Comments:PFPT session #2 on 01/16/24 [facility] [place] 12-07-2023 Hospital Discharg e instructions Patient Education [...] provider. Document Revised: 02/16/2022 Document Reviewed: 02/16/2022 [employer]Landing Patient Education 2022 Mir[employer]ulins. Follow Up Care 12/08/2022 11:38:31 With:MANPREET BROWN, Inez Ruano, URL Address: [address] [place], [place] [id number]- When: Unknown [facility] [place] 11-19-2023 Evaluation note Encounter Date Diagnosis Assessment Notes Oct, Hiatal hernia (ICD-10 - K44.9) Oct, Hemorrhoids (ICD-10 - K64.9) Oct, Sigmoid diverticulosis (ICD-10 - K57.30) Patient advised to increase fiber intake. Patient was give a copy of the low fodmap diet. Oct, Diverticular disease (ICD-10 - K57.90) Rto 1 yr Oct, Tubular adenoma of colon (ICD-10 - D12.6) Repeat colonoscopy in 5 yrs. [facility]* Encounter Date Diagnosis [...] TWICE A DAY TO ONCE A DAY. [facility] Other 02-17-2023 Hospital Discharge instructions Patient Education 12/08/2022 11:23:14 Kidney Stones, Xpaq-zm-Bawp Kidney Stones Kidney stones are rock-like masses [...] Follow these instructions at home: Medicines Take rhau-phw-vxcgslh and prescription medicines only as told by [...] 03/26/2009 Document Revised: 02/24/2020 Document Reviewed: 02/24/2020 DocLanding Patient Education 2019 Miraculins. Follow Up Care 12/05/2021 13:35:38 With:MANPREET BROWN, Inez Ruano, URL Address: [address] [place] [phone]- When: Unknown [facility] 10-04-2022 Evaluation note* Encounter Date Diagnosis Assessment Notes Treatment Notes Treatment Clinical Notes Jul, Indigestion (ICD-10 - K30) [facility] Other 05-09-2022 Evaluation note* Encounter Date Diagnosis Assessment Notes Treatment Notes Treatment Clinical Notes February, Indigestion (ICD-10 - K30) PATIENT IS FOLLOWING THE FODMAP DIET AND THIS HAS HELPED. February, Irritable bowel syndrome with constipation (ICD-10 - K58.1) PATIENT STATES THAT THE TRULANCE WAS OVER $600 PATIENT IS USING THE FODMAP DIET AND PROBIOTICS. PATIENT GOES 2 DAYS WITHOUT A BOWEL MOVEMENT [facility] Other 03-16-2022 Evaluation note* Encounter Date Diagnosis Assessment Notes Treatment Notes Treatment Clinical Notes Dec, Indigestion (ICD-10 - K30) Continue Omeprazole without change Dec, Irritable bowel syndrome with constipation (ICD-10 - K58.1) Start Trulance 3mg daily - samples given to patient Start low fodmap diet - education given to patient [facility] Other 12-13-2021 Evaluation note* Encounter Date Diagnosis Assessment Notes Treatment Notes Treatment Clinical Notes Sep, Indigestion (ICD-10 - K30) PATIENT STATES HAVING BREAKTHROUGH PATIENT DOES CONTINUE ON THE OMEPRAZOLE 40 ONCE A DAY WILL INCREASE OMEPRAZOLE TO 40 TWICE A DAY [facility] Other Evaluation + Plan note Future Appointments Appointment Date:12/07/2023 10:45:00 AM Scheduled Provider:Inez JONES MD Location:[facility] Appointment Type:URO Office Visit [facility] evaluation + Plan note Future Appointments Appointment Date:12/05/2024 10:45:00 AM Scheduled Provider:Inez JONES MD [facility] Type:URO Office Visit [facility] evaluation + Plan note Future Appointments Appointment Date:01/16/2024 01:00:00 PM Scheduled Provider:JER MOJICA PA-C Location:[facility] [place] Appointment Type:URO Procedure 30 min Appointment Date:01/23/2024 01:00:00 PM Scheduled Provider:JER MOJICA PA-C Location:[facility] [place] Appointment Type:URO Procedure 30 min Appointment Date:01/30/2024 01:00:00 PM Scheduled Provider:JER MOJICA PA-C Location:[facility] Appointment Type:URO Procedure 30 min Appointment Date:02/06/2024 01:00:00 PM Scheduled Provider:JER MOJICA PA-C [facility] Type:[facility]O Procedure 30 min Appointment Date:02/13/2024 01:00:00 PM Scheduled Provider:JER MOJICA PA-C [facility] App[facility] Type:URO Procedure 30 min Appointment Date:12/05/2024 10:45:00 AM Scheduled Provider:Inez JONES MD [facility] App[facility] Type:URO Office Visit [facility] evaluation + Plan note Future Appointments Appointment Date:01/23/2024 01:00:00 PM Scheduled Provider:JER MOJICA PA-C Location:[facility] Appointment Type:URO Procedure 30 min Appointment Date:01/30/2024 01:00:00 PM Scheduled Provider:JER MOJICA PA-C [facility] App[facility] Type:URO Procedure 30 min Appointment Date:02/06/2024 01:00:00 PM Scheduled Provider:JER MOJICA PA-C [facility] Appointment Type:URO Procedure 30 min Appointment Date:02/13/2024 01:00:00 PM Scheduled Provider:JER MOJICA PA-C [facility] App[facility] Type:URO Procedure 30 min Appointment Date:12/05/2024 10:45:00 AM Scheduled Provider:Inez [facility]ONES MD [facility] Type:[facility]O Office Visit [facility] evaluation + Plan note Future Appointments Appointment Date:01/30/2024 01:00:00 PM Scheduled Provider:JER MOJICA PA-C [facility] Appointment Type:URO Procedure 30 min Appointment Date:02/06/2024 01:00:00 PM Scheduled Provider:JER MOJICA PA-C [facility] Appointment Type:URO Procedure 30 min Appointment Date:02/13/2024 01:00:00 PM Scheduled Provider:JER MOJICA PA-C Location:[facility] Appointment Type:URO Procedure 30 min Appointment Date:12/05/2024 10:45:00 AM Scheduled Provider:Inez JONES MD [facility] App[facility] Type:URO Office Visit [facility] Evaluation + Plan note Future Appointments Appointment Date:02/13/2024 01:00:00 PM Scheduled Provider:JER MOJICA PA-C [facility] App[facility] Type:URO Procedure 30 min Appointment Date:12/05/2024 10:45:00 AM Scheduled Provider:Inez JONES MD [facility] App[facility] Type:URO Office Visit [facility] Evaluation + Plan note Future Appointments Appointment Date:12/07/2025 11:15:00 AM Scheduled Provider:Inez JONES MD Location:[facility] Appointment Type:URO Office Visit [facility] evaluation note* Diagnosis Onset Date Resolution Status Family history of colon canc er requiring screening colonoscopy [facility] Work Phone: Evalutxymb noteNo [place] [facility] Other Evaluation note* Diagnosis Dysuria- Primary Urine [...] unspecified hemorrhoid type documented in this encounter [facility] HealthcareEvaluation noteNo assessment information [facility] Work Phone: Evaluation note* Diagnosis Vaginal dryness, menopausal- Primary Osteoporosis, post-menopausal ([facility]) Senile osteoporosis Postmenopausal Asymptomatic postmenopausal status (age-related) (natural) Constipation, unspecified constipation type Screening breast examination Other screening breast examination Hx of hysterectomy for benign disease Hx of BSO (bilateral salpingo-oophorectomy) documented in this encounter [facility] HealthcareEvaluation note* Diagnosis Dysuria- Primary Acute cystitis with hematuria documented in this encounter [facility] HealthcareHistory general Narrative - Reported* Type Description Date Medical History GERD Medical History kidney stones Surgical History hysterectomy Surgical History lithotripsy Surgical History kidney stone Surgical History cystoscopy Surgical History colonoscopy Hospitalization History ABOVE [facility] Other Hospital course Narrative No data available for this section [facility] Hospital Discharge instructions Additional Instructions DISCHARGE INSTRUCTIONS [...] if you have any problems. -Office number [phone] Work Phone: Hospital Discharge instructions No data available for this section [facility] Progress note No data available for this section [facility] Summary Purpose Family History No Family History [...] section and content) DATE CREATED AUTHOR 07/26/2022 [facility] dical Specialist DATE CREATED AUTHOR AUTHOR'S ORGANIZ ATION 12/11/2022 [facility] pital DATE CREATED AUTHOR AUTHOR'S ORGANIZ ATION 11/30/2023 [facility] DATE CREATED AUTHOR AUTHOR'S ORGANIZ ATION 07/04/2025 [facility] EPIC DATE CREATED AUTHOR AUTHOR'S ORGANIZ ATION 07/10/2025 [facility] Patient Care team informatio n (unrecognized section and content) Team Status: Active Member Role Status Dates Glenna Keita MD Primary Care Provider Active Team Status: Inactive Member Role Status Dates Glenna Keita MD Primary Care Provider Active Andrea Gunter MD Attending Provider Active Cad Technician Relationship Specialty Start Date End Date Glenna Keita MD [address] [place] [address] PCP - General Family Medicine 02/27/23 Cad Technician Relationship Specialty Start Date End Date Glenna Keita MD [address] [place] [address] PCP - General Family Medicine 02/27/23 Cad Technician Relationship Specialty Start Date End Date Glenna Keita MD [address] [place] [address] PCP - General Family Medicine 02/27/23 Cad Technician Relationship Specialty Start Date End Date Glenna Keita MD [address] [place] [address] PCP - General Family Medicine 02/27/23 Cad Technician Relationship Specialty Start Date End Date Glenna Keita MD [address] [place] [address] PCP - General Family Medicine 02/27/23 Cad Technician Relationship Specialty Start Date End Date Glenna Keita MD [address] [place] [address] PCP - General Family Medicine 02/27/23 Team Status: Inactive Member Role Status Deysi Keita MD Primary Care Provider Active Start: November 18, 2024 End: November 18, 2024 Augustus Hill MD Attending Provider Active S tart: November 18, 2024 End: November 18, 2024 Cad Technician Relationship Specialty Start Date End Date Glenna Keita MD [address] [place] [address] PCP - General Family Medicine 02/27/23 Cad Technician Relationship Specialty Start Date End Date Glenna Keita MD [address] [place] [address] PCP - General Family Medicine 02/27/23 Cad Technician Relationship Specialty Start Date End Date Rene Lynch MD [address] [place] [address] PCP - General Family Medicine 07/01/25 Cad Technician Relationship Specialty Start Date End Date Rene Lynch MD [address] [place] [address] PCP - General Family Medicine 07/01/25 Goals [...] BE BASED ON THE PRIMARY CLINICAL RECORDS. [facility]. provides no warranty or guarantee of the accuracy or completeness of information in this document.
--- OUTSIDE RECORDS SUMMARY | 2025-08-19 11:01 | XMS_ITS | Encounter Summary ---
Author Organization [facility] Address [address] [place] [address] Care Team Providers Care Rate Examiner Name Role Phone Glenna Keita MD Primary Care Provider [phone] Rene Roberts MD Primary Care Provider [phone] Encounter Details DateTypeDepartmentCare Team (Latest Contact Info)Qtnefdlpauv87/15/2024Clinisync Result Encounter [facility] Unsolicited Provider, Generic External Data Social History Tobacco UseTypesPacks/DayYears UsedDateSmoking Tobacco: FormerCigarettes0.323.5 10/22/1981 - 04/10/2005Passive Smoke Exposure: PastSmokeless Tobacco: Never Comments:Social smoker Alcohol UseStandard Drinks/WeekCommentsYes2 (1 standard drink = 0.6 oz pure alcohol)If at allHumiliation, Afraid, Rape, and Kick questionnaireAnswerDate RecordedWithin the last year, have you been afraid of your partner or ex-partner?No09/18/2023Within the last year, have you been humiliated or emotionally abused in other ways by your partner or ex-partner?No09/18/2023 Within the last year, have you been kicked, hit, slapped, or otherwise physically hurt by your partner or ex-partner?No09/18/2023Within the last year, have you been raped or forced to have any kind of sexual activity by your part ner or ex-partner?No09/18/2023Social Connection and Isolation PanelAnswerDate RecordedIn a typical week, how many times do you talk on the phone with family, friends, or neighbors?More than three times a week09/18/2023How often do you get together with friends or relatives?More than three times a week09/18/2023How often do you attend baptism or tenriism services?1 to 4 times per year09/18/2023 Do you belong to any clubs or organizations such as baptism groups, unions, fraternal or athletic groups, or school groups?No09/18/2023How often do you attend meetings of the clubs or organizations you belong to?1 to 4 times per year09/18/2023re you , , , , never , or living with a partner?Qaibmkz5909/18/2023UDIT-CAnswerDate RecordedQ1: How often do you have a drink containing alcohol?Monthly or less09/18/2023Q2: How many drinks containing alcohol do you have on a typical day when you are drinking?1 or Q3: How often do you have six or more drinks on one occasion?Never 09/18/2023Overall Financial Resource Strain (CARDIA)AnswerDate RecordedHow hard is it for you to pay for the very basics like food, housing, medical care, and heating?Not hard at all09/18/2023[facility] - Occupational Stress QuestionnaireAnswerDate RecordedDo you feel stress - tense, restless, nervous, or anxious, or unable to sleep at night because yourmind is troubled all the time - these days?To some nhijds4909/18/2023Exercise Vital Sign AnswerDate RecordedOn average, how many days per week do you engage in moderate to strenuous exercise (like a brisk walk)?2 days09/18/2023On average, how many minutes do you engage in exercise at this level?30 min09/18/2023Hunger Vital SignAnswerDate RecordedWithin the past 12 months, you worried that your food would run out before you got the money to buymore.Never true09/18/2023Within the past 12 months, the food you bought just didn't last and you didn't have money to get more.Never true09/18/2023RAPARE - TransportationAnswerDate RecordedIn the past 12 months, has lack of transportation kept you from medical appointments or from getting medications?No09/18/2023In the past 12 months, has lack of transportation kept you from meetings, work, or from getting things needed for daily living?No09/18/2023Housing Stability Vital SignAnswerDate RecordedIn the last 12 months, was there a time when you were not able to pay the mortgage or rent on time?No09/18/2023In the last 12 months, how many places have you lived?In the last 12 months, was there a time when you did not have a steady place to sleep or slept in bastianelter (including now)?No 09/18/2023CommentsUnknownSex and Gender InformationValueDate RecordedSex Assigned at JuvyiLvhghs90/04/2023 12:41 PM EDTLegal MiyQqldwp93/15/2023 6:34 PM EDTGender XpjfovsiNpcgdf15/04/2023 12:41 PM EDTSexual OrientationNot on file documented as of this encounter Plan of Treatment DateTypeDepartmentCare Team (Latest Contact Info)Sxsvgofqopt85/28/2026 9:45 AM EDTOffice Visit [facility]BB[facility] [address] [place] D [address] [address] Kamala Hines DO [address] [address] documented as of this encounter Procedures Procedure NamePriorityDate/TimeAssociated DiagnosisCommentsXR ABDOMEN 1V 12/06/2023 10:55 AM EST documented in this encounter Results * XR ABDOMEN 1V (12/06/2023 10:55 AM EST)Anatomical RegionLateralityModality OtherSpecimen (Source)Anatomical Location / LateralityCollection Method / VolumeCollection TimeReceived Time12/06/2023 10:55 AM EST Narrative 12/06/2023 10:57 AM EST [facility] ?[address] ? [place] [address] ?XRay Report ? Signed ? Patient: SHAWNA,JA A ?MR#: [id number] ?? : 1960 ?Acct:[id number] ?? Age/Sex: 63 / F ?ADM Date: 02/15/24 ?? Loc: RAD ? Attending Dr: Andres Case M.D. ? Ordering Physician: Andres Case M.D. ?? Date of Service: 12/06/23 ?? Procedure(s): XR abdomen 1V ?? Accession Number(s): [id number] ? cc: GLENNA KEITA ; Andres Case M.D. ? [facility] ? [address] [facility] ? [place] [address] ? Patient Name: ?? JA SCHWAB ? MRN: [facility]:[id number] ? date: 1960 ?Sex: F ?? Assigned Patient Location: RAD ?? Current Patient Location: RAD ?? Accession/Order Number: [id number] ?? Exam Date: 12/06/2023 ??10:35 ?Report Date: 12/06/2023 ??10:55 ? At the request of: ?? ANDRES ??MANPREET ? Procedure: ??XR abdomen 1V ? EXAMINATION: XR abdomen 1V ? HISTORY: Kidney Stone N20.0 ? COMPARISON: No relevant comparison available. ? FINDINGS: ?? KIDNEY/URETER - RIGHT: No visible renal or ureteral calcifications. ?? KIDNEY/URETER - LEFT: No visible renal or ureteral calcifications. ?? PELVIS: No visible ureteral stones. Stable pelvic calcifications compatible ?? with phleboliths. ? BOWEL: No abnormal dilation or deviation. ?? BONES: No acute abnormality. ?? OTHER: Negative. No abnormal gaseous collections. ? XR/XR abdomen 1V ?? IMPRESSION: ? 1. No appreciable urinary tract calculi. ? Electronically authenticated by: JOSUÉ ??ZACHERY ?? Date: 12/06/2023 ??10:55 ? Dictated By: ?Josué Hinojosa M.D. ? Signed By: ?12/06/23 1057 ? DD/ 1055 ? TD/TT: ? Dance Hall Hostess: Procedure Note Radiology, Radiologist, MD - 12/06/[address] [address] XRay Report Signed Patient: JA SCHWAB AMR#: [id number] : 1960Acct:[id number] Age/Sex: 63 / FADM Date: 12/06/23 Loc: RAD Attending Dr: Andres Case M.D. Ordering Physician: Andres Case M.D. Date of Service: 12/06/23 Procedure(s): XR abdomen 1V Accession Number(s): [id number] cc: GLENNA KEITA ; Andres Case M.D. [place] [id number] Patient Name: JA SCHWAB MRN: [id number] date: 1960 Sex: F Assigned Patient [facility]: [facility] Current Patient Location: RAD Accession/Order Number: [id number] Exam Date: 12/06/2023 10:35 Report Date: 12/06/2023 10:55 At the request of: ANDRES CASE Procedure: XR abdomen 1V EXAMINATION: XR [...] M.D. Signed By:12/06/23 1057 DD/ 1055 TD/TT: Dance Hall Hostess: Authorizing ProviderResult TypeResult StatusGeneric External Data Provider [facility]NC IMAGINGFinal Result documented in this encounter Visit Diagnoses Not on filedocumented in this encounter Care Teams Team MemberRelationshipSpecialtyStart DateEnd Date Glenna Keita MD PCP - GeneralFamily Medicine Rene Roberts MD [address] [place] [address] PCP - GeneralFamily Medicine07/01/25documented as of this encounter
--- OUTSIDE RECORDS SUMMARY | 2025-08-19 11:01 | XMS_ITS | Clinical Summary ---
Author Organization [facility] Healthcare [address] [place] [address] Care Team Providers Care Front Desk Manager Name Role Phone Rene Roberts MD Primary Care Provider [phone] Allergies Active AllergyReactionsCriticalityNoted SsngPstgqjbqFwqjgjuwmtfxcjyk61/21/2020 Other Reaction(s): Swelling of Lip/Tongue/Throat Sulfamethoxazole-CotzjnryzateVgsnl32/05/1368Uhmbzbmvobhn89/21/2020 Other Reaction(s): Swelling of Lip/Tongue/Throat Medications MedicationSigDispense QuantityRefillsLast FilledStart DateEnd DateStatus ALPRAZolam (Xanax) 0.25 MG tablet Take 1 tablet by mouth Daily as needed for anxiety.12/08/2022ctive clobetasol (Temovate) 0.05 % ointment Apply 1 application topically in the morning and 1 application before bedtime. 05/02/2023ctive estradiol (Estrace) 0.1 MG/GM vaginal cream Insert 0.5 g into the vagina 2 (two) times a weekActive hydroCHLOROthiazide (HYDRODiuril) 25 MG tablet Take 1 tablet by mouth in the morning.Active Klor-Con/EF 25 MEQ effervescent tablet Take 1 tablet by mouth in the morning.07/16/2023ctive amphetamine-dextroamphetamine XR (Adderall XR) 20 MG 24 hr capsule Take 1 capsule by mouth in the morning. Do not crush or chew. .Active Alum Hydroxide-Mag Trisilicate (Gaviscon) 80-14.2 MG chewable tablet Chew.Active Cholecalciferol (Vitamin D-3) 5000 UNIT/ML liquid Place under the tongue. With OmegaActive lactase (Lactaid) 3000 units tablet Take 3,000 Units by mouth if neededActive omeprazole (PriLOSEC) [address] capsule Take 20 mg by mouth Daily11/18/2024tive Active Problems ProblemNoted DateDiagnosed DateUlcerative colitis with bnwalzlzhibm84/02/2024 Post-void ltentvwmg12/29/2023Urge ipjcbbrxaqnp34/29/2023Straining to void 09/19/2023Urinary ixoklab5809/19/2023Hiatal epmsqm1109/18/2023 Overview (09/18/2023): Per EGD 08/2023, small ADD (attention deficit disorder) without rlshkdxugcpld21/05/2023nxiety, /05/2023olon polyp07/26/20234270Pkywjylagsovya85/05/2023ERD (gastroesophageal reflux disease)07/26/2023Fatty liver07/26/2023Insomnia 07/26/20239447Dkrrftyemo44/05/0442Gvjjkrsto01/05/2023Simple renal cyst07/26/2023 Vitamin D jzuxjpozib98/05/2023 Resolved Problems ProblemNoted DateDiagnosed DateResolved DateHistory of hysterectomy for benign bsyulhi69NocturiaSmoking hx09/19/2023 09/20/2023Suprapubic painFamily history of colon cancer Elevated ivonqyiwln75Flank pain07/26/2023 09/20/20236150Yfkddpcdqwpdiy61ross ccibiiqvl62 Overweight (BMI 25.0-29.9)Renal aoqalsg57 Tqtnnzonoieaaa95 Encounters DateTypeDepartmentCare UvnaLlbhxihtrke02/11/2025 11:40 AM EDTOffice Visit [facility] [address] [place] [address] Rene Roberts MD Dysuria (Primary Dx); Acute cystitis with cnnseqidq79/11/2025amboo flowsheet [facility] [address] [place] [id number] Rene Roberts MD 07/02/2025Travelfrom Last 3 Months Immunizations ImmunizationAdministration DatesNext DueInfluenza, injectable, MDCK, preservative free, ydecavfwuxon14/23/2019Influenza, injectable, quadrivalent 07/05/2021Influenza, injectable, quadrivalent, preservative free09/20/2023, 11/05/2018,09/28/2015Janssen AXPC-AiO-478/1Pfizer Purple Cap SARS-CoV-2 Dttdxmwhhek83/22/8332Mygq17/17/2013 Family History Medical HistoryRelationNameCommentsAccidental deathBrother 1Benjamin HahnAlcohol abuseBrother 1Benjamin HahnDrug abuseBrother 1Benjamin HahnColon cancerBrother 2 Jonnie Adams Jr.Early natural deathBrother 2Johjeanette Adams Jr.Alcohol abuseFather Jonnie Adams JackDepressionFatherJojeanie GonzalezDiabetesFatherJojeanie GonzlaezEsophageal cancerFatherJojeanie ENelson GonzalezHeart diseaseFatherJojeanie Gonzalez HypertensionFatherJojeanie GonzalezDementiaMaternal GrandfatherAlcohol abuse MotherEleanor HahnBreast cancerMotherEleanor HajeanieColon cancerMotherEleanor Bryan Crohn's diseaseMotherEleanor HajeanieDepressionMotherEleanor HajeanieColon cancerSibling Alcohol abuseSisterDeirdra HajeanieRelationNameStatusCommentsBrother 1Benjamin Hajeanie2 Brother 2Johjeanette Adams Jr.FatherJojeanie GonzalezDeceasedMaternal Grandfather DeceasedMaternal GrandmotherDeceasedMotherEleanor BryanAlivePaternal Grandfather DeceasedPaternal GrandmotherDeceasedSiblingSisterDeirdrherminia Hahn2 Social History Tobacco UseTypesPacks/DayYears UsedDateSmoking Tobacco: FormerCigarettes0.323.5 10/22/1981 - 04/10/2005Passive Smoke Exposure: PastSmokeless Tobacco: Never Tobacco Cessation:Counseling Given: Not Answered Comments:Social smoker Alcohol UseStandard Drinks/WeekCommentsNot Currently0 (1 standard drink = 0.6 oz pure alcohol)If at allHumiliation, Afraid, Rape, and Kick questionnaireAnswer Date RecordedWithin the last year, have you been afraid of your partner or ex-partner?No09/18/2023Within the last year, have you been humiliated or emotionally abused in other ways by your partner or ex-partner?No09/18/2023 Within the last year, have you been kicked, hit, slapped, or otherwise physically hurt by your partner or ex-partner?09/18/2023Within the last year, have you been raped or forced to have any kind of sexual activity by your part ner or ex-partner?09/18/2023Social Connection and Isolation PanelAnswerDate RecordedIn a typical week, how many times do you talk on the phone with family, friends, or neighbors?More than three times a week09/18/2023How often do you get together with friends or relatives?More than three times a week09/18/2023How often do you attend mormonism or restoration services?1 to 4 times per year09/18/2023 Do you belong to any clubs or organizations such as mormonism groups, unions, fraternal or athletic groups, or school groups?No09/18/2023How often do you attend meetings of the clubs or organizations you belong to?1 to 4 times per year09/18/2023re you , , , , never , or living with a partner?Grsyhkd5309/18/2023UDIT-CAnswerDate RecordedQ1: How often do you have a drink containing alcohol?Monthly or less09/18/2023Q2: How many drinks containing alcohol do you have on a typical day when you are drinking?1 or 211/28/2023Q3: How often do you have six or more drinks on one occasion?Never 09/18/2023Overall Financial Resource Strain (CARDIA)AnswerDate RecordedHow hard is it for you to pay for the very basics like food, housing, medical care, and heating?Not hard at all09/18/2023[facility] [place] of Occupational [facility] - Occupational Stress QuestionnaireAnswerDate RecordedDo you feel stress - tense, restless, nervous, or anxious, or unable to sleep at night because yourmind is troubled all the time - these days?To some wutweo9609/18/2023Exercise Vital Sign AnswerDate RecordedOn average, how many [...] steady place to sleep or slept in ashelter (including now)?No 09/18/2023CommentsNoSex and Gender InformationValueDate RecordedSex Assigned at AlznlKuotoh43/04/2023 12:41 PM EDTLegal JgfPaalgk62/15/2023 6:34 PM EDTGender YkuupljjZgovkt40/04/2023 12:41 PM EDTSexual OrientationNot on file Last Filed Vital Signs Vital SignReadingTime TakenCommentsBlood Qtwbbvqw163/6809 11:49 AM EDT Apjfj5088 11:49 AM LGFRnvcsbkhaox19.4 ??C (97.5 ??F)07/02/2025 11:49 AM EDTRespiratory Rate--Oxygen Ibwwgcaobw07%07/02/2025 11:49 AM EDTInhaled Oxygen Concentration--Pcqdnf41.7 kg (142 lb 9.6 oz)07/02/2025 11:49 AM QMYMluhcb594.2 cm (5' 4.25 )07/02/2025 11:49 AM EDTBody Mass Index24.29007/02/2025 11:49 AM EDT Plan of Treatment DateTypeDepartmentCare Team (Latest Contact Info)Ffmtgzohzet49/28/2026 9:45 AM EDTOffice Visit [facility] [place] [address] [place] [address] [address] Kamala Hines DO [address] [address] Health MaintenanceDue DateLast DoneCommentsCT Vgloughkuhjp1960FIT-DNA 1960FIT1960FOBT1960 6125Nnmczgtuhfsey1960Pneumococcal Vaccine: 65+ Years (1 of 1 - PCV)02/24/2010Influenza Vaccine (#1)2025 09/20/2023, 07/05/2021, 09/13/2019, Additional history existsMedicare Annual Wellness (AWV), 03/12/2024, 09/20/20233110Wprftzxpv97/21/2026 05/11/2025, 11/10/2024, 11/06/2024, Additional history existsColonoscopy , 07/13/2020, 10/25/2015Colorectal Cancer Screening 09/18/2033HPV/MquryeRgewbbzitary84/30/2020Cervical Cancer ScreeningDiscontinued Pap JcjmxFgzgkyypqxjz53/19/2023, 09/19/2022 Procedures Procedure NamePriorityDate/TimeAssociated DiagnosisCommentsCULTURE, URINE, HKZRJMTFekmpcx87/11/2025 12:31 PM EDT Dysuria POCT URINALYSIS DGRSNPHJUemwgty46/11/2025 11:56 AM EDT Dysuria BI MAMMOGRAM DIAGNOSTIC TOMOSYNTHESIS IFHFDbqetas11/21/2025 10:55 AM EDT Mammogram abnormal HM RVGYJDRJNJAQydslkw97/28/2023 5:00 PM ESTTHINPREP TIS PAP AND HPV MRNA E6/E7 REFLEX HPV 16,18/45 ([id number])Kshtvaq2202/07/2023 Q - THINPREP(R) TIS W/RFL HPV MRNA E6/H9Exovywi40/30/2020 from Last 3 Months or Most Recently Relevant to Health Maintenance Results * (ABNORMAL) Urine culture (clean catch) (07/02/2025 12:31 PM EDT)ComponentValue Ref RangeTest MethodAnalysis TimePerformed AtPathologist SignatureMICRO NUMBER [id number] QUALITYAdequateQUESTSOURCE: (QUEST)URINEQUESTSTATUSFINAL QUESTISOLATE 1SEE NOTE(A)QUESTComment: 10,000-49,000 CFU/mL of Group B Streptococcus isolated Beta-hemolytic streptococci are predictably susceptible to Penicillin and other beta-lactams. Susceptibility testing not routinely performed. Please contact the laboratory within 3 days if susceptibility testing is desired. Erythromycin and clindamycin are not recommended for treatment of urinary tract infections, but clindamycin may be useful for treatment of rectovaginal colonization or infection. Specimen (Source)Anatomical Location / LateralityCollection Method / Volume Collection TimeReceived TimeUrineUrine specimen obtained by clean catch procedure / Napgapf6207/02/2025 12:31 PM EDT07/02/2025 12:32 PM EDT Narrative Resulting Agency Comment Performing Organization Information ?Site ID: [id number] ?Name: [facility] ?Address: [facility] [place] , [address] [place] [id number] ?Director: Man So MD Authorizing ProviderResult TypeResult Latonya Roberts MDLAB MICROBIOLOGY - GENERAL ORDERABLESFinal ResultPerforming OrganizationAddressCity/State/ZIP Code Phone Number [facility] * POCT Urinalysis dipstick (07/02/2025 11:56 AM EDT)ComponentValueRef RangeTest MethodAnalysis TimePerformed AtPathologist SignatureColor, UAYellowClarity, UA ClearGlucose, UANegativeNegative - 2000(110) ++++ mg/dLBilirubin, UANegative Negative - 4(70) +++ mg/dLKetones, UANegativeNegative - 160(16) ++++ mg/dLSpec Grav, UA1.0151 - 1.03Blood, UAPositiveNegative - 50 Douglas/mcLpH, UA5.05 - 9 Protein, UATraceNegative - 2000(20) ++++ mg/dLUrobilinogen, UA0.20.2 - 12 mg/dLLeukocytes, UAPositiveNegative - 500+++ Nuno/mcLNitrite, UANegative Negative - PositiveSpecimen (Source)Anatomical Location / LateralityCollection Method / VolumeCollection TimeReceived PlkbJextt24/11/2025 11:56 AM EDT Narrative Authorizing ProviderResult TypeResult Latonya Roberts MDPOINT OF CARE TEST ENTER/EDIT ORDERABLESFinal Result * Left diagnostic mammogram with tomosynthesis (05/11/2025 10:55 AM EDT) Anatomical RegionLateralityModalityBreastLeftMammographySpecimen (Source) Anatomical Location / LateralityCollection Method / VolumeCollection Time Received Time05/11/2025 2:13 PM EDT Impressions 05/11/2025 2:27 PM [...] ultrasound in 6 months Board Certified Radiologists. ??Accredited by the ACR and FDA. MAMMOGRAPHY IS VERY IMPORTANT TO YOUR HEALTH. ??THE [place] [employer] GUIDELINES RECOMMEND THAT WOMEN 40 YEARS OF AGE AND OLDER SHOULD HAVE A MAMMOGRAM EVERY YEAR. A REMINDER LETTER WILL BE SENT AT THE APPROPRIATE TIME. ?? ELECTRONICALLY SIGNED BY: Raul Keith M.D. Narrative 05/11/2025 2:27 PM EDT EXAMINATION: BI MAMMOGRAM DIAGNOSTIC TOMOSYNTHESIS LEFT CLINICAL HISTORY: ??mammogram abnormal TECHNIQUE: Diagnostic digital mammogram study of the left breast was performed with 2D and 3D tomosynthesis imaging. Study was compared to the screening mammogram study of the breasts dated 11/06/2024, diagnostic mammogram study of the left breast dated 11/10/2024, ultrasound study of the left breastdated 11/10/2024 and ultrasound study of the left breast dated 05/11/2025. FINDINGS: Coned-down compression views as well as true lateral view of the left breast were obtained. Previously noted 9 x 6 mm asymmetric density in the superomedial aspect of the left breast is notconvincingly demonstrated on the true lateral view and [...] with the area though difficult to say withcertainty. When correlating all studies no convincing evidence of neoplasm. A few small benign-appearing asymmetric densities appear similar to the prior studies. Axillary lymph nodes are noted which appear grossly unremarkable. Authorizing ProviderResult TypeResult StatusMona J Nataprawira DOIMG BI PROCEDURESFinal Result * Hm Colonoscopy (09/18/2023 5:00 PM EST)Anatomical RegionLateralityModality Other Narrative Authorizing ProviderResult TypeResult StatusGlenna Hui MDGLENBEIGH H[facility] MAINTENANCE Final Result * THINPREP TIS PAP AND HPV MRNA E6/E7 REFLEX HPV 16,18/45 ([id number]) (02/07/2023) ComponentValueRef RangeTest MethodAnalysis TimePerformed AtPathologist SignatureCLINICAL INFORMATION:None givenNOMS LEGACY EXTERNAL LABLMP:NONE GIVEN NOMS LEGACY EXTERNAL LABPREV. PAP:NONE GIVENNOMS LEGACY EXTERNAL LABPREV. BX: NONE GIVENNOMS LEGACY EXTERNAL LABSOURCE:VaginaNOMS LEGACY EXTERNAL LAB STATEMENT OF ADEQUACY:SATISFACTORY FOR EVALUATIONNOMS LEGACY EXTERNAL LAB INTERPRETATION/RESULT:SEE COMMENTNOMS LEGACY EXTERNAL LABComment: Negative for intraepithelial lesion or malignancy. Atrophic pattern; predominantly parabasal cells COMMENT:This Pap test has been evaluated with computer assisted technology.[facility] EXTERNAL LABCYTOTECHNOLOGIST:SEE COMMENTSee Note:[facility] Comment: Reference Range: ZL, CT(ASCP) CT screening location: [place] [address]. REVIEW UNCLAIMED PROPERTY MANAGER:SEE COMMENTNOMS LEGACY EXTERNAL LABComment: LLT, CT(ASCP) CT screening location: [facility] [place] [address]. COMMENTSEE COMMENTNOMS LEGACY EXTERNAL LABComment: EXPLANATORY NOTE: The Pap is a screening test for cervical cancer. It is not a diagnostic test and is subject to false negative and false positive results. It is most reliable when a satisfactory sample, regularly obtained, is submitted with relevant clinical findings and history, and when the Pap result is evaluated along with historic and current clinical information. HPV MRNA E6/E7Not DetectedNot DetectedNOMS LEGACY EXTERNAL LABComment: Methodology: Technical Assoc-Mediated Amplification This assay detects E6/E7 viral messenger RNA (mRNA) from 14 high-risk HPV types (16,18,31,33,35,39,45,51,52,56,58,59,66,68). Cervical sources are required for HPV testing. If a vaginal source from a patient who has had a total hysterectomy with removal of cervix was submitted, please contact the testing laboratory for alternative testing options. For additional information, please refer to http://education.[employer]ize [employer]/faq/JCJ129q7 (This link if provided for information/ educational purposes only.) Specimen (Source)Anatomical Location / LateralityCollection Method / Volume Collection TimeReceived Time02/07/2023 Narrative Authorizing ProviderResult TypeResult StatusKamala Tomlin DOCHONC PED[facility]RIC [facility] LABSFinal ResultPerforming OrganizationAddressCity/State/ZIP CodePhone Number [facility] * Q - THINPREP(R) TIS W/RFL HPV MRNA E6/E7 (07/21/2020)ComponentValueRef Range Test MethodAnalysis TimePerformed AtPathologist SignatureCLINICAL INFORMATION: None givenNOMS LEGACY EXTERNAL LABLMP:None givenNOMS LEGACY EXTERNAL LABPREV. PAP:None givenNOMS LEGACY EXTERNAL LABPREV. BX:None givenNOMS LEGACY EXTERNAL LABSOURCE:None givenNOMS LEGACY EXTERNAL LABSTATEMENT OF ADEQUACY:SEE NOTENOMS LEGACY EXTERNAL LABComment: Satisfactory for evaluation. Endocervical/transformation zone component present. INTERPRETATION/RESULT:Negative for intraepithelial lesion or malignancy.N[facility] LEGACY EXTERNAL LABCOMMENT:This Pap test has been evaluated with computer assisted technology.[facility] LEGAC[facility] EXTERNAL LABCYTOTECHNOLOGIST:SEE NOTENOMS LEGACY EXTERNAL LABComment: NEGRITA CT(ASCP) CT screening location: [facility] [place], [address] [place] [address]. COMMENTSEE NOTENOMS LEGACY EXTERNAL LABComment: EXPLANATORY NOTE: The Pap is a screening test for cervical cancer. It is not a diagnostic test and is subject to false negative and false positive results. It is most reliable when a satisfactory sample, regularly obtained, is submitted with relevant clinical findings and history, and when the Pap result is evaluated along with historic and current clinical information. Specimen (Source)Anatomical Location / LateralityCollection Method / Volume Collection TimeReceived Time07/21/2020 Narrative Authorizing ProviderResult TypeResult StatusGlenna Hui [facility] LABSFinal ResultPerforming OrganizationAddressty/State/ZIP CodePhone Number [facility] from Last 3 Months or Most Recently Relevant to Health Maintenance Insurance Care Teams Team MemberRelationshipSpecialtyStart DateEnd Date Rene Roberts MD [address] [place] [address] PCP - GeneralFamily Medicine07/01/25
[2025-08-19 15:23] LABS: Calcium 24 Hour Urine 172.8 mg/24hr (100.0-300.0); Creatinine 24 Hour Urine 1047.68 mg/24 hr (800.00-1800.00); Total Volume 24 Hour Urine 3200 mL/24hr
[2025-08-20 10:09] LABS: Magnesium, U 5.1 mg/dL (Not Estab.); Magnesium,Urine 24hr 163.2 mg/24 hr (12.0-293.0); Phosphorus, Urine 15.1 mg/dL (Not Estab.); Phosphorus,Urine 24h 483 mg/24 hr (261-1078); Uric Acid, Urine 12.2 mg/dL (Not Estab.); Uric Acid,Urine 24hr 390.4 mg/24 hr (142.3-713.2)
[2025-08-21 08:08] LABS: Citric Acid, U, 24hr 1552 mg/24 hr (320-1240); Citric Acid, Urine 485 mg/L (Undefined)
== END 2025-08-19 10:58 | disposition home or self-care (01) ==
LOC: LAB 10:57
PROVIDERS: Visit Provider Urology
DX: N20.0 Calculus of kidney (principal)
CPT/HCPCS: 36415; 82340; 82507; 82570; 83735; 83945; 84105; 84300; 84560